=== PATIENT | male | born 1955 | race Hispanic/Latino ===

== ENCOUNTER 2017-07-03 17:04 | Inpatient (IN) | payer MEDICARE ==
[2017-07-03 17:07] VITALS: BMI 27.6
[2017-07-03 17:18] LABS: BASO # 0.1 K/uL (0.0-0.2); EOS # 0.1 K/uL (0.0-0.7); EOS % 1.4 % (0.0-4.0); HEMOGLOBIN 15.4 g/dL (12.0-18.0); LYMPH # 1.4 K/uL (1.0-4.3); LYMPH % 12.5 % (20.0-40.0); MEAN CORPUSCULAR HEMOGLOBIN 27.8 pg (27.0-31.0); MEAN CORPUSCULAR HGB CONC 34.5 g/dL (33.0-37.0); MEAN PLATELET VOLUME 8.8 fL (7.2-11.7); NEUT # 8.3 K/uL (1.8-7.0); NEUT % 76.1 % (50.0-75.0); NRBC % 0.1 % (0.0-2.0); RBC 5.55 Mil/uL (4.40-5.90); RED CELL DISTRIBUTION WIDTH 13.9 % (11.5-14.5); WHITE BLOOD COUNT 10.9 K/uL (4.8-10.8)
[2017-07-03 17:21] LABS: MEAN CELL VOLUME 80.4 fL (80.0-94.0)
[2017-07-03 17:26] LABS: INR 1.1; PROTHROMBIN TIME 12.7 SECONDS (9.7-12.2)
[2017-07-03 17:34] LABS: ALB/GLOB RATIO 1.1 (1.0-2.1); ALBUMIN 3.9 g/dL (3.5-5.0); ALT/SGPT 29 U/L (21-72); AST/SGOT 34 U/L (17-59); BLOOD UREA NITROGEN 17 mg/dL (9-20); CALCIUM 8.5 mg/dl (8.6-10.4); GFR AFRICAN-AMERICAN > 60; GFR NON-AFRICAN AMERICAN > 60; HDL CHOLESTEROL 34 mg/dL (30-70)
--- NOTE | 2017-07-03 17:41 | RAD ---
HISTORY: Stroke ALERT COMPARISON: Comparison is made with 03/12/2023 FINDINGS: LUNGS: Small bibasilar opacities likely atelectasis. Otherwise no interval change .P PLEURA: No significant pleural effusion identified, no pneumothorax apparent. CARDIOVASCULAR: Normal. OSSEOUS STRUCTURES: No significant abnormalities. VISUALIZED UPPER ABDOMEN: Normal. OTHER FINDINGS: None. IMPRESSION: Small bibasilar opacities likely atelectasis. Otherwise no interval change.
[2017-07-03 17:46] LABS: LDL CHOLESTEROL 76 mg/dL (0-129)
--- NOTE | 2017-07-03 18:07 | C.PDOC ---
"History Of Present Illness Patient BIBA for evaluation of B/L worsening leg weakness, worse slurred speech since he woke up this morning. As per patient and family at bedside, he went to bed last night and felt fine. This morning he woke up around 8am and felt too weak to walk. He fell onto his B/L knees. Family noticed he was weaker than usual. 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 He took ASA 162 mg this morning. Time Seen by Provider: 07/03/17 17:10 Chief Complaint (Nursing): Weakness/Neurological Deficit History Per: Patient, Family (mother and sister) History/Exam Limitations: no limitations Onset/Duration Of Symptoms: Days (last seen normal last night) Current Symptoms Are (Timing): Still Present Fall Associated With With Symptoms: Yes, No Injury As Result Of Fall (right knee pain) Past Medical History Reviewed: Historical Data, Nursing Documentation, Vital Signs Vital Signs: Last Vital Signs Temp 98.6 F 07/03/17 17:07 Pulse 74 07/03/17 17:41 Resp 20 07/03/17 17:41 BP 188/105 H 07/03/17 17:41 Pulse Ox 94 L 07/03/17 18:36 - Medical History PMH: Alzheimer's Disease, CVA, Dementia, Depression, Gastrointestinal Ulcer, HTN , Hypercholesterolemia, Chronic Kidney Disease, TIA (multiple as per sister) - [facility] Procedures BATHING/SHOWERING TECHNIQUES TREATMENT (03/16/15) DRESSING TECHNIQUES TREATMENT (03/16/15) EXCISION OF TOE NAIL, EXTERNAL APPROACH (03/16/15) EXTRACTION OF LEFT FOOT SKIN, EXTERNAL APPROACH (05/04/15) HOME MANAGEMENT TREATMENT (03/16/15) SPEECH PATH SUPERVISOR SLATE SPLITTING TREATMENT (03/16/15) THERAPEUTIC EXERCISE TREATMENT OF MUSCULOSK WHOLE (03/16/15) Family History: States: Hypertension - Social History Hx Tobacco Use: No Hx Alcohol Use: No Hx Substance Use: No - Immunization History Hx Tetanus Toxoid Vaccination: No Hx Influenza Vaccination: No Hx Pneumococcal Vaccination: Yes Review Of Systems Except As Marked, All Systems Reviewed And Found Negative. Constitutional: Negative for: Fever, Chills Cardiovascular: Negative for: Chest Pain, Palpitations Respiratory: Negative for: Cough, Shortness of Breath Gastrointestinal: Negative for: Nausea, Vomiting, Abdominal Pain, Diarrhea Neurological: Positive for: Weakness (B/L leg weakness), Change in Speech. Negative for: Numbness, Incoordination, Confusion, Altered Mental Status, Headache, Dizziness Physical Exam - Physical Exam Appears: Well, Non-toxic, No Acute Distress Skin: Normal Color, Warm, Dry Head: Atraumatic, Normacephalic Eye(s): bilateral: Normal Inspection, PERRL, EOMI Oral Mucosa: Moist Cardiovascular: Rhythm Regular Respiratory: Normal Breath Sounds, No Rales, No Rhonchi, No Wheezing Gastrointestinal/Abdominal: Normal Exam, Bowel Sounds, Soft, No Tenderness Extremity: No Tenderness (right knee mild TTP, abrasion on patella), No Pedal Edema, No Calf Tenderness, No Deformity Pulses: Left Dorsalis Pedis: Normal, Right Dorsalis Pedis: Normal Neurological/Psych: Oriented x3, No Normal Speech (mildly slurred speech), Normal Cognition, No Normal Cranial Nerves, No Cerebellar Signs, No Normal Motor (4/4 motor strength RUE, RLE), Normal Sensation ED Course And Treatment - Laboratory Results Result Diagrams: 07/03/17 17:14 07/03/17 17:14 ECG: Interpreted By Me, Viewed By Me (sinus rhythm 78 bpm, first degree AV block , left axis deviation, Q waves III, aVF, no acute ST changes) ECG Interpretation: Abnormal O2 Sat by Pulse Oximetry: 94 (RA) Pulse Ox Interpretation: Normal - Other Rad CXR X-Ray: Viewed By Me, Read By Radiologist Interpretation: Accession No. : [id number]. Patient Name / ID : SONIA ALSON / [id number]. Exam Date : 07/03/2017 17:28:57 ( Approved ). Study Comment : Sex / Age : M / 62Y. Creator : Chelsea Wade MD. Dictator : Chelsea Wade MD. Platform Man : Antique Collector : Chelsea Wade MD. Approver2 : Report Date : 07/03/2017 17:39:41. My Comment : . HISTORY: Stroke ALERT. COMPARISON: Comparison is made with 03/12/2023. FINDINGS: LUNGS: Small bibasilar opacities likely atelectasis. Otherwise no interval change .P. PLEURA: No significant pleural effusion identified, no pneumothorax apparent. CARDIOVASCULAR: Normal. OSSEOUS STRUCTURES: No significant abnormalities. VISUALIZED UPPER ABDOMEN: Normal. OTHER FINDINGS: None. IMPRESSION: Small bibasilar opacities likely atelectasis. Otherwise no interval change. - CT Scan/US ct head Other Rad Studies (CT/US): Read By Radiologist, Radiology Report Reviewed CT/US Interpretation: Name: DORI SCOTT Age: 62Years M Date: 07/03/2017. Requesting Physician: MIRANDA PEÑA : 1955. [facility] Procedure Ordered As Accession Number of Images. CT HEAD WO CT HEAD W O CODE STROKE [id number]. Provided Clinical History: Code Stroke. Page 1 of 2. Addendum created by Gucci Horne MD on 07/03/2017 5:40 PM Eastern Time ([place] & [place]). THIS REPORT CONTAINS FINDINGS THAT MAY BE CRITICAL TO PATIENT CARE. The findings. were verbally communicated via telephone conference with MIRANDA PEÑA at 5:40 PM EST on. 07/03/2017. The findings were acknowledged and understood. Initial Report created on 07/03/2017 5:34 PM Eastern Time ([place] & [place]). EXAM: CT Head Without Intravenous Contrast. CLINICAL HISTORY: 62 years old, male; Signs and symptoms; Walking, difficulty; Additional info: Code stroke. TECHNIQUE: Axial computed tomography images of the head/brain without intravenous contrast. All CT scans at. this facility use one or more dose reduction techniques, viz.: automated exposure control; ma/kV. adjustment per patient size (including targeted exams where dose is matched to indication; i.e. head);. or iterative reconstruction technique. Coronal and sagittal reformatted images were created and reviewed. COMPARISON: CT - HEAD W/O (CODE STROKE) 2014-12-13 00:08. FINDINGS: Brain: There are multiple small hypodensities in the basal ganglia, consistent with remote lacunar. infarctions. Mild volume loss is seen in keeping with age. Mild decrease in attenuation of the. periventricular white matter likely related to small vessel ischemic change. The brain otherwise with. normal beal-white matter differentiation, demonstrating no edema, mass effect, acute hemorrhage, or. focal mass. Ventricles: Unremarkable. No ventriculomegaly. Bones/joints: Unremarkable. No acute fracture. MARI SCOTTJj | Preliminary Radiology Report. BUSINESS APPLICATIONS SPECIALIST (QA) DISCREPANCY? If there is a discrepancy between the preliminary and final interpretation, please notify [facility] via [email or web address]. If you do not have access to our QA portal, call our QA team at [phone]. CONFIDENTIALITY STATEMENT. This report is intended only for the use of the referring physician, and only in accordance with law, If you received this in error, call [phone]. Page 2 of 2. Soft tissues: Unremarkable. Sinuses: Small retention cysts left maxillary sinus. Mastoid air cells: Unremarkable as visualized. No mastoid effusion. IMPRESSION: There is mild atrophy and chronic white matter ischemic changes, with no evidence of an acute. intracranial abnormality. Multiple foci of small chronic lacunar infarction bilaterally. Small retention cysts left maxillary sinus. Thank you for allowing us to participate in the care of your patient. Dictated and Authenticated by: Gucci Horne MD. 07/03/2017 5 :34 PM Eastern Time ([place] & [place]) Progress Note: Blood work, EKG, CXR, CT head ordered and reviewed. Patient given PO ASA 162 mg. - Physician Consult Information Physician Contacted: Paige Hendricks Outcome Of Conversation: Discussed patient with hospitalist Dr. Hendricks, agrees with admission for TIA vs CVA, requests admission be under night hospitalist Dr. Shaffer's name. Dr. Bowen consult entered for neurology. NIHSS Stroke Scale - Date/Time Evaluation Performed Date Performed: 07/03/17 Time Performed: 17:05 When Was NIHSS Performed: Baseline - How Severe is the Stoke Level of Consciousness: 0=Alert LOC to Questions: 0=Both comments correct LOC to commands: 0=Obeys both correctly Best Gaze: 0=Normal Visual: 0=No visual loss Facial: 0=Normal Motor Arm - Left: 0=No drift Motor Arm - Right: 0=No drift Motor Leg - Left: 0=No drift Motor Leg - Right: 0=No drift Limb Ataxia: 0=Absent Sensory: 0=Normal Best Language: 0=No aphasia Dysarthia: 1=Mild to moderate slurring Extinction & Inattention (Neglect): 0=Normal, no object Score: 1 rTPA Inclusion/Exclusion - Refusal of Treatment Patient Refused Treatment: No - Inclusion Criteria for Altepase Patient is 18 years or Older: Yes The Clinical Diagnosis of Ischemic Stroke That is Causing a Potentially Disabling Neurological Deficit: Yes Time of Onset is Well Established to be Less Than 270 Minute Before Treatment Would Begin: No Risk/Benefit Discussed With Patient/Family Member Present: No Disposition - Disposition Forms: [place] (Sami)"
--- NOTE | 2017-07-03 18:59 | CT ---
PROCEDURE: CT HEAD WITHOUT CONTRAST. HISTORY: Code Stroke COMPARISON: Comparison is made with 03/12/2015 TECHNIQUE: Axial computed tomography images were obtained through the head/brain without intravenous contrast. Radiation dose: Total exam DLP = 968.97 mGy-cm. This CT exam was performed using one or more of the following dose reduction techniques: Automated exposure control, adjustment of the mA and/or kV according to patient size, and/or use of iterative reconstruction technique. FINDINGS: HEMORRHAGE: No intracranial hemorrhage. BRAIN: No mass effect or edema. Again seen are bilateral basal ganglia and cutler radiata chronic lacunar infarction. [id number]-[id number] atrophy and moderate chronic microvascular white matter ischemic disease are again noted. VENTRICLES: Unremarkable. No hydrocephalus. CALVARIUM: Unremarkable. PARANASAL SINUSES: Mucosal retention cyst is again seen at the left maxillary sinus. MASTOID AIR CELLS: Unremarkable as visualized. No inflammatory changes. OTHER FINDINGS: None. IMPRESSION: No evidence of acute intracranial hemorrhage mass effect or midline shift. No significant interval change in the brain noted since the previous exam. Chronic bilateral basal ganglia and cutler radiata infarction. Volume loss and moderate chronic microvascular ischemic disease. Preliminary report was submitted by [facility].
--- NOTE | 2017-07-03 21:34 | CP.PCM.HP ---
Addendum entered and electronically signed by Romero Chen DO 07/03/17 22:18: Home meds: Multivitamin, Omeprazole 20 mg PO BID, Namenda 10 mg PO daily, Hydralazine 25 mg PO BID, Exelon patch 1 daily, Welbutrin 75 mg PO daily, Crestor 10 mg PO daily, Aspirin 325 mg PO daily Original Note: <Romero Chen - Last Filed: 07/03/17 22:08> History of Present Illness - History of Present Illness History of Present Illness: PGY-1 H&P for Dr. Shaffer CC: "I fell out of bed." This is a 62 year old male with PMHx multiple CVA (most recent one 2 years prior ), vascular dementia, HTN who presents complaining of weakness that started this morning. Patient states that he fell out of bed this morning. His room was well lit but he was unable to describe exactly how he fell. Per patient, he did not hit his head or lose consciousness. Patient was last seen well last night by his two sisters whom he lives with. Patient is unable to stand up on his own per his siblings. Patient admits chronic decreased sensations to pain stimulus due to prior CVA. Per siblings, patient is chronically incontinent of urine because he forgets to go to the bathroom. Per his siblings, patient has improved his health since his prior stroke with diet modifications allowing him to drop down to one antihypertensive medication; however, patient will get his nephew to bring sodas for him. Patient denies changes in vision, numbness, tingling, dizziness, headaches. PMHx: multiple CVAs (most recently 2 years ago), HTN, HLD, Vascular Dementia, bladder CA, CKD, GERD and depression PSHx: Bladder surgery in 2009 Allergies: NKDA Social: Former EtOH use, socially. Denies tobacco and drug use. Currently lives with his two sisters. 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 FamHx: mother-CVA, Alzheimer's, sister-breast CA PMD: Dr. Joiner Cardio: Dr. Nettles Neuro: Dr. Bowen Present on Admission - Present on Admission Any Indicators Present on Admission: No Review of Systems - Constitutional Constitutional: absent: Chills, Fever, Headache - EENT Eyes: absent: Change in Vision Ears: absent: Decreased Hearing Nose/Mouth/Throat: absent: Nasal Congestion - Cardiovascular Cardiovascular: absent: Chest Pain, Dyspnea, Pedal Edema - Respiratory Respiratory: absent: Cough, Dyspnea, Wheezing - Gastrointestinal Gastrointestinal: absent: Abdominal Pain, Constipation, Diarrhea, Nausea, Vomiting - Genitourinary Genitourinary: Urinary Incontinence (chronic). absent: Dysuria - Musculoskeletal Musculoskeletal: absent: Numbness, Tingling - Neurological Neurological: Weakness. absent: Dizziness, Numbness, Tingling - Psychiatric Psychiatric: absent: Anxiety Past Patient History - Infectious Disease Hx of Infectious Diseases: None - Tetanus Immunizations Tetanus Immunization: Unknown - Past Medical History & Family History Past Medical History?: Yes - Past Social History Smoking Status: Former Smoker - CARDIAC Hx Cardiac Disorders: Yes Hx Hypercholesterolemia: Yes Hx Hypertension: Yes - PULMONARY Hx Respiratory Disorders: No - NEUROLOGICAL Hx Neurological Disorder: Yes Hx Alzheimer's Disease: Yes Hx Dementia: Yes Hx Transient Ischemic Attacks (TIA): Yes (multiple as per sister) - HEENT Hx HEENT Problems: No Other/Comment: wears reading glasses - RENAL Hx Chronic Kidney Disease: Yes - ENDOCRINE/METABOLIC Hx Endocrine Disorders: Yes Hx Diabetes Mellitus Type 2: Yes - HEMATOLOGICAL/ONCOLOGICAL Hx Blood Disorders: Yes Hx Cancer: Yes (bladder Ca history.) - INTEGUMENTARY Hx Dermatological Problems: No - MUSCULOSKELETAL/RHEUMATOLOGICAL Hx Musculoskeletal Disorders: Yes Hx Falls: Yes (L sided weakness from previous TIA) - GASTROINTESTINAL Hx Gastrointestinal Disorders: Yes Hx Gastroesophageal Reflux: Yes Hx Ulcer: Yes - GENITOURINARY/GYNECOLOGICAL Hx Genitourinary Disorders: Yes Hx Bladder Cancer: Yes (in remission) - PSYCHIATRIC Hx Psychophysiologic Disorder: Yes Hx Depression: Yes Hx Substance Use: No - SURGICAL HISTORY Hx Surgeries: Yes Other/Comment: abdominal surgery @ age 1. bladder surgery 2009. - ANESTHESIA Hx Anesthesia: Yes Hx Anesthesia Reactions: No Hx Malignant Hyperthermia: No Meds Allergies/Adverse Reactions: Allergies Allergy/AdvReac Type Severity Reaction Status Date / Time No Known Allergies Allergy Verified 05/04/15 21:17 Physical Exam - Constitutional Appears: No Acute Distress - Head Exam Head Exam: ATRAUMATIC, NORMOCEPHALIC - Eye Exam Eye Exam: EOMI, PERRL - ENT Exam ENT Exam: Mucous Membranes Moist - Respiratory Exam Respiratory Exam: Clear to Auscultation Bilateral. absent: Rales, Rhonchi, Wheezes - Cardiovascular Exam Cardiovascular Exam: REGULAR RHYTHM, +S1, +S2 - GI/Abdominal Exam GI & Abdominal Exam: Normal Bowel Sounds, Soft. absent: Distended, Guarding, Tenderness - Extremities Exam Extremities exam: Positive for: pedal pulses present. Negative for: pedal edema Additional comments: Left foot held in plantarflexion, inversion, internal rotation. This is from prior ankle injury. - Neurological Exam Neurological exam: Alert, CN II-XII Intact, Oriented x3 Additional comments: Manual muscle strength testing 5/5 bilaterally in the upper and lower extremities. Sensations to light touch equal and symmetric in bilateral lower extremities. Equivocal plantar responses. No pronator drift. No clonus elicited. Normal finger to nose test. Gait exam deferred. - Psychiatric Exam Psychiatric exam: Normal Affect, Normal Mood - Skin Skin Exam: Dry, Normal Color, Warm Additional comments: healing sore on lateral left foot Left and right knee with abrasions Right>left Results - Vital Signs Recent Vital Signs: Last Vital Signs Temp 98.2 F 07/03/17 21:00 Pulse 69 07/03/17 21:00 Resp 20 07/03/17 21:00 BP 180/104 H 07/03/17 21:00 Pulse Ox 95 07/03/17 21:00 - Labs Result Diagrams: 07/03/17 17:14 07/03/17 17:14 Labs: Laboratory Results - last 24 hr 07/03/17 07/03/17 07/03/17 17:14 17:14 17:14 WBC 10.9 H RBC 5.55 Hgb 15.4 Hct 44.7 MCV 80.4 D MCH 27.8 MCHC 34.5 RDW 13.9 Plt Count 212 MPV 8.8 Neut % (Auto) 76.1 H Lymph % (Auto) 12.5 L [place] % (Auto) 9.0 Eos % (Auto) 1.4 Baso % (Auto) 1.0 Neut # 8.3 H Lymph # 1.4 [place] # 1.0 H Eos # 0.1 Baso # 0.1 PT 12.7 H INR 1.1 APTT 27 Sodium 138 Potassium 3.6 Chloride 103 Carbon Dioxide 25 Anion Gap 13 BUN 17 Creatinine 1.0 Est GFR ( Amer) > 60 Est GFR (Non-Af Amer) > 60 Random Glucose 139 H Hemoglobin A1c Calcium 8.5 L Total Bilirubin 0.8 AST 34 ALT 29 Alkaline Phosphatase 81 Troponin I 0.0180 Total Protein 7.4 Albumin 3.9 Globulin 3.5 Albumin/Globulin Ratio 1.1 Triglycerides 136 Cholesterol 143 LDL Cholesterol Direct 76 HDL Cholesterol 34 Blood Type Antibody Screen 07/03/17 07/03/17 17:14 17:14 WBC RBC Hgb Hct MCV MCH MCHC RDW Plt Count MPV Neut % (Auto) Lymph % (Auto) [place] % (Auto) Eos % (Auto) Baso % (Auto) Neut # Lymph # [place] # Eos # Baso # PT INR APTT Sodium Potassium Chloride Carbon Dioxide Anion Gap BUN Creatinine Est GFR ( Amer) Est GFR (Non-Af Amer) Random Glucose Hemoglobin A1c 6.6 H Calcium Total Bilirubin AST ALT Alkaline Phosphatase Troponin I Total Protein Albumin Globulin Albumin/Globulin Ratio Triglycerides Cholesterol LDL Cholesterol Direct HDL Cholesterol Blood Type A POSITIVE Antibody Screen Negative Assessment & Plan - Assessment and Plan (Free Text) Plan: Code Stroke Head CT shows No evidence of acute intracranial hemorrhage mass effect or midline shift. No significant interval change in the brain noted since the previous exam. Chronic bilateral basal ganglia and cutler radiata infarction. Volume loss and moderate chronic microvascular ischemic disease. Patient's neurologist Dr. Bowen consulted by ED, help appreciated F/u MRI brain f/u echo continued home ASA 325 mg PO daily BP control Statin PT/OT eval History of HTN Continued home Hydralazine 25 mg PO BID History of GERD protonix 40 mg PO daily History of Dementia continued home Rivastigmine patch 1 TD daily continued home Namenda 10 mg PO daily History of HLD continued home Crestor 10 mg PO HS History of Depression ccontinued home Wellbutrin 75 mg PO daily Prophylactic Measure Heart healthy 2gm sodium diet protonix 40 mg PO daily Heparin 5000 units SC Q8 Case DW Dr. Deena Chen PGY-1 <Byron Shaffer - Last Filed: 07/04/17 06:16> Results - Vital Signs Recent Vital Signs: Last Vital Signs Temp 97.8 F 07/04/17 04:50 Pulse 64 07/04/17 04:50 Resp 20 07/04/17 04:50 BP 165/97 H 07/04/17 04:50 Pulse Ox 96 07/04/17 04:50 - Labs Result Diagrams: 07/03/17 17:14 07/03/17 17:14 Labs: Laboratory Results - last 24 hr 07/03/17 07/03/17 07/03/17 17:14 17:14 17:14 WBC 10.9 H RBC 5.55 Hgb 15.4 Hct 44.7 MCV 80.4 D MCH 27.8 MCHC 34.5 RDW 13.9 Plt Count 212 MPV 8.8 Neut % (Auto) 76.1 H Lymph % (Auto) 12.5 L [place] % (Auto) 9.0 Eos % (Auto) 1.4 Baso % (Auto) 1.0 Neut # 8.3 H Lymph # 1.4 [place] # 1.0 H Eos # 0.1 Baso # 0.1 PT 12.7 H INR 1.1 APTT 27 Sodium 138 Potassium 3.6 Chloride 103 Carbon Dioxide 25 Anion Gap 13 BUN 17 Creatinine 1.0 Est GFR ( Amer) > 60 Est GFR (Non-Af Amer) > 60 POC Glucose (mg/dL) Random Glucose 139 H Hemoglobin A1c Calcium 8.5 L Total Bilirubin 0.8 AST 34 ALT 29 Alkaline Phosphatase 81 Troponin I 0.0180 Total Protein 7.4 Albumin 3.9 Globulin 3.5 Albumin/Globulin Ratio 1.1 Triglycerides 136 Cholesterol 143 LDL Cholesterol Direct 76 HDL Cholesterol 34 Blood Type Antibody Screen 07/03/17 07/03/17 07/03/17 17:14 17:14 21:32 WBC RBC Hgb Hct MCV MCH MCHC RDW Plt Count MPV Neut % (Auto) Lymph % (Auto) [place] % (Auto) Eos % (Auto) Baso % (Auto) Neut # Lymph # [place] # Eos # Baso # PT INR APTT Sodium Potassium Chloride Carbon Dioxide Anion Gap BUN Creatinine Est GFR ( Amer) Est GFR (Non-Af Amer) POC Glucose (mg/dL) 105 Random Glucose Hemoglobin A1c 6.6 H Calcium Total Bilirubin AST ALT Alkaline Phosphatase Troponin I Total Protein Albumin Globulin Albumin/Globulin Ratio Triglycerides Cholesterol LDL Cholesterol Direct HDL Cholesterol Blood Type A POSITIVE Antibody Screen Negative Assessment & Plan - Date & Time Date: 07/04/17 (I have seen and examined the patient. I agree with the findings and plan of care as documented by Dr. Chen. Code Stroke called in ED. Patient with history of prior CVA. Continue home meds. Aspirin and Statin. Check MRI brain in AM. 2D Echo. Consult to neuro. Continue home meds for history of hypertension. Adjust meds as necessary. Monitor for acute changes.) Time: 06:14 Attending/Attestation - Attestation I have personally seen and examined this patient.: Yes I have fully participated in the care of the patient.: Yes I have reviewed all pertinent clinical information: Yes
[2017-07-04 06:48] LABS: BASO # 0.1 K/uL (0.0-0.2); BASO % 0.7 % (0.0-2.0); EOS # 0.2 K/uL (0.0-0.7); EOS % 2.4 % (0.0-4.0); HEMOGLOBIN 15.8 g/dL (12.0-18.0); LYMPH # 1.5 K/uL (1.0-4.3); LYMPH % 17.9 % (20.0-40.0); MEAN CELL VOLUME 80.7 fL (80.0-94.0); MEAN CORPUSCULAR HGB CONC 34.7 g/dL (33.0-37.0); MEAN PLATELET VOLUME 9.3 fL (7.2-11.7); MONO # 0.8 K/uL (0.0-0.8); MONO % 9.1 % (0.0-10.0); NEUT # 5.9 K/uL (1.8-7.0); NEUT % 69.9 % (50.0-75.0); NRBC % 0.1 % (0.0-2.0); RBC 5.66 Mil/uL (4.40-5.90); WHITE BLOOD COUNT 8.4 K/uL (4.8-10.8)
[2017-07-04 07:00] LABS: ALB/GLOB RATIO 1.1 (1.0-2.1); ALBUMIN 3.7 g/dL (3.5-5.0); ALT/SGPT 32 U/L (21-72); AST/SGOT 37 U/L (17-59); BLOOD UREA NITROGEN 12 mg/dL (9-20); CALCIUM 8.6 mg/dl (8.6-10.4); GFR AFRICAN-AMERICAN > 60; GFR NON-AFRICAN AMERICAN > 60; HDL CHOLESTEROL 31 mg/dL (30-70)
[2017-07-04 07:07] LABS: LDL CHOLESTEROL 80 mg/dL (0-129)
[2017-07-04] MEDS ORDERED: Potassium Chloride 20 mEq ER Tab PO STA (07:12)
[2017-07-04] MEDS: Pantoprazole 40 mg EC Tab PO SCH (09:10)
[2017-07-04] MEDS: Multivitamin With Minerals Tab PO SCH (09:11)
--- NOTE | 2017-07-04 09:56 | RAD ---
PROCEDURE: Right Knee Radiographs. HISTORY: RIGHT KNEE INJURY AFTER FALL COMPARISON: None. FINDINGS: BONES: No fracture. Generalized osteopenia. Tibial spine spurring. JOINTS: Patellofemoral medial femoral tibial mild osteoarthrosis JOINT EFFUSION: None. OTHER FINDINGS: Medial femoral condylar level extra osseous calcification/ossification -old medial collateral ligament injury inferred Arterial vascular calcifications IMPRESSION: No acute fracture or dislocation. Mild osteoarthrosis. Old medial collateral ligament injury inferred
[2017-07-04] MEDS ORDERED: Bacitracin 500 Units/gm Oint Foilpak UD TOP ONE (11:34)
--- NOTE | 2017-07-04 12:43 | MRI ---
PROCEDURE: MRI BRAIN WITHOUT CONTRAST HISTORY: cva vs tia COMPARISON: CT head 07/03/2017. MRI brain 03/13/2015 TECHNIQUE: Multiplanar, multisequence MR images of the brain were obtained without intravenous contrast enhancement. FINDINGS: HEMORRHAGE: None DWI: No evidence of an acute or early subacute infarction. BRAIN PARENCHYMA: There is widening of the cerebral sulci bilaterally with mild compensatory ventricular enlargement. This is consistent with cerebral atrophy. Within the periventricular and subcortical white matter, there are bilateral scattered small foci of abnormal T2 signal intensity. In a patient of this age, this is most consistent with mild small vessel ischemic changes. Prominent multifocal chronic infarcts with the basal ganglia, thalami, cutler radiata, centrum semiovale and bilateral cerebellar hemispheres, unchanged. Stable chronic mass effect on the right lateral dane related to a tortuous and mildly ectatic right posterior cerebral artery. VENTRICLES: See above CRANIUM: Calvarium is intact. ORBITS: Grossly unremarkable. PARANASAL SINUSES/MASTOIDS: Small polyps versus mucous retention cysts are partially visualized in the left maxillary sinus. Remainder of the visualized paranasal sinuses and mastoid air cells are clear. VASCULAR SYSTEM: Skull base flow voids intact. OTHER FINDINGS: None. IMPRESSION: No mass, hemorrhage, or acute infarct identified. Stable age-related changes and chronic findings as above.
--- NOTE | 2017-07-04 13:31 | CARD ---
APPROVED REPORT EKG Measurement Heart [id number] 256P-4 [id number] <Conclusion> Sinus rhythm with sinus arrhythmia with 1st degree AV block with occasional premature ventricular complexes Left axis deviation Inferior infarct, age undetermined Abnormal ECG
--- NOTE | 2017-07-04 13:47 | CP.PCM.PN ---
<Dajuan Smith - Last Filed: 07/04/17 13:44> Subjective - Date & Time of Evaluation Date of Evaluation: 07/04/17 Time of Evaluation: 13:00 - Subjective Subjective: Patient has been seen and examined. No overnight events reported. Episode of hematuria reported this morning by the nurse. Patient admits to also having blood in the urine 3 days ago. Denies any dysuria. Currently denies any focal muscle weakness or sensory loss. Denies any LH, dizziness, chest pain, SOB, or abdominal pain. Objective - Vital Signs/Intake and Output Vital Signs (last 24 hours): Temp Pulse Resp BP Pulse Ox 97.6 F 72 20 164/86 H 97 07/04/17 07:20 07/04/17 12:03 07/04/17 07:20 07/04/17 11:25 07/04/17 07:20 Intake and Output: 07/04/17 07/04/17 06:59 18:59 Intake Total 50 Output Total 700 Balance -650 - Medications Medications: Current Medications Aspirin (Aspirin) 325 mg PO DAILY [facility] Last Admin: 07/04/17 09:17 Dose: 325 mg Bupropion HCl (Wellbutrin) 75 mg PO DAILY [facility] Last Admin: 07/04/17 09:11 Dose: 75 mg Heparin Sodium (Porcine) (Heparin) 5,000 units SC Q8 [facility] Last Admin: 07/04/17 13:00 Dose: Not Given Hydralazine HCl (Apresoline) 25 mg PO BID [facility] Last Admin: 07/04/17 09:10 Dose: 25 mg Memantine (Namenda) 10 mg PO DAILY [facility] Last Admin: 07/04/17 09:10 Dose: 10 mg Multivitamins/Minerals (Therapeutic-M Tab) 1 tab PO DAILY [facility] Last Admin: 07/04/17 09:11 Dose: 1 tab Pantoprazole Sodium (Protonix Ec Tab) 40 mg PO DAILY [facility] Last Admin: 07/04/17 09:10 Dose: 40 mg Pneumococcal Polyvalent Vaccine (Pneumovax 23 Vaccine) 0.5 ml IM .ONCE ONE Stop: 07/05/17 10:01 Rivastigmine (Exelon 9.5 Mg/24 Hr Patch) 1 patch TD DAILY [facility] Last Admin: 07/04/17 09:11 Dose: 1 patch Rosuvastatin Calcium (Crestor) 10 mg PO DAILY [facility] Last Admin: 07/04/17 11:25 Dose: Not Given - Labs Labs: 07/04/17 06:32 07/04/17 06:32 PT 12.7 SECONDS (9.7-12.2) H 07/03/17 17:14 INR 1.1 07/03/17 17:14 APTT 29 SECONDS (21-34) 07/04/17 06:32 - Constitutional Appears: Well, Non-toxic - Head Exam Head Exam: ATRAUMATIC, NORMOCEPHALIC - Eye Exam Eye Exam: EOMI, Normal appearance, PERRL. absent: Scleral icterus - ENT Exam ENT Exam: Mucous Membranes Moist - Respiratory Exam Respiratory Exam: Clear to Ausculation Bilateral. absent: Rales, Rhonchi, Wheezes - Cardiovascular Exam Cardiovascular Exam: RRR, +S1, +S2 - GI/Abdominal Exam GI & Abdominal Exam: Soft, Normal Bowel Sounds. absent: Tenderness - Extremities Exam Extremities Exam: absent: Pedal Edema Additional comments: Left foot held in plantarflexion, inversion, internal rotation. This is from prior ankle injury. - Neurological Exam Neurological Exam: Alert, Awake, CN II-XII Intact, Oriented x3 Neuro motor strength exam: Left Upper Extremity: 5, Right Upper Extremity: 5, Left Lower Extremity: 5, Right Lower Extremity: 5 - Psychiatric Exam Psychiatric exam: Normal Mood. absent: Normal Affect (Restricted Affect) - Skin Skin Exam: Dry, Intact, Normal Color, Warm Additional comments: healing sore on lateral left foot Left and right knee with abrasions Right>left Assessment and Plan - Assessment and Plan (Free Text) Assessment: 62 year old male with PMHx multiple CVA (most recent one 2 years prior), vascular dementia, HTN, GERD, bladder CA (Remission for 9 years) who presented with weakness, especially lower ext weakness and fall. Plan: Plan: Code Stroke Head CT shows No evidence of acute intracranial hemorrhage mass effect or midline shift. No significant interval change in the brain noted since the previous exam. Chronic bilateral basal ganglia and cutler radiata infarction. Volume loss and moderate chronic microvascular ischemic disease. Patient's neurologist Dr. Bowen consulted by ED, help appreciated F/u MRI brain f/u echo continued home ASA 325 mg PO daily BP control Statin PT/OT eval PT eval not done due to hypokalemia. Hematuria Patient has a hx of bladder CA 9 years ago. Was seeing urologist (Dr. Felix Lazcano). Ordered UA/UC Ordered Renal/Bladder US History of HTN Continued home Hydralazine 25 mg PO BID History of GERD protonix 40 mg PO daily History of Dementia continued home Rivastigmine patch 1 TD daily continued home Namenda 10 mg PO daily History of HLD continued home Crestor 10 mg PO HS History of Depression ccontinued home Wellbutrin 75 mg PO daily Prophylactic Measure Heart healthy 2gm sodium diet protonix 40 mg PO daily Heparin 5000 units SC Q8 Patient seen and discussed with Attending Dajuan Smith - PGY1 <Rosita Henry V - Last Filed: 07/04/17 19:00> Objective - Vital Signs/Intake and Output Vital Signs (last 24 hours): Temp Pulse Resp BP Pulse Ox 98.9 F 76 21 148/87 95 07/04/17 15:00 07/04/17 15:00 07/04/17 15:00 07/04/17 15:00 07/04/17 15:00 Intake and Output: 07/04/17 07/04/17 06:59 18:59 Intake Total 50 400 Output Total 700 400 Balance -650 0 - Medications Medications: Current Medications Aspirin (Aspirin Chewable) 81 mg PO DAILY [facility] Bupropion HCl (Wellbutrin) 75 mg PO DAILY [facility] Last Admin: 07/04/17 09:11 Dose: 75 mg Heparin Sodium (Porcine) (Heparin) 5,000 units SC Q8 [facility] Last Admin: 07/04/17 13:00 Dose: Not Given Lisinopril (Zestril) 20 mg PO DAILY [facility] Last Admin: 07/04/17 16:52 Dose: 20 mg Memantine (Namenda) 10 mg PO DAILY [facility] Last Admin: 07/04/17 09:10 Dose: 10 mg Multivitamins/Minerals (Therapeutic-M Tab) 1 tab PO DAILY [facility] Last Admin: 07/04/17 09:11 Dose: 1 tab Pantoprazole Sodium (Protonix Ec Tab) 40 mg PO DAILY [facility] Last Admin: 07/04/17 09:10 Dose: 40 mg Pneumococcal Polyvalent Vaccine (Pneumovax 23 Vaccine) 0.5 ml IM .ONCE ONE Stop: 07/05/17 10:01 Rivastigmine (Exelon 9.5 Mg/24 Hr Patch) 1 patch TD DAILY [facility] Last Admin: 07/04/17 09:11 Dose: 1 patch Rosuvastatin Calcium (Crestor) 10 mg PO DAILY [facility] Last Admin: 07/04/17 11:25 Dose: Not Given - Labs Labs: 07/04/17 06:32 07/04/17 06:32 PT 12.7 SECONDS (9.7-12.2) H 07/03/17 17:14 INR 1.1 07/03/17 17:14 APTT 29 SECONDS (21-34) 07/04/17 06:32 Attending/Attestation - Attestation I have personally seen and examined this patient.: Yes I have fully participated in the care of the patient.: Yes I have reviewed all pertinent clinical information, including history, physical exam and plan: Yes Notes (Text): Patient seen, examined, and case discussed with medical device engineer. Patient came in following mechanical fall while leaving his bed and landing on his knees. Patient was brought in by his nephew to the hospital shortly after. Patient seen this seen this morning. Patient denies acute complaints except for abrasion over her right patella and a minor scrape over the left kneecap.. Discussed with nursing staff patient was noted to have hematuria. Per patient started about 3 days ago which surprised his sister at bedside. Patient does have a history of bladder cancer that he underwent chemotherapy and radiation about [address] Yani Lazcano. It is unknown to me if Dr. Lazcano comes to [facility] or not. I will left a message with patient's urologist to follow-up. H&H is stable and have spoke with evening nurse who reports there is mild hematuria when he does urinate. Patient is on antiplatelet therapy given his recurrent strokes. In terms of stroke workup, patient had has completed brain MRI which does not show acute infarcts however does show chronic emboli which may suggest cardiac origin. Neurology and cardiology consultation on the case. Cardiology has order for a FAISAL for the patient given cardiac etiology of emboli and patient may or may not need loop recorder. Patient's heparin dvt is discontinued in light of hematuria and NPO for FAISAL tomorrow. Assessment/Plan 1) Cerebrovascular Accident, Chronic * Head CT shows No evidence of acute intracranial hemorrhage mass effect or midline shift. No significant interval change in the brain noted since the previous exam. Chronic bilateral basal ganglia and cutler radiata infarction. Volume loss and moderate chronic microvascular ischemic disease. * Patient's neurologist Dr. Bowen consulted by ED, help appreciated * Neurology (Dr. Nj) on case-->help appreciated * Cardiology (Dr. Sales) on case-->help appreciated * Brain MRI (07/04/17): No mass, hemorrhage, or acute infarct identified. Stable age-related changes and chronic findings as above. Which include prominent multifocal chronic infarcts with basal ganglia and thalami coronary radiata centrum semiovale ovale and bilateral cerebellar preston-spheres unchanged and stable chronic mass effect of the right lateral dane related to the tortuous and mildly ectatic right posterior cerebral artery * Patient is on aspirin 81 mg by mouth daily and has received Plavix 75 mg by mouth yesterday. * Patient is nothing by mouth for FAISAL scheduled by cardiology, given the strong suspicion of cardiac origin for what appears to be embolic nature of patient's prior strokes. Patient is nothing by mouth after midnight and I have spoken with patient's nurse this evening. * PT/OT eval * Crestor 10 mg by mouth daily 2) Hematuria History of Bladder Ca * Patient has a hx of bladder CA 9 years ago which was previously treated. Patient was seeing Dr. Felix Lazcano, urologist at the time. * Patient has recurrence of hematuria, which he reports was three days ago. * Order UA, Urine culture, ordered Renal/Bladder US * Urology (Dr. Everardo Lazcano) consult: called placed to his answering service 3) History of HTN * Cardiology on case help appreciated. Discontinued home Hydralazine 25 mg PO BID and replace with lisinopril 20 mg by mouth once a day 4) History of GERD * Protonix 40mg PO daily for GI ppx 5) History of Vascular Dementia * continued home Rivastigmine patch 1 TD daily * continued home Namenda 10 mg PO daily 6) History of HLD * continued home Crestor 10 mg PO HS 7) History of Depression * ccontinued home Wellbutrin 75 mg PO daily 8) Hypokalemia * replaced * monitor at bedside 9) Knee Abrasion * Bactracin ordered for right knee and left knee abrasions 10) Prophylactic Measure * Heart healthy 2gm sodium diet * protonix 40 mg PO daily * Held Heparin 5000 units SC Q8 secondary to hematuria and because patient is nothing by mouth for FAISAL in the morning Disposition: pending PT eval. Patient is NPO for FAISAL in the AM.
--- NOTE | 2017-07-04 14:57 | US ---
PROCEDURE: Ultrasound of the Kidneys HISTORY: hematuria COMPARISON: None available. TECHNIQUE: Sonogram of the kidneys. FINDINGS: RIGHT KIDNEY: Measures: 11.8 x 6.1 x 6.2 cm. Normal in size, contour. Mild increased diffuse cortical echogenicity No stone, solid mass lesion or hydronephrosis visualized. LEFT KIDNEY: Measures: 11.0 x 5.9 x 5.5 cm. Normal in size, contour. Mild increased diffuse cortical echogenicity No stone, solid mass lesion or hydronephrosis visualized. OTHER FINDINGS: Empty bladder Unremarkable aorta portions visualized IMPRESSION: Bilateral mild diffuse increased renal cortical echogenicity focus can be seen with medical renal disease. Correlate clinically. No hydronephrosis or renal mass or renal calculi. Empty bladder
--- NOTE | 2017-07-04 16:14 | CP.PCM.CON ---
History of Present Illness - History of Present Illness History of Present Illness: Mr. Andres is a 62-year-old man with a past medical history of multiple previous ischemic strokes, who continues to have residual deficits with difficulty in ambulation, vascular dementia and dysarthria. He states that he attempted to get out of bed yesterday and as he stood up, he fell due to weakness that he feels is worse. MRI of the brain was done and showed multiple strokes in different vascular regions on both sides of the brain and in the distal as well as proximal regions. Review of Systems - Review of Systems All systems: reviewed and no additional remarkable complaints except Past Patient History - Infectious Disease Hx of Infectious Diseases: None - Tetanus Immunizations Tetanus Immunization: Unknown - Past Medical History & Family History Past Medical History?: Yes - Past Social History Smoking Status: Former Smoker - CARDIAC Hx Cardiac Disorders: Yes Hx Hypercholesterolemia: Yes Hx Hypertension: Yes - PULMONARY Hx Respiratory Disorders: No - NEUROLOGICAL Hx Neurological Disorder: Yes Hx Alzheimer's Disease: Yes Hx Dementia: Yes Hx Transient Ischemic Attacks (TIA): Yes (multiple as per sister) - HEENT Hx HEENT Problems: No Other/Comment: wears reading glasses - RENAL Hx Chronic Kidney Disease: Yes - ENDOCRINE/METABOLIC Hx Endocrine Disorders: Yes Hx Diabetes Mellitus Type 2: Yes - HEMATOLOGICAL/ONCOLOGICAL Hx Blood Disorders: Yes Hx Cancer: Yes (bladder Ca history.) - INTEGUMENTARY Hx Dermatological Problems: No - MUSCULOSKELETAL/RHEUMATOLOGICAL Hx Musculoskeletal Disorders: Yes Hx Falls: Yes (L sided weakness from previous TIA) - GASTROINTESTINAL Hx Gastrointestinal Disorders: Yes Hx Gastroesophageal Reflux: Yes Hx Ulcer: Yes - GENITOURINARY/GYNECOLOGICAL Hx Genitourinary Disorders: Yes Hx Bladder Cancer: Yes (in remission) - PSYCHIATRIC Hx Psychophysiologic Disorder: Yes Hx Depression: Yes Hx Substance Use: No - SURGICAL HISTORY Hx Surgeries: Yes Other/Comment: abdominal surgery @ age 1. bladder surgery 2009. - ANESTHESIA Hx Anesthesia: Yes Hx Anesthesia Reactions: No Hx Malignant Hyperthermia: No Meds Allergies/Adverse Reactions: Allergies Allergy/AdvReac Type Severity Reaction Status Date / Time No Known Allergies Allergy Verified 05/04/15 21:17 - Medications Medications: Current Medications Aspirin (Aspirin) 325 mg PO DAILY [facility] Last Admin: 07/04/17 09:17 Dose: 325 mg Bupropion HCl (Wellbutrin) 75 mg PO DAILY [facility] Last Admin: 07/04/17 09:11 Dose: 75 mg Heparin Sodium (Porcine) (Heparin) 5,000 units SC Q8 [facility] Last Admin: 07/04/17 13:00 Dose: Not Given Hydralazine HCl (Apresoline) 25 mg PO BID [facility] Last Admin: 07/04/17 09:10 Dose: 25 mg Memantine (Namenda) 10 mg PO DAILY [facility] Last Admin: 07/04/17 09:10 Dose: 10 mg Multivitamins/Minerals (Therapeutic-M Tab) 1 tab PO DAILY [facility] Last Admin: 07/04/17 09:11 Dose: 1 tab Pantoprazole Sodium (Protonix Ec Tab) 40 mg PO DAILY [facility] Last Admin: 07/04/17 09:10 Dose: 40 mg Pneumococcal Polyvalent Vaccine (Pneumovax 23 Vaccine) 0.5 ml IM .ONCE ONE Stop: 07/05/17 10:01 Rivastigmine (Exelon 9.5 Mg/24 Hr Patch) 1 patch TD DAILY [facility] Last Admin: 07/04/17 09:11 Dose: 1 patch Rosuvastatin Calcium (Crestor) 10 mg PO DAILY [facility] Last Admin: 07/04/17 11:25 Dose: Not Given Physical Exam - Constitutional Appears: Well - Head Exam Head Exam: ATRAUMATIC, NORMAL INSPECTION, NORMOCEPHALIC - Eye Exam Eye Exam: EOMI, Normal appearance, PERRL - ENT Exam ENT Exam: Mucous Membranes Moist, Normal Exam - Neck Exam Neck exam: Positive for: Normal Inspection - Respiratory Exam Respiratory Exam: Clear to Auscultation Bilateral, NORMAL BREATHING PATTERN - Cardiovascular Exam Cardiovascular Exam: REGULAR RHYTHM, +S1, +S2 - GI/Abdominal Exam GI & Abdominal Exam: Normal Bowel Sounds, Soft. absent: Tenderness - Rectal Exam Rectal Exam: Deferred - Extremities Exam Extremities exam: Positive for: normal inspection - Back Exam Back exam: NORMAL INSPECTION - Neurological Exam Neurological exam: Abnormal Gait, CN II-XII Intact, Oriented x3 Additional comments: Speech is dysarthric, but not aphasic. Reflexes brisk with upgoing plantar responses bilaterally. Strength is diminished on the right side with decreased function on fine motor exam of the right side. NIHSS=3 - Psychiatric Exam Psychiatric exam: Normal Affect, Normal Mood Results - Vital Signs Recent Vital Signs: Last Vital Signs Temp 97.6 F 07/04/17 07:20 Pulse 72 07/04/17 12:03 Resp 20 07/04/17 07:20 BP 164/86 H 07/04/17 11:25 Pulse Ox 97 07/04/17 07:20 - Labs Result Diagrams: 07/04/17 06:32 07/04/17 06:32 Labs: Laboratory Results - last 24 hr 07/03/17 07/03/17 07/03/17 17:03 17:14 17:14 WBC 10.9 H RBC 5.55 Hgb 15.4 Hct 44.7 MCV 80.4 D MCH 27.8 MCHC 34.5 RDW 13.9 Plt Count 212 MPV 8.8 Neut % (Auto) 76.1 H Lymph % (Auto) 12.5 L Reagan % (Auto) 9.0 Eos % (Auto) 1.4 Baso % (Auto) 1.0 Neut # 8.3 H Lymph # 1.4 Reagan # 1.0 H Eos # 0.1 Baso # 0.1 PT 12.7 H INR 1.1 APTT 27 Sodium Potassium Chloride Carbon Dioxide Anion Gap BUN Creatinine Est GFR ( Amer) Est GFR (Non-Af Amer) POC Glucose (mg/dL) 128 H Random Glucose Hemoglobin A1c Calcium Total Bilirubin AST ALT Alkaline Phosphatase Troponin I Total Protein Albumin Globulin Albumin/Globulin Ratio Triglycerides Cholesterol LDL Cholesterol Direct HDL Cholesterol Free T4 TSH 3rd Generation Blood Type Antibody Screen 07/03/17 07/03/17 07/03/17 17:14 17:14 17:14 WBC RBC Hgb Hct MCV MCH MCHC RDW Plt Count MPV Neut % (Auto) Lymph % (Auto) Reagan % (Auto) Eos % (Auto) Baso % (Auto) Neut # Lymph # Reagan # Eos # Baso # PT INR APTT Sodium 138 Potassium 3.6 Chloride 103 Carbon Dioxide 25 Anion Gap 13 BUN 17 Creatinine 1.0 Est GFR ( Amer) > 60 Est GFR (Non-Af Amer) > 60 POC Glucose (mg/dL) Random Glucose 139 H Hemoglobin A1c 6.6 H Calcium 8.5 L Total Bilirubin 0.8 AST 34 ALT 29 Alkaline Phosphatase 81 Troponin I 0.0180 Total Protein 7.4 Albumin 3.9 Globulin 3.5 Albumin/Globulin Ratio 1.1 Triglycerides 136 Cholesterol 143 LDL Cholesterol Direct 76 HDL Cholesterol 34 Free T4 TSH 3rd Generation Blood Type A POSITIVE Antibody Screen Negative 07/03/17 07/04/1707/04/18 21:32 06:29 06:32 WBC RBC Hgb Hct MCV MCH MCHC RDW Plt Count MPV Neut % (Auto) Lymph % (Auto) Reagan % (Auto) Eos % (Auto) Baso % (Auto) Neut # Lymph # Reagan # Eos # Baso # PT INR APTT 29 Sodium Potassium Chloride Carbon Dioxide Anion Gap BUN Creatinine Est GFR ( Amer) Est GFR (Non-Af Amer) POC Glucose (mg/dL) 105 96 Random Glucose Hemoglobin A1c Calcium Total Bilirubin AST ALT Alkaline Phosphatase Troponin I Total Protein Albumin Globulin Albumin/Globulin Ratio Triglycerides Cholesterol LDL Cholesterol Direct HDL Cholesterol Free T4 TSH 3rd Generation Blood Type Antibody Screen 07/04/17 07/04/17 07/04/17 06:32 06:32 06:32 WBC 8.4 RBC 5.66 Hgb 15.8 Hct 45.7 MCV 80.7 MCH 28.0 MCHC 34.7 RDW 14.0 Plt Count 206 MPV 9.3 Neut % (Auto) 69.9 Lymph % (Auto) 17.9 L Reagan % (Auto) 9.1 Eos % (Auto) 2.4 Baso % (Auto) 0.7 Neut # 5.9 Lymph # 1.5 Reagan # 0.8 Eos # 0.2 Baso # 0.1 PT INR APTT Sodium 138 Potassium 3.0 L Chloride 101 Carbon Dioxide 28 Anion Gap 11 BUN 12 Creatinine 1.0 Est GFR ( Amer) > 60 Est GFR (Non-Af Amer) > 60 POC Glucose (mg/dL) Random Glucose 113 H Hemoglobin A1c 6.5 Calcium 8.6 Total Bilirubin 1.0 AST 37 ALT 32 Alkaline Phosphatase 83 Troponin I Total Protein 7.1 Albumin 3.7 Globulin 3.4 Albumin/Globulin Ratio 1.1 Triglycerides 138 Cholesterol 151 LDL Cholesterol Direct 80 HDL Cholesterol 31 Free T4 TSH 3rd Generation 3.17 Blood Type Antibody Screen 07/04/17 07/04/17 06:32 11:16 WBC RBC Hgb Hct MCV MCH MCHC RDW Plt Count MPV Neut % (Auto) Lymph % (Auto) Reagan % (Auto) Eos % (Auto) Baso % (Auto) Neut # Lymph # Reagan # Eos # Baso # PT INR APTT Sodium Potassium Chloride Carbon Dioxide Anion Gap BUN Creatinine Est GFR ( Amer) Est GFR (Non-Af Amer) POC Glucose (mg/dL) 205 H Random Glucose Hemoglobin A1c Calcium Total Bilirubin AST ALT Alkaline Phosphatase Troponin I Total Protein Albumin Globulin Albumin/Globulin Ratio Triglycerides Cholesterol LDL Cholesterol Direct HDL Cholesterol Free T4 1.56 TSH 3rd Generation Blood Type Antibody Screen Assessment & Plan (1) History of CVA (cerebrovascular accident) Assessment and Plan: MRI does not show a new infarct, but there is evidence of multiple chronic ischemic strokes, some of which appear to be embolic, while others are small vessel in location. I recommend the followin. Telemetry 2. CTA of the head/neck 3. Trans-esophageal echocardiogram with bubble study 4. Check lipids, HbA1c, homocysteine, B12, folate, TSH, Vitamin D levels 5. Statin to maintain LDL< 70 6. PT/OT eval and treat 7. Start dual antiplatelet therapy with aspirin 81 mg daily and Plavix 75 mg daily for a total of 21 days, at which point continue Plavix 75 mg indefinitely per the CHANCE trial. 8. Case management consult 9. DVT Px 10. rodent control worker consult Thank you. Status: Acute Priority: High
--- NOTE | 2017-07-04 16:15 | CP.PCM.CON ---
History of Present Illness - History of Present Illness History of Present Illness: The pt is a 62 year old man with a history of many strokes. he fell out of bed, legs were weak, could not stand. MRI shows only old strokes. PT had an echo 2014 , normal LV EF, and doppler. NS revealed only slight ischemia. Denies ches tpain or dyspnea, limited walking. Non smoker, HTN. Review of Systems - Review of Systems All systems: reviewed and no additional remarkable complaints except (as above.) - Constitutional Constitutional: Weight Gain Past Patient History - Infectious Disease Hx of Infectious Diseases: None - Tetanus Immunizations Tetanus Immunization: Unknown - Past Medical History & Family History Past Medical History?: Yes - Past Social History Smoking Status: Former Smoker - CARDIAC Hx Cardiac Disorders: Yes Hx Hypercholesterolemia: Yes Hx Hypertension: Yes - PULMONARY Hx Respiratory Disorders: No - NEUROLOGICAL Hx Neurological Disorder: Yes Hx Alzheimer's Disease: Yes Hx Dementia: Yes Hx Transient Ischemic Attacks (TIA): Yes (multiple as per sister) - HEENT Hx HEENT Problems: No Other/Comment: wears reading glasses - RENAL Hx Chronic Kidney Disease: Yes - ENDOCRINE/METABOLIC Hx Endocrine Disorders: Yes Hx Diabetes Mellitus Type 2: Yes - HEMATOLOGICAL/ONCOLOGICAL Hx Blood Disorders: Yes Hx Cancer: Yes (bladder Ca history.) - INTEGUMENTARY Hx Dermatological Problems: No - MUSCULOSKELETAL/RHEUMATOLOGICAL Hx Musculoskeletal Disorders: Yes Hx Falls: Yes (L sided weakness from previous TIA) - GASTROINTESTINAL Hx Gastrointestinal Disorders: Yes Hx Gastroesophageal Reflux: Yes Hx Ulcer: Yes - GENITOURINARY/GYNECOLOGICAL Hx Genitourinary Disorders: Yes Hx Bladder Cancer: Yes (in remission) - PSYCHIATRIC Hx Psychophysiologic Disorder: Yes Hx Depression: Yes Hx Substance Use: No - SURGICAL HISTORY Hx Surgeries: Yes Other/Comment: abdominal surgery @ age 1. bladder surgery 2009. - ANESTHESIA Hx Anesthesia: Yes Hx Anesthesia Reactions: No Hx Malignant Hyperthermia: No Meds Allergies/Adverse Reactions: Allergies Allergy/AdvReac Type Severity Reaction Status Date / Time No Known Allergies Allergy Verified 05/04/15 21:17 - Medications Medications: Current Medications Aspirin (Aspirin) 325 mg PO DAILY [facility] Last Admin: 07/04/17 09:17 Dose: 325 mg Bupropion HCl (Wellbutrin) 75 mg PO DAILY [facility] Last Admin: 07/04/17 09:11 Dose: 75 mg Heparin Sodium (Porcine) (Heparin) 5,000 units SC Q8 [facility] Last Admin: 07/04/17 13:00 Dose: Not Given Hydralazine HCl (Apresoline) 25 mg PO BID [facility] Last Admin: 07/04/17 09:10 Dose: 25 mg Memantine (Namenda) 10 mg PO DAILY [facility] Last Admin: 07/04/17 09:10 Dose: 10 mg Multivitamins/Minerals (Therapeutic-M Tab) 1 tab PO DAILY [facility] Last Admin: 07/04/17 09:11 Dose: 1 tab Pantoprazole Sodium (Protonix Ec Tab) 40 mg PO DAILY [facility] Last Admin: 07/04/17 09:10 Dose: 40 mg Pneumococcal Polyvalent Vaccine (Pneumovax 23 Vaccine) 0.5 ml IM .ONCE ONE Stop: 07/05/17 10:01 Rivastigmine (Exelon 9.5 Mg/24 Hr Patch) 1 patch TD DAILY [facility] Last Admin: 07/04/17 09:11 Dose: 1 patch Rosuvastatin Calcium (Crestor) 10 mg PO DAILY [facility] Last Admin: 07/04/17 11:25 Dose: Not Given Physical Exam - Constitutional Appears: Well, Older Than Stated Age - Head Exam Head Exam: ATRAUMATIC - Eye Exam Eye Exam: EOMI - ENT Exam ENT Exam: Mucous Membranes Moist - Respiratory Exam Respiratory Exam: Clear to Auscultation Bilateral - Cardiovascular Exam Cardiovascular Exam: REGULAR RHYTHM - GI/Abdominal Exam GI & Abdominal Exam: Normal Bowel Sounds - Rectal Exam Rectal Exam: NORMAL INSPECTION - Exam External exam: NORMAL EXTERNAL EXAM - Back Exam Back exam: NORMAL INSPECTION - Neurological Exam Neurological exam: Alert, Oriented x3 Additional comments: right sided weakness - Psychiatric Exam Psychiatric exam: Normal Affect - Skin Skin Exam: Dry Results - Vital Signs Recent Vital Signs: Last Vital Signs Temp 97.6 F 07/04/17 07:20 Pulse 72 07/04/17 12:03 Resp 20 07/04/17 07:20 BP 164/86 H 07/04/17 11:25 Pulse Ox 97 07/04/17 07:20 - Labs Result Diagrams: 07/04/17 06:32 07/04/17 06:32 Labs: Laboratory Results - last 24 hr 07/03/17 07/03/17 07/03/17 17:03 17:14 17:14 WBC 10.9 H RBC 5.55 Hgb 15.4 Hct 44.7 MCV 80.4 D MCH 27.8 MCHC 34.5 RDW 13.9 Plt Count 212 MPV 8.8 Neut % (Auto) 76.1 H Lymph % (Auto) 12.5 L [place] % (Auto) 9.0 Eos % (Auto) 1.4 Baso % (Auto) 1.0 Neut # 8.3 H Lymph # 1.4 [place] # 1.0 H Eos # 0.1 Baso # 0.1 PT 12.7 H INR 1.1 APTT 27 Sodium Potassium Chloride Carbon Dioxide Anion Gap BUN Creatinine Est GFR ( Amer) Est GFR (Non-Af Amer) POC Glucose (mg/dL) 128 H Random Glucose Hemoglobin A1c Calcium Total Bilirubin AST ALT Alkaline Phosphatase Troponin I Total Protein Albumin Globulin Albumin/Globulin Ratio Triglycerides Cholesterol LDL Cholesterol Direct HDL Cholesterol Free T4 TSH 3rd Generation Blood Type Antibody Screen 07/03/17 07/03/17 07/03/17 17:14 17:14 17:14 WBC RBC Hgb Hct MCV MCH MCHC RDW Plt Count MPV Neut % (Auto) Lymph % (Auto) [place] % (Auto) Eos % (Auto) Baso % (Auto) Neut # Lymph # [place] # Eos # Baso # PT INR APTT Sodium 138 Potassium 3.6 Chloride 103 Carbon Dioxide 25 Anion Gap 13 BUN 17 Creatinine 1.0 Est GFR ( Amer) > 60 Est GFR (Non-Af Amer) > 60 POC Glucose (mg/dL) Random Glucose 139 H Hemoglobin A1c 6.6 H Calcium 8.5 L Total Bilirubin 0.8 AST 34 ALT 29 Alkaline Phosphatase 81 Troponin I 0.0180 Total Protein 7.4 Albumin 3.9 Globulin 3.5 Albumin/Globulin Ratio 1.1 Triglycerides 136 Cholesterol 143 LDL Cholesterol Direct 76 HDL Cholesterol 34 Free T4 TSH 3rd Generation Blood Type A POSITIVE Antibody Screen Negative 07/03/17 07/04/17 07/04/17 21:32 06:29 06:32 WBC RBC Hgb Hct MCV MCH MCHC RDW Plt Count MPV Neut % (Auto) Lymph % (Auto) [place] % (Auto) Eos % (Auto) Baso % (Auto) Neut # Lymph # [place] # Eos # Baso # PT INR APTT 29 Sodium Potassium Chloride Carbon Dioxide Anion Gap BUN Creatinine Est GFR ( Amer) Est GFR (Non-Af Amer) POC Glucose (mg/dL) 105 96 Random Glucose Hemoglobin A1c Calcium Total Bilirubin AST ALT Alkaline Phosphatase Troponin I Total Protein Albumin Globulin Albumin/Globulin Ratio Triglycerides Cholesterol LDL Cholesterol Direct HDL Cholesterol Free T4 TSH 3rd Generation Blood Type Antibody Screen 07/04/17 07/04/17 07/04/17 06:32 06:32 06:32 WBC 8.4 RBC 5.66 Hgb 15.8 Hct 45.7 MCV 80.7 MCH 28.0 MCHC 34.7 RDW 14.0 Plt Count 206 MPV 9.3 Neut % (Auto) 69.9 Lymph % (Auto) 17.9 L [place] % (Auto) 9.1 Eos % (Auto) 2.4 Baso % (Auto) 0.7 Neut # 5.9 Lymph # 1.5 [place] # 0.8 Eos # 0.2 Baso # 0.1 PT INR APTT Sodium 138 Potassium 3.0 L Chloride 101 Carbon Dioxide 28 Anion Gap 11 BUN 12 Creatinine 1.0 Est GFR ( Amer) > 60 Est GFR (Non-Af Amer) > 60 POC Glucose (mg/dL) Random Glucose 113 H Hemoglobin A1c 6.5 Calcium 8.6 Total Bilirubin 1.0 AST 37 ALT 32 Alkaline Phosphatase 83 Troponin I Total Protein 7.1 Albumin 3.7 Globulin 3.4 Albumin/Globulin Ratio 1.1 Triglycerides 138 Cholesterol 151 LDL Cholesterol Direct 80 HDL Cholesterol 31 Free T4 TSH 3rd Generation 3.17 Blood Type Antibody Screen 07/04/17 07/04/17 06:32 11:16 WBC RBC Hgb Hct MCV MCH MCHC RDW Plt Count MPV Neut % (Auto) Lymph % (Auto) [place] % (Auto) Eos % (Auto) Baso % (Auto) Neut # Lymph # [place] # Eos # Baso # PT INR APTT Sodium Potassium Chloride Carbon Dioxide Anion Gap BUN Creatinine Est GFR ( Amer) Est GFR (Non-Af Amer) POC Glucose (mg/dL) 205 H Random Glucose Hemoglobin A1c Calcium Total Bilirubin AST ALT Alkaline Phosphatase Troponin I Total Protein Albumin Globulin Albumin/Globulin Ratio Triglycerides Cholesterol LDL Cholesterol Direct HDL Cholesterol Free T4 1.56 TSH 3rd Generation Blood Type Antibody Screen - EKG Data EKG Interpreted by: Myself (nsr, posible old IMI) Assessment & Plan - Assessment and Plan (Free Text) Assessment: 1. HTN: stop[ hydralazine as cr is normal and start with mariola inhib, and add meds as needed. 2. TIA and MRI shows infarcts that suggest an embolic etiology. A tasha is ordered. If negative, then a loop recorder is advised.
[2017-07-04 22:42] LABS: SQUAMOUS EPITHIAL < 1 /hpf (0-5); URINE BACTERIA RARE (<OCC); URINE BILIRUBIN NEGATIVE (NEGATIVE); URINE BLOOD 3+ (NEGATIVE); URINE CLARITY Hazy (Clear); URINE GLUCOSE (UA) NORMAL (Normal); URINE HYALINE CAST 0-2 /lpf (0-2); URINE LEUKOCYTE ESTERASE TRACE Leu/uL (Negative); URINE NITRATE NEGATIVE (NEGATIVE); URINE PROTEIN 2+ mg/dL (NEGATIVE)
[2017-07-04 22:44] LABS: URINE COLOR YELLOW (YELLOW)
[2017-07-05 08:26] LABS: BASO # 0.1 K/uL (0.0-0.2); BASO % 0.5 % (0.0-2.0); EOS # 0.2 K/uL (0.0-0.7); EOS % 2.3 % (0.0-4.0); HEMOGLOBIN 15.4 g/dL (12.0-18.0); LYMPH # 1.4 K/uL (1.0-4.3); LYMPH % 14.2 % (20.0-40.0); MEAN CORPUSCULAR HEMOGLOBIN 27.9 pg (27.0-31.0); MEAN PLATELET VOLUME 9.1 fL (7.2-11.7); MONO # 0.9 K/uL (0.0-0.8); MONO % 8.6 % (0.0-10.0); NEUT # 7.4 K/uL (1.8-7.0); NEUT % 74.4 % (50.0-75.0); RBC 5.51 Mil/uL (4.40-5.90); RED CELL DISTRIBUTION WIDTH 14.3 % (11.5-14.5); WHITE BLOOD COUNT 9.9 K/uL (4.8-10.8)
[2017-07-05] MEDS: Multivitamin With Minerals Tab PO SCH (09:01)
[2017-07-05] MEDS: Pantoprazole 40 mg EC Tab PO SCH (09:01)
[2017-07-05 09:09] LABS: ALB/GLOB RATIO 1.2 (1.0-2.1); ALBUMIN 3.6 g/dL (3.5-5.0); ALT/SGPT 27 U/L (21-72); AST/SGOT 32 U/L (17-59); BLOOD UREA NITROGEN 18 mg/dL (9-20); CALCIUM 8.4 mg/dl (8.6-10.4); GFR AFRICAN-AMERICAN > 60; GFR NON-AFRICAN AMERICAN 56; MAGNESIUM 1.9 mg/dL (1.6-2.3)
[2017-07-05] MEDS: Bacitracin 500 Units/gm Oint Foilpak UD TOP SCH (09:12)
[2017-07-05] MEDS ORDERED: Pneumococcal 23-Valent Vaccine IM ONE (10:00)
[2017-07-05] MEDS ORDERED: Influenza Vaccine 60 mcg/0.5 mL SYR (4YR UP) IM ONE (10:00)
[2017-07-05] MEDS ORDERED: Lidocaine 4% (Laryng-O-Jet) Kit MM ONE (11:08)
[2017-07-05] MEDS ORDERED: Propofol 10 mg/ml Inj (20 ML) ONE (11:18)
[2017-07-05] MEDS ORDERED: ePHEDrine 50 mg/ml Inj ONE (11:19)
[2017-07-05] MEDS ORDERED: Etomidate 20 mg/10ml Inj IV ONE (11:19)
[2017-07-05] MEDS ORDERED: Lidocaine 2% Inj (20ml) ONE (11:21)
--- NOTE | 2017-07-05 12:14 | CP.PCM.PN ---
Subjective - Date & Time of Evaluation Date of Evaluation: 07/05/17 Time of Evaluation: 12:11 - Subjective Subjective: Mr. Tim was seen and examined at the recovery area of the cardiac catheterization department. He is alert, oriented with mild dysarthia. He can answer simple questions and follow simple commands. He denies any headache, dizziness, lightheadedness, nausea, numbness, or vomiting. He was able to tolerate FAISAL procedure. There was no untoward events overnight. Objective - Vital Signs/Intake and Output Vital Signs (last 24 hours): Temp Pulse Resp BP Pulse Ox 98.3 F 67 20 178/103 H 93 L 07/05/17 07:10 07/05/17 07:39 07/05/17 07:10 07/05/17 07:39 07/05/17 07:10 Intake and Output: 07/05/17 07/05/17 06:59 18:59 Intake Total 120 Output Total 100 Balance 20 - Medications Medications: Current Medications Amlodipine Besylate (Norvasc) 10 mg PO DAILY [facility] Aspirin (Aspirin Chewable) 81 mg PO DAILY [facility] Last Admin: 07/05/17 09:03 Dose: 81 mg Bacitracin (Bacitracin) 1 ea TOP DAILY [facility] Last Admin: 07/05/17 09:12 Dose: 1 ea Bupropion HCl (Wellbutrin) 75 mg PO DAILY [facility] Last Admin: 07/05/17 09:01 Dose: 75 mg Heparin Sodium (Porcine) (Heparin) 5,000 units SC Q8 [facility] Last Admin: 07/04/17 13:00 Dose: Not Given Lisinopril (Zestril) 20 mg PO DAILY [facility] Last Admin: 07/05/17 09:01 Dose: 20 mg Memantine (Namenda) 10 mg PO DAILY [facility] Last Admin: 07/05/17 09:01 Dose: 10 mg Multivitamins/Minerals (Therapeutic-M Tab) 1 tab PO DAILY [facility] Last Admin: 07/05/17 09:01 Dose: 1 tab Pantoprazole Sodium (Protonix Ec Tab) 40 mg PO DAILY [facility] Last Admin: 07/05/17 09:01 Dose: 40 mg Potassium Chloride (K-Dur 20 Meq Er Tab) 40 meq PO ONCE ONE Stop: 07/05/17 18:48 Rivastigmine (Exelon 9.5 Mg/24 Hr Patch) 1 patch TD DAILY [facility] Last Admin: 07/05/17 09:01 Dose: 1 patch Rosuvastatin Calcium (Crestor) 10 mg PO HS [facility] - Labs Labs: 07/05/17 08:17 07/05/17 08:17 PT 12.7 SECONDS (9.7-12.2) H 07/03/17 17:14 INR 1.1 07/03/17 17:14 APTT 29 SECONDS (21-34) 07/04/17 06:32 - Constitutional Appears: No Acute Distress - Head Exam Head Exam: NORMAL INSPECTION - Extremities Exam Additional comments: with healing abrasion on bilateral knees - Neurological Exam Neurological Exam: Alert, Awake, CN II-XII Intact, Oriented x3 Neuro motor strength exam: Left Upper Extremity: 5, Right Upper Extremity: 4, Left Lower Extremity: 5, Right Lower Extremity: 4 Additional comments: Speech is dysarthric, but not aphasic. Reflexes brisk with upgoing plantar responses bilaterally. Strength is diminished on the right side with decreased function on fine motor exam of the right side. Assessment and Plan (1) History of CVA (cerebrovascular accident) Assessment & Plan: case discussed with Dr. Nj, pending FAISAL result. continue all current medical , physical, occupational, and speech therapies. Recommends CTA of the head and neck. Status: Acute
--- NOTE | 2017-07-05 13:22 | CP.PCM.PN ---
<WilmerebonyDajuan - Last Filed: 07/05/17 13:17> Subjective - Date & Time of Evaluation Date of Evaluation: 07/05/17 Time of Evaluation: 13:17 - Subjective Subjective: Patient has been seen and examined. No overnight events reported. Patient still says he has hematuria. Otherwise, patient had no other complaints. Objective - Vital Signs/Intake and Output Vital Signs (last 24 hours): Temp Pulse Resp BP Pulse Ox 98.3 F 75 20 142/70 93 L 07/05/17 07:10 07/05/17 12:59 07/05/17 07:10 07/05/17 12:59 07/05/17 07:10 Intake and Output: 07/05/17 07/05/17 06:59 18:59 Intake Total 120 Output Total 100 Balance 20 - Medications Medications: Current Medications Amlodipine Besylate (Norvasc) 10 mg PO DAILY [facility] Last Admin: 07/05/17 13:10 Dose: 10 mg Aspirin (Aspirin Chewable) 81 mg PO DAILY [facility] Last Admin: 07/05/17 09:03 Dose: 81 mg Bacitracin (Bacitracin) 1 ea TOP DAILY [facility] Last Admin: 07/05/17 09:12 Dose: 1 ea Bupropion HCl (Wellbutrin) 75 mg PO DAILY [facility] Last Admin: 07/05/17 09:01 Dose: 75 mg Heparin Sodium (Porcine) (Heparin) 5,000 units SC Q8 [facility] Last Admin: 07/04/17 13:00 Dose: Not Given Lisinopril (Zestril) 20 mg PO DAILY [facility] Last Admin: 07/05/17 09:01 Dose: 20 mg Memantine (Namenda) 10 mg PO DAILY [facility] Last Admin: 07/05/17 09:01 Dose: 10 mg Multivitamins/Minerals (Therapeutic-M Tab) 1 tab PO DAILY [facility] Last Admin: 07/05/17 09:01 Dose: 1 tab Pantoprazole Sodium (Protonix Ec Tab) 40 mg PO DAILY [facility] Last Admin: 07/05/17 09:01 Dose: 40 mg Potassium Chloride (K-Dur 20 Meq Er Tab) 40 meq PO ONCE ONE Stop: 07/05/17 18:48 Rivastigmine (Exelon 9.5 Mg/24 Hr Patch) 1 patch TD DAILY [facility] Last Admin: 01/03/18 09:01 Dose: 1 patch Rosuvastatin Calcium (Crestor) 10 mg PO HS [facility] - Labs Labs: 07/05/17 08:17 07/05/17 08:17 PT 12.7 SECONDS (9.7-12.2) H 07/03/17 17:14 INR 1.1 07/03/17 17:14 APTT 29 SECONDS (21-34) 07/04/17 06:32 - Additional Findings Additional findings: - Constitutional Appears: Well, Non-toxic - Head Exam Head Exam: ATRAUMATIC, NORMOCEPHALIC - Eye Exam Eye Exam: EOMI, Normal appearance, PERRL. absent: Scleral icterus - ENT Exam ENT Exam: Mucous Membranes Moist - Respiratory Exam Respiratory Exam: Clear to Ausculation Bilateral. absent: Rales, Rhonchi, Wheezes - Cardiovascular Exam Cardiovascular Exam: RRR, +S1, +S2 - GI/Abdominal Exam GI & Abdominal Exam: Soft, Normal Bowel Sounds. absent: Tenderness - Extremities Exam Extremities Exam: absent: Pedal Edema Additional comments: Left foot held in plantarflexion, inversion, internal rotation. This is from prior ankle injury. - Neurological Exam Neurological Exam: Alert, Awake, CN II-XII Intact, Oriented x3 Neuro motor strength exam: Left Upper Extremity: 5, Right Upper Extremity: 4, Left Lower Extremity: 5, Right Lower Extremity: 4 Additional comments: Speech is dysarthric, but not aphasic. Reflexes brisk with upgoing plantar responses bilaterally. Strength is diminished on the right side with decreased function on fine motor exam of the right side. - Psychiatric Exam Psychiatric exam: Normal Mood. absent: Normal Affect (Restricted Affect) - Skin Skin Exam: Dry, Intact, Normal Color, Warm Additional comments: healing sore on lateral left foot Left and right knee with abrasions Right>left Assessment and Plan - Assessment and Plan (Free Text) Assessment: 62 year old male with PMHx multiple CVA (most recent one 2 years prior), vascular dementia, HTN, GERD, bladder CA (Remission for 9 years) who presented with weakness, especially lower ext weakness and fall. Plan: Code Stroke Head CT shows No evidence of acute intracranial hemorrhage mass effect or midline shift. No significant interval change in the brain noted since the previous exam. Chronic bilateral basal ganglia and cutler radiata infarction. Volume loss and moderate chronic microvascular ischemic disease. Neurology Consulte (Dr. Nj), Recs Appreciated. Recommended 1. Telemetry - Ordered today 2. CTA of the head/neck - ORdered on 07/05 3. Trans-esophageal echocardiogram with bubble study 4. Check lipids, HbA1c, homocysteine, B12, folate, TSH, Vitamin D levels 5. Statin to maintain LDL< 70 6. PT/OT eval and treat 7. Start dual antiplatelet therapy with aspirin 81 mg daily and Plavix 75 mg daily for a total of 21 days, at which point continue Plavix 75 mg indefinitely per the CHANCE trial. 8. Case management consult 9. DVT Px 10. social worker psychiatric consult MRI Brain (07/04/16): No mass, hemorrhage, or acute infarct identified. Stable age -related changes and chronic findings. Multiple chronic infarcts. FAISAL (07/04/16): Pending Read continued home ASA 81 mg PO daily BP control - Lisinopril 10 Statin - Crestor 10 Plavix 75 Daily to be started tomorrow. PT/OT eval (07/04/17) PT eval not done due to hypokalemia. Hematuria Patient has a hx of bladder CA 9 years ago. Was seeing urologist (Dr. Felix Lazcano). UA: 2+ Protein, 3+ Blood, Trace Leuk Es, 78 WBC's, 873 RBC's UC: Pending Renal US (07/04/17): Bilateral mild diffuse increased renal cortical echogenicity focus can be seen with medical renal disease. Correlate clinically. No hydronephrosis or renal mass or renal calculi. Empty bladder Urology Consulted History of HTN DC home Hydralazine 25 mg PO BID per Cardio Start Lisinopril 20 Daily per [facility] History of GERD protonix 40 mg PO daily History of Dementia continued home Rivastigmine patch 1 TD daily continued home Namenda 10 mg PO daily History of HLD continued home Crestor 10 mg PO HS History of Depression ccontinued home Wellbutrin 75 mg PO daily Prophylactic Measure Heart healthy 2gm sodium diet protonix 40 mg PO daily Heparin 5000 units SC Q8 Patient seen and discussed with Attending Dajuan Smith - PGY1 <Rosita Henry V - Last Filed: 07/05/17 17:53> Objective - Vital Signs/Intake and Output Vital Signs (last 24 hours): Temp Pulse Resp BP Pulse Ox 98.2 F 83 20 145/86 94 L 07/05/17 15:43 07/05/17 15:43 07/05/17 15:43 07/05/17 15:43 07/05/17 15:43 Intake and Output: 07/05/17 07/05/17 06:59 18:59 Intake Total 120 300 Output Total 100 Balance 20 300 - Medications Medications: Current Medications Amlodipine Besylate (Norvasc) 10 mg PO DAILY [facility] Last Admin: 07/05/17 13:10 Dose: 10 mg Aspirin (Aspirin Chewable) 81 mg PO DAILY [facility] Last Admin: 07/05/17 09:03 Dose: 81 mg Bacitracin (Bacitracin) 1 ea TOP DAILY [facility] Last Admin: 07/05/17 09:12 Dose: 1 ea Bupropion HCl (Wellbutrin) 75 mg PO DAILY [facility] Last Admin: 07/05/17 09:01 Dose: 75 mg Famotidine (Pepcid) 20 mg PO BID [facility] Lisinopril (Zestril) 20 mg PO DAILY [facility] Last Admin: 07/05/17 09:01 Dose: 20 mg Memantine (Namenda) 10 mg PO DAILY [facility] Last Admin: 07/05/17 09:01 Dose: 10 mg Multivitamins/Minerals (Therapeutic-M Tab) 1 tab PO DAILY [facility] Last Admin: 07/05/17 09:01 Dose: 1 tab Potassium Chloride (K-Dur 20 Meq Er Tab) 40 meq PO ONCE ONE Stop: 07/05/17 18:48 Rivastigmine (Exelon 9.5 Mg/24 Hr Patch) 1 patch TD DAILY [facility] Last Admin: 07/05/17 09:01 Dose: 1 patch Rosuvastatin Calcium (Crestor) 10 mg PO HS [facility] - Labs Labs: 07/05/17 08:17 07/05/17 08:17 PT 12.7 SECONDS (9.7-12.2) H 07/03/17 17:14 INR 1.1 07/03/17 17:14 APTT 29 SECONDS (21-34) 07/04/17 06:32 Attending/Attestation - Attestation I have personally seen and examined this patient.: Yes I have fully participated in the care of the patient.: Yes I have reviewed all pertinent clinical information, including history, physical exam and plan: Yes Notes (Text): Patient seen status post completion FAISAL. Patient denies acute complaints. Patient denies further episodes of hematuria. Discussed with nurse at bedside who does not report any hematuria on his shift. Patient's H&H consistent 15s. Discuss with neurology and cardiology. Patient does have a large PFO which is attributing to his embolic nature of his strokes. Cardiology will coordinate with [place] to see if patient is eligible for possible surgery. Cardiology is requested for hypercoagulable workup as a requirement for surgery. Patient is ordered for blood work to rule out hypercoagulable causes. I spoke with neurology recommended for venous Dopplers to rule out DVTs and a CT injury abdomen and pelvis 2 view both the IVC and iliac arteries to further source of embolic occlusions. Patient's creatinine stable at about 1.2 -1.3. Also I spoke with neurology recommended for aspirin and Eliquis for anticoagulation to prevent further stroke from patient's large PFO. Neurology is recommending for head and neck imaging recommended for MRA without contrast. Assessment/Plan 1) Cerebrovascular Accident, Chronic, Embolic Patent [place] * Head CT shows No evidence of acute intracranial hemorrhage mass effect or midline shift. No significant interval change in the brain noted since the previous exam. Chronic bilateral basal ganglia and cutler radiata infarction. Volume loss and moderate chronic microvascular ischemic disease. * Patient's neurologist Dr. Bowen consulted by ED, help appreciated * Neurology (Dr. Nj) on case-->help appreciated * Recommend Aspirin and Eliquis for anticoagulation. Will start Eliquis tomorrow. Will monitor creatinine function. * Recommend for Head and Neck MRA w/o contrast instead of head and neck CT bundle * Cardiology (Dr. Sales) on case-->help appreciated * Brain MRI (07/04/17): No mass, hemorrhage, or acute infarct identified. Stable age-related changes and chronic findings as above. Which include prominent multifocal chronic infarcts with basal ganglia and thalami coronary radiata centrum [place] ovale and bilateral cerebellar preston-spheres unchanged and stable chronic mass effect of the right lateral dane related to the tortuous and mildly ectatic right posterior cerebral artery * Patient is on aspirin 81 mg by mouth daily and has received Plavix 75 mg by mouth yesterday. * Per cardiology note, FAISAL on 07/05/17 confirmed PFO with vigorous flow. Based on latest trials, the amplatz closure device has been found markedly superior ro medical therapy. Pt has already failed asa with recent TIA. The pt is eligible for a closure device if his hypercoagulation work up is negative, and a two week event monitor is neg for afib. Dr viramontes will order lab work, and I will arrange outpatient event after pt is sent home. Pt agress with plan. Dr Viramontes to consider anticoagulation pending amplatz device. 2) Hematuria History of Bladder Ca * Patient has a hx of bladder CA 9 years ago which was previously treated. Patient was seeing Dr. Felix Lazcano, urologist at the time. * Patient has recurrence of hematuria, which he reports was three days ago. * UA shows hematura, pyrua, pending Urine culture * Renal US (07/04/16): bilateral mild diffuse increased renal cortical echogenicity focus can be seen with medical renal disease. * Urology (Dr. Everardo Lazcano) consult: called placed to his answering service 3) History of HTN * Cardiology on case help appreciated * c/w lisinopril 20 mg by mouth once a day * start norvasc 10mg by mouth once a day * if blood pressure remains uncontrolled, suggest to start hydralazine 4) History of GERD * Protonix 40mg PO daily for GI ppx 5) History of Vascular Dementia * continued home Rivastigmine patch 1 TD daily * continued home Namenda 10 mg PO daily 6) History of HLD * continued home Crestor 10 mg PO HS 7) History of Depression * ccontinued home Wellbutrin 75 mg PO daily 8) Hypokalemia * replaced * monitor at bedside 9) Knee Abrasion * Bactracin ordered for right knee and left knee abrasions 10) Prophylactic Measure * Heart healthy 2gm sodium diet * protonix 40 mg PO daily * Will start Eliquis and c/w Aspirin. Disposition: Patient has large PFO found on FAISAL further intervention. Cardiology will look further for arrangements. Patient is pending for hypercoagulable workup, ordered for venous Dopplers rule out DVT, head neck MRA without contrast and CT abdomen and pelvis angio r/o occlusions that could contribute to further stroke in light of PFO.
--- NOTE | 2017-07-05 13:27 | CP.PCM.PN ---
Subjective - Date & Time of Evaluation Date of Evaluation: 07/05/17 Time of Evaluation: 13:22 - Subjective Subjective: pt feels ok Objective - Vital Signs/Intake and Output Vital Signs (last 24 hours): Temp Pulse Resp BP Pulse Ox 98.3 F 75 20 142/70 93 L 07/05/17 07:10 07/05/17 12:59 07/05/17 07:10 07/05/17 12:59 07/05/17 07:10 Intake and Output: 07/05/17 07/05/17 06:59 18:59 Intake Total 120 Output Total 100 Balance 20 - Medications Medications: Current Medications Amlodipine Besylate (Norvasc) 10 mg PO DAILY [facility] Last Admin: 07/05/17 13:10 Dose: 10 mg Aspirin (Aspirin Chewable) 81 mg PO DAILY [facility] Last Admin: 07/05/17 09:03 Dose: 81 mg Bacitracin (Bacitracin) 1 ea TOP DAILY [facility] Last Admin: 07/05/17 09:12 Dose: 1 ea Bupropion HCl (Wellbutrin) 75 mg PO DAILY [facility] Last Admin: 07/05/17 09:01 Dose: 75 mg Heparin Sodium (Porcine) (Heparin) 5,000 units SC Q8 [facility] Last Admin: 07/04/17 13:00 Dose: Not Given Lisinopril (Zestril) 20 mg PO DAILY [facility] Last Admin: 07/05/17 09:01 Dose: 20 mg Memantine (Namenda) 10 mg PO DAILY [facility] Last Admin: 07/05/17 09:01 Dose: 10 mg Multivitamins/Minerals (Therapeutic-M Tab) 1 tab PO DAILY [facility] Last Admin: 07/05/17 09:01 Dose: 1 tab Pantoprazole Sodium (Protonix Ec Tab) 40 mg PO DAILY [facility] Last Admin: 07/05/17 09:01 Dose: 40 mg Potassium Chloride (K-Dur 20 Meq Er Tab) 40 meq PO ONCE ONE Stop: 07/05/17 18:48 Rivastigmine (Exelon 9.5 Mg/24 Hr Patch) 1 patch TD DAILY [facility] Last Admin: 07/05/17 09:01 Dose: 1 patch Rosuvastatin Calcium (Crestor) 10 mg PO HS [facility] - Labs Labs: 07/05/17 08:17 07/05/17 08:17 PT 12.7 SECONDS (9.7-12.2) H 07/03/17 17:14 INR 1.1 07/03/17 17:14 APTT 29 SECONDS (21-34) 07/04/17 06:32 - Constitutional Appears: Well - Head Exam Head Exam: ATRAUMATIC - Eye Exam Eye Exam: EOMI - ENT Exam ENT Exam: Mucous Membranes Moist - Neck Exam Neck Exam: Full ROM - Respiratory Exam Respiratory Exam: Clear to Ausculation Bilateral - Cardiovascular Exam Cardiovascular Exam: REGULAR RHYTHM - GI/Abdominal Exam GI & Abdominal Exam: Normal Bowel Sounds - Rectal Exam Rectal Exam: NORMAL INSPECTION - Exam Exam: NORMAL INSPECTION External exam: NORMAL EXTERNAL EXAM - Extremities Exam Extremities Exam: Full ROM, Normal Inspection - Back Exam Back Exam: NORMAL INSPECTION - Neurological Exam Neurological Exam: Alert, Awake, Oriented x3 - Psychiatric Exam Psychiatric exam: Normal Affect Assessment and Plan - Assessment and Plan (Free Text) Assessment: 1. FAISAL confirmed PFO with vigorous flow. Based on latest trials, the amplatz closure device has been found markedly superior ro medical therapy. Pt has already failed asa with recent TIA. The pt is eligible for a closure device if his hypercoagulation work up is negative, and a two week event monitor is neg for afib. Dr viramontes will order lab work, and I will arrange outpatient event after pt is sent home. Pt agress with plan. Dr Viramontes to consider anticoagulation pending amplatz device. 2. BP has been high. Norvasc added.
[2017-07-05] MEDS ORDERED: Potassium Chloride 20 mEq ER Tab PO ONE (18:47)
[2017-07-05] MEDS ORDERED: Iodixanol 320 MG/ML 100 ML BOTTLE IV ONE (19:04)
--- NOTE | 2017-07-05 20:11 | CT ---
EXAM: CT Chest With Intravenous Contrast CT Abdomen and Pelvis With Intravenous Contrast EXAM DATE/TIME: Exam ordered 07/05/2017 5:28 PM CLINICAL HISTORY: 62 years old, male; Condition or disease; Other: Occlusion in ivc iliac; Additional info: HX of pfo, HX of emobolic stroke, R/O occlusion TECHNIQUE: Axial computed tomography images of the chest, abdomen and pelvis with intravenous contrast during the arterial phase of enhancement. All CT scans at this facility use one or more dose reduction techniques, viz.: automated exposure control; ma/kV adjustment per patient size (including targeted exams where dose is matched to indication; i.e. head); or iterative reconstruction technique. Coronal and sagittal reformatted images were created and reviewed. CONTRAST: 100 mL of visipaque 320 administered intravenously. COMPARISON: No relevant prior studies available. FINDINGS: VASCULATURE: Mild generalized atherosclerotic disease is noted. Aorta: No acute findings. No aortic aneurysm. No dissection. Celiac trunk and mesenteric arteries: No acute findings. No occlusion or significant stenosis. Renal arteries: No acute findings. No occlusion or significant stenosis. Iliac arteries: No acute findings. No occlusion or significant stenosis. CHEST: Lungs: Coarse reticular opacities noted in the dependent portion of both lung bases suggests hypoventilatory change. Pleural space: Unremarkable. No significant effusion. No pneumothorax. Heart: Unremarkable. No cardiomegaly. No significant pericardial effusion. ABDOMEN: Liver: Unremarkable. No mass. Gallbladder and bile ducts: Unremarkable. No calcified stones. No ductal dilation. Pancreas: Unremarkable. No ductal dilation. No mass. Spleen: Unremarkable. No splenomegaly. Adrenals: Unremarkable. No mass. Kidneys and ureters: A subcentimeter simple cyst is seen in the upper pole of the right kidney. A 2.5 mm nonobstructing calcification is seen in the upper portion of the right kidney. No hydronephrosis. No solid mass. Stomach and bowel: Moderate amount of stool is seen in the colon. No obstruction. No mucosal thickening. Appendix: No findings to suggest acute appendicitis. PELVIS: Bladder: Unremarkable. No mass. Reproductive: The prostate measures 4.1 x 5.1 by 4.5 cm. CHEST, ABDOMEN and PELVIS: Intraperitoneal space: Unremarkable. No significant fluid collection. No free air. Bones/joints: There is narrowing of the L5-S1 intervertebral disc space with endplate sclerosis and marginal osteophyte formation. No acute fracture. No dislocation. Soft tissues: There is a small umbilical hernia containing fat. Lymph nodes: Unremarkable. No enlarged lymph nodes. IMPRESSION: 1. Mild generalized atherosclerotic disease with no evidence of stenosis. 2. Hyperventilatory changes in the dependent portion of both lungs. 3. 2.5 mm nonobstructing calculus in the upper portion of the right kidney. 4. Right renal cyst. 5. Prostate is mildly enlarged. Correlate with serum PSA.
[2017-07-05 20:57] LABS: INR 1.1
[2017-07-06 06:52] LABS: BASO # 0.1 K/uL (0.0-0.2); BASO % 0.8 % (0.0-2.0); EOS # 0.3 K/uL (0.0-0.7); EOS % 3.3 % (0.0-4.0); HEMOGLOBIN 14.5 g/dL (12.0-18.0); LYMPH # 1.8 K/uL (1.0-4.3); LYMPH % 18.3 % (20.0-40.0); MEAN CELL VOLUME 82.4 fL (80.0-94.0); MEAN CORPUSCULAR HEMOGLOBIN 27.9 pg (27.0-31.0); MEAN CORPUSCULAR HGB CONC 33.8 g/dL (33.0-37.0); MEAN PLATELET VOLUME 9.2 fL (7.2-11.7); MONO # 0.9 K/uL (0.0-0.8); MONO % 9.3 % (0.0-10.0); NEUT # 6.8 K/uL (1.8-7.0); NEUT % 68.3 % (50.0-75.0); RBC 5.2 Mil/uL (4.40-5.90); RED CELL DISTRIBUTION WIDTH 14.4 % (11.5-14.5); WHITE BLOOD COUNT 9.9 K/uL (4.8-10.8)
[2017-07-06 07:12] LABS: ALB/GLOB RATIO 1.1 (1.0-2.1); ALBUMIN 3.4 g/dL (3.5-5.0); ALT/SGPT 34 U/L (21-72); AST/SGOT 30 U/L (17-59); BLOOD UREA NITROGEN 22 mg/dL (9-20); CALCIUM 8.3 mg/dl (8.6-10.4); GFR AFRICAN-AMERICAN > 60; GFR NON-AFRICAN AMERICAN > 60; MAGNESIUM 1.9 mg/dL (1.6-2.3)
--- NOTE | 2017-07-06 09:34 | CP.PCM.PN ---
<Dajuan Smith - Last Filed: 07/06/17 11:16> Subjective - Date & Time of Evaluation Date of Evaluation: 07/06/17 Time of Evaluation: 09:32 - Subjective Subjective: Patient has been seen and examined. No overnight events reported. He has no complaints at this time and is resting comfortably. He denies any hematuria today. Objective - Vital Signs/Intake and Output Vital Signs (last 24 hours): Temp Pulse Resp BP Pulse Ox 97.8 F 63 20 162/75 H 93 L 07/06/17 07:30 07/06/17 07:30 07/06/17 07:30 07/06/17 07:30 07/06/17 07:30 Intake and Output: 07/06/17 07/06/17 06:59 18:59 Intake Total 400 Output Total 200 Balance 200 - Medications Medications: Current Medications Amlodipine Besylate (Norvasc) 10 mg PO DAILY [facility] Last Admin: 07/05/17 13:10 Dose: 10 mg Apixaban (Eliquis) 2.5 mg PO BID [facility] Last Admin: 07/05/17 21:29 Dose: 2.5 mg Aspirin (Aspirin Chewable) 81 mg PO DAILY [facility] Last Admin: 07/05/17 09:03 Dose: 81 mg Bacitracin (Bacitracin) 1 ea TOP DAILY [facility] Last Admin: 07/05/17 09:12 Dose: 1 ea Bupropion HCl (Wellbutrin) 75 mg PO DAILY [facility] Last Admin: 07/05/17 09:01 Dose: 75 mg Famotidine (Pepcid) 20 mg PO BID [facility] Lisinopril (Zestril) 20 mg PO DAILY [facility] Last Admin: 07/05/17 09:01 Dose: 20 mg Memantine (Namenda) 10 mg PO DAILY [facility] Last Admin: 07/05/17 09:01 Dose: 10 mg Multivitamins/Minerals (Therapeutic-M Tab) 1 tab PO DAILY [facility] Last Admin: 07/05/17 09:01 Dose: 1 tab Rivastigmine (Exelon 9.5 Mg/24 Hr Patch) 1 patch TD DAILY [facility] Last Admin: 07/05/17 09:01 Dose: 1 patch Rosuvastatin Calcium (Crestor) 10 mg PO [facility] Last Admin: 07/05/17 21:29 Dose: 10 mg - Labs Labs: 07/06/17 06:41 07/06/17 06:41 PT 13.0 SECONDS (9.7-12.2) H 07/05/17 20:33 INR 1.1 07/05/17 20:33 APTT 25 SECONDS (21-34) 07/05/17 20:33 - Additional Findings Additional findings: - Constitutional Appears: Well, Non-toxic - Head Exam Head Exam: ATRAUMATIC, NORMOCEPHALIC - Eye Exam Eye Exam: EOMI, Normal appearance, PERRL. absent: Scleral icterus - ENT Exam ENT Exam: Mucous Membranes Moist - Respiratory Exam Respiratory Exam: Clear to Ausculation Bilateral. absent: Rales, Rhonchi, Wheezes - Cardiovascular Exam Cardiovascular Exam: RRR, +S1, +S2 - GI/Abdominal Exam GI & Abdominal Exam: Soft, Normal Bowel Sounds. absent: Tenderness - Extremities Exam Extremities Exam: absent: Pedal Edema Additional comments: Left foot held in plantarflexion, inversion, internal rotation. This is from prior ankle injury. - Neurological Exam Neurological Exam: Alert, Awake, CN II-XII Intact, Oriented x3 Neuro motor strength exam: Left Upper Extremity: 5, Right Upper Extremity: 4, Left Lower Extremity: 5, Right Lower Extremity: 4 Additional comments: Speech is dysarthric, but not aphasic. Reflexes brisk with upgoing plantar responses bilaterally. Strength is diminished on the right side with decreased function on fine motor exam of the right side. - Psychiatric Exam Psychiatric exam: Normal Mood. absent: Normal Affect (Restricted Affect) - Skin Skin Exam: Dry, Intact, Normal Color, Warm Additional comments: healing sore on lateral left foot Left and right knee with abrasions Right>left Assessment and Plan - Assessment and Plan (Free Text) Assessment: 62 year old male with PMHx multiple CVA (most recent one 2 years prior), vascular dementia, HTN, GERD, bladder CA (Remission for 9 years) who presented with weakness, especially lower ext weakness and fall. Plan: Code Stroke Head CT shows No evidence of acute intracranial hemorrhage mass effect or midline shift. No significant interval change in the brain noted since the previous exam. Chronic bilateral basal ganglia and cutelr radiata infarction. Volume loss and moderate chronic microvascular ischemic disease. Neurology Consulte (Dr. Nj), Recs Appreciated. Recommended 1. Telemetry - Ordered today 2. CTA of the head/neck - ORdered on 07/05 3. Trans-esophageal echocardiogram with bubble study - DONE 4. Check lipids (WNL), HbA1c (6.4), homocysteine(ordered today), B12/Folate ( Ordered today), TSH (WNL), Vitamin D levels (Ordered today) 5. Statin to maintain LDL< 70 6. PT/OT eval and treat - PT recomends Acute Rehab. 7. Start dual antiplatelet therapy with aspirin 81 mg daily and Plavix 75 mg daily for a total of 21 days, at which point continue Plavix 75 mg indefinitely per the CHANCE trial. 8. Case management consult 9. DVT Px 10. size worker consult MRI Brain (07/04/16): No mass, hemorrhage, or acute infarct identified. Stable age -related changes and chronic findings. Multiple chronic infarcts. FAISAL (07/04/16): Shows PFO per Cardio note. PENDING Official Read. Anticoagulation Workup(07/05/16) Ordered: - AntiPhos, AntiThrom III, Factor V Leiden, Lupus SLE, Protein C/S Antigen and Activity - PENDING Head and Neck MRA (07/06/16): PENDING READ. continued home ASA 81 mg PO daily BP control - Lisinopril 10 Statin - Crestor 10 Plavix 75 Daily to be started tomorrow. PT/OT eval (07/04/17) PT eval not done due to hypokalemia. Hematuria Patient has a hx of bladder CA 9 years ago. Was seeing urologist (Dr. Felix Lazcano). UA: 2+ Protein, 3+ Blood, Trace Leuk Es, 78 WBC's, 873 RBC's UC: NEGATIVE Renal US (07/04/17): Bilateral mild diffuse increased renal cortical echogenicity focus can be seen with medical renal disease. Correlate clinically. No hydronephrosis or renal mass or renal calculi. Empty bladder Urology Consulted - F/U with Recs History of HTN Lisinopril 20 Daily per Cardio Start Norvasc 10 per Cardio Lobatolol 5 given today for elevated BP per FOOT SETTER Will give Hydralazine 10 as trial toay at 14:00 and recheck BP after Will Start MENDEL hydralazine 10 QID tomorrow starting at 10. Will not give any Non-dihydropyridine Calcium channel blockers or Beta Herve' s due to first degree AV block. History of GERD protonix 40 mg PO daily History of Dementia continued home Rivastigmine patch 1 TD daily continued home Namenda 10 mg PO daily History of HLD continued home Crestor 10 mg PO HS History of Depression ccontinued home Wellbutrin 75 mg PO daily Prophylactic Measure Heart healthy 2gm sodium diet protonix 40 mg PO daily Heparin 5000 units SC Q8 Disposition: Will f/u with Cardio whether patient should go to [facility] (Not yet accepted) or straight to [place] for surgical treatment of PFO. Patient seen and discussed with Attending Dajuan Smith - PGY1 <Rosita Henry V - Last Filed: 07/06/17 13:47> Objective - Vital Signs/Intake and Output Vital Signs (last 24 hours): Temp Pulse Resp BP Pulse Ox 97.8 F 79 20 147/92 H 93 L 07/06/17 07:30 07/06/17 10:49 07/06/17 07:30 07/06/17 11:56 07/06/17 07:30 Intake and Output: 07/06/17 07/06/17 06:59 18:59 Intake Total 400 480 Output Total 200 500 Balance 200 -20 - Medications Medications: Current Medications Amlodipine Besylate (Norvasc) 10 mg PO DAILY [facility] Last Admin: 07/06/17 10:27 Dose: 10 mg Apixaban (Eliquis) 2.5 mg PO BID [facility] Last Admin: 07/06/17 10:28 Dose: 2.5 mg Aspirin (Aspirin Chewable) 81 mg PO DAILY [facility] Last Admin: 07/06/17 10:28 Dose: 81 mg Bacitracin (Bacitracin) 1 ea TOP DAILY [facility] Last Admin: 07/06/17 10:28 Dose: 1 ea Bupropion HCl (Wellbutrin) 75 mg PO DAILY [facility] Last Admin: 07/06/17 10:28 Dose: 75 mg Famotidine (Pepcid) 20 mg PO BID [facility] Last Admin: 07/06/17 10:27 Dose: 20 mg Hydralazine HCl (Apresoline) 25 mg PO TID [facility] Lisinopril (Zestril) 20 mg PO DAILY [facility] Last Admin: 07/06/17 10:28 Dose: 20 mg Memantine (Namenda) 10 mg PO DAILY [facility] Last Admin: 07/06/17 10:28 Dose: 10 mg Multivitamins/Minerals (Therapeutic-M Tab) 1 tab PO DAILY [facility] Last Admin: 07/06/17 10:27 Dose: 1 tab Rivastigmine (Exelon 9.5 Mg/24 Hr Patch) 1 patch TD DAILY [facility] Last Admin: 07/06/17 10:27 Dose: 1 patch Rosuvastatin Calcium (Crestor) 10 mg PO HS [facility] Last Admin: 07/05/17 21:29 Dose: 10 mg - Labs Labs: 07/06/17 06:41 07/06/17 06:41 PT 13.0 SECONDS (9.7-12.2) H 07/05/17 20:33 INR 1.1 07/05/17 20:33 APTT 25 SECONDS (21-34) 07/05/17 20:33 Attending/Attestation - Attestation I have personally seen and examined this patient.: Yes I have fully participated in the care of the patient.: Yes I have reviewed all pertinent clinical information, including history, physical exam and plan: Yes Notes (Text): Patient seen, examined, case discussed with medical transcriber. Patient seen status post completion of head and neck MRA. Patient denies acute complaints. Patient denies any complaints of pain. Patient denies any episodes of hematuria and reports he's been going to the bathroom well. Patient was seen by nurse practitioner working with neurology, noted for elevated blood pressure 160s and 100 100s respectively and had normal for labetalol 5 mg IV 1 dose. Prior to going to head and neck MRA. Patient blood pressure as of 11:59 AM is still elevated 147/92. Patient is ordered for hydralazine 10 mg IV 1 dose and is ordered for hydralazine 25 mg by mouth 3 times a day starting for about 6 hours later. We'll continue to monitor blood pressure during the day. Head and neck MRI is completed. The patient has completed CT angiogram of abdomen: Pelvis which does not report show any acute areas for concern for further stroke given PFO. Patient has had hypercoagulable on blood work collected and are send outs. We will coordinate with neurology and cardiology in regards to discharge planning. Case management and case management social worker are working to secure a subacute rehabilitation physician for the patient either [facility] or [facility] which is yet to be determined. Assessment/Plan 1) Cerebrovascular Accident, Chronic, Embolic Patent Nilsa Ovale * Head CT shows No evidence of acute intracranial hemorrhage mass effect or midline shift. No significant interval change in the brain noted since the previous exam. Chronic bilateral basal ganglia and cutler radiata infarction. Volume loss and moderate chronic microvascular ischemic disease. * Patient's neurologist Dr. Bowen consulted by ED, help appreciated * Neurology (Dr. Nj) on case-->help appreciated * Recommend Aspirin and Eliquis for anticoagulation. Will start Eliquis 07/05/16 PM. Will monitor creatinine function. * Recommend for Head and Neck MRA w/o contrast instead of head and neck CT bundle to limit exposure to contrast * Cardiology (Dr. Sales) on case-->help appreciated * Brain MRI (07/04/17): No mass, hemorrhage, or acute infarct identified. Stable age-related changes and chronic findings as above. Which include prominent multifocal chronic infarcts with basal ganglia and thalami coronary radiata centrum semiovale ovale and bilateral cerebellar preston-spheres unchanged and stable chronic mass effect of the right lateral dane related to the tortuous and mildly ectatic right posterior cerebral artery * Per cardiology note, FAISAL on 07/05/17 confirmed PFO with vigorous flow. Based on latest trials, the amplatz closure device has been found markedly superior ro medical therapy. Pt has already failed asa with recent TIA. The pt is eligible for a closure device if his hypercoagulation work up is negative, and a two week event monitor is neg for afib. Dr viramontes will order lab work, and I will arrange outpatient event after pt is sent home. Pt agress with plan. Dr Viramontes to consider anticoagulation pending amplatz device. * MRA Head w/o contrast: no evidence of occlusion or definite stenosis * MRA Neck w/o contrast: normal angiography of the neck * CT Angio Abdomen/Pelvis: vasculature: no acute findings/stenosis; mild generalized atheroscleorotic disease with no evidence of stenosis. 2.5 mm nonobstructing calculus in the upper pole of right kidney. right renal cyst. PSA is mildly enlarged. (official report available in EMR) * Venous doppler: negative for DVTs * Vitamin D: 42.9 * A1c: 6.5 * T, chol: 151, LDL: 80 HDL: 31 2) Hematuria History of Bladder Ca * Patient has a hx of bladder CA 9 years ago which was previously treated. Patient was seeing Dr. Felix Lazcano, urologist at the time. * Patient has recurrence of hematuria, which he reports was four days ago. Patient has not have further complaints of hematuria for the past two days * UA shows hematura, pyrua * Urine Culture: no growth * Renal US (07/04/16): bilateral mild diffuse increased renal cortical echogenicity focus can be seen with medical renal disease. * Urology (Dr. Everardo Lazcano) consult: called placed to his answering service 3) History of HTN * Cardiology on case help appreciated * uncontrolled * c/w lisinopril 20 mg by mouth once a day * c/w norvasc 10mg by mouth once a day * start Hydralazine 25mg PO TID 4) History of GERD * Protonix 40mg PO daily for GI ppx 5) History of Vascular Dementia * continued home Rivastigmine patch 1 TD daily * continued home Namenda 10 mg PO daily 6) History of HLD * continued home Crestor 10 mg PO HS * T, chol: 151, LDL: 80 HDL: 31 7) History of Depression * ccontinued home Wellbutrin 75 mg PO daily 8) Hypokalemia * replaced * monitor at bedside 9) Knee Abrasion * Bactracin ordered for right knee and left knee abrasions 10) Diabetes * a1c: 6.6/6.5 * Patient will need diet and lifestyle modifications at this time 11) Prophylactic Measure * Heart healthy 2gm sodium diet * protonix 40 mg PO daily * Will start Eliquis and c/w Aspirin. Disposition: Patient has large PFO found on FAISAL will further intervention. Per cardiology, The pt is eligible for a closure device if his hypercoagulation work up is negative, and a two week event monitor is neg for afib. Hypercoaguability workup is ordered and sent. Cardiology will arrange for outpatient event monitor in preparation for possible surgery. Will coordinate with neurology and cardiology for discharge planning. Patient is eligible for [facility] as discharge option. Blood pressure uncontrolled will continue to optimize.
[2017-07-06] MEDS: Multivitamin With Minerals Tab PO SCH (10:27)
[2017-07-06] MEDS: Bacitracin 500 Units/gm Oint Foilpak UD TOP SCH (10:28)
[2017-07-06] MEDS ORDERED: Labetalol 25mg/5ml Syringe IVP ONE (11:00)
--- NOTE | 2017-07-06 11:00 | CP.PCM.PN ---
Subjective - Date & Time of Evaluation Date of Evaluation: 07/06/17 Time of Evaluation: 11:00 - Subjective Subjective: Mr. Andres was seen and examined at the bedside. He is alert, oriented with mild dysarthia. He denies any headache, blurred vision, dizziness, lightheadedness, nausea, numbness, or weakness. He is able to follow simple commands. He states of just came back from MRI. His diastolic blood pressure over 110.All schedule antihypertensive were given an hour ago. Labetalol 5 mg was given with persistent diastolic over 110 and heart rate over 70.There was no untoward events overnight. At 11:15 the repeat blood pressure is 159/92 and heart rate- 69 post labetalol administration. Objective - Vital Signs/Intake and Output Vital Signs (last 24 hours): Temp Pulse Resp BP Pulse Ox 97.8 F 79 20 167/113 H 93 L 07/06/17 07:30 07/06/17 10:49 07/06/17 07:30 07/06/17 10:49 07/06/17 07:30 Intake and Output: 07/06/17 07/06/17 06:59 18:59 Intake Total 400 Output Total 200 Balance 200 - Medications Medications: Current Medications Amlodipine Besylate (Norvasc) 10 mg PO DAILY [facility] Last Admin: 07/06/17 10:27 Dose: 10 mg Apixaban (Eliquis) 2.5 mg PO BID [facility] Last Admin: 07/06/17 10:28 Dose: 2.5 mg Aspirin (Aspirin Chewable) 81 mg PO DAILY [facility] Last Admin: 07/06/17 10:28 Dose: 81 mg Bacitracin (Bacitracin) 1 ea TOP DAILY [facility] Last Admin: 07/06/17 10:28 Dose: 1 ea Bupropion HCl (Wellbutrin) 75 mg PO DAILY [facility] Last Admin: 07/06/17 10:28 Dose: 75 mg Famotidine (Pepcid) 20 mg PO BID [facility] Last Admin: 07/06/17 10:27 Dose: 20 mg Labetalol HCl (Trandate) 5 mg IVP ONCE ONE Stop: 07/06/17 11:01 Lisinopril (Zestril) 20 mg PO DAILY [facility] Last Admin: 07/06/17 10:28 Dose: 20 mg Memantine (Namenda) 10 mg PO DAILY [facility] Last Admin: 07/06/17 10:28 Dose: 10 mg Multivitamins/Minerals (Therapeutic-M Tab) 1 tab PO DAILY [facility] Last Admin: 07/06/17 10:27 Dose: 1 tab Rivastigmine (Exelon 9.5 Mg/24 Hr Patch) 1 patch TD DAILY [facility] Last Admin: 07/06/17 10:27 Dose: 1 patch Rosuvastatin Calcium (Crestor) 10 mg PO HS [facility] Last Admin: 07/05/17 21:29 Dose: 10 mg - Labs Labs: 07/06/17 06:41 07/06/17 06:41 PT 13.0 SECONDS (9.7-12.2) H 07/05/17 20:33 INR 1.1 07/05/17 20:33 APTT 25 SECONDS (21-34) 07/05/17 20:33 - Constitutional Appears: No Acute Distress - Head Exam Head Exam: NORMAL INSPECTION - Neurological Exam Neurological Exam: Alert, Awake, Oriented x3 Neuro motor strength exam: Left Upper Extremity: 4, Right Upper Extremity: 4, Left Lower Extremity: 4, Right Lower Extremity: 4 Additional comments: Neurological unchanged from previous examination. Assessment and Plan (1) History of CVA (cerebrovascular accident) Assessment & Plan: Case discussed with Dr. Nj, continue all current medical regimen including aspirin 81 mg PO daily and eliquis 2.5 mg PO BID. Pending venous duplex of the lower extremities. Labetalol 5 mg IVP for one dose. Please refer to primary physician for additional antihypertensive medication. Status: Acute
--- NOTE | 2017-07-06 11:34 | MRI ---
PROCEDURE: Magnetic Resonance Angiography Brain HISTORY: TIA COMPARISON: None available. TECHNIQUE: 3D time of flight MR angiography of the intracranial arteries was performed. Rotating maximum intensity projection images were generated. FINDINGS: INTERNAL CAROTID ARTERIES: There is a variant anatomy at the left internal carotid artery terminates which loops more posterior superiorly and divides into dominant left A1, A2 and M1 segments. Normal flow related signal. The skull base, petrous, cavernous and supraclinoid segments are bilaterally widely patient. ANTERIOR CEREBRAL ARTERIES: Normal flow related signal. 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 The left A1 and A2 segments are widely patent. Smaller distal branches unremarkable, as visualized. MIDDLE CEREBRAL ARTERIES: Normal flow related signal on the right. The right M1 and M2 segments are widely patent. The right Perisylvian branches normal. There is normal flow related signal in the left M1 segment. There is early bifurcation of left and M1 with normal appearance of M2 branches. POSTERIOR CIRCULATION: Basilar Artery: Normal. Distal Vertebral Arteries: Normal. The left vertebral artery is hypoplastic, an anatomic variant. Posterior Cerebral Arteries: Normal. There is origin of the right posterior cerebral artery, an anatomic variant. Posterior Inferior Cerebellar Arteries: Normal. ANEURYSM/ VASCULAR MALFORMATIONS: None. OTHER FINDINGS: None. IMPRESSION: 1. No evidence of occlusion or definite significant stenosis. 2. 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 Early bifurcation of the left M1 segment. 3. 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
--- NOTE | 2017-07-06 11:37 | MRI ---
PROCEDURE: MR Angiography of the neck without contrast HISTORY: TIA COMPARISON: None available. TECHNIQUE: 3D [id number] angiography of the neck was performed. Rotating maximum intensity projection images of the cervical carotid and vertebral arteries were generated. The origins of the common carotid arteries were not visualized, which is a limitation inherent to the non-contrast time of flight technique. FINDINGS: RIGHT CAROTID ARTERIES: Common Carotid Artery: Normal. Carotid Bifurcation: Normal. Internal Carotid Artery:Normal. External Carotid Artery (proximal branches): Normal. LEFT CAROTID ARTERIES: Common Carotid Artery: Normal. Carotid Bifurcation: Normal. Internal Carotid Artery:Normal. External Carotid Artery (proximal branches): Normal. VERTEBRAL ARTERIES: Right Vertebral Artery: Normal. Left Vertebral Artery: The left vertebral artery is hypoplastic, an anatomic variant. OTHER FINDINGS: None. IMPRESSION: Normal MR Angiography of the neck.
--- NOTE | 2017-07-06 13:12 | VASCLAB ---
PROCEDURE: Lower Extremity Venous Duplex Exam. HISTORY: r/o dvt PRIORS: None. TECHNIQUE: Bilateral common femoral, femoral, popliteal and posterior tibial, peroneal and great saphenous veins were evaluated. Flow was assessed with color Doppler, compressibility, assessment of phasic flow and augmentation response. Report prepared by Lenin Vuong, BREANNA, RVT FINDINGS: RIGHT: 1. Common Femoral Vein: 1.1. Compressibility - Fully compressible: Thrombus - None : Flow - Phasic: Augmentation -Normal: Reflux - None. 2. Femoral Vein: 2.1. Compressibility - Fully compressible: Thrombus - None : Flow - Phasic: Augmentation -Normal: Reflux - None. 3. Popliteal Vein: 3.1. Compressibility - Fully compressible: Thrombus - None : Flow - Phasic: Augmentation -Normal: Reflux - None. 4. Posterior Tibial Vein: 4.1. Compressibility - Fully compressible: Thrombus - None: Flow - Phasic: Augmentation -Normal: Reflux - None. 5. Peroneal Vein: 5.1. Compressibility - Fully compressible: Thrombus - None: Flow - Phasic: Augmentation -Normal: Reflux - None. 6. Great Saphenous Vein: 6.1. Compressibility - Fully compressible: Thrombus - None: Flow - Phasic: Augmentation - Normal: Reflux - None. LEFT: 1. Common Femoral Vein: 1.1. Compressibility - Fully compressible: Thrombus - None: Flow - Phasic: Augmentation -Normal: Reflux - None. 2. Femoral Vein: 2.1. Compressibility - Fully compressible: Thrombus - None: Flow - Phasic: Augmentation -Normal: Reflux - None. 3. Popliteal Vein: 3.1. Compressibility - Fully compressible: Thrombus - None : Flow - Phasic: Augmentation -Normal: Reflux - None. 4. Posterior Tibial Vein: 4.1. Compressibility - Fully compressible: Thrombus - None: Flow - Phasic: Augmentation -Normal: Reflux - None. 5. Peroneal Vein: 5.1. Compressibility - Fully compressible: Thrombus - None: Flow - Phasic: Augmentation -Normal: Reflux - None. 6. Great Saphenous Vein: 6.1. Compressibility - Fully compressible: Thrombus - None: Flow - Phasic: Augmentation - Normal: Reflux - None. OTHER FINDINGS: Right: None significant. Left: None significant. IMPRESSION: Right: No evidence of deep or superficial vein thrombosis of the right lower extremity. Normal valve function noted of the right side. Left: No evidence of deep or superficial vein thrombosis of the left lower extremity. Normal valve function noted of the left side.
[2017-07-07 07:33] LABS: BASO # 0.1 K/uL (0.0-0.2); EOS # 0.3 K/uL (0.0-0.7); EOS % 3.2 % (0.0-4.0); HEMOGLOBIN 15.2 g/dL (12.0-18.0); LYMPH # 1.5 K/uL (1.0-4.3); LYMPH % 14.8 % (20.0-40.0); MEAN CELL VOLUME 83.1 fL (80.0-94.0); MEAN CORPUSCULAR HEMOGLOBIN 28.1 pg (27.0-31.0); MEAN CORPUSCULAR HGB CONC 33.8 g/dL (33.0-37.0); MEAN PLATELET VOLUME 9.5 fL (7.2-11.7); MONO # 0.9 K/uL (0.0-0.8); MONO % 8.6 % (0.0-10.0); NEUT # 7.2 K/uL (1.8-7.0); NEUT % 72.4 % (50.0-75.0); RBC 5.4 Mil/uL (4.40-5.90); RED CELL DISTRIBUTION WIDTH 14.2 % (11.5-14.5); WHITE BLOOD COUNT 9.9 K/uL (4.8-10.8)
[2017-07-07 08:02] VITALS: O2SAT 94
[2017-07-07 08:37] LABS: ALB/GLOB RATIO 1.1 (1.0-2.1); ALBUMIN 3.5 g/dL (3.5-5.0); ALT/SGPT 49 U/L (21-72); AST/SGOT 42 U/L (17-59); BLOOD UREA NITROGEN 24 mg/dL (9-20); CALCIUM 8.4 mg/dl (8.6-10.4); GFR AFRICAN-AMERICAN > 60; GFR NON-AFRICAN AMERICAN 56
--- NOTE | 2017-07-07 09:36 | CP.PCM.PN ---
Subjective - Date & Time of Evaluation Date of Evaluation: 07/07/17 Time of Evaluation: 09:35 - Subjective Subjective: Pt feels well. Objective - Vital Signs/Intake and Output Vital Signs (last 24 hours): Temp Pulse Resp BP Pulse Ox 97.6 F 64 18 142/96 H 94 L 07/07/17 07:30 07/07/17 07:30 07/07/17 07:30 07/07/17 07:30 07/07/17 07:30 Intake and Output: 07/07/17 07/07/17 06:59 18:59 Output Total 100 Balance -100 - Medications Medications: Current Medications Amlodipine Besylate (Norvasc) 10 mg PO DAILY [facility] Last Admin: 07/06/17 10:27 Dose: 10 mg Apixaban (Eliquis) 2.5 mg PO BID [facility] Last Admin: 07/06/17 18:13 Dose: 2.5 mg Aspirin (Aspirin Chewable) 81 mg PO DAILY [facility] Last Admin: 07/06/17 10:28 Dose: 81 mg Bacitracin (Bacitracin) 1 ea TOP DAILY [facility] Last Admin: 07/06/17 10:28 Dose: 1 ea Bupropion HCl (Wellbutrin) 75 mg PO DAILY [facility] Last Admin: 07/06/17 10:28 Dose: 75 mg Famotidine (Pepcid) 20 mg PO BID [facility] Last Admin: 07/06/17 18:13 Dose: 20 mg Lisinopril (Zestril) 20 mg PO BID [facility] Memantine (Namenda) 10 mg PO DAILY [facility] Last Admin: 07/06/17 10:28 Dose: 10 mg Multivitamins/Minerals (Therapeutic-M Tab) 1 tab PO DAILY [facility] Last Admin: 07/06/17 10:27 Dose: 1 tab Rivastigmine (Exelon 9.5 Mg/24 Hr Patch) 1 patch TD DAILY [facility] Last Admin: 07/06/17 10:27 Dose: 1 patch Rosuvastatin Calcium (Crestor) 10 mg PO HS [facility] Last Admin: 07/06/17 22:13 Dose: 10 mg - Labs Labs: 07/07/17 07:25 07/07/17 07:25 PT 13.0 SECONDS (9.7-12.2) H 07/05/17 20:33 INR 1.1 01/03/18 20:33 APTT 25 SECONDS (21-34) 07/05/17 20:33 - Constitutional Appears: Well - Head Exam Head Exam: NORMAL INSPECTION - Eye Exam Eye Exam: EOMI - ENT Exam ENT Exam: Mucous Membranes Moist - Neck Exam Neck Exam: Full ROM - Respiratory Exam Respiratory Exam: Clear to Ausculation Bilateral - Cardiovascular Exam Cardiovascular Exam: REGULAR RHYTHM - Back Exam Back Exam: NORMAL INSPECTION - Neurological Exam Neurological Exam: Alert, Awake - Psychiatric Exam Psychiatric exam: Normal Affect - Skin Skin Exam: Normal Color Assessment and Plan - Assessment and Plan (Free Text) Assessment: 1. If hypercoagulation work up is negative, and outpatient event monitor is negative for afib, then pt will be advised to have amplatz closure of PFO. 2PB is still high but better. Stop hydralazine. Guiudlines: must max out lisinopril first to bid, and if needed, add hctz before adding hydralazine.
[2017-07-07] MEDS: Multivitamin With Minerals Tab PO SCH (09:40)
[2017-07-07] MEDS: Bacitracin 500 Units/gm Oint Foilpak UD TOP SCH (09:40)
--- NOTE | 2017-07-07 14:01 | CP.PCM.PN ---
Subjective - Date & Time of Evaluation Date of Evaluation: 07/07/17 Time of Evaluation: 13:55 - Subjective Subjective: Mr. Andres was seen and examined at the bedside. He is alert, oriented. He denies any headache, dizziness, blurred vision, nauea, or vomiting. He is able to answer simple questions and follows simple commands. According to patient's sister, the patient is too weak to be discharge and unable to pull himself in bed. He is able to feed himself, but needs assistance with his other ADL's. The control operator is recommending a loop recorder to be placed and Dr. Nj second the motion. Dr. Nj highly recommend for acute rehab. for the patient for extensive therapy. Family is agreeing with it. There is a plan for the patient to have his PFO repaired, but it will be done after patient will go to rehab. There was no untoward events overnight. Objective - Vital Signs/Intake and Output Vital Signs (last 24 hours): Temp Pulse Resp BP Pulse Ox 97.6 F 71 18 142/96 H 94 L 07/07/17 07:30 07/07/17 12:04 07/07/17 07:30 07/07/17 07:30 07/07/17 07:30 Intake and Output: 07/07/17 07/07/17 06:59 18:59 Output Total 100 Balance -100 - Medications Medications: Current Medications Amlodipine Besylate (Norvasc) 10 mg PO DAILY [facility] Last Admin: 07/07/17 09:40 Dose: 10 mg Apixaban (Eliquis) 2.5 mg PO BID [facility] Last Admin: 07/07/17 09:40 Dose: 2.5 mg Aspirin (Aspirin Chewable) 81 mg PO DAILY [facility] Last Admin: 07/07/17 09:40 Dose: 81 mg Bacitracin (Bacitracin) 1 ea TOP DAILY [facility] Last Admin: 07/07/17 09:40 Dose: 1 ea Bupropion HCl (Wellbutrin) 75 mg PO DAILY [facility] Last Admin: 07/07/17 09:40 Dose: 75 mg Famotidine (Pepcid) 20 mg PO BID [facility] Last Admin: 07/07/17 09:40 Dose: 20 mg Lisinopril (Zestril) 20 mg PO BID [facility] Last Admin: 07/07/17 09:55 Dose: 20 mg Memantine (Namenda) 10 mg PO DAILY [facility] Last Admin: 07/07/17 09:40 Dose: 10 mg Multivitamins/Minerals (Therapeutic-M Tab) 1 tab PO DAILY [facility] Last Admin: 07/07/17 09:40 Dose: 1 tab Rivastigmine (Exelon 9.5 Mg/24 Hr Patch) 1 patch TD DAILY [facility] Last Admin: 07/07/17 09:40 Dose: 1 patch Rosuvastatin Calcium (Crestor) 10 mg PO HS [facility] Last Admin: 07/06/17 22:13 Dose: 10 mg - Labs Labs: 07/07/17 07:25 07/07/17 07:25 PT 13.0 SECONDS (9.7-12.2) H 07/05/17 20:33 INR 1.1 07/05/17 20:33 APTT 25 SECONDS (21-34) 07/05/17 20:33 - Constitutional Appears: No Acute Distress - Head Exam Head Exam: NORMAL INSPECTION - Neurological Exam Neurological Exam: Alert, Awake, Oriented x3 Neuro motor strength exam: Left Upper Extremity: 4, Right Upper Extremity: 4, Left Lower Extremity: 4, Right Lower Extremity: 4 Additional comments: Neurological unchanged from previous examination. Assessment and Plan (1) History of CVA (cerebrovascular accident) Assessment & Plan: Case discussed with Dr. Nj, continue all current medical, physical, occupational, and speech therapies. Recommend loop recorder for cardiac monitoring. Status: Acute
[2017-07-07 16:23] VITALS: BP 146/86; PULSE 74; RESP 20; TEMP 98.3
--- NOTE | 2017-07-07 17:20 | CP.PCM.DIS ---
<Dajuan Smith - Last Filed: 07/07/17 21:08> Provider - Provider Date of Admission: 07/03/17 18:33 Attending physician: Rosita Henry DO Time Spent in preparation of Discharge (in minutes): 45 Hospital Course - Lab Results Lab Results: Micro Results 07/04/17 22:31 Urine Urine Culture - Final No Growth (<1,000 CFU/ML) Most Recent Lab Values WBC 9.9 K/uL (4.8-10.8) 07/07/17 07:25 RBC 5.40 Mil/uL (4.40-5.90) 07/07/17 07:25 Hgb 15.2 g/dL (12.0-18.0) 07/07/17 07:25 Hct 44.9 % (35.0-51.0) 07/07/17 07:25 MCV 83.1 fL (80.0-94.0) 07/07/17 07:25 MCH 28.1 pg (27.0-31.0) 07/07/17 07:25 MCHC 33.8 g/dL (33.0-37.0) 07/07/17 07:25 RDW 14.2 % (11.5-14.5) 07/07/17 07:25 Plt Count 201 K/uL (130-400) 07/07/17 07:25 MPV 9.5 fL (7.2-11.7) 07/07/17 07:25 Neut % (Auto) 72.4 % (50.0-75.0) 07/07/17 07:25 Lymph % (Auto) 14.8 % (20.0-40.0) L 07/07/17 07:25 [place] % (Auto) 8.6 % (0.0-10.0) 07/07/17 07:25 Eos % (Auto) 3.2 % (0.0-4.0) 07/07/17 07:25 Baso % (Auto) 1.0 % (0.0-2.0) 07/07/17 07:25 Neut # 7.2 K/uL (1.8-7.0) H 07/07/17 07:25 Lymph # 1.5 K/uL (1.0-4.3) 07/07/17 07:25 [place] # 0.9 K/uL (0.0-0.8) H 07/07/17 07:25 Eos # 0.3 K/uL (0.0-0.7) 07/07/17 07:25 Baso # 0.1 K/uL (0.0-0.2) 07/07/17 07:25 PT 13.0 SECONDS (9.7-12.2) H 07/05/17 20:33 INR 1.1 07/05/17 20:33 APTT 25 SECONDS (21-34) 07/05/17 20:33 Sodium 139 mmol/L (132-148) 07/07/17 07:25 Potassium 3.9 mmol/L (3.6-5.2) 07/07/17 07:25 Chloride 103 mmol/L (98-107) 07/07/17 07:25 Carbon Dioxide 28 mmol/L (22-30) 07/07/17 07:25 Anion Gap 12 (10-20) 07/07/17 07:25 BUN 24 mg/dL (9-20) H 07/07/17 07:25 Creatinine 1.3 mg/dL (0.8-1.5) 07/07/17 07:25 Est GFR ( Amer) > 60 07/07/17 07:25 Est GFR (Non-Af Amer) 56 07/07/17 07:25 POC Glucose (mg/dL) 149 mg/dL (65-110) H 07/07/17 12:05 Random Glucose 108 mg/dL (75-110) 07/07/17 07:25 Hemoglobin A1c 6.5 % (4.2-6.5) 07/04/17 06:32 Calcium 8.4 mg/dl (8.6-10.4) L 07/07/17 07:25 Phosphorus 3.4 mg/dL (2.5-4.5) 07/07/17 07:25 Magnesium 2.0 mg/dL (1.6-2.3) 07/07/17 07:25 Total Bilirubin 0.6 mg/dL (0.2-1.3) 07/07/17 07:25 AST 42 U/L (17-59) 07/07/17 07:25 ALT 49 U/L (21-72) 07/07/17 07:25 Alkaline Phosphatase 70 U/L (38-126) 07/07/17 07:25 Troponin I 0.0180 ng/mL (0.00-0.120) 07/03/17 17:14 Total Protein 6.8 g/dL (6.3-8.3) 07/07/17 07:25 Albumin 3.5 g/dL (3.5-5.0) 07/07/17 07:25 Globulin 3.3 gm/dL (2.2-3.9) 07/07/17 07:25 Albumin/Globulin Ratio 1.1 (1.0-2.1) 07/07/17 07:25 Triglycerides 138 mg/dL (0-149) 07/04/17 06:32 Cholesterol 151 mg/dL (0-199) 07/04/17 06:32 LDL Cholesterol Direct 80 mg/dL (0-129) 07/04/17 06:32 HDL Cholesterol 31 mg/dL (30-70) 07/04/17 06:32 Vitamin B12 748 pg/mL (239-931) 07/06/17 12:05 25-OH Vitamin D Total 42.9 NG/ML (30.0-100.0) 07/06/17 12:05 Folate 14.0 ng/mL 07/06/17 12:05 Homocysteine 12.6 umol/L (6.6-14.8) 07/06/17 12:05 Free T4 1.56 ng/dL (0.78-2.19) 07/04/17 06:32 TSH 3rd Generation 3.17 mIU/L (0.46-4.68) 07/04/17 06:32 Urine Color Yellow (YELLOW) 07/04/17 22:31 Urine Clarity Hazy (Clear) 07/04/17 22:31 Urine pH 5.0 (5.0-8.0) 07/04/17 22:31 Ur Specific [place] 1.025 (1.003-1.030) 07/04/17 22:31 Urine Protein 2+ mg/dL (NEGATIVE) H 07/04/17 22:31 Urine Glucose (UA) Normal mg/dL (Normal) 07/04/17 22:31 Urine Ketones Negative mg/dL (NEGATIVE) 07/04/17 22:31 Urine Blood 3+ (NEGATIVE) H 07/04/17 22:31 Urine Nitrate Negative (NEGATIVE) 07/04/17 22:31 Urine Bilirubin Negative (NEGATIVE) 07/04/17 22:31 Urine Urobilinogen 2.0 mg/dL (0.2-1.0) 07/04/17 22:31 Ur Leukocyte Esterase Trace [place]/uL (Negative) 07/04/17 22:31 Urine WBC (Auto) 78 /hpf (0-5) H 07/04/17 22:31 Urine RBC (Auto) 873 /hpf (0-3) H 07/04/17 22:31 Ur Squamous Epith Cells < 1 /hpf (0-5) 07/04/17 22:31 Urine Bacteria Rare (<OCC) 07/04/17 22:31 Hyaline Casts 0-2 /lpf (0-2) 07/04/17 22:31 Blood Type A POSITIVE 07/03/17 17:14 Antibody Screen Negative 07/03/17 17:14 Discharge Exam - Head Exam Head Exam: NORMAL INSPECTION - Additional Findings Additional findings: - Constitutional Appears: Well, Non-toxic - Head Exam Head Exam: ATRAUMATIC, NORMOCEPHALIC - Eye Exam Eye Exam: EOMI, Normal appearance, PERRL. absent: Scleral icterus - ENT Exam ENT Exam: Mucous Membranes Moist - Respiratory Exam Respiratory Exam: Clear to Ausculation Bilateral. absent: Rales, Rhonchi, Wheezes - Cardiovascular Exam Cardiovascular Exam: RRR, +S1, +S2 - GI/Abdominal Exam GI & Abdominal Exam: Soft, Normal Bowel Sounds. absent: Tenderness - Extremities Exam Extremities Exam: absent: Pedal Edema Additional comments: Left foot held in plantarflexion, inversion, internal rotation. This is from prior ankle injury. - Neurological Exam Neurological Exam: Alert, Awake, CN II-XII Intact, Oriented x3 Neuro motor strength exam: Left Upper Extremity: 5, Right Upper Extremity: 4, Left Lower Extremity: 5, Right Lower Extremity: 4 Additional comments: Speech is dysarthric, but not aphasic. Reflexes brisk with upgoing plantar responses bilaterally. Strength is diminished on the right side with decreased function on fine motor exam of the right side. - Psychiatric Exam Psychiatric exam: Normal Mood. absent: Normal Affect (Restricted Affect) - Skin Skin Exam: Dry, Intact, Normal Color, Warm Additional comments: healing sore on lateral left foot Left and right knee with abrasions Right>left Discharge Plan - Follow Up Plan Condition: GOOD Disposition: REHAB FACILITY/REHAB UNIT Instructions: Aspirin (By mouth), Rosuvastatin (By mouth), Apixaban (By mouth) , Transient Ischemic Attack (DC), Heart Failure (DC), Heart Healthy Diet (DC), Hypertension (DC), Stroke (DC) Additional Instructions: Patient should continue all medications as listed in the discharge packet. He she take new medications as listed in the discharge paperwork. Patient should follow up with primary care physician after rehab. He should get repeat HgBA1C in 6-12 months. Lifestyle modifications are recommended for his new found Diabetes (ClPJ8m=5.5) Patient should follow up with his urologist due to his blood in the urine. <Rosita Henry V - Last Filed: 07/08/17 07:20> Provider - Provider Date of Admission: 07/03/17 18:33 Attending physician: Rosita Henry, Hospital Course - Lab Results Lab Results: Micro Results 07/04/17 22:31 Urine Urine Culture - Final No Growth (<1,000 CFU/ML) Most Recent Lab Values WBC 9.9 K/uL (4.8-10.8) 07/07/17 07:25 RBC 5.40 Mil/uL (4.40-5.90) 07/07/17 07:25 Hgb 15.2 g/dL (12.0-18.0) 07/07/17 07:25 Hct 44.9 % (35.0-51.0) 07/07/17 07:25 MCV 83.1 fL (80.0-94.0) 07/07/17 07:25 MCH 28.1 pg (27.0-31.0) 07/07/17 07:25 MCHC 33.8 g/dL (33.0-37.0) 07/07/17 07:25 RDW 14.2 % (11.5-14.5) 07/07/17 07:25 Plt Count 201 K/uL (130-400) 07/07/17 07:25 MPV 9.5 fL (7.2-11.7) 07/07/17 07:25 Neut % (Auto) 72.4 % (50.0-75.0) 07/07/17 07:25 Lymph % (Auto) 14.8 % (20.0-40.0) L 07/07/17 07:25 [place] % (Auto) 8.6 % (0.0-10.0) 07/07/17 07:25 Eos % (Auto) 3.2 % (0.0-4.0) 07/07/17 07:25 Baso % (Auto) 1.0 % (0.0-2.0) 07/07/17 07:25 Neut # 7.2 K/uL (1.8-7.0) H 07/07/17 07:25 Lymph # 1.5 K/uL (1.0-4.3) 07/07/17 07:25 [place] # 0.9 K/uL (0.0-0.8) H 07/07/17 07:25 Eos # 0.3 K/uL (0.0-0.7) 07/07/17 07:25 Baso # 0.1 K/uL (0.0-0.2) 07/07/17 07:25 PT 13.0 SECONDS (9.7-12.2) H 07/05/17 20:33 INR 1.1 07/05/17 20:33 APTT 25 SECONDS (21-34) 07/05/17 20:33 Sodium 139 mmol/L (132-148) 07/07/17 07:25 Potassium 3.9 mmol/L (3.6-5.2) 07/07/17 07:25 Chloride 103 mmol/L (98-107) 07/07/17 07:25 Carbon Dioxide 28 mmol/L (22-30) 07/07/17 07:25 Anion Gap 12 (10-20) 07/07/17 07:25 BUN 24 mg/dL (9-20) H 07/07/17 07:25 Creatinine 1.3 mg/dL (0.8-1.5) 07/07/17 07:25 Est GFR ( Amer) > 60 07/07/17 07:25 Est GFR (Non-Af Amer) 56 07/07/17 07:25 POC Glucose (mg/dL) 149 mg/dL (65-110) H 07/07/17 16:54 Random Glucose 108 mg/dL (75-110) 07/07/17 07:25 Hemoglobin A1c 6.5 % (4.2-6.5) 07/04/17 06:32 Calcium 8.4 mg/dl (8.6-10.4) L 07/07/17 07:25 Phosphorus 3.4 mg/dL (2.5-4.5) 07/07/17 07:25 Magnesium 2.0 mg/dL (1.6-2.3) 07/07/17 07:25 Total Bilirubin 0.6 mg/dL (0.2-1.3) 07/07/17 07:25 AST 42 U/L (17-59) 07/07/17 07:25 ALT 49 U/L (21-72) 07/07/17 07:25 Alkaline Phosphatase 70 U/L (38-126) 07/07/17 07:25 Troponin I 0.0180 ng/mL (0.00-0.120) 07/03/17 17:14 Total Protein 6.8 g/dL (6.3-8.3) 07/07/17 07:25 Albumin 3.5 g/dL (3.5-5.0) 07/07/17 07:25 Globulin 3.3 gm/dL (2.2-3.9) 07/07/17 07:25 Albumin/Globulin Ratio 1.1 (1.0-2.1) 07/07/17 07:25 Triglycerides 138 mg/dL (0-149) 07/04/17 06:32 Cholesterol 151 mg/dL (0-199) 07/04/17 06:32 LDL Cholesterol Direct 80 mg/dL (0-129) 07/04/17 06:32 HDL Cholesterol 31 mg/dL (30-70) 07/04/17 06:32 Vitamin B12 748 pg/mL (239-931) 07/06/17 12:05 25-OH Vitamin D Total 42.9 NG/ML (30.0-100.0) 07/06/17 12:05 Folate 14.0 ng/mL 07/06/17 12:05 Homocysteine 12.6 umol/L (6.6-14.8) 07/06/17 12:05 Free T4 1.56 ng/dL (0.78-2.19) 07/04/17 06:32 TSH 3rd Generation 3.17 mIU/L (0.46-4.68) 07/04/17 06:32 Urine Color Yellow (YELLOW) 07/04/17 22:31 Urine Clarity Hazy (Clear) 07/04/17 22:31 Urine pH 5.0 (5.0-8.0) 07/04/17 22:31 Ur Specific [place] 1.025 (1.003-1.030) 07/04/17 22:31 Urine Protein 2+ mg/dL (NEGATIVE) H 07/04/17 22:31 Urine Glucose (UA) Normal mg/dL (Normal) 07/04/17 22:31 Urine Ketones Negative mg/dL (NEGATIVE) 07/04/17 22:31 Urine Blood 3+ (NEGATIVE) H 07/04/17 22:31 Urine Nitrate Negative (NEGATIVE) 07/04/17 22:31 Urine Bilirubin Negative (NEGATIVE) 07/04/17 22:31 Urine Urobilinogen 2.0 mg/dL (0.2-1.0) 07/04/17 22:31 Ur Leukocyte Esterase Trace [place]/uL (Negative) 07/04/17 22:31 Urine WBC (Auto) 78 /hpf (0-5) H 07/04/17 22:31 Urine RBC (Auto) 873 /hpf (0-3) H 07/04/17 22:31 Ur Squamous Epith Cells < 1 /hpf (0-5) 07/04/17 22:31 Urine Bacteria Rare (<OCC) 07/04/17 22:31 Hyaline Casts 0-2 /lpf (0-2) 07/04/17 22:31 Blood Type A POSITIVE 07/03/17 17:14 Antibody Screen Negative 07/03/17 17:14 Clinical Quality Measures - CQM - Stroke Antithrombotic Prescribed: Yes Anticoagulation Prescribed for Atrial Flutter, Atrial Fibrillation and History of:: Not Applicable Statin prescribed: Yes Attending/Attestation - Attestation I have personally seen and examined this patient.: Yes I have fully participated in the care of the patient.: Yes I have reviewed all pertinent clinical information, including history, physical exam and plan: Yes Notes (Text): Patient seen and examined and case discussed with medical scientific officer. Patient seen at bedside denies acute complaints. Blood pressure better controlled. RYAN inhibitor on maximum dose. Calcium channel jules on maximum dose. If patient needs third region cardiology has recommended for thiazide diuretic. Patient sister;alex Andres bedside, who reports patient's primary caregiver. Patient is not . There is no official health proxy for the patient. Updated sister in regards to patient's hospital course. Also recommend patient sister to speak with cardiology as well given the next step is for possible surgery to close PFO which is currently being arranged by cardiology. Per neurology patient is stable for discharge. Recommends to continue aspirin and Eliquis. Patient will need to follow-up with urology as outpatient given episode of hematuria prior to starting aspirin or Eliquis given prior history of bladder cancer 9 years ago. H&H remained stable and patient has not had further episodes of hematuria for past 2-3 days and have confirmed with nursing staff. I spoke with case management during the day and [place] in TCU will allow for event monitor which is needed for the patient to monitor for potential atrial fibrillation as a requirement needed for PFO surgery. Resident has spoken with cardiology last her update in regards to [place] and allowing event monitor. Patient was educated about diabetes briefly is aware that he'll need to make diet modifications which will take time. Given A1c is 6.5 and will not start on hypoglycemics at this time. Hypercoagulable workup blood work is our send outs usually takes about a week to week if needed. Patient discharged to [facility] for further rehabilitation and patient will need event monitor to rearrange her cardiology in preparation for PFO surgery. Discharge order and discharge instructions discussed with medical scientific officer. Will continue current meds. Discharge Diagnoses 1) Cerebrovascular Accident, Chronic, Embolic Patent Nilsa Ovale * Head CT shows No evidence of acute intracranial hemorrhage mass effect or midline shift. No significant interval change in the brain noted since the previous exam. Chronic bilateral basal ganglia and cutler radiata infarction. Volume loss and moderate chronic microvascular ischemic disease. * Neurology (Dr. Nj) on case-->help appreciated * Recommend Aspirin and Eliquis for anticoagulation. Will start Eliquis 07/05/16 PM. No bleeding episodes noted. Discussed with sister at bedside, regarding bleeding risk but given patient's recurrent embolic strokes will help to prevent until patient is scheduled for possible surgerical correction of PFO. * Recommends for LINQ monitor. * Cardiology (Dr. Sales) on case-->help appreciated * Will arrange for event monitor; resident has updated him on discharge given patient is going to [facility]. * Brain MRI (07/04/17): No mass, hemorrhage, or acute infarct identified. Stable age-related changes and chronic findings as above. Which include prominent multifocal chronic infarcts with basal ganglia and thalami coronary radiata centrum semiovale ovale and bilateral cerebellar preston-spheres unchanged and stable chronic mass effect of the right lateral dane related to the tortuous and mildly ectatic right posterior cerebral artery * Per cardiology note, [facility] on 07/05/17 confirmed PFO with vigorous flow. Based on latest trials, the amplatz closure device has been found markedly superior ro medical therapy. Pt has already failed asa with recent TIA. The pt is eligible for a closure device if his hypercoagulation work up is negative, and a two week event monitor is neg for afib. Dr viramontes will order lab work, and I will arrange outpatient event after pt is sent home. Pt agress with plan. Dr Viramontes to consider anticoagulation pending amplatz device. * MRA Head w/o contrast: no evidence of occlusion or definite stenosis * MRA Neck w/o contrast: normal angiography of the neck * CT Angio Abdomen/Pelvis: vasculature: no acute findings/stenosis; mild generalized atheroscleorotic disease with no evidence of stenosis. 2.5 mm nonobstructing calculus in the upper pole of right kidney. right renal cyst. PSA is mildly enlarged. (official report available in EMR) * Venous doppler: negative for DVTs * Vitamin D: 42.9 * A1c: 6.5 * T, chol: 151, LDL: 80 HDL: 31 2) Hematuria History of Bladder Ca * Patient has a hx of bladder CA 9 years ago which was previously treated. Patient was seeing Dr. Felix Lazcano, urologist at the time. * Patient has recurrence of hematuria, which he reports was five days ago. Patient has not have further complaints of hematuria for the past three days. H/ H remains stable. * UA shows hematura, pyrua * Urine Culture: no growth * Renal US (07/04/16): bilateral mild diffuse increased renal cortical echogenicity focus can be seen with medical renal disease. * Recommend to follow-up outpatient with urology. 3) History of HTN * Cardiology on case help appreciated * better controlled * c/w lisinopril 20 mg by mouth twice a day * c/w norvasc 10mg by mouth once a day * Cardiology recommends for HCTZ if blood pressure remains uncontrolled as third agent. 4) History of GERD * Protonix 40mg PO daily 5) History of Vascular Dementia * continued home Rivastigmine patch 1 TD daily * continued home Namenda 10 mg PO daily 6) History of HLD * continued home Crestor 10 mg PO HS * T, chol: 151, LDL: 80 HDL: 31 7) History of Depression * continued home Wellbutrin 75 mg PO daily 8) Hypokalemia * monitor and replace as needed 9) Knee Abrasion * Bactracin ordered for right knee and left knee abrasions 10) Diabetes * a1c: 6.6/6.5 * Patient will need diet and lifestyle modifications at this time 11) Prophylactic Measure * Heart healthy 2gm sodium diet * protonix 40 mg PO daily * Will start Eliquis and c/w Aspirin. Disposition: Patient has large PFO found on FAISAL will further intervention. Per cardiology, he pt is eligible for a closure device if his hypercoagulation work up is negative, and a two week event monitor is neg for afib. Hypercoaguability bloodwork ordered and sent; these are send out blood works. Per neurology, no further workup needed. Cardiology will arrange for event monitor while [facility]. Neurology stable for discharge; recommends for Aspirin and Eliquis and for LINQ monitor. Neurology and cardiology updated and are aware patient will [facility]. Patient and patient's sister, Charlotte updated at bedside.
--- NOTE | 2017-07-07 23:27 | CARD ---
APPROVED REPORT EXAM: Transesophageal echocardiogram with color flow Doppler and bubble. INDICATION CVA/TIA LEFT VENTRICLE The left ventricle is normal size. There is mild concentric left ventricular hypertrophy. There is normal left ventricular wall thickness. The left ventricular function is normal. The left ventricular ejection fraction is within the normal range. The left ventricular function is normal. The left ventricular ejection fraction is within the normal range. About70%. There is normal LV segmental wall motion. There is no ventricular septal defect visualized. RIGHT VENTRICLE The right ventricle is normal size. There is normal right ventricular wall thickness. ATRIA The left atrium size is normal. No appendage thrombus Lipomatous hypertropy of the inter-atrial septum is noted. With color doppler, a patent foramen ovale is noted. With agitated saline, brisk flow of microbubbles is noted, crossing from the right atrium to the left atrium. This consistent with a patent foramen ovale. AORTIC VALVE The aortic valve is normal in structure. No aortic regurgitation is present. There is no aortic valvular stenosis. There is no aortic valvular vegetation. MITRAL VALVE The mitral valve opens wel.. The anterior leaflet is mildly thickened, and there is systolic anterior motion of the chordae tendinae, without LVOT obstruction. There is no evidence of mitral valve prolapse. There is no mitral valve stenosis. Mild mitral regurgitation. TRICUSPID VALVE The tricuspid valve is normal in structure. There is no tricuspid valve regurgitation noted. There is no tricuspid valve prolapse or vegetation. PULMONIC VALVE The pulmonary valve is normal in structure. GREAT VESSELS The aorta is moderately dilated at the level of the sinuses, 4.2 cm. The ascending aorta is 3.9 cm in diamter, mildly dilated. In the proximal descending thoracic aorta, significant focal heterogenous plaque is noted, .6 cm in height. <Conclusion> Normal left ventricualr systolic function. With color doppler, a patent foramen ovale is noted. With agitated saline, brisk flow of microbubbles is noted, crossing from the right atrium to the left atrium. This consistent with a patent foramen ovale. The aorta is moderately dilated at the level of the sinuses, 4.2 cm. The ascending aorta is 3.9 cm in diameter, mildly dilated. In the proximal descending thoracic aorta, significant focal heterogenous plaque is noted, .6 cm in height.
[2017-07-08 05:14] LABS: B2 GLYCOPROTEIN I AB(IGA) 19 SAU (<=20); B2 GLYCOPROTEIN I AB(IGG) 32 SGU (<=20); B2 GLYCOPROTEIN I AB(IGM) 49 SMU (<=20)
[2017-07-08 14:58] LABS: CARDIOLIPIN AB (IGA) <11 APL (<=11); CARDIOLIPIN AB (IGG) <14 GPL (<=14); CARDIOLIPIN AB (IGM) <12 MPL (<=12)
[2017-07-08 21:45] LABS: PHOSPHATIDYLSERINE AB IGA <20 U/mL (<20); PHOSPHATIDYLSERINE AB IGG 16 U/mL (<10); PHOSPHATIDYLSERINE AB IGM <25 U/mL (<25)
== END 2017-07-07 17:15 | DRG 69 ==
LOC: C.ER 17:04 → C.9E 18:33 → C.6T 19:10
PROVIDERS: ADMIT Hospitalist; ATTEND Hospitalist
PROC: B24BZZ4 Ultrasonography of Heart with Aorta, Transesophageal (ICD-10-PCS; principal; 2017-07-05)
DX: I67.82 Cerebral ischemia (principal); E11.22 Type 2 diabetes mellitus with diabetic chronic kidney disease; G30.9 Alzheimer's disease, unspecified; F01.50 Vascular dementia, unspecified severity, without behavioral disturbance, psychotic disturbance, mood disturbance, and anxiety; Q21.1 Atrial septal defect; I69.354 Hemiplegia and hemiparesis following cerebral infarction affecting left non-dominant side; I48.91 Unspecified atrial fibrillation; W18.39XA Other fall on same level, initial encounter; E78.5 Hyperlipidemia, unspecified; I12.9 Hypertensive chronic kidney disease with stage 1 through stage 4 chronic kidney disease, or unspecified chronic kidney disease; N18.9 Chronic kidney disease, unspecified; K21.9 Gastro-esophageal reflux disease without esophagitis; F32.9 Major depressive disorder, single episode, unspecified; Z87.891 Personal history of nicotine dependence; Z85.51 Personal history of malignant neoplasm of bladder; R31.9 Hematuria, unspecified; E87.6 Hypokalemia; S80.212A Abrasion, left knee, initial encounter; Z79.01 Long term (current) use of anticoagulants; R47.81 Slurred speech; R53.1 Weakness

== ENCOUNTER 2018-04-09 11:09 | Emergency (ER) | payer MEDICARE ==
[2018-04-09 11:10] VITALS: BMI 25.8
[2018-04-09 11:20] VITALS: TEMP 98.8; O2SAT 100
[2018-04-09] MEDS ORDERED: Sodium Chloride 0.9% 1,000 ML IV ONE (12:43)
--- NOTE | 2018-04-09 12:43 | C.PDOC ---
History Of Present Illness 63 y/o male with history of Stroke, Bladder CA and HTN brought to ED by family member for evaluation of hematuria for 5 days and low blood pressure associated with weakness developed today. Patient denies fever, chills, nausea, vomiting, lightheadedness or any other complaints at this time. Time Seen by Provider: 04/09/18 12:24 Chief Complaint (Nursing): Weakness/Neurological Deficit History Per: Patient History/Exam Limitations: no limitations Onset/Duration Of Symptoms: Days Current Symptoms Are (Timing): Still Present Past Medical History Reviewed: Historical Data, Nursing Documentation, Vital Signs Vital Signs: Last Vital Signs Temp 98.8 F 04/09/18 11:17 Pulse 82 04/09/18 11:17 Resp 16 04/09/18 11:17 BP 110/73 04/09/18 11:17 Pulse Ox 100 04/09/18 11:17 - Medical History PMH: Alzheimer's Disease, CVA, Dementia (vascular dementia-Alzheimers), Depression, Gastrointestinal Ulcer, HTN, Hypercholesterolemia, Chronic Kidney Disease, TIA Surgical History: No Surg Hx - [facility] Procedures BATHING/SHOWERING TECHNIQUES TREATMENT (03/16/15) COMM/COGNIT SKILL TREATMENT USING AUGMENT COMM EQUIPMENT (07/07/17) DRESSING TECHNIQUES TREATMENT (03/16/15) EXCISION OF TOE NAIL, EXTERNAL APPROACH (03/16/15) EXERCISE TREATMENT OF MUSCULOSK WHOLE USING ASSIST EQUIPMENT (07/07/17) EXTRACTION OF LEFT FOOT SKIN, EXTERNAL APPROACH (05/04/15) GAIT TRAINING/AMBULAT TREATMENT USING ASSIST EQUIPMENT (07/07/17) HOME MANAGEMENT TREATMENT (03/16/15) HOME MANAGEMENT TREATMENT USING ASSIST EQUIPMENT (07/07/17) INTRODUCTION OF ANTI-INFLAM INTO RESP TRACT, VIA OPENING (07/07/17) SPEECH PATH MAINTENANCE AND REPAIR WORKER TREATMENT (03/16/15) THERAPEUTIC EXERCISE TREATMENT OF MUSCULOSK WHOLE (03/16/15) ULTRASONOGRAPHY OF HEART WITH AORTA, TRANSESOPHAGEAL (07/03/17) Family History: States: Hypertension - Social History Hx Tobacco Use: No Hx Alcohol Use: Yes (former ETOH) Hx Substance Use: No - Immunization History Hx Tetanus Toxoid Vaccination: No Hx Influenza Vaccination: No Hx Pneumococcal Vaccination: Yes Review Of Systems Constitutional: Positive for: Weakness. Negative for: Fever, Chills Gastrointestinal: Negative for: Nausea, Vomiting Genitourinary: Positive for: Hematuria. Negative for: Dysuria Skin: Negative for: Rash Physical Exam - Physical Exam Appears: Non-toxic, No Acute Distress Skin: Warm, Dry, No Rash Head: Atraumatic, Normacephalic Eye(s): bilateral: Normal Inspection Oral Mucosa: Moist Lips: Pale Neck: Supple Cardiovascular: Rhythm Regular Respiratory: Normal Breath Sounds, No Rales, No Rhonchi, No Wheezing Gastrointestinal/Abdominal: Soft, No Tenderness, No Guarding, No Rebound Back: No CVA Tenderness Neurological/Psych: Oriented x3, Normal Speech, Normal Cognition ED Course And Treatment - Laboratory Results Result Diagrams: 04/09/18 12:48 04/09/18 12:48 ECG: Interpreted By Me, Viewed By Me ECG Rhythm: Sinus Rhythm, 1st Degree HB Rate From EC (BPM) O2 Sat by Pulse Oximetry: 100 (RA) Pulse Ox Interpretation: Normal Progress - Data Reviewed Data Reviewed: Lab, Diagnostic imaging, EKG, Old records Disposition Counseled Patient/Family Regarding: Studies Performed, Diagnosis, Need For Followup, Rx Given - Disposition Referrals: YOUR,PMD [Other] Disposition: HOME/ ROUTINE Disposition Time: 13:56 Condition: IMPROVED Prescriptions: levoFLOXacin [Levaquin] 500 mg PO DAILY #7 tab Instructions: Urinary Tract Infection, Adult (DC) Forms: [facility] ([place]) - Clinical Impression Clinical Impression: UTI (urinary tract infection) - Scribe Statement The provider has reviewed the documentation as recorded by the Karolynibebony Dudley All medical record entries made by the Scribe were at my direction and personally dictated by me. I have reviewed the chart and agree that the record accurately reflects my personal performance of the history, physical exam, medical decision making, and the department course for this patient. I have also personally directed, reviewed, and agree with the discharge instructions and disposition.
[2018-04-09 12:55] LABS: BASO # 0.1 K/uL (0.0-0.2); BASO % 0.8 % (0.0-2.0); EOS # 0.2 K/uL (0.0-0.7); EOS % 1.4 % (0.0-4.0); LYMPH # 1.1 K/uL (1.0-4.3); LYMPH % 9.2 % (20.0-40.0); MEAN CELL VOLUME 83.7 fL (80.0-94.0); MEAN CORPUSCULAR HGB CONC 33.5 g/dL (33.0-37.0); MEAN PLATELET VOLUME 9.4 fL (7.2-11.7); MONO # 0.9 K/uL (0.0-0.8); MONO % 8.1 % (0.0-10.0); NEUT # 9.3 K/uL (1.8-7.0); NEUT % 80.5 % (50.0-75.0); PLATELET COUNT 200 K/uL (130-400); RBC 4.69 Mil/uL (4.40-5.90); RED CELL DISTRIBUTION WIDTH 14.2 % (11.5-14.5); WHITE BLOOD COUNT 11.5 K/uL (4.8-10.8)
[2018-04-09 12:56] LABS: HEMOGLOBIN 13.2 g/dL (12.0-18.0)
[2018-04-09 13:06] LABS: CALCIUM 9.1 mg/dl (8.6-10.4)
[2018-04-09 13:17] LABS: BASOPHIL 2 % (0-2); EOSINOPHIL 2 % (0-4); LYMPHOCYTE 7 % (20-40); MONOCYTE 4 % (0-10); NEUTROPHIL 85 % (50-75); PLATELET ESTIMATE NORMAL (NORMAL); TOTAL CELLS COUNTED 100
[2018-04-09 13:37] LABS: URINE BACTERIA RARE (<OCC); URINE BILIRUBIN NEGATIVE (NEGATIVE); URINE BLOOD 3+ (NEGATIVE); URINE CLARITY Hazy (Clear); URINE COLOR Yellow (YELLOW); URINE GLUCOSE (UA) NORMAL (Normal); URINE LEUKOCYTE ESTERASE 2+ Leu/uL (Negative); URINE PROTEIN 1+ mg/dL (NEGATIVE); URINE UROBILINOGEN NORMAL mg/dL (0.2-1.0); WBC CLUMPS FEW /hpf
[2018-04-09] MEDS ORDERED: cefTRIAXone 1 gm 1 GM/100 ML BAG IVPB ONE (14:12)
[2018-04-09 14:17] VITALS: RESP 18
[2018-04-09 14:58] VITALS: BP 117/78; PULSE 82
--- NOTE | 2018-04-11 08:14 | CARD ---
APPROVED REPORT Date of service: 04/09/2018 EKG Measurement Heart [id number] <Conclusion> Sinus rhythm with 1st degree AV block Low voltage QRS Borderline ECG
== END 2018-04-09 14:59 | disposition home or self-care (01) ==
LOC: C.ER 11:09
DX: N39.0 Urinary tract infection, site not specified (principal); I12.9 Hypertensive chronic kidney disease with stage 1 through stage 4 chronic kidney disease, or unspecified chronic kidney disease; N18.9 Chronic kidney disease, unspecified; Z85.51 Personal history of malignant neoplasm of bladder; Z86.73 Personal history of transient ischemic attack (TIA), and cerebral infarction without residual deficits
CPT/HCPCS: 80048; 81001; 85025; 87086; 93005; 96361; 96365; 99285; J0696; J7030

== ENCOUNTER 2018-05-29 12:27 | Emergency (ER) | payer MEDICARE ==
[2018-05-29 12:27] VITALS: BMI 25.8
[2018-05-29 12:47] VITALS: RESP 18; TEMP 98.4
--- NOTE | 2018-05-29 13:24 | C.PDOC ---
History Of Present Illness 63 y/o male brought to the ED by family for a couple of episodes of hematuria since last Monday. Denies any trauma, back pain, flank pain, testicular swelling or pain, nausea, vomiting, or fever. Patient has history of bladder can cer s/p bladder surgery years ago, for which he completed chemotherapy. Also has PMHx of CVA and vascular dementia. Of note, patient is incontinent of urine at baseline. Family denies any change in bowel habits, bloody or dark stools. No dysuria. Bloody urine does not have clots in it and is not fully red in appearance. No fall or trauma. No change in mentation per family- at baseline mentation and physical activity. no other complaints PMD- Dr. Mary Jane Hernandez Time Seen by Provider: 05/29/18 13:23 Chief Complaint (Nursing): Male Genitourinary History Per: Patient History/Exam Limitations: no limitations Onset/Duration Of Symptoms: Days Current Symptoms Are (Timing): Still Present Past Medical History Reviewed: Historical Data, Nursing Documentation, Vital Signs Vital Signs: Last Vital Signs Temp 98.4 F 05/29/18 12:43 Pulse 76 05/29/18 12:43 Resp 18 05/29/18 12:43 BP 119/83 05/29/18 12:43 Pulse Ox 96 05/29/18 12:43 - Medical History PMH: Alzheimer's Disease, CVA, Dementia (vascular dementia-Alzheimers), Depression, Gastrointestinal Ulcer, HTN, Hypercholesterolemia, Malignancy (Bladder CA), Chronic Kidney Disease, TIA Denies: HIV Other Surgeries: Bladder surgery - [facility] Procedures BATHING/SHOWERING TECHNIQUES TREATMENT (03/16/15) COMM/COGNIT SKILL TREATMENT USING AUGMENT COMM EQUIPMENT (07/07/17) DRESSING TECHNIQUES TREATMENT (03/16/15) EXCISION OF TOE NAIL, EXTERNAL APPROACH (03/16/15) EXERCISE TREATMENT OF MUSCULOSK WHOLE USING ASSIST EQUIPMENT (07/07/17) EXTRACTION OF LEFT FOOT SKIN, EXTERNAL APPROACH (05/04/15) GAIT TRAINING/AMBULAT TREATMENT USING ASSIST EQUIPMENT (07/07/17) HOME MANAGEMENT TREATMENT (03/16/15) HOME MANAGEMENT TREATMENT USING ASSIST EQUIPMENT (07/07/17) INTRODUCTION OF ANTI-INFLAM INTO RESP TRACT, VIA OPENING (07/07/17) SPEECH PATH HARDWARE ASSEMBLER TREATMENT (03/16/15) THERAPEUTIC EXERCISE TREATMENT OF MUSCULOSK WHOLE (03/16/15) ULTRASONOGRAPHY OF HEART WITH AORTA, TRANSESOPHAGEAL (07/03/17) Family History: States: Hypertension - Social History Hx Tobacco Use: No Hx Alcohol Use: Yes (former ETOH) Hx Substance Use: No - Immunization History Hx Tetanus Toxoid Vaccination: No Hx Influenza Vaccination: No Hx Pneumococcal Vaccination: Yes Review Of Systems Constitutional: Negative for: Fever, Chills Eyes: Negative for: Pain, Vision Change ENT: Negative for: Ear Pain, Nose Pain Cardiovascular: Negative for: Chest Pain Gastrointestinal: Negative for: Nausea, Vomiting, Abdominal Pain, Diarrhea, Melena, Hematochezia Genitourinary: Positive for: Hematuria. Negative for: Frequency, Scrotal Pain Musculoskeletal: Negative for: Back Pain Skin: Negative for: Rash Physical Exam - Physical Exam Appears: Non-toxic, No Acute Distress Skin: Warm, Dry Head: Normacephalic Eye(s): bilateral: Normal Inspection, PERRL, EOMI Oral Mucosa: Moist Neck: Trachea Midline, Supple, Other (No meningeal signs- negative kernig's and brudzinskis) Chest: Symmetrical Cardiovascular: Rhythm Regular, Other (no rub) Respiratory: No Rales, No Rhonchi, No Wheezing Gastrointestinal/Abdominal: Soft, No Tenderness, No Distention Back: No CVA Tenderness, No Vertebral Tenderness Extremity: Bilateral: Normal Color And Temperature Pulses: Left Dorsalis Pedis: Normal, Right Dorsalis Pedis: Normal Neurological/Psych: Oriented x3 ED Course And Treatment - Laboratory Results Result Diagrams: 05/29/18 14:43 05/29/18 14:43 O2 Sat by Pulse Oximetry: 96 (RA) Pulse Ox Interpretation: Normal Medical Decision Making Medical Decision Makin yr old male w/ hx of vascular dementia, TIA, Bladder CA p/w painless hematuria concerning for re-occurence of CA. No trauma or falls. No back pain. No CVAT. No difficulty urinating. Impression: UTI vs. kidney stone vs. return of cancer Initial Plan: --CMP --CBC --PTT/PT --UA --Blood type/screen 1445 pending imaging and labs appreciate consult w/ Rads on CT: CT w/ and without contrast recommended. CT resulted: Tumor involving the wall of the bladder on the left adjacent to the left u reterovesical junction. The mass measures 1.6 x 2.2 cm. Diffusely thickening of the bladder wall common there may be a component of cystitis as well. Pulmonary nodule right lower lobe. Elective follow-up recommended. [address] Hernandez, Pending call back [phone] Hernandez, notified of CT findings- to see pt tomorrow in office. pt in NAD, agreeable to plan, family also bedside agreeable to plan- will give urology followup clear for d/c home w/ return indications and follow up Disposition - Disposition Disposition Time: 18:50 Condition: GOOD Forms: [facility] (Swedish) - Clinical Impression Clinical Impression: Bladder mass, UTI (urinary tract infection) - Scribe Statement The provider has reviewed the documentation as recorded by the Scribe (Sandy Cornell) Provider Attestation: All medical record entries made by the Scribe were at my direction and personally dictated by me. I have reviewed the chart and agree that the record accurately reflects my personal performance of the history, physical exam, medical decision making, and the department course for this patient. I have also personally directed, reviewed, and agree with the discharge instructions and disposition.
[2018-05-29 14:52] LABS: BASO # 0.1 K/uL (0.0-0.2); BASO % 0.7 % (0.0-2.0); EOS # 0.2 K/uL (0.0-0.7); EOS % 1.8 % (0.0-4.0); HEMOGLOBIN 14.5 g/dL (12.0-18.0); LYMPH # 1.5 K/uL (1.0-4.3); LYMPH % 16.1 % (20.0-40.0); MEAN CELL VOLUME 82.2 fL (80.0-94.0); MEAN CORPUSCULAR HEMOGLOBIN 27.3 pg (27.0-31.0); MEAN CORPUSCULAR HGB CONC 33.2 g/dL (33.0-37.0); MEAN PLATELET VOLUME 8.5 fL (7.2-11.7); MONO # 0.6 K/uL (0.0-0.8); MONO % 6.7 % (0.0-10.0); NEUT # 7.1 K/uL (1.8-7.0); NEUT % 74.7 % (50.0-75.0); NRBC % 0.1 % (0.0-2.0); RBC 5.3 Mil/uL (4.40-5.90); RED CELL DISTRIBUTION WIDTH 14.7 % (11.5-14.5); WHITE BLOOD COUNT 9.5 K/uL (4.8-10.8)
[2018-05-29 14:59] LABS: ALB/GLOB RATIO 1.2 (1.0-2.1); ALBUMIN 4.4 g/dL (3.5-5.0); ALT/SGPT 24 U/L (21-72); AST/SGOT 19 U/L (17-59); BLOOD UREA NITROGEN 25 mg/dL (9-20); CALCIUM 9.8 mg/dl (8.6-10.4); GFR NON-AFRICAN AMERICAN 55
[2018-05-29 15:02] LABS: INR 1.2; PROTHROMBIN TIME 12.6 SECONDS (9.7-12.2)
[2018-05-29] MEDS ORDERED: Sodium Chloride 0.9% 1,000 ML IV SCH (15:15)
[2018-05-29] MEDS ORDERED: Sodium Chloride 0.9% 1,000 ML ONE (15:40)
[2018-05-29] MEDS ORDERED: Iohexol 300 100 ML IJ ONE (16:23)
--- NOTE | 2018-05-29 17:57 | CT ---
Date of service: 05/29/2018 PROCEDURE: CT Abdomen and Pelvis with and without intravenous contrast HISTORY: ?mass, hx of bladder ca, now w/ painless hematuria COMPARISON: 07/05/2017 CT abdomen and pelvis. TECHNIQUE: Axial images of the abdomen were obtained in the pre contrast, portal venous and delayed phases of enhancement. Coronal and sagittal reformats were generated. Contrast dose: 100 cc Visipaque 320 Radiation dose: Total exam DLP = 4279.71 mGy-cm. This CT exam was performed using one or more of the following dose reduction techniques: Automated exposure control, adjustment of the mA and/or kV according to patient size, and/or use of iterative reconstruction technique. FINDINGS: LOWER THORAX: Mm pulmonary nodule right lower lobe. The finding was not seen with certainty on the prior study because of consolidative changes at the at precise location. There is peripheral calcium within this suggesting a benign etiology. Follow-up recommendation: Elective unenhanced CT of the thorax. Linear scarring at the left lung base. Small hiatal hernia. LIVER: Unremarkable. No gross lesion or ductal dilatation. GALLBLADDER AND BILE DUCTS: Unremarkable. PANCREAS: Unremarkable. No gross lesion or ductal dilatation. SPLEEN: Unremarkable. ADRENALS: Unremarkable. No mass. KIDNEYS AND URETERS: Two small right collecting system calculi neither larger than 3 mm. No obstructing calculi identified. No hydronephrosis. No solid mass. VASCULATURE: No aortic aneurysm. Atherosclerotic calcification and mural plaque present. Findings are seen throughout the aorta BOWEL: Fecal impaction, constipation without mechanical obstruction. APPENDIX: Normal appendix. PERITONEUM: Unremarkable. No free fluid. No free air. LYMPH NODES: Unremarkable. No enlarged lymph nodes. BLADDER: Exophytic bladder wall mass near the ureterovesical junction on the left. The mass measures 1.6 x 2.2 cm. The mass extends into the bladder lumen. In addition, the bladder wall is diffusely thickened without additional focal abnormalities. REPRODUCTIVE: Unremarkable. BONES: No acute fracture. OTHER FINDINGS: None. IMPRESSION: Tumor involving the wall of the bladder on the left adjacent to the left ureterovesical junction. The mass measures 1.6 x 2.2 cm. Diffusely thickening of the bladder wall common there may be a component of cystitis as well. Pulmonary nodule right lower lobe. Elective follow-up recommended.
[2018-05-29 18:27] LABS: SQUAMOUS EPITHIAL < 1 /hpf (0-5); URINE BILIRUBIN NEGATIVE (NEGATIVE); URINE BLOOD 3+ (NEGATIVE); URINE CLARITY Clear (Clear); URINE COLOR Straw (YELLOW); URINE GLUCOSE (UA) NORMAL (Normal); URINE LEUKOCYTE ESTERASE TRACE Leu/uL (Negative); URINE PROTEIN NEGATIVE (NEGATIVE); URINE UROBILINOGEN NORMAL mg/dL (0.2-1.0)
[2018-05-29 18:54] VITALS: BP 132/89; PULSE 74; O2SAT 100
== END 2018-05-29 19:30 | disposition home or self-care (01) ==
LOC: C.ER 12:27
DX: N39.0 Urinary tract infection, site not specified (principal); N32.9 Bladder disorder, unspecified
CPT/HCPCS: 74178; 80053; 81001; 85025; 85610; 85730; 86850; 86870; 86900; 96360; 96361; 99285; J7030; Q9967

== ENCOUNTER 2018-06-10 13:00 | Inpatient (IN) | payer MEDICARE ==
[2018-06-10 13:02] VITALS: BMI 26.1
[2018-06-10] MEDS ORDERED: Sodium Chloride 0.9% 1,000 ML IV SCH (13:15)
[2018-06-10] MEDS ORDERED: Iodixanol 320 MG/ML 100 ML BOTTLE IV ONE (13:21)
[2018-06-10 13:24] LABS: BASO # 0.1 K/uL (0.0-0.2); BASO % 0.4 % (0.0-2.0); EOS % 0.1 % (0.0-4.0); HEMOGLOBIN 13.1 g/dL (12.0-18.0); LYMPH # 1.1 K/uL (1.0-4.3); LYMPH % 4.6 % (20.0-40.0); MEAN CELL VOLUME 82.8 fL (80.0-94.0); MEAN CORPUSCULAR HEMOGLOBIN 27.4 pg (27.0-31.0); MEAN CORPUSCULAR HGB CONC 33.1 g/dL (33.0-37.0); MEAN PLATELET VOLUME 8.9 fL (7.2-11.7); MONO # 2.4 K/uL (0.0-0.8); MONO % 10.3 % (0.0-10.0); NEUT % 84.6 % (50.0-75.0); PLATELET COUNT 206 K/uL (130-400); RBC 4.76 Mil/uL (4.40-5.90); RED CELL DISTRIBUTION WIDTH 15.1 % (11.5-14.5)
[2018-06-10 13:26] LABS: WHITE BLOOD COUNT 23.7 K/uL (4.8-10.8)
--- NOTE | 2018-06-10 13:30 | CT ---
Date of service: 06/10/2018 PROCEDURE: CT HEAD WITHOUT CONTRAST. HISTORY: Code Stroke COMPARISON: 07/03/2017. TECHNIQUE: Axial computed tomography images were obtained through the head/brain without intravenous contrast. Radiation dose: Total exam DLP = 1176.11 mGy-cm. This CT exam was performed using one or more of the following dose reduction techniques: Automated exposure control, adjustment of the mA and/or kV according to patient size, and/or use of iterative reconstruction technique. FINDINGS: HEMORRHAGE: No intracranial hemorrhage. BRAIN: There is redemonstration of multifocal chronic bilateral MCA territory infarctions involving the frontal and parietal lobes, basal ganglia and thalami. There are also chronic infarctions in the left cerebellar hemisphere. There is no mass, mass effect or abnormal extra-axial fluid collection. T there are coarse atherosclerotic calcifications in the cavernous carotid arteries. VENTRICLES: There is moderate age-related global parenchymal volume loss and proportionate enlargement of the ventricles and cortical sulci. CALVARIUM: There is no calvarial fracture or extracranial soft tissue swelling. PARANASAL SINUSES: Predominantly clear. MASTOID AIR CELLS: Predominantly clear. OTHER FINDINGS: None. IMPRESSION: No acute intracranial abnormality. If there is a persistent focal neurologic deficit and an ongoing clinical concern for acute infarction, an MRI of the brain without intravenous contrast would be a more sensitive modality for evaluation of hyperacute/acute ischemic infarction. Chronic bilateral MCA and left MITCHELL territory infarctions. Important findings were discussed with Dr. Isaiah Flowers in the ER on 06/10/2018 at 1:25 p.m.
[2018-06-10 13:31] LABS: INR 1.5; PROTHROMBIN TIME 16.5 SECONDS (9.7-12.2)
--- NOTE | 2018-06-10 13:46 | CT ---
Date of service: 06/10/2018 PROCEDURE: CTA HEAD AND NECK WITH CONTRAST HISTORY: aphasia COMPARISON: None available. TECHNIQUE: Initial noncontrast head CT was performed. Subsequently, CT angiogram of the head and neck were performed after the intravenous administration of 80 mL of Omnipaque 350. Contiguous 1.5mm thick images were obtained in the axial plane of the neck. 2-D coronal and sagittal MPR images were obtained. Imaging postprocessing was performed with 3-D images also obtained. A delayed contrast head CT was also obtained. This CT exam was performed using one or more of the following dose reduction techniques: Automated exposure control, adjustment of the mA and/or kV according to patient size, and/or use of iterative reconstruction technique. Contrast dose: 100 mL Visipaque Radiation dose: Total exam DLP = 623.40 mGy-cm. FINDINGS: HEAD: Right: The intracranial internal carotid artery, and anterior and middle cerebral arteries are widely patent. 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 Left: The intracranial internal carotid artery, and anterior and middle cerebral arteries are widely patent. Posterior circulation: The visualized intracranial vertebral arteries, basilar artery and posterior cerebral arteries are widely patent. There is origin of the right posterior cerebral artery, an anatomic variant. There is no endoluminal filling defect to suggest thrombus. There is no intracranial saccular aneurysm. NECK: There is a 4 vessel aortic arch with aortic origin of the left vertebral artery between the left common carotid and subclavian arteries.. There is no stenosis at the origins of the great vessels at the level of the aortic arch. Mild atherosclerotic calcifications and soft plaques in the right carotid bulb and proximal internal carotid artery. Mild atherosclerotic calcifications in the left proximal internal carotid artery. Right Carotid: On the right, the common carotid, internal carotid and external carotid arteries are widely patent. There is no hemodynamically significant stenosis in the internal carotid artery by NASCET criteria. Left Carotid: On the left, the common carotid, internal carotid and external carotid arteries are widely patent. There is no hemodynamically significant stenosis in the internal carotid artery by NASCET criteria. The vertebral arteries are widely patent. The left vertebral artery is hypoplastic, an anatomic variant. The visualized soft tissues of the neck are normal. The visualized brain and cervical spine are within normal limits. The lung apices are clear. IMPRESSION: 1. No evidence of endoluminal thrombus,occlusion or definite significant stenosis in the intracranial arteries. 2. No evidence of hemodynamically significant stenosis in the internal carotid arteries. 3. Patent bilateral vertebral arteries.
[2018-06-10] MEDS ORDERED: cefTRIAXone IV 1 gm in Dextros 50 ML IVPB STA (13:48)
[2018-06-10 13:50] LABS: ALB/GLOB RATIO 1.1 (1.0-2.1); ALBUMIN 3.9 g/dL (3.5-5.0); CALCIUM 8.7 mg/dl (8.6-10.4)
[2018-06-10 13:59] LABS: VENOUS BLOOD GAS BASE EXCESS -1.5 mmol/L (0.0-2.0); VENOUS BLOOD GAS PCO2 44 mmHg (40-60); VENOUS BLOOD GAS PO2 23 mm/Hg (30-55); VENOUS BLOOD PH 7.35 (7.32-7.43)
[2018-06-10] MEDS ORDERED: Sodium Chloride 0.9% 1,000 ML IV ONE (14:01)
[2018-06-10 14:04] LABS: TROPONIN I 0.017 ng/mL (0.00-0.120)
--- NOTE | 2018-06-10 14:06 | C.PDOC ---
History Of Present Illness 63 years old male with PMHx of vascular dementia, Alzheimer, HTN, atrial septal defect, and multiple many strokes is BIBA ALS s/p falling today while getting out of bed and he was unable to stand alone. As per sister, patient usually ambulates on his own with a walker, was last seen normal at 8PM yesterday before going to bed. She also states patient has Hx of right greater than left sided deficit but has improved by physical therapy. Patient also sustained minimal bruises after falling 2 days ago while he tried to ambulate without his walker. As per EMS, patient is AAO x4 and patient was able to speak; however, he was often confused. Patient is not answering questions in ER but he is awake and alert. Code stroke was immediately called. Upon second evaluation patient denies headache, chest pain, nausea, dizziness, or cough. Patient states only feeling short of breath this morning. 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 PMD: * Mary Jane Nicholson Time Seen by Provider: 06/10/18 13:06 Chief Complaint (Nursing): Weakness/Neurological Deficit History Per: Patient History/Exam Limitations: no limitations Onset/Duration Of Symptoms: Hrs Current Symptoms Are (Timing): Still Present Activity At Onset Of Symptoms: Standing Associated Symptoms Preceding Syncopal Episode: No Predromal Symptoms (Sudden Onset) Seizure Or Post-ictal Symptoms: None Fall Associated With With Symptoms: Yes Recent travel outside of the [place]: No - Symptoms Of CVA Recent Aspirin Use: Unknown Current Coumadin Use?: Yes Recent Head Trauma: No Past Medical History Reviewed: Historical Data, Nursing Documentation, Vital Signs Vital Signs: Last Vital Signs Temp 100.3 F H 06/10/18 13:40 Pulse 94 H 06/10/18 13:02 Resp 20 06/10/18 13:02 BP 85/58 L 06/10/18 13:02 Pulse Ox - Medical History PMH: Alzheimer's Disease, CVA, Dementia (vascular dementia-Alzheimers), Depression, Gastrointestinal Ulcer, HTN, Hypercholesterolemia, Malignancy (Bladder CA), Chronic Kidney Disease, TIA (several) - [facility] Procedures BATHING/SHOWERING TECHNIQUES TREATMENT (03/16/15) COMM/COGNIT SKILL TREATMENT USING AUGMENT COMM EQUIPMENT (07/07/17) DRESSING TECHNIQUES TREATMENT (03/16/15) EXCISION OF TOE NAIL, EXTERNAL APPROACH (03/16/15) EXERCISE TREATMENT OF MUSCULOSK WHOLE USING ASSIST EQUIPMENT (07/07/17) EXTRACTION OF LEFT FOOT SKIN, EXTERNAL APPROACH (05/04/15) GAIT TRAINING/AMBULAT TREATMENT USING ASSIST EQUIPMENT (07/07/17) HOME MANAGEMENT TREATMENT (03/16/15) HOME MANAGEMENT TREATMENT USING ASSIST EQUIPMENT (07/07/17) INTRODUCTION OF ANTI-INFLAM INTO RESP TRACT, VIA OPENING (07/07/17) SPEECH PATH GEOMETRY PROFESSOR TREATMENT (03/16/15) THERAPEUTIC EXERCISE TREATMENT OF MUSCULOSK WHOLE (03/16/15) ULTRASONOGRAPHY OF HEART WITH AORTA, TRANSESOPHAGEAL (07/03/17) Family History: States: Hypertension - Social History Hx Tobacco Use: No Hx Alcohol Use: Yes (former ETOH) Hx Substance Use: No - Immunization History Hx Tetanus Toxoid Vaccination: No Hx Influenza Vaccination: No Hx Pneumococcal Vaccination: Yes Review Of Systems Constitutional: Negative for: Fever, Chills Cardiovascular: Negative for: Chest Pain Respiratory: Positive for: Shortness of Breath. Negative for: Cough Gastrointestinal: Negative for: Nausea, Vomiting, Abdominal Pain, Diarrhea Skin: Negative for: Rash Neurological: Negative for: Weakness, Numbness, Headache, Dizziness Physical Exam - Physical Exam Appears: Non-toxic Skin: Warm, Dry, No Rash, Other (Left buttocks bruising and right flank pain. ) Head: Atraumatic, Normacephalic Eye(s): bilateral: Normal Inspection, PERRL, EOMI Oral Mucosa: Moist Neck: Normal ROM, Supple Chest: Symmetrical, No Tenderness Cardiovascular: Rhythm Regular, No Murmur Respiratory: Normal Breath Sounds, No Accessory Muscle Use, No Rales, No Rhonchi, No Wheezing Gastrointestinal/Abdominal: Bowel Sounds (Active ), Soft, No Tenderness Extremity: Normal ROM (Active ROM of all 4 extremities ), No Pedal Edema (Non pitting ) Extremity: Bilateral: Atraumatic, Normal Color And Temperature, Normal ROM Pulses: Left Radial: Normal, Right Radial: Normal Neurological/Psych: Other (Alert but initially not oriented. Patient on second evaluation was able to answer questions. Caranial nerves 2-12 grossly intact. ) ED Course And Treatment - Laboratory Results Result Diagrams: 06/10/18 13:16 06/10/18 13:16 - Other Rad CXR X-Ray: Viewed By Me, Read By Radiologist Interpretation: Date of service: 06/10/2018. HISTORY: Code Stroke. COMPARISON: 07/03/2017. FINDINGS: LUNGS: The lungs are well inflated and clear. There is left basilar scarring. No focal consolidation. PLEURA: No pleural effusions or pneumothorax. CARDIOVASCULAR: The heart is normal in size. No aortic atherosclerotic calcification present. OSSEOUS STRUCTURES: Within normal limits for the patient's age. VISUALIZED UPPER ABDOMEN: Normal. OTHER FINDINGS: None. IMPRESSION: No acute findings. - CT Scan/US Head/Neck CTA Other Rad Studies (CT/US): Read By Radiologist, Radiology Report Reviewed CT/US Interpretation: Date of service: 06/10/2018. PROCEDURE: CTA HEAD AND NECK WITH CONTRAST. HISTORY: aphasia. COMPARISON: None available. TECHNIQUE: Initial noncontrast head CT was performed. Subsequently, CT angiogram of the head and neck were performed after the intravenous administration of 80 mL of Omnipaque 350. Contiguous 1.5mm thick images were obtained in the axial plane of the neck. 2-D coronal and sagittal MPR images were obtained. Imaging postprocessing was performed with 3-D images also obtained. A delayed contrast head CT was also obtained. This CT exam was performed using one or more of the following dose reduction techniques: Automated exposure control, adjustment of the mA and/or kV according to patient size, and/or use of iterative reconstruction technique. Contrast dose: 100 mL Visipaque. Radiation dose: Total exam DLP = 623.40 mGy-cm. FINDINGS: HEAD: Right: The intracranial internal carotid artery, and anterior and middle cerebral arteries are widely patent. 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 Left: The intracranial internal carotid artery, and anterior and middle cerebral arteries are widely patent. Posterior circulation: The visualized intracranial vertebral arteries, basilar artery and posterior cer ebral arteries are widely patent. There is origin of the right posterior cerebral artery, an anatomic variant. There is no endoluminal filling defect to suggest thrombus. There is no intracranial saccular aneurysm. NECK: There is a 4 vessel aortic arch with aortic origin of the left vertebral artery between the left common carotid and subclavian arteries.. There is no stenosis at the or igins of the great vessels at the level of the aortic arch. Mild atherosclerotic calcifications and soft plaques in the right carotid bulb and proximal internal carotid artery. Mild atherosclerotic calcifications in the left proximal internal carotid artery. Right Carotid: On the right, the common carotid, internal carotid and external carotid arteries are widely patent. There is no hemodynamically significant stenosis in the internal carotid artery by NASCET criteria. Left Carotid: On the left, the common carotid, internal carotid and external carotid arteries are widely patent. There is no hemodynamically significant stenosis in the internal carotid artery by NASCET criteria. The vertebral arteries are widely patent. The left vertebral artery is hypoplastic, an anatomic variant. The visualized soft tissues of the neck are normal. The visualized brain and cervical spine are within normal limits. The lung apices are clear. IMPRESSION: 1. No evidence of endoluminal thrombus ,occlusion or definite significant stenosis in the intracranial arteries. 2. No evidence of hemodynamically significant stenosis in the internal carotid arteries. 3. Patent bilateral vertebral arteries. Head CT Other Rad Studies (CT/US): Read By Radiologist, Radiology Report Reviewed CT/US Interpretation: Date of service: 06/10/2018. PROCEDURE: CT HEAD WITHOUT CONTRAST. HISTORY: Code Stroke. COMPARISON: 07/03/2017. TECHNIQUE: Axial computed tomography images were obtained through the head/brain without intravenous contrast. Radiation dose: Total exam DLP = 1176.11 mGy-cm. This CT exam was performed using one or more of the following dose reduction techniques: Automated exposure control, adjustment of the mA and/or kV according to patient size, and/or use of iterative reconstruction technique. FINDINGS: HEMORRHAGE: No intracranial hemorrhage. BRAIN: There is redemonstration of multifocal chronic bilateral MCA territory infarctions involving the frontal and parietal lobes, basal ganglia and thalami. There are also chronic infarctions in the left cerebellar hemisphere. There is no mass, mass effect or abnormal extra-axial fluid collection. T there are coarse atherosclerotic calcifications in the cavernous carotid arteries. VENTRICLES: There is moderate age-related global parenchymal volume loss and proportionate enlargement of the ventricles and cortical sulci. CALVARIUM: There is no calvarial fracture or extracranial soft tissue swelling. PARANASAL SINUSES: Predominantly clear. MASTOID AIR CE LLS: Predominantly clear. OTHER FINDINGS: None. IMPRESSION: No acute intracranial abnormality. If there is a persistent focal neurologic deficit and an ongoing clinical concern for acute infarction, an MRI of the brain without intravenous contrast would be a more sensitive modality for evaluation of hyperacute/acute ischemic infarction. Chronic bilateral MCA and left MITCHELL territory infarctions. Important findings were discussed with Dr. Isaiah Flowers in the ER on 06/10/2018 at. 1:25 p.m. NIHSS Stroke Scale 2 - Date/Time Evaluation Performed Date Performed: 06/10/18 Time Performed: 13:05 When Was NIHSS Performed: Baseline - How Severe is the Stroke Level of Consciousness: 1=Drowsy LOC to Questions: 0=Both comments correct LOC to commands: 0=Obeys both correctly Best Gaze: 0=Normal Visual: 0=No visual loss Facial: 0=Normal Motor Arm - Left: 0=No drift Motor Arm - Right: 0=No drift Motor Leg - Left: 0=No drift Motor Leg - Right: 0=No drift Limb Ataxia: 0=Absent Sensory: 0=Normal Best Language: 1=Mild to moderate aphasia Dysarthia: 0=Normal articulation Extinction & Inattention (Neglect): 0=Normal, no object Score: 2 rTPA Inclusion/Exclusion - Refusal of Treatment Patient Refused Treatment: No - Inclusion Criteria for Altepase Patient is 18 years or Older: Yes The Clinical Diagnosis of Ischemic Stroke That is Causing a Potentially Disabling Neurological Deficit: No Time of Onset is Well Established to be Less Than 270 Minute Before Treatment Would Begin: No Risk/Benefit Discussed With Patient/Family Member Present: No - Exclusion Criteria for Altepase Uncontrolled Hypertension at Time of Treatment (Systolic BP above 185 or Diastolic BP above 110 mmHg): No Active Internal Bleeding: No Known Bleeding Diathesis Including but Not Limited to: Platelets Below 100,000/mm,PTT Above 40 sec After Heparin Use, Current Use of Oral Anitcoagulant With INR Greater Than 1.7 or PT Greater Than 15 secs: No Evidence of an Intracranial Hemorrhage: No Evidence of Major Acute Infarct With Signs Greater Than 1/3 MCA Territory: Yes Suspicion of Subarachnoid Hemorrhage on Pretreatment Evaluation Even if CT Head Negative For Hemorrhage: No - Warning to TPA With Conditions Following Conditions Weighed Against Anticipated Benefit: No Medical Decision Making Medical Decision Making: Plan: * Blood Bank * Blood Gas * CTA Head/Neck Code Stroke * CT Head w/o Code Stroke * EKG * Blood Work * CXR * Blood Culture * Blood Urine * Urinalysis * IV Fluids * Rocephin 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 EKG: * Normal Sinus rhythm at 84 bpm * 1st degree AV block * No ST elevations or depressions Findings: * Lactate 2.2 * Blood pressure 85/[address] Rosita Henry Doctor Will See Patient In The: Hospital - Disposition Referrals: ED Physician, [Primary Care Provider] - Disposition: HOSPITALIZED Disposition Time: 15:23 Condition: GUARDED Forms: [facility] ([place]) - Clinical Impression Clinical Impression: Sepsis, Dementia, UTI (urinary tract infection) - Scribe Statement The provider has reviewed the documentation as recorded by the Scribebony Duron All medical record entries made by the Scribe were at my direction and personally dictated by me. I have reviewed the chart and agree that the record accurately reflects my personal performance of the history, physical exam, medical decision making, and the department course for this patient. I have also personally directed, reviewed, and agree with the discharge instructions and disposition. Decision To Admit - Pt Status Changed To: Hospital Disposition Of: Inpatient - Admit Certification Admit to Inpatient:: After my assessment, the patient will require hospitalization for at least two midnights. This is because of the severity of symptoms shown, intensity of services needed, and/or the medical risk in this patient being treated as an outpatient. - InPatient: Physician Admission Certification: I certify that this patient requires 2 or more midnights of care for the following reason:: urosepsis - . Bed Request Type: Regular Admitting Physician: Rosita Henyr Patient Diagnosis: Sepsis, Dementia, UTI (urinary tract infection)
[2018-06-10 14:17] LABS: BANDS 4 % (0-2); LYMPHOCYTE 6 % (20-40); MONOCYTE 9 % (0-10); NEUTROPHIL 81 % (50-75); TOTAL CELLS COUNTED 100
[2018-06-10 14:18] LABS: ANISOCYTOSIS SLIGHT; PLATELET ESTIMATE NORMAL (NORMAL)
[2018-06-10] MEDS ORDERED: Sodium Chloride 0.9% 1,000 ML ONE ×2 (14:19→14:45)
[2018-06-10 14:23] LABS: URINE BACTERIA OCC (<OCC); URINE BILIRUBIN NEGATIVE (NEGATIVE); URINE BLOOD 3+ (NEGATIVE); URINE CLARITY Hazy (Clear); URINE COLOR Red (YELLOW); URINE GLUCOSE (UA) NORMAL (Normal); URINE LEUKOCYTE ESTERASE 3+ Leu/uL (Negative); URINE PROTEIN 2+ mg/dL (NEGATIVE)
--- NOTE | 2018-06-10 14:33 | RAD ---
Date of service: 06/10/2018 HISTORY: Code Stroke COMPARISON: 07/03/2017 FINDINGS: LUNGS: The lungs are well inflated and clear. There is left basilar scarring. No focal consolidation. PLEURA: No pleural effusions or pneumothorax. CARDIOVASCULAR: The heart is normal in size. No aortic atherosclerotic calcification present. OSSEOUS STRUCTURES: Within normal limits for the patient's age. VISUALIZED UPPER ABDOMEN: Normal. OTHER FINDINGS: None. IMPRESSION: No acute findings.
[2018-06-10 16:13] LABS: VENOUS BLOOD GAS BASE EXCESS -1.1 mmol/L (0.0-2.0); VENOUS BLOOD GAS PCO2 45 mmHg (40-60); VENOUS BLOOD GAS PO2 31 mm/Hg (30-55); VENOUS BLOOD PH 7.35 (7.32-7.43)
--- NOTE | 2018-06-10 17:45 | CP.PCM.HP ---
History of Present Illness - History of Present Illness History of Present Illness: cc: hematuria HPI: 63 y/o male, PMH several CVA (embolic) with PFO, Afib, Bladder cancer, T2DM, HTN, HLD, vascular dementia, presented to the ED on 06/10/18 s/p fall earlier this morning and hematuria. Due to pt's mental state, the following HPI was supplemented by his sister who was at bedside. As per sister, he was found this morning at 8AM by his sister on the ground next to his bed. They estimate he fell sometime between the hours of 6 and 8 AM this morning, denies LOC or any associated trauma. When asking the pt what caused the fall, he states that he just "couldn't stand up" and his knees "gave out." His last fall was this past June 08, where he fell backwards and sustained a hematoma on his left upper buttock/hip. As per sister, the LE weakness is acutely progressing, while the hematuria started several weeks ago. He was urged to come to [facility] by his PMD, Dr. Hernandez, on 05/29/18. UA was p ositive for UTI and Ab/pelvis CT scan showed mass on the bladder wall (1.6 x 2.2 cm). He was discharged same day with plans to follow up with his PMD/urologist and given a course of ciprofloxacin, of which he completed. As per sister, the hematuria was initially resolved after the course of antibiotics, however, they noticed today that it had returned. He admits to fever, chronic bladder incont inence (overflow in nature), LE weakness (due to Hx CVA), and loss of sensation in feet b/l. He denies chills, chest pain, palpitations, cough, nausea, vomiting, headache, diarrhea, constipation, suprapubic pain or lower back pain. PMD: Dr. Hernandez; Urologist: Dr. Lazcano; Cardio: Dr. Nettles PMH: CVA (embolic), PFO, AFib (possible Watchman procedure in the future), Bladder cancer (9 yrs ago- received chemotherapy), HTN, HLD, T2DM, vascular dementia, GERD, Hypokalemia, depression PSH: cholecystectomy, cystoscopy (bladder cancer), malrotation of gut correction () FH: Mother: Alzheimer's; Sister: breast cancer, brain cyst, afib All: denies social: lives at home with two sisters who are his caretakers; social alcohol use (quit 9 yrs ago), cocaine use (quit 9 yrs ago), denies current or prior tobacco use Present on Admission - Present on Admission Any Indicators Present on Admission: No Review of Systems - Constitutional Constitutional: absent: Chills, Headache - EENT Eyes: absent: Blurred Vision, Discharge Nose/Mouth/Throat: absent: Nose Pain, Bleeding Gums, Dysphagia - Cardiovascular Cardiovascular: absent: Chest Pain, Diaphoresis - Respiratory Respiratory: absent: Dyspnea, Hemoptysis - Gastrointestinal Gastrointestinal: absent: Abdominal Pain, Diarrhea - Genitourinary Genitourinary: Hematuria, Hx /Renal Surgery. absent: Difficulty Urinating, Pyuria, Urinary Urgency - Musculoskeletal Musculoskeletal: Muscle Weakness. absent: Back Pain, Stiffness - Integumentary Integumentary: absent: Bleeding Lesions, Change in Pigmentation - Neurological Neurological: absent: Abnormal Hearing, Behavioral Changes, Dizziness - Psychiatric Psychiatric: absent: Behavioral Changes, Confusion, Depression Past Patient History - Infectious Disease Hx of Infectious Diseases: None - Tetanus Immunizations Tetanus Immunization: Unknown - Past Medical History & Family History Past Medical History?: Yes - Past Social History Smoking Status: Never Smoked - CARDIAC Hx Hypercholesterolemia: Yes Hx Hypertension: Yes - PULMONARY Hx Respiratory Disorders: No - NEUROLOGICAL Hx Alzheimer's Disease: Yes Hx Dementia: Yes (vascular dementia-Alzheimers) Hx Transient Ischemic Attacks (TIA): Yes (several) - HEENT Hx HEENT Problems: No Other/Comment: nearsighted-wears reading glasses - RENAL Hx Chronic Kidney Disease: Yes - ENDOCRINE/METABOLIC Hx Endocrine Disorders: No - HEMATOLOGICAL/ONCOLOGICAL Hx Human Immunodeficiency Virus (HIV): No - INTEGUMENTARY Hx Dermatological Problems: No - MUSCULOSKELETAL/RHEUMATOLOGICAL Hx Falls: Yes (07/03/2017) - GASTROINTESTINAL Hx Gastrointestinal Disorders: Yes Hx Gastroesophageal Reflux: Yes - GENITOURINARY/GYNECOLOGICAL Hx Genitourinary Disorders: Yes Hx Bladder Cancer: Yes - PSYCHIATRIC Hx Depression: Yes Hx Substance Use: No - SURGICAL HISTORY Hx Surgeries: Yes Other/Comment: abdominal surgery. bladder surgery 2009. - ANESTHESIA Hx Anesthesia: Yes Hx Anesthesia Reactions: No Hx Malignant Hyperthermia: No Meds Allergies/Adverse Reactions: Allergies Allergy/AdvReac Type Severity Reaction Status Date / Time No Known Allergies Allergy Verified 06/10/18 13:02 Physical Exam - Constitutional Appears: Non-toxic, No Acute Distress - Head Exam Head Exam: NORMAL INSPECTION - Eye Exam Eye Exam: Normal appearance, PERRL Pupil Exam: NORMAL ACCOMODATION - ENT Exam ENT Exam: Mucous Membranes Moist - Respiratory Exam Respiratory Exam: Clear to Auscultation Bilateral, NORMAL BREATHING PATTERN. absent: Rales, Rhonchi, Wheezes - Cardiovascular Exam Cardiovascular Exam: +S1, +S2. absent: Systolic Murmur - GI/Abdominal Exam GI & Abdominal Exam: Normal Bowel Sounds, Soft. absent: Distended, Firm, Tenderness - Extremities Exam Extremities exam: Positive for: normal inspection. Negative for: calf tenderness, pedal edema - Back Exam Back exam: absent: CVA tenderness (L), CVA tenderness (R) - Neurological Exam Neurological exam: Alert, Oriented x3 - Psychiatric Exam Psychiatric exam: Normal Affect, Normal Mood - Skin Skin Exam: Dry, Intact, Normal Color, Warm Additional comments: hemangiomas diffuse through skin L glueteal region ecchymosis Small ulcer on bottom L foot Results - Vital Signs Recent Vital Signs: Last Vital Signs Temp 98.5 F 06/10/18 16:59 Pulse 77 06/10/18 16:59 Resp 18 06/10/18 16:59 BP 127/86 06/10/18 16:59 Pulse Ox 97 06/10/18 16:59 - Labs Result Diagrams: 06/10/18 13:16 06/10/18 13:16 Labs: Laboratory Results - last 24 hr 06/10/18 06/10/18 06/10/18 13:16 13:16 13:16 WBC 23.7 H D RBC 4.76 Hgb 13.1 Hct 39.5 MCV 82.8 MCH 27.4 MCHC 33.1 RDW 15.1 H Plt Count 206 MPV 8.9 Neut % (Auto) 84.6 H Lymph % (Auto) 4.6 L [place] % (Auto) 10.3 H Eos % (Auto) 0.1 Baso % (Auto) 0.4 Neut # (Auto) 20.0 H Lymph # (Auto) 1.1 [place] # (Auto) 2.4 H Eos # (Auto) 0.0 Baso # (Auto) 0.1 Neutrophils % (Manual) 81 H Band Neutrophils % 4 H Lymphocytes % (Manual) 6 L Monocytes % (Manual) 9 Platelet Estimate Normal Anisocytosis (manual) Slight PT 16.5 H INR 1.5 APTT 29 pO2 VBG pH VBG pCO2 VBG HCO3 VBG Total CO2 VBG O2 Sat (Calc) VBG Base Excess VBG Potassium Glucose Lactate Sodium 136 Potassium 4.9 Chloride 105 Carbon Dioxide 21 L Anion Gap 15 BUN 45 H Creatinine 2.3 H Est GFR ( Amer) 35 Est GFR (Non-Af Amer) 29 Random Glucose 183 H Hemoglobin A1c Calcium 8.7 Phosphorus 2.9 Magnesium 2.1 Total Bilirubin 1.1 AST 31 ALT 18 L D Alkaline Phosphatase 72 Troponin I 0.0170 NT-Pro-B Natriuret Pep 1650 H Total Protein 7.5 Albumin 3.9 Globulin 3.6 Albumin/Globulin Ratio 1.1 Triglycerides 71 D Cholesterol 106 LDL Cholesterol Direct 52 HDL Cholesterol 40 Venous Blood Potassium Urine Color Urine Clarity Urine pH Ur Specific [place] Urine Protein Urine Glucose (UA) Urine Ketones Urine Blood Urine Nitrate Urine Bilirubin Urine Urobilinogen Ur Leukocyte Esterase Urine WBC (Auto) Urine RBC (Auto) Urine Bacteria Blood Type Antibody Screen 06/10/18 06/10/18 06/10/18 13:16 13:16 13:55 WBC RBC Hgb Hct MCV MCH MCHC RDW Plt Count MPV Neut % (Auto) Lymph % (Auto) [place] % (Auto) Eos % (Auto) Baso % (Auto) Neut # (Auto) Lymph # (Auto) [place] # (Auto) Eos # (Auto) Baso # (Auto) Neutrophils % (Manual) Band Neutrophils % Lymphocytes % (Manual) Monocytes % (Manual) Platelet Estimate Anisocytosis (manual) PT INR APTT pO2 23 L VBG pH 7.35 VBG pCO2 44 VBG HCO3 22.1 VBG Total CO2 25.7 VBG O2 Sat (Calc) 49.1 VBG Base Excess -1.5 L VBG Potassium 4.1 Glucose 164 H Lactate 2.2 H Sodium 139.0 Potassium Chloride 107.0 Carbon Dioxide Anion Gap BUN Creatinine Est GFR ( Amer) Est GFR (Non-Af Amer) Random Glucose Hemoglobin A1c 6.9 H Calcium Phosphorus Magnesium Total Bilirubin AST ALT Alkaline Phosphatase Troponin I NT-Pro-B Natriuret Pep Total Protein Albumin Globulin Albumin/Globulin Ratio Triglycerides Cholesterol LDL Cholesterol Direct HDL Cholesterol Venous Blood Potassium 4.1 Urine Color Urine Clarity Urine pH Ur Specific [place] Urine Protein Urine Glucose (UA) Urine Ketones Urine Blood Urine Nitrate Urine Bilirubin Urine Urobilinogen Ur Leukocyte Esterase Urine WBC (Auto) Urine RBC (Auto) Urine Bacteria Blood Type A POSITIVE Antibody Screen Negative 06/10/18 06/10/18 14:07 16:10 WBC RBC Hgb Hct MCV MCH MCHC RDW Plt Count MPV Neut % (Auto) Lymph % (Auto) [place] % (Auto) Eos % (Auto) Baso % (Auto) Neut # (Auto) Lymph # (Auto) [place] # (Auto) Eos # (Auto) Baso # (Auto) Neutrophils % (Manual) Band Neutrophils % Lymphocytes % (Manual) Monocytes % (Manual) Platelet Estimate Anisocytosis (manual) PT INR APTT pO2 31 VBG pH 7.35 VBG pCO2 45 VBG HCO3 22.9 VBG Total CO2 26.2 VBG O2 Sat (Calc) 61.2 VBG Base Excess -1.1 L VBG Potassium 3.9 Glucose 158 H Lactate 1.4 Sodium 140.0 Potassium Chloride 108.0 H Carbon Dioxide Anion Gap BUN Creatinine Est GFR ( Amer) Est GFR (Non-Af Amer) Random Glucose Hemoglobin A1c Calcium Phosphorus Magnesium Total Bilirubin AST ALT Alkaline Phosphatase Troponin I NT-Pro-B Natriuret Pep Total Protein Albumin Globulin Albumin/Globulin Ratio Triglycerides Cholesterol LDL Cholesterol Direct HDL Cholesterol Venous Blood Potassium 3.9 Urine Color Red Urine Clarity Hazy Urine pH 5.0 Ur Specific [place] 1.055 H Urine Protein 2+ H Urine Glucose (UA) Normal Urine Ketones Negative Urine Blood 3+ H Urine Nitrate Negative Urine Bilirubin Negative Urine Urobilinogen 2.0 Ur Leukocyte Esterase 3+ H Urine WBC (Auto) 24 H Urine RBC (Auto) 1207 H Urine Bacteria Occ H Blood Type Antibody Screen Assessment & Plan - Assessment and Plan (Free Text) Assessment: 63 y/o male, PMH several CVA (embolic) with PFO, Afib, Bladder cancer, T2DM, HTN, HLD, vascular dementia, presented to the ED on 06/10/18 s/p fall earlier this morning and hematuria: Code Sepsis - Likely secondary to UTI - 3+ leukocyte esterase, 24 WBC, Bacteria occ, Nitrate negative, RBC 1207, Blood 3+ - Initial lactate 2.2, hypotensive SBP 80s - bolus fluid, repeat lactic acid 1.4 - Zosyn 2.25mg Q6H - NS @50ml/hr Code stroke Fall Bilateral leg weakness - chronic - CT head: No acute intracranial abnormality. If there is a persistent focal neurologic deficit and an ongoing clinical concern for acute infarction, an MRI of the brain without intravenous contrast would be a more sensitive modality for evaluation of hyperacute/acute ischemic infarction. Chronic bilateral MCA anleft MITCHELL territory infarctions. -CTA: 1. No evidence of endoluminal thrombus,occlusion or definite significant stenosis in the intracranial arteries. 2. No evidence of hemodynamically significant stenosis in the internal carotid arteries. 3. Patent bilateral vertebral arteries. - F/u Hip Xray - PT recs Hematuria Urinary Track infection Acute Kidney Injury History of Bladder Cancer - BUN/ Cr 45/2.3; previously 25/ 1.3 - MAGALI likely secondary to UTI vs dehydration - 3+ leukocyte esterase, 24 WBC, Bacteria occ, Nitrate negative, RBC 1207, Blood 3+ - Zosyn 2.25mg Q6H - NS @50ml/hr - F/u urology, Dr. Lazcano recs - F/u Renal/bladder U/S History of Patent Foramen ovale History of Afib History of Hypertension - vitals stable - continue home medication amlodipine 10 mg PO daily - Hold home medications lisinopril 20 mg BID & HCTZ 12.5 mg PO daily 2/2 MAGALI - Continue home medication Aspirin 81 mg Po daily - F/u cardio, Dr. Nettles recs - Possible Watchman procedure T2DM - HgbA1C 6.9 - Insulin sliding scale achs - Accuchecks achs History of Vascular dementenia - continue home medication namenda 10mg PO daily Prophylaxis - DVt: Chemical contradicted 2/2 hematuria, SCDs - Diet: Heart Healthy - GI: Lactobacillus 1 tab BID - Crestor 10mg PO HS - PT/OT
[2018-06-10 18:42] LABS: CK-MB 3.57 ng/mL (0.0-3.38); TROPONIN I 0.012 ng/mL (0.00-0.120)
[2018-06-10] MEDS: Sodium Chloride 0.9% 1,000 ML IV SCH (19:20)
[2018-06-10] MEDS: Saccharomyces Boulardi 250 mg Cap PO SCH (19:25)
[2018-06-10] MEDS: Piperacill/Tazo 2.25gm in Dex 2.25 GM/50 ML BAG IVPB SCH (19:36)
[2018-06-10] MEDS ORDERED: Glucagon Recombinant 1 mg Inj IM PRN (22:40)
[2018-06-10] MEDS ORDERED: Dextrose 50% SYRINGE Inj (50 ml) IV PRN (22:40)
[2018-06-11] MEDS: Piperacill/Tazo 2.25gm in Dex 2.25 GM/50 ML BAG IVPB SCH ×4 (01:40→17:32)
[2018-06-11 01:55] LABS: CK-MB 2.42 ng/mL (0.0-3.38); TROPONIN I 0.023 ng/mL (0.00-0.120)
--- NOTE | 2018-06-11 08:31 | CP.PCM.PN ---
Subjective - Date & Time of Evaluation Date of Evaluation: 06/11/18 Time of Evaluation: 08:24 - Subjective Subjective: PGY-1 Odessa Epperson D.O. Medicine progress note for Dr. Mandujano's service: Patient was seen and examined this morning. he states that his legs still feel weak and he has not attempted to stand/walk since being hospitalized. Other than that, he states he is feeling at his baseline. No CHAIREZ, vision changes, hearing changes, dizziness. He is eating and sleeping well. Objective - Vital Signs/Intake and Output Vital Signs (last 24 hours): Temp Pulse Resp BP Pulse Ox 98.8 F 96 H 20 114/76 96 06/11/18 07:00 06/11/18 07:00 06/11/18 07:00 06/11/18 07:00 06/11/18 07:00 Intake and Output: 06/11/18 06/11/18 06:59 18:59 Intake Total 1240 Output Total 160 Balance 1080 - Medications Medications: Current Medications Amlodipine Besylate (Norvasc) 10 mg PO DAILY [facility] Aspirin (Aspirin Chewable) 81 mg PO DAILY [facility] Bupropion HCl (Wellbutrin) 75 mg PO DAILY [facility] Last Admin: 06/10/18 19:36 Dose: 75 mg Dextrose (Dextrose 50% Inj) 0 ml IV STAT PRN; Protocol PRN Reason: Hypoglycemia Protocol Dextrose (Glutose 15) 0 gm PO ONCE PRN; Protocol PRN Reason: Hypoglycemia Protocol Docusate Sodium (Colace) 100 mg PO BID [facility] Last Admin: 06/10/18 19:25 Dose: 100 mg Glucagon (Glucagen Diagnostic Kit) 0 mg IM STAT PRN; Protocol PRN Reason: Hypoglycemia Protocol Hydrochlorothiazide (Microzide) 12.5 mg PO DAILY [facility] Piperacillin Sod/Tazobactam Sod (Zosyn 2.25 Gm Iv Premix) 2.25 gm in 50 mls @ 100 mls/hr IVPB Q6H [facility]; Protocol Last Admin: 06/11/18 06:18 Dose: 100 mls/hr Sodium Chloride (Sodium Chloride 0.9%) 1,000 mls @ 50 mls/hr IV .Q20H [facility] Last Admin: 06/10/18 19:20 Dose: 50 mls/hr Dextrose (Dextrose 5% In Water 1000 Ml) 1,000 mls @ 0 mls/hr IV .Q0M PRN; Protocol PRN Reason: Hypoglycemia Protocol Insulin Aspart (Novolog) 0 unit SC ACHS [facility]; Protocol Lisinopril (Zestril) 20 mg PO BID [facility] Memantine (Namenda) 10 mg PO DAILY [facility] Multivitamins/Minerals (Therapeutic-M Tab) 1 tab PO DAILY [facility] Rivastigmine (Exelon 9.5 Mg/24 Hr Patch) 1 patch TD DAILY [facility] Rosuvastatin Calcium (Crestor) 10 mg PO HS [facility] Last Admin: 06/10/18 22:00 Dose: 10 mg Saccharomyces Boulardii (Florastor) 250 mg PO BID [facility] Last Admin: 06/10/18 19:25 Dose: 250 mg - Labs Labs: 06/10/18 13:16 06/10/18 13:16 PT 16.5 SECONDS (9.7-12.2) H 06/10/18 13:16 INR 1.5 06/10/18 13:16 APTT 29 SECONDS (21-34) 06/10/18 13:16 - Constitutional Appears: Unkempt, Older Than Stated Age - Head Exam Head Exam: ATRAUMATIC, NORMAL INSPECTION - Eye Exam Eye Exam: EOMI, Normal appearance, PERRL - ENT Exam ENT Exam: Mucous Membranes Moist - Neck Exam Neck Exam: Normal Inspection - Respiratory Exam Respiratory Exam: Clear to Ausculation Bilateral, NORMAL BREATHING PATTERN. absent: Respiratory Distress - Cardiovascular Exam Cardiovascular Exam: REGULAR RHYTHM, +S1, +S2 - GI/Abdominal Exam GI & Abdominal Exam: Soft. absent: Tenderness - Rectal Exam Rectal Exam: Deferred - Extremities Exam Extremities Exam: Normal Capillary Refill. absent: Pedal Edema, Tenderness Additional comments: R 5th metatarsal ulcer 2.8 x 2 cm - Back Exam Back Exam: NORMAL INSPECTION - Neurological Exam Neurological Exam: Alert, Awake, CN II-XII Intact. 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 Patient reports his knees "gave out." He was also complaining of hematuria x several weeks. patient was treated for UTI with cipro, that initially improved the hematuria, but then it returned after finishing the abx course. Patient's urologists reports that patient did not follow-up for 9 years after bladder mass removed. Plan: Sepsis- suspect due to UTI - Code sepsis 06/10 - Tmax 100.7, most recent fever 06/11 12AM 100.6 - Leukocytosis improving - UA: 2+ prot, 3+ blood, 3+ LE, occ panfilo, 24 WBC, 1207 RBC - Urine Cx GNR- f/u final and sensitivities - Blood Cx pending - NS @ 50 mL.hr - Zosyn 2.25g IV Q6H- started 06/10 - Start Vancomycin 1 g IV daily- 06/11 (renal dose) - Florastor 250 mg PO BID - ID consulted (Noel) Hematuria and Acute kidney injury with h/o bladder cancer - UA: 2+ prot, 3+ blood, 3+ LE, occ panfilo, 24 WBC, 1207 RBC - Urine Cx GNR- f/u final and sensitivities - BUN/Cr 27/1.7- improved form admission - Avoid nephrotoxic agents - Renal/bladder u/s pending - Urine cytology pending - Urology consulted (Mouded)- pt did not f/u after original dx of CA 9 yrs ago Fall with lower extremity weakness- suspect 2/2 sepsis/infection - Code stroke - CPK 237->193- downtrending - CT head: No acute findings. Chronic bilateral MCA and left MITCHELL territory infarctions. - Hip/pelvis XR: no acute findings - Thoracic and lumbar MRI: no acute stenosis, potential metastasis Minor multilevel degenerative spondylosis most notably affecting the L5-S1 level. No acute compression fractures no retropulsed fragments. Probable scattered hemangiomas. Mildly inhomogeneous signal changes throughout the thoracic vertebral bodies is identified including multiple benign hemangiomata scattered as discussed above. Precautionary follow-up nuclear bone scan is advised to exclude potential underlying lesion though none are grossly apparent in the current MR exam. This can be gauged based on whether the patient has a known primary no metastatic malignancy. No disc herniation, central canal or neural foraminal stenosis. Normal thoracic spinal cord signal intensity. No suspicious epidural or intrathecal lesion appreciable. - Neurology consulted ([place]ano) L 5th metatarsal ulcer - L foot XR pending - Wound care consulted Vascular dementia with A fib and PFO - FAISAL 07/2017 - CTA head/neck: no significant stenosis or structural abnormalities - Crestor 10 mg PO QHS - Wellbutrin 75 mg PO daily (home med) - Memantine 10 mg PO daily (home med) - Rivastigmine 9.5 mg patch daily (home med) - Cardiology consulted (Yoon)- pt was supposed ot have loop recorder but was lost to follow-up Hypertension - Monitor vitals Q4H - Amlodipine 10 mg PO daily - HCTZ 12.5 PO daily- hold due to MAGALI - Lisinopril 20 mg PO daily- hold due to MAGALI Type 2 diabetes mellitus - A1c 6.9 - Hypoglycemic protocol - Accuchecks ACHS with ISS Ppx: VTE: SCDs, chemical anticoag contraindicated due to hematuria GI: not indicated Code status: full code Case was discussed with attending, Dr. Mandujano.
[2018-06-11] MEDS: (Novolog) Insulin Aspart, Recombinant 100 u/ml 10 ml vial SC SCH ×4 (08:34→21:34)
--- NOTE | 2018-06-11 08:58 | RAD ---
Date of service: 06/10/2018 PROCEDURE: BILATERAL HIPS WITH PELVIS RADIOGRAPHS HISTORY: s/p fall COMPARISON: None available. TECHNIQUE: Frontal views of the pelvis and bilateral hip joints been submitted as well as frog-leg lateral views of the bilateral hip joints. FINDINGS: No acute fracture or dislocation is appreciate the bilateral hip joints degenerative changes appearing moderate, including bilateral joint space narrowing and articular cortical sclerosis at the hip joints. Degenerative changes are identified in the bilateral sacroiliac joints. The upper sacrum is unremarkable with the mid to lower portion obscured by opacified retained fecal material at the rectum. Pubic symphysis appears intact swells remaining pubic bony anatomy. IMPRESSION: No acute fracture or dislocation bilateral hip joints. Symmetric degenerative changes are moderate at the bilateral hip joints and mild at the bilateral sacroiliac joints.
[2018-06-11 09:04] LABS: BASO # 0.1 K/uL (0.0-0.2); BASO % 0.4 % (0.0-2.0); EOS % 0.2 % (0.0-4.0); LYMPH # 0.7 K/uL (1.0-4.3); LYMPH % 5.4 % (20.0-40.0); MEAN CELL VOLUME 82.4 fL (80.0-94.0); MEAN CORPUSCULAR HEMOGLOBIN 27.5 pg (27.0-31.0); MEAN CORPUSCULAR HGB CONC 33.4 g/dL (33.0-37.0); MONO # 0.9 K/uL (0.0-0.8); MONO % 7.7 % (0.0-10.0); NEUT # 10.6 K/uL (1.8-7.0); NEUT % 86.3 % (50.0-75.0); PLATELET COUNT 171 K/uL (130-400); RBC 4.37 Mil/uL (4.40-5.90); RED CELL DISTRIBUTION WIDTH 14.8 % (11.5-14.5); WHITE BLOOD COUNT 12.3 K/uL (4.8-10.8)
--- NOTE | 2018-06-11 09:09 | CP.PCM.CON ---
History of Present Illness - History of Present Illness History of Present Illness: 63 yo male with h/o multiple strokes and resulted dementia, T2D, HTN, PFO on FAISAL in 07/2017. Presented this time after a fall, that was reported from leg weakness. Diagnosed with UTI on this admission. Patient is unable to provide much history, most obtained from documentation. Multiple strokes, while there was never documentation of AF in this hospital. Patient was supposed to have loop recorder implanted after last admission, but was lost to follow up. Denies palpitations, chest pain, dyspnea, nausea or fevers Review of Systems - Review of Systems Review of Systems: all others are negative except HPI Past Patient History - Infectious Disease Hx of Infectious Diseases: None - Tetanus Immunizations Tetanus Immunization: Unknown - Past Medical History & Family History Past Medical History?: Yes - Past Social History Smoking Status: Never Smoked - CARDIAC Hx Hypercholesterolemia: Yes Hx Hypertension: Yes - PULMONARY Hx Respiratory Disorders: No - NEUROLOGICAL Hx Alzheimer's Disease: Yes Hx Dementia: Yes (vascular dementia-Alzheimers) Hx Transient Ischemic Attacks (TIA): Yes (several) - HEENT Hx HEENT Problems: No Other/Comment: nearsighted-wears reading glasses - RENAL Hx Chronic Kidney Disease: Yes - ENDOCRINE/METABOLIC Hx Endocrine Disorders: No - HEMATOLOGICAL/ONCOLOGICAL Hx Human Immunodeficiency Virus (HIV): No - INTEGUMENTARY Hx Dermatological Problems: No - MUSCULOSKELETAL/RHEUMATOLOGICAL Hx Falls: Yes (07/03/2017) - GASTROINTESTINAL Hx Gastrointestinal Disorders: Yes Hx Gastroesophageal Reflux: Yes - GENITOURINARY/GYNECOLOGICAL Hx Genitourinary Disorders: Yes Hx Bladder Cancer: Yes - PSYCHIATRIC Hx Depression: Yes Hx Substance Use: No - SURGICAL HISTORY Hx Surgeries: Yes Other/Comment: abdominal surgery. bladder surgery 2009. - ANESTHESIA Hx Anesthesia: Yes Hx Anesthesia Reactions: No Hx Malignant Hyperthermia: No Meds Allergies/Adverse Reactions: Allergies Allergy/AdvReac Type Severity Reaction Status Date / Time No Known Allergies Allergy Verified 06/10/18 13:02 - Medications Medications: Current Medications Amlodipine Besylate (Norvasc) 10 mg PO DAILY [facility] Aspirin (Aspirin Chewable) 81 mg PO DAILY [facility] Bupropion HCl (Wellbutrin) 75 mg PO DAILY [facility] Last Admin: 06/10/18 19:36 Dose: 75 mg Dextrose (Dextrose 50% Inj) 0 ml IV STAT PRN; Protocol PRN Reason: Hypoglycemia Protocol Dextrose (Glutose 15) 0 gm PO ONCE PRN; Protocol PRN Reason: Hypoglycemia Protocol Docusate Sodium (Colace) 100 mg PO BID [facility] Last Admin: 06/10/18 19:25 Dose: 100 mg Glucagon (Glucagen Diagnostic Kit) 0 mg IM STAT PRN; Protocol PRN Reason: Hypoglycemia Protocol Hydrochlorothiazide (Microzide) 12.5 mg PO DAILY [facility] Piperacillin Sod/Tazobactam Sod (Zosyn 2.25 Gm Iv Premix) 2.25 gm in 50 mls @ 100 mls/hr IVPB Q6H [facility]; Protocol Last Admin: 06/11/18 06:18 Dose: 100 mls/hr Sodium Chloride (Sodium Chloride 0.9%) 1,000 mls @ 50 mls/hr IV .Q20H [facility] Last Admin: 06/10/18 19:20 Dose: 50 mls/hr Dextrose (Dextrose 5% In Water 1000 Ml) 1,000 mls @ 0 mls/hr IV .Q0M PRN; Protocol PRN Reason: Hypoglycemia Protocol Insulin Aspart (Novolog) 0 unit SC ACHS [facility]; Protocol Last Admin: 06/11/18 08:34 Dose: Not Given Lisinopril (Zestril) 20 mg PO BID [facility] Memantine (Namenda) 10 mg PO DAILY [facility] Multivitamins/Minerals (Therapeutic-M Tab) 1 tab PO DAILY [facility] Rivastigmine (Exelon 9.5 Mg/24 Hr Patch) 1 patch TD DAILY [facility] Rosuvastatin Calcium (Crestor) 10 mg PO HS [facility] Last Admin: 06/10/18 22:00 Dose: 10 mg Saccharomyces Boulardii (Florastor) 250 mg PO BID [facility] Last Admin: 06/10/18 19:25 Dose: 250 mg Physical Exam - Head Exam Head Exam: ATRAUMATIC, NORMOCEPHALIC - Eye Exam Eye Exam: Normal appearance Pupil Exam: PERRL - Respiratory Exam Respiratory Exam: Clear to Auscultation Bilateral, NORMAL BREATHING PATTERN - Cardiovascular Exam Cardiovascular Exam: REGULAR RHYTHM, +S1, +S2. absent: JVD, Systolic Murmur - GI/Abdominal Exam GI & Abdominal Exam: Soft. absent: Bruit, Tenderness - Extremities Exam Extremities exam: Negative for: calf tenderness - Back Exam Back exam: absent: CVA tenderness (L) - Neurological Exam Neurological exam: Alert, CN II-XII Intact - Psychiatric Exam Psychiatric exam: Normal Affect, Normal Mood Results - Vital Signs Recent Vital Signs: Last Vital Signs Temp 98.8 F 06/11/18 07:00 Pulse 94 H 06/11/18 08:48 Resp 20 06/11/18 07:00 BP 114/76 06/11/18 07:00 Pulse Ox 96 06/11/18 07:00 - Labs Result Diagrams: 06/11/18 08:49 06/10/18 13:16 Labs: Laboratory Results - last 24 hr 06/10/18 06/10/18 06/10/18 13:16 13:16 13:16 WBC 23.7 H D RBC 4.76 Hgb 13.1 Hct 39.5 MCV 82.8 MCH 27.4 MCHC 33.1 RDW 15.1 H Plt Count 206 MPV 8.9 Neut % (Auto) 84.6 H Lymph % (Auto) 4.6 L [place] % (Auto) 10.3 H Eos % (Auto) 0.1 Baso % (Auto) 0.4 Neut # (Auto) 20.0 H Lymph # (Auto) 1.1 [place] # (Auto) 2.4 H Eos # (Auto) 0.0 Baso # (Auto) 0.1 Neutrophils % (Manual) 81 H Band Neutrophils % 4 H Lymphocytes % (Manual) 6 L Monocytes % (Manual) 9 Platelet Estimate Normal Anisocytosis (manual) Slight PT 16.5 H INR 1.5 APTT 29 pO2 VBG pH VBG pCO2 VBG HCO3 VBG Total CO2 VBG O2 Sat (Calc) VBG Base Excess VBG Potassium Glucose Lactate Sodium 136 Potassium 4.9 Chloride 105 Carbon Dioxide 21 L Anion Gap 15 BUN 45 H Creatinine 2.3 H Est GFR ( Amer) 35 Est GFR (Non-Af Amer) 29 POC Glucose (mg/dL) Random Glucose 183 H Hemoglobin A1c Calcium 8.7 Phosphorus 2.9 Magnesium 2.1 Total Bilirubin 1.1 AST 31 ALT 18 L D Alkaline Phosphatase 72 Total Creatine Kinase CK-MB (Mass) Troponin I 0.0170 NT-Pro-B Natriuret Pep 1650 H Total Protein 7.5 Albumin 3.9 Globulin 3.6 Albumin/Globulin Ratio 1.1 Triglycerides 71 D Cholesterol 106 LDL Cholesterol Direct 52 HDL Cholesterol 40 Venous Blood Potassium Urine Color Urine Clarity Urine pH Ur Specific [place] Urine Protein Urine Glucose (UA) Urine Ketones Urine Blood Urine Nitrate Urine Bilirubin Urine Urobilinogen Ur Leukocyte Esterase Urine WBC (Auto) Urine RBC (Auto) Urine Bacteria Blood Type Antibody Screen 06/10/18 06/10/18 06/10/18 13:16 13:16 13:55 WBC RBC Hgb Hct MCV MCH MCHC RDW Plt Count MPV Neut % (Auto) Lymph % (Auto) [place] % (Auto) Eos % (Auto) Baso % (Auto) Neut # (Auto) Lymph # (Auto) [place] # (Auto) Eos # (Auto) Baso # (Auto) Neutrophils % (Manual) Band Neutrophils % Lymphocytes % (Manual) Monocytes % (Manual) Platelet Estimate Anisocytosis (manual) PT INR APTT pO2 23 L VBG pH 7.35 VBG pCO2 44 VBG HCO3 22.1 VBG Total CO2 25.7 VBG O2 Sat (Calc) 49.1 VBG Base Excess -1.5 L VBG Potassium 4.1 Glucose 164 H Lactate 2.2 H Sodium 139.0 Potassium Chloride 107.0 Carbon Dioxide Anion Gap BUN Creatinine Est GFR ( Amer) Est GFR (Non-Af Amer) POC Glucose (mg/dL) Random Glucose Hemoglobin A1c 6.9 H Calcium Phosphorus Magnesium Total Bilirubin AST ALT Alkaline Phosphatase Total Creatine Kinase CK-MB (Mass) Troponin I NT-Pro-B Natriuret Pep Total Protein Albumin Globulin Albumin/Globulin Ratio Triglycerides Cholesterol LDL Cholesterol Direct HDL Cholesterol Venous Blood Potassium 4.1 Urine Color Urine Clarity Urine pH Ur Specific [place] Urine Protein Urine Glucose (UA) Urine Ketones Urine Blood Urine Nitrate Urine Bilirubin Urine Urobilinogen Ur Leukocyte Esterase Urine WBC (Auto) Urine RBC (Auto) Urine Bacteria Blood Type A POSITIVE Antibody Screen Negative 06/10/18 06/10/18 06/10/18 14:07 16:10 18:13 WBC RBC Hgb Hct MCV MCH MCHC RDW Plt Count MPV Neut % (Auto) Lymph % (Auto) [place] % (Auto) Eos % (Auto) Baso % (Auto) Neut # (Auto) Lymph # (Auto) [place] # (Auto) Eos # (Auto) Baso # (Auto) Neutrophils % (Manual) Band Neutrophils % Lymphocytes % (Manual) Monocytes % (Manual) Platelet Estimate Anisocytosis (manual) PT INR APTT pO2 31 VBG pH 7.35 VBG pCO2 45 VBG HCO3 22.9 VBG Total CO2 26.2 VBG O2 Sat (Calc) 61.2 VBG Base Excess -1.1 L VBG Potassium 3.9 Glucose 158 H Lactate 1.4 Sodium 140.0 Potassium Chloride 108.0 H Carbon Dioxide Anion Gap BUN Creatinine Est GFR ( Amer) Est GFR (Non-Af Amer) POC Glucose (mg/dL) Random Glucose Hemoglobin A1c Calcium Phosphorus Magnesium Total Bilirubin AST ALT Alkaline Phosphatase Total Creatine Kinase 237 H CK-MB (Mass) 3.57 H Troponin I 0.0120 NT-Pro-B Natriuret Pep Total Protein Albumin Globulin Albumin/Globulin Ratio Triglycerides Cholesterol LDL Cholesterol Direct HDL Cholesterol Venous Blood Potassium 3.9 Urine Color Red Urine Clarity Hazy Urine pH 5.0 Ur Specific [place] 1.055 H Urine Protein 2+ H Urine Glucose (UA) Normal Urine Ketones Negative Urine Blood 3+ H Urine Nitrate Negative Urine Bilirubin Negative Urine Urobilinogen 2.0 Ur Leukocyte Esterase 3+ H Urine WBC (Auto) 24 H Urine RBC (Auto) 1207 H Urine Bacteria Occ H Blood Type Antibody Screen 06/10/18 06/10/18 06/10/18 18:13 18:53 21:11 WBC RBC Hgb Hct MCV MCH MCHC RDW Plt Count MPV Neut % (Auto) Lymph % (Auto) [place] % (Auto) Eos % (Auto) Baso % (Auto) Neut # (Auto) Lymph # (Auto) [place] # (Auto) Eos # (Auto) Baso # (Auto) Neutrophils % (Manual) Band Neutrophils % Lymphocytes % (Manual) Monocytes % (Manual) Platelet Estimate Anisocytosis (manual) PT INR APTT pO2 VBG pH VBG pCO2 VBG HCO3 VBG Total CO2 VBG O2 Sat (Calc) VBG Base Excess VBG Potassium Glucose Lactate Sodium Potassium Chloride Carbon Dioxide Anion Gap BUN Creatinine Est GFR ( Amer) Est GFR (Non-Af Amer) POC Glucose (mg/dL) 125 H 211 H Random Glucose Hemoglobin A1c Calcium Phosphorus Magnesium Total Bilirubin AST ALT Alkaline Phosphatase Total Creatine Kinase 234 H CK-MB (Mass) Troponin I NT-Pro-B Natriuret Pep Total Protein Albumin Globulin Albumin/Globulin Ratio Triglycerides Cholesterol LDL Cholesterol Direct HDL Cholesterol Venous Blood Potassium Urine Color Urine Clarity Urine pH Ur Specific [place] Urine Protein Urine Glucose (UA) Urine Ketones Urine Blood Urine Nitrate Urine Bilirubin Urine Urobilinogen Ur Leukocyte Esterase Urine WBC (Auto) Urine RBC (Auto) Urine Bacteria Blood Type Antibody Screen 06/11/18 06/11/18 06/11/18 01:24 08:31 08:49 WBC 12.3 H RBC 4.37 L Hgb 12.0 Hct 36.0 MCV 82.4 MCH 27.5 MCHC 33.4 RDW 14.8 H Plt Count 171 MPV 9.0 Neut % (Auto) 86.3 H Lymph % (Auto) 5.4 L [place] % (Auto) 7.7 Eos % (Auto) 0.2 Baso % (Auto) 0.4 Neut # (Auto) 10.6 H Lymph # (Auto) 0.7 L [place] # (Auto) 0.9 H Eos # (Auto) 0.0 Baso # (Auto) 0.1 Neutrophils % (Manual) Band Neutrophils % Lymphocytes % (Manual) Monocytes % (Manual) Platelet Estimate Anisocytosis (manual) PT INR APTT pO2 VBG pH VBG pCO2 VBG HCO3 VBG Total CO2 VBG O2 Sat (Calc) VBG Base Excess VBG Potassium Glucose Lactate Sodium Potassium Chloride Carbon Dioxide Anion Gap BUN Creatinine Est GFR ( Amer) Est GFR (Non-Af Amer) POC Glucose (mg/dL) 134 H Random Glucose Hemoglobin A1c Calcium Phosphorus Magnesium Total Bilirubin AST ALT Alkaline Phosphatase Total Creatine Kinase 193 H CK-MB (Mass) 2.42 Troponin I 0.0230 NT-Pro-B Natriuret Pep Total Protein Albumin Globulin Albumin/Globulin Ratio Triglycerides Cholesterol LDL Cholesterol Direct HDL Cholesterol Venous Blood Potassium Urine Color Urine Clarity Urine pH Ur Specific [place] Urine Protein Urine Glucose (UA) Urine Ketones Urine Blood Urine Nitrate Urine Bilirubin Urine Urobilinogen Ur Leukocyte Esterase Urine WBC (Auto) Urine RBC (Auto) Urine Bacteria Blood Type Antibody Screen - EKG Data EKG comments: My review: NSR, no acute ST-T changes Assessment & Plan (1) CVA (cerebral vascular accident) Assessment and Plan: Patient with multiple strokes in the past Signigficant PFO on FAISAL 07/2017 According to current recommendations, if there is no documented AF on senior living monitoring, e.g. > 1 month, PFO closure is reasonable Patient has no documented AF in this hospital\ Needs loop recorder for senior living monitoring Status: Acute (2) Hypertension Assessment and Plan: Cont wiwth current meds Status: Chronic (3) Hyperlipidemia Assessment and Plan: Cont with statin Status: Acute
[2018-06-11 09:24] LABS: ALBUMIN 3.1 g/dL (3.5-5.0); CALCIUM 8.3 mg/dl (8.6-10.4)
[2018-06-11 09:28] LABS: LYMPHOCYTE 2 % (20-40); MONOCYTE 2 % (0-10); NEUTROPHIL 96 % (50-75); PLATELET ESTIMATE NORMAL (NORMAL); TOTAL CELLS COUNTED 100
[2018-06-11] MEDS: Saccharomyces Boulardi 250 mg Cap PO SCH ×2 (09:43→17:22)
[2018-06-11] MEDS: Multivitamin With Minerals Tab PO SCH (09:43)
--- NOTE | 2018-06-11 11:08 | CP.PCM.CON ---
History of Present Illness - History of Present Illness History of Present Illness: Consult for Dr. Toscano Patient is a 63 year old male with a past medical history of multiple CVAs, vascular dementia, bladder cancer, HTN, DM, PFO on FAISAL, who presented to the hospital with complaints of bilateral lower extremity weakness since Monday. The sister is at bedside contributing to the patient's history. Per the sister, the patient was diagnosed with a CVA and bladder cancer approximately 10 years ago, and since then, has had multiple strokes. This Monday, the patient was found by his sister sitting on the floor next to his bed. He states that his legs were weak and he couldn't hold himself up. He denies hitting his head and says he just slid down to the floor from the bed. On Monday, the patient was found again sitting on the floor. When his sister and nephew picked him up, he was dragging his right leg. Per the sister, the patient has never had leg weakness in the past; he was able to walk himself to the restroom and get around without difficulty. The patient has been incontinent ("does not feel sensation of u rinating"), is chronically constipated, but able to move bowels, and has had dysarthria since his first CVA 10 years ago.) The patient currently complains of bilateral LE weakness, worse on the right, and denies chest pain, palpitations, dyspnea, cough, nausea, vomiting, dizziness, headaches, vision changes, a/v hallucinations, numbness, and tingling. PMD: Dr. Hernandez PMHx: multiple CVAs, vascular dementia, bladder cancer, HTN, DM, PFO on FAISAL SurgHx: cholecystectomy, cystoscopy (bladder cancer), malrotation of gut correction (infant) FamHx: Mother: Alzheimer's; Sister: breast cancer, brain cyst, afib SocHx: has not used for past 10 years; former etoh use (per sister, not a heavy a drinker, only drank on fridays); patient denies drug usel but per sister, patient used to snort cocaine. Lives with sisterCira, in . Has a home health aide. Allergies: NKDA Review of Systems - Constitutional Constitutional: Weakness. absent: Headache - EENT Eyes: absent: Blurred Vision, Change in Vision, Loss of Vision Ears: absent: Dizziness - Cardiovascular Cardiovascular: absent: Chest Pain, Dyspnea, Palpitations - Respiratory Respiratory: absent: Cough, Dyspnea - Gastrointestinal Gastrointestinal: Constipation (chronic). absent: Abdominal Pain, Diarrhea, Nausea, Vomiting - Genitourinary Genitourinary: Urinary Incontinence (chronic) - Musculoskeletal Musculoskeletal: absent: Back Pain - Neurological Neurological: Abnormal Gait, Abnormal Speech (chronic dysarthria x10 years), Focal Weakness (b/l LE), Lack of Coordination, Weakness (b/l LE). absent: Dizziness, Headaches, Loss of Vision, Sensory Deficit, Tingling - Psychiatric Psychiatric: absent: Auditory Hallucinations, Hallucinations, Visual Hallucinations, Tactile Hallucinations Past Patient History - Infectious Disease Hx of Infectious Diseases: None - Tetanus Immunizations Tetanus Immunization: Unknown - Past Medical History & Family History Past Medical History?: Yes - Past Social History Smoking Status: Never Smoked - CARDIAC Hx Hypercholesterolemia: Yes Hx Hypertension: Yes - PULMONARY Hx Respiratory Disorders: No - NEUROLOGICAL Hx Alzheimer's Disease: Yes Hx Dementia: Yes (vascular dementia-Alzheimers) Hx Transient Ischemic Attacks (TIA): Yes (several) - HEENT Hx HEENT Problems: No Other/Comment: nearsighted-wears reading glasses - RENAL Hx Chronic Kidney Disease: Yes - ENDOCRINE/METABOLIC Hx Endocrine Disorders: No - HEMATOLOGICAL/ONCOLOGICAL Hx Human Immunodeficiency Virus (HIV): No - INTEGUMENTARY Hx Dermatological Problems: No - MUSCULOSKELETAL/RHEUMATOLOGICAL Hx Falls: Yes (07/03/2017) - GASTROINTESTINAL Hx Gastrointestinal Disorders: Yes Hx Gastroesophageal Reflux: Yes - GENITOURINARY/GYNECOLOGICAL Hx Genitourinary Disorders: Yes Hx Bladder Cancer: Yes - PSYCHIATRIC Hx Depression: Yes Hx Substance Use: No - SURGICAL HISTORY Hx Surgeries: Yes Other/Comment: abdominal surgery. bladder surgery 2009. - ANESTHESIA Hx Anesthesia: Yes Hx Anesthesia Reactions: No Hx Malignant Hyperthermia: No Meds Allergies/Adverse Reactions: Allergies Allergy/AdvReac Type Severity Reaction Status Date / Time No Known Allergies Allergy Verified 06/10/18 13:02 - Medications Medications: Current Medications Amlodipine Besylate (Norvasc) 10 mg PO DAILY [facility] Last Admin: 06/11/18 09:43 Dose: 10 mg Aspirin (Aspirin Chewable) 81 mg PO DAILY [facility] Last Admin: 06/11/18 09:43 Dose: 81 mg Bupropion HCl (Wellbutrin) 75 mg PO DAILY [facility] Last Admin: 06/11/18 09:43 Dose: 75 mg Dextrose (Dextrose 50% Inj) 0 ml IV STAT PRN; Protocol PRN Reason: Hypoglycemia Protocol Dextrose (Glutose 15) 0 gm PO ONCE PRN; Protocol PRN Reason: Hypoglycemia Protocol Docusate Sodium (Colace) 100 mg PO BID [facility] Last Admin: 06/11/18 09:43 Dose: 100 mg Glucagon (Glucagen Diagnostic Kit) 0 mg IM STAT PRN; Protocol PRN Reason: Hypoglycemia Protocol Hydrochlorothiazide (Microzide) 12.5 mg PO DAILY [facility] Piperacillin Sod/Tazobactam Sod (Zosyn 2.25 Gm Iv Premix) 2.25 gm in 50 mls @ 100 mls/hr IVPB Q6H [facility]; Protocol Last Admin: 06/11/18 06:18 Dose: 100 mls/hr Sodium Chloride (Sodium Chloride 0.9%) 1,000 mls @ 50 mls/hr IV .Q20H [facility] Last Admin: 06/10/18 19:20 Dose: 50 mls/hr Dextrose (Dextrose 5% In Water 1000 Ml) 1,000 mls @ 0 mls/hr IV .Q0M PRN; Protocol PRN Reason: Hypoglycemia Protocol Insulin Aspart (Novolog) 0 unit SC ACHS [facility]; Protocol Last Admin: 06/11/18 08:34 Dose: Not Given Lisinopril (Zestril) 20 mg PO BID [facility] Last Admin: 06/11/18 09:43 Dose: 20 mg Memantine (Namenda) 10 mg PO DAILY [facility] Last Admin: 06/11/18 09:43 Dose: 10 mg Multivitamins/Minerals (Therapeutic-M Tab) 1 tab PO DAILY [facility] Last Admin: 06/11/18 09:43 Dose: 1 tab Rivastigmine (Exelon 9.5 Mg/24 Hr Patch) 1 patch TD DAILY [facility] Last Admin: 06/11/18 09:43 Dose: 1 patch Rosuvastatin Calcium (Crestor) 10 mg PO HS [facility] Last Admin: 06/10/18 22:00 Dose: 10 mg Saccharomyces Boulardii (Florastor) 250 mg PO BID [facility] Last Admin: 06/11/18 09:43 Dose: 250 mg Physical Exam - Constitutional Appears: No Acute Distress - Head Exam Head Exam: ATRAUMATIC, NORMAL INSPECTION - Eye Exam Eye Exam: EOMI, Normal appearance, PERRL. absent: Nystagmus - ENT Exam ENT Exam: Mucous Membranes Moist Additional comments: poor dentition - Neck Exam Neck exam: Positive for: Normal Inspection - Respiratory Exam Respiratory Exam: Clear to Auscultation Bilateral, NORMAL BREATHING PATTERN. absent: Rales, Rhonchi, Wheezes, Respiratory Distress - Cardiovascular Exam Cardiovascular Exam: +S1, +S2 - GI/Abdominal Exam GI & Abdominal Exam: Normal Bowel Sounds, Soft. absent: Distended, Tenderness - Extremities Exam Extremities exam: Positive for: pedal pulses present (diminished). Negative for: calf tenderness, normal inspection, pedal edema, tenderness - Neurological Exam Neurological exam: Abnormal Gait, Alert, CN II-XII Intact, Motor Sensory Deficit (b/l LE weakness R>L, diminished sensation b/l ankles), Oriented x3 Additional comments: B/L LE: normal sensation above ankles, decreased and asymmetrical positional and vibration sense; normal reflexes b/l; 4-5/5 active motor strength b/l B/L UE: normal sensation, 5/5 active motor strength, screw machine setter strength normal/equal, no pronator drift CNII-XII intact - Psychiatric Exam Psychiatric exam: Flat Affect - Skin Skin Exam: Dry, Intact, Normal Color, Warm Results - Vital Signs Recent Vital Signs: Last Vital Signs Temp 98.8 F 06/11/18 07:00 Pulse 94 H 06/11/18 08:48 Resp 20 06/11/18 07:00 BP 114/76 06/11/18 07:00 Pulse Ox 96 06/11/18 07:00 - Labs Result Diagrams: 06/11/18 08:49 06/11/18 08:49 Labs: Laboratory Results - last 24 hr 06/10/18 06/10/18 06/10/18 13:02 13:16 13:16 WBC 23.7 H D RBC 4.76 Hgb 13.1 Hct 39.5 MCV 82.8 MCH 27.4 MCHC 33.1 RDW 15.1 H Plt Count 206 MPV 8.9 Neut % (Auto) 84.6 H Lymph % (Auto) 4.6 L Kane % (Auto) 10.3 H Eos % (Auto) 0.1 Baso % (Auto) 0.4 Neut # (Auto) 20.0 H Lymph # (Auto) 1.1 Kane # (Auto) 2.4 H Eos # (Auto) 0.0 Baso # (Auto) 0.1 Neutrophils % (Manual) 81 H Band Neutrophils % 4 H Lymphocytes % (Manual) 6 L Monocytes % (Manual) 9 Platelet Estimate Normal RBC Morphology Anisocytosis (manual) Slight PT 16.5 H INR 1.5 APTT 29 pO2 VBG pH VBG pCO2 VBG HCO3 VBG Total CO2 VBG O2 Sat (Calc) VBG Base Excess VBG Potassium Glucose Lactate Sodium Potassium Chloride Carbon Dioxide Anion Gap BUN Creatinine Est GFR ( Amer) Est GFR (Non-Af Amer) POC Glucose (mg/dL) 174 H Random Glucose Hemoglobin A1c Calcium Phosphorus Magnesium Total Bilirubin AST ALT Alkaline Phosphatase Total Creatine Kinase CK-MB (Mass) Troponin I NT-Pro-B Natriuret Pep Total Protein Albumin Globulin Albumin/Globulin Ratio Triglycerides Cholesterol LDL Cholesterol Direct HDL Cholesterol Venous Blood Potassium Urine Color Urine Clarity Urine pH Ur Specific [place] Urine Protein Urine Glucose (UA) Urine Ketones Urine Blood Urine Nitrate Urine Bilirubin Urine Urobilinogen Ur Leukocyte Esterase Urine WBC (Auto) Urine RBC (Auto) Urine Bacteria Blood Type Antibody Screen 06/10/18 06/10/18 06/10/18 13:16 13:16 13:16 WBC RBC Hgb Hct MCV MCH MCHC RDW Plt Count MPV Neut % (Auto) Lymph % (Auto) Kane % (Auto) Eos % (Auto) Baso % (Auto) Neut # (Auto) Lymph # (Auto) Kane # (Auto) Eos # (Auto) Baso # (Auto) Neutrophils % (Manual) Band Neutrophils % Lymphocytes % (Manual) Monocytes % (Manual) Platelet Estimate RBC Morphology Anisocytosis (manual) PT INR APTT pO2 VBG pH VBG pCO2 VBG HCO3 VBG Total CO2 VBG O2 Sat (Calc) VBG Base Excess VBG Potassium Glucose Lactate Sodium 136 Potassium 4.9 Chloride 105 Carbon Dioxide 21 L Anion Gap 15 BUN 45 H Creatinine 2.3 H Est GFR ( Amer) 35 Est GFR (Non-Af Amer) 29 POC Glucose (mg/dL) Random Glucose 183 H Hemoglobin A1c 6.9 H Calcium 8.7 Phosphorus 2.9 Magnesium 2.1 Total Bilirubin 1.1 AST 31 ALT 18 L D Alkaline Phosphatase 72 Total Creatine Kinase CK-MB (Mass) Troponin I 0.0170 NT-Pro-B Natriuret Pep 1650 H Total Protein 7.5 Albumin 3.9 Globulin 3.6 Albumin/Globulin Ratio 1.1 Triglycerides 71 D Cholesterol 106 LDL Cholesterol Direct 52 HDL Cholesterol 40 Venous Blood Potassium Urine Color Urine Clarity Urine pH Ur Specific [place] Urine Protein Urine Glucose (UA) Urine Ketones Urine Blood Urine Nitrate Urine Bilirubin Urine Urobilinogen Ur Leukocyte Esterase Urine WBC (Auto) Urine RBC (Auto) Urine Bacteria Blood Type A POSITIVE Antibody Screen Negative 06/10/18 06/10/18 06/10/18 13:55 14:07 16:10 WBC RBC Hgb Hct MCV MCH MCHC RDW Plt Count MPV Neut % (Auto) Lymph % (Auto) Kane % (Auto) Eos % (Auto) Baso % (Auto) Neut # (Auto) Lymph # (Auto) Kane # (Auto) Eos # (Auto) Baso # (Auto) Neutrophils % (Manual) Band Neutrophils % Lymphocytes % (Manual) Monocytes % (Manual) Platelet Estimate RBC Morphology Anisocytosis (manual) PT INR APTT pO2 23 L 31 VBG pH 7.35 7.35 VBG pCO2 44 45 VBG HCO3 22.1 22.9 VBG Total CO2 25.7 26.2 VBG O2 Sat (Calc) 49.1 61.2 VBG Base Excess -1.5 L -1.1 L VBG Potassium 4.1 3.9 Glucose 164 H 158 H Lactate 2.2 H 1.4 Sodium 139.0 140.0 Potassium Chloride 107.0 108.0 H Carbon Dioxide Anion Gap BUN Creatinine Est GFR ( Amer) Est GFR (Non-Af Amer) POC Glucose (mg/dL) Random Glucose Hemoglobin A1c Calcium Phosphorus Magnesium Total Bilirubin AST ALT Alkaline Phosphatase Total Creatine Kinase CK-MB (Mass) Troponin I NT-Pro-B Natriuret Pep Total Protein Albumin Globulin Albumin/Globulin Ratio Triglycerides Cholesterol LDL Cholesterol Direct HDL Cholesterol Venous Blood Potassium 4.1 3.9 Urine Color Red Urine Clarity Hazy Urine pH 5.0 Ur Specific [place] 1.055 H Urine Protein 2+ H Urine Glucose (UA) Normal Urine Ketones Negative Urine Blood 3+ H Urine Nitrate Negative Urine Bilirubin Negative Urine Urobilinogen 2.0 Ur Leukocyte Esterase 3+ H Urine WBC (Auto) 24 H Urine RBC (Auto) 1207 H Urine Bacteria Occ H Blood Type Antibody Screen 06/10/18 06/10/1818 18:13 18:13 18:53 WBC RBC Hgb Hct MCV MCH MCHC RDW Plt Count MPV Neut % (Auto) Lymph % (Auto) Kane % (Auto) Eos % (Auto) Baso % (Auto) Neut # (Auto) Lymph # (Auto) Kane # (Auto) Eos # (Auto) Baso # (Auto) Neutrophils % (Manual) Band Neutrophils % Lymphocytes % (Manual) Monocytes % (Manual) Platelet Estimate RBC Morphology Anisocytosis (manual) PT INR APTT pO2 VBG pH VBG pCO2 VBG HCO3 VBG Total CO2 VBG O2 Sat (Calc) VBG Base Excess VBG Potassium Glucose Lactate Sodium Potassium Chloride Carbon Dioxide Anion Gap BUN Creatinine Est GFR ( Amer) Est GFR (Non-Af Amer) POC Glucose (mg/dL) 125 H Random Glucose Hemoglobin A1c Calcium Phosphorus Magnesium Total Bilirubin AST ALT Alkaline Phosphatase Total Creatine Kinase 237 H 234 H CK-MB (Mass) 3.57 H Troponin I 0.0120 NT-Pro-B Natriuret Pep Total Protein Albumin Globulin Albumin/Globulin Ratio Triglycerides Cholesterol LDL Cholesterol Direct HDL Cholesterol Venous Blood Potassium Urine Color Urine Clarity Urine pH Ur Specific [place] Urine Protein Urine Glucose (UA) Urine Ketones Urine Blood Urine Nitrate Urine Bilirubin Urine Urobilinogen Ur Leukocyte Esterase Urine WBC (Auto) Urine RBC (Auto) Urine Bacteria Blood Type Antibody Screen 06/10/18 06/11/18 06/11/18 21:11 01:24 08:31 WBC RBC Hgb Hct MCV MCH MCHC RDW Plt Count MPV Neut % (Auto) Lymph % (Auto) Kane % (Auto) Eos % (Auto) Baso % (Auto) Neut # (Auto) Lymph # (Auto) Kane # (Auto) Eos # (Auto) Baso # (Auto) Neutrophils % (Manual) Band Neutrophils % Lymphocytes % (Manual) Monocytes % (Manual) Platelet Estimate RBC Morphology Anisocytosis (manual) PT INR APTT pO2 VBG pH VBG pCO2 VBG HCO3 VBG Total CO2 VBG O2 Sat (Calc) VBG Base Excess VBG Potassium Glucose Lactate Sodium Potassium Chloride Carbon Dioxide Anion Gap BUN Creatinine Est GFR ( Amer) Est GFR (Non-Af Amer) POC Glucose (mg/dL) 211 H 134 H Random Glucose Hemoglobin A1c Calcium Phosphorus Magnesium Total Bilirubin AST ALT Alkaline Phosphatase Total Creatine Kinase 193 H CK-MB (Mass) 2.42 Troponin I 0.0230 NT-Pro-B Natriuret Pep Total Protein Albumin Globulin Albumin/Globulin Ratio Triglycerides Cholesterol LDL Cholesterol Direct HDL Cholesterol Venous Blood Potassium Urine Color Urine Clarity Urine pH Ur Specific [place] Urine Protein Urine Glucose (UA) Urine Ketones Urine Blood Urine Nitrate Urine Bilirubin Urine Urobilinogen Ur Leukocyte Esterase Urine WBC (Auto) Urine RBC (Auto) Urine Bacteria Blood Type Antibody Screen 06/11/18 06/11/18 08:49 08:49 WBC 12.3 H RBC 4.37 L Hgb 12.0 Hct 36.0 MCV 82.4 MCH 27.5 MCHC 33.4 RDW 14.8 H Plt Count 171 MPV 9.0 Neut % (Auto) 86.3 H Lymph % (Auto) 5.4 L Kane % (Auto) 7.7 Eos % (Auto) 0.2 Baso % (Auto) 0.4 Neut # (Auto) 10.6 H Lymph # (Auto) 0.7 L Kane # (Auto) 0.9 H Eos # (Auto) 0.0 Baso # (Auto) 0.1 Neutrophils % (Manual) 96 H Band Neutrophils % Lymphocytes % (Manual) 2 L Monocytes % (Manual) 2 Platelet Estimate Normal RBC Morphology Normal Anisocytosis (manual) PT INR APTT pO2 VBG pH VBG pCO2 VBG HCO3 VBG Total CO2 VBG O2 Sat (Calc) VBG Base Excess VBG Potassium Glucose Lactate Sodium 137 Potassium 3.8 Chloride 106 Carbon Dioxide 22 Anion Gap 13 BUN 27 H Creatinine 1.7 H Est GFR ( Amer) 49 Est GFR (Non-Af Amer) 41 POC Glucose (mg/dL) Random Glucose 136 H Hemoglobin A1c Calcium 8.3 L Phosphorus 2.5 Magnesium 1.9 Total Bilirubin 0.6 AST 16 L D ALT 24 Alkaline Phosphatase 79 Total Creatine Kinase CK-MB (Mass) Troponin I NT-Pro-B Natriuret Pep Total Protein 6.3 Albumin 3.1 L D Globulin 3.2 Albumin/Globulin Ratio 1.0 Triglycerides Cholesterol LDL Cholesterol Direct HDL Cholesterol Venous Blood Potassium Urine Color Urine Clarity Urine pH Ur Specific [place] Urine Protein Urine Glucose (UA) Urine Ketones Urine Blood Urine Nitrate Urine Bilirubin Urine Urobilinogen Ur Leukocyte Esterase Urine WBC (Auto) Urine RBC (Auto) Urine Bacteria Blood Type Antibody Screen Assessment & Plan - Assessment and Plan (Free Text) Plan: 63 year old male with a past medical history of multiple CVAs, vascular dementia, bladder cancer, HTN, DM, PFO on FAISAL, who presented to the hospital with complaints of bilateral lower extremity weakness. CODE stroke was called. Plan: Code stroke/ Fall/ Bilateral leg weakness - ER [facility] (06/10/18): 2 (drowsy (LOC) and mild to mod aphasia - [facility] (06/11/18): 1 (mild-mod dysarthria- chronic) - PT/OT - Ordered STAT Thoracic and Lumbar MRI to r/o mets, r/o abscess: follow up Imaging: * Head CT: No acute intracranial abnormality. Chronic bilateral MCA and left MITCHELL territory infarctions. * Head CTA: No evidence of endoluminal thrombus,occlusion or definite significant stenosis in the intracranial arteries. No evidence of hemodynamically significant stenosis in the internal carotid arteries. Patent bilateral vertebral arteries. * Hip Xray: no acute fracture, dislocation, b/l hip joints; symmetric degenerative changes moderate at b/l hip joints and mild at sacroiliac joints * Ordered STAT Thoracic and Lumbar MRI to r/o mets, r/o abscess: follow up History of Vascular dementia - Crestor 10 mg PO QHS - Wellbutrin 75 mg PO daily (home med) - Memantine 10 mg PO daily (home med) - Rivastigmine 9.5 mg patch daily (home med) Case discussed with Dr. Everton Day, PGY2
--- NOTE | 2018-06-11 14:20 | US ---
Date of service: 06/11/2018 PROCEDURE: Ultrasound of the Kidneys HISTORY: hematuria, hx of bladder cancer COMPARISON: Abdomen pelvis CT with contrast 05/29/2018.. TECHNIQUE: Sonogram of the kidneys. FINDINGS: RIGHT KIDNEY: Measures: 10.7 x 5.8 x 5.3 cm. Right kidney is normal in size with a solitary finding of 1.1 x 1.1 x 0.9 cm upper pole complex cyst with remainder of the right renal parenchyma unremarkable. No obstructive uropathy or urolithiasis identified. LEFT KIDNEY: Measures: 10.3 x 6.0 x 5.1 cm. Normal in size, contour and echogenicity. No stone, solid mass lesion or hydronephrosis visualized. OTHER FINDINGS: Imaging through the urinary bladder reveals a very limited prevoid volume of only 70 cc. Ureteral jets are not identified at either side. Urinary bladder wall is limited evaluation due to inadequate distension. Hypoechoic nodular focus measuring 2.2 x 1.2 by 2.0 cm in the left lateral urinary bladder base suspicious for mass. IMPRESSION: 1. Bilateral renal parenchyma is remarkable only for a 1.1 cm complex cyst exophytic off the upper pole right kidney. No obstructive uropathy bilaterally. 2. 2.2 cm left lateral urinary bladder mass suspicious for potential recurrence of the patient's prior urinary bladder carcinoma though other etiologies are possible. This corresponds to the left lateral urine bladder wall mass identified in abdomen pelvis CT exam 05/29/2018. Unfortunately, the patient partially voided during ultrasonography limiting possibility of postvoid residual evaluation.
[2018-06-11] MEDS: Sodium Chloride 0.9% 1,000 ML IV SCH (14:40)
--- NOTE | 2018-06-11 14:44 | CT ---
Date of service: 2018-06-11 13:28:56 PROCEDURE: CT Abdomen and Pelvis with Oral contrast. HISTORY: Elevated BUN AND CREAT COMPARISON: Comparison made with prior CT scan of the abdomen and pelvis 05/29/2018. TECHNIQUE: Contiguous axial images of the abdomen and pelvis without oral or intravenous contrast material. In coronal and Sagittal reformats generated. Radiation dose: Total exam DLP = 1286.84 mGy-cm. This CT exam was performed using one or more of the following dose reduction techniques: Automated exposure control, adjustment of the mA and/or kV according to patient size, and/or use of iterative reconstruction technique. FINDINGS: LOWER THORAX: Mild bibasilar atelectasis/scarring changes right greater than left.. Tiny calcifications are also present within the atelectatic changes bilaterally.. There appears to be a tiny pericardial effusion. LIVER: Liver is of mildly enlarged measuring nearly 19 cm in CC dimension. No obvious hepatic mass collection or calcification. No significant intrahepatic biliary ductal dilatation. GALLBLADDER AND BILE DUCTS: Gallbladder incompletely distended likely due to non fasting state. No obvious intraluminal. PANCREAS: Pancreas appears atrophic and fatty replaced. No pancreatic masses collections or calcifications. No significant pancreatic ductal dilatation.. SPLEEN: Unremarkable. No splenomegaly. ADRENALS: No adrenal lesions. KIDNEYS AND URETERS: Kidneys demonstrate relatively symmetric size. There is a punctate nonobstructing calcification upper pole right kidney. No evidence of hydronephrosis.. Tiny partially exophytic cyst arising from the anterior aspect lower pole left kidney. Minor infiltration changes seen in the perinephric fat bilaterally left greater than right.. BLADDER: The urinary bladder is incompletely distended which in part accounts for thick-walled appearance however the bladder wall does appears somewhat edematous with infiltration changes in the adjacent the possibility of a. Cystitis versus other intrinsic/invasive wall lesion not excluded. Correlation with urinalysis. Urologic consultation may be prudent if indicated. REPRODUCTIVE: Prostate gland measures approximately 5 cm in transverse dimension APPENDIX: Normal-appearing appendix best seen on axial image number [id number].. BOWEL: Evaluation of the bowel is stomach incompletely visualized. Wall thickening of the fundus and upper body of possibly due to incomplete distention however gastritis or other intrinsic/invasive wall lesion including but not limited to gastric carcinoma not the excluded.. Visualized loops of small bowel exhibit normal contour and caliber. No evidence of acute mechanical small bowel obstruction. There is a large amount of stool throughout the colon consistent with fecal retention/constipation.. Questionable mild wall rectal wall thickening. PERITONEUM: Unremarkable. No fluid collection. No free air. Small fat containing umbilical hernia. There are also tiny bilateral fat containing inguinal hernias. LYMPH NODES: Few small nonspecific retroperitoneal lymph nodes are present. VASCULATURE: Unremarkable. No aortic aneurysm. Minor aortic atherosclerotic calcification or mural plaque present. BONES: Minor multilevel degenerative spondylosis lower thoracic and lumbar spine. OTHER FINDINGS: None. IMPRESSION: The urinary bladder wall is thickened and edematous in appearance on despite incomplete distension. Findings are of uncertain etiology though recommend correlation with urinalysis. Urologic consultation may be prudent if indicated Punctate nonobstructing calcification upper pole right kidney. Tiny cyst left kidney as above. Minimal infiltration changes in the perinephric fat. Findings consistent with constipation. Minor fatty hepatic infiltration wall thickening of the stomach likely due to incomplete distention however gastritis or other intrinsic/invasive wall lesion not excluded. Tiny pericardial effusion. Mild bibasilar atelectasis/scarring changes right greater than left.
--- NOTE | 2018-06-11 17:19 | MRI ---
Date of service: 06/11/2018 PROCEDURE: MR THORACIC SPINE WITHOUT CONTRAST HISTORY: b/l LE weakness, r/o mets or abscess COMPARISON: None available. TECHNIQUE: Multiecho multiplanar sequences were performed through the thoracic spine without the use of intravenous contrast. Patient's renal function is impaired or precluding intravenous administration of gadolinium contrast agent. FINDINGS: ALIGNMENT: Normal thoracic spinal alignment. Normal thoracic kyphosis. VERTEBRA: No acute fracture or spondylolisthesis appreciated. Marrow signal appears heterogeneous on a mild basis but diffuse with a few focal areas of hyper intensity in long TR and T1 sequences suggestive of likely benign hemangiomata at T4, T8 and T10 as well as T7. These foci all appear to suppress on STIR imaging with trace peripheral signal surrounding the focus at T8 probably reflecting atypical benign hemangioma. There is a small sclerotic focus at the left T10 vertebral body region. MARROW: Given mildly heterogeneous hemorrhage signal changes, follow-up nuclear bone scan may be helpful though metastasis is not favored definitively. PARASPINAL SOFT TISSUES: Unremarkable. CORD: Unremarkable thoracic cord. No volume loss, signal abnormality or syrinx. DISCS: No disc herniation, spinal canal stenosis, or neuroforaminal narrowing. OTHER FINDINGS: None. IMPRESSION: 1. Mildly inhomogeneous signal changes throughout the thoracic vertebral bodies is identified including multiple benign hemangiomata scattered as discussed above. Precautionary follow-up nuclear bone scan is advised to exclude potential underlying lesion though none are grossly apparent in the current MR exam. This can be gauged based on whether the patient has a known primary no metastatic malignancy. 2. No disc herniation, central canal or neural foraminal stenosis. Normal thoracic spinal cord signal intensity. No suspicious epidural or intrathecal lesion appreciable.
--- NOTE | 2018-06-11 17:22 | MRI ---
Date of service: 06/11/2018 PROCEDURE: MR LUMBAR SPINE WITHOUT CONTRAST HISTORY: Bilateral LE weakness, r/o mets or abscess COMPARISON: Made with prior CT scan abdomen pelvis which also image the lumbar spine in 3 planes. TECHNIQUE: Multiecho multiplanar sequences were performed through the lumbar spine without the use of intravenous contrast. FINDINGS: The current study reveals no acute compression fractures no retropulsed fragments. Vertebral bodies exhibit relatively normal stature. Few scattered focal areas of increased T1 and T2 signal present likely representing hemangiomas however follow-up at interval recommended to assess stability. Conus terminates at approximately the mid L1 level. Paraspinal soft tissues are unremarkable. T12-L1: No disc herniation, spinal canal stenosis or neural foraminal narrowing. L1-2: No disc herniation, spinal canal stenosis or neural foraminal narrowing. L2-3: Mild disc desiccation and disc space narrowing. No disc herniation however there does appear to be some minimal proximal foraminal disc bulging changes more so on the right than the left. The overall central canal appears adequate. Facets are mildly hypertrophic. Exit foramina also adequate. L3-4: Adequate disc height and hydration. No disc herniation or significant disc bulge. The overall central canal and exit foramina appear adequate. L4-5: There is mild age related disc desiccation however disc space height relatively maintained. No disc herniation however some minimal proximal foraminal disc bulging changes are present. The facet joints arm moderate to moderately hypertrophic. Overall central bony canal and exit foramina appear adequate L5-S1: There is disc desiccation, space narrowing with small amount of vacuum disc phenomena seen to better advantage on prior CT scan. Small broad-based disc ridge complex larger on the left than right, results in some flattening of the ventral surface of the thecal sac.. Changes extend into the proximal margins of both exit foramina more so on the left side.. Facet joints are mild to moderately hypertrophic. Central canal appears adequate. Exit foramina are marginal to the slightly narrowed on the right side and adequate on the left however no significant compression of the foraminal nerve root seen. OTHER FINDINGS: None. IMPRESSION: Minor multilevel degenerative spondylosis most notably affecting the L5-S1 level as described.. No acute compression fractures no retropulsed fragments. Probable scattered hemangiomas.. Follow-up interval recommended to assess stability as detailed above.
[2018-06-11] MEDS ORDERED: Vancomycin 1 gm/NS 200 ml 1 GM/200 ML BAG IVPB ONE ×2 (21:00→21:30)
[2018-06-11] MEDS: Vancomycin 1 gm/NS 200 ml 1 GM/200 ML BAG IVPB SCH (21:04)
--- NOTE | 2018-06-11 21:57 | CON ---
DATE: 06/11/2018 HISTORY OF PRESENT ILLNESS: The patient is a 63-year-old white male. He was admitted to the hospital with urosepsis. The patient has history of bladder tumor in 2008. Diagnosis of transitional cell carcinoma was made and the patient had a large tumor, which was resected in 2008 and it was low grade tumor. The patient given a course of BCG on 12/18/2008, and the patient did not follow up after that. He has multiple stroke as his family was telling me and he was doing okay till recently, where he started having gross hematuria and incontinence and the patient had workup, which revealed large bladder mass. Creatinine 1.7. PHYSICAL EXAMINATION: ABDOMEN: Soft. No flank tenderness. No kidney palpable. Mild fullness in the suprapubic area. Testes and penis within normal limit. IMPRESSION: Hematuria, elevated creatinine with renal failure, and history of transitional cell carcinoma of the bladder. PLAN: I ordered cytology and CT scan of the abdomen and pelvis without contrast. I will schedule him to go for cystoscopy on Monday. Felix Lazcano MD
--- NOTE | 2018-06-11 23:22 | CP.PCM.CON ---
Past Patient History - Infectious Disease Hx of Infectious Diseases: None - Tetanus Immunizations Tetanus Immunization: Unknown - Past Medical History & Family History Past Medical History?: Yes - Past Social History Smoking Status: Never Smoked - CARDIAC Hx Hypercholesterolemia: Yes Hx Hypertension: Yes - PULMONARY Hx Respiratory Disorders: No - NEUROLOGICAL Hx Alzheimer's Disease: Yes Hx Dementia: Yes (vascular dementia-Alzheimers) Hx Transient Ischemic Attacks (TIA): Yes (several) - HEENT Hx HEENT Problems: No Other/Comment: nearsighted-wears reading glasses - RENAL Hx Chronic Kidney Disease: Yes - ENDOCRINE/METABOLIC Hx Endocrine Disorders: No - HEMATOLOGICAL/ONCOLOGICAL Hx Human Immunodeficiency Virus (HIV): No - INTEGUMENTARY Hx Dermatological Problems: No - MUSCULOSKELETAL/RHEUMATOLOGICAL Hx Falls: Yes (07/03/2017) - GASTROINTESTINAL Hx Gastrointestinal Disorders: Yes Hx Gastroesophageal Reflux: Yes - GENITOURINARY/GYNECOLOGICAL Hx Genitourinary Disorders: Yes Hx Bladder Cancer: Yes - PSYCHIATRIC Hx Depression: Yes Hx Substance Use: No - SURGICAL HISTORY Hx Surgeries: Yes Other/Comment: abdominal surgery. bladder surgery 2009. - ANESTHESIA Hx Anesthesia: Yes Hx Anesthesia Reactions: No Hx Malignant Hyperthermia: No Meds Allergies/Adverse Reactions: Allergies Allergy/AdvReac Type Severity Reaction Status Date / Time No Known Allergies Allergy Verified 06/10/18 13:02 - Medications Medications: Current Medications Amlodipine Besylate (Norvasc) 10 mg PO DAILY [facility] Last Admin: 06/11/18 09:43 Dose: 10 mg Aspirin (Aspirin Chewable) 81 mg PO DAILY [facility] Last Admin: 06/11/18 09:43 Dose: 81 mg Bupropion HCl (Wellbutrin) 75 mg PO DAILY [facility] Last Admin: 06/11/18 09:43 Dose: 75 mg Dextrose (Dextrose 50% Inj) 0 ml IV STAT PRN; Protocol PRN Reason: Hypoglycemia Protocol Dextrose (Glutose 15) 0 gm PO ONCE PRN; Protocol PRN Reason: Hypoglycemia Protocol Docusate Sodium (Colace) 100 mg PO BID [facility] Last Admin: 06/11/18 17:22 Dose: 100 mg Glucagon (Glucagen Diagnostic Kit) 0 mg IM STAT PRN; Protocol PRN Reason: Hypoglycemia Protocol Hydrochlorothiazide (Microzide) 12.5 mg PO DAILY [facility] Piperacillin Sod/Tazobactam Sod (Zosyn 2.25 Gm Iv Premix) 2.25 gm in 50 mls @ 100 mls/hr IVPB Q6H [facility]; Protocol Last Admin: 06/11/18 17:32 Dose: 100 mls/hr Sodium Chloride (Sodium Chloride 0.9%) 1,000 mls @ 50 mls/hr IV .Q20H [facility] Last Admin: 06/11/18 14:40 Dose: Not Given Dextrose (Dextrose 5% In Water 1000 Ml) 1,000 mls @ 0 mls/hr IV .Q0M PRN; Protocol PRN Reason: Hypoglycemia Protocol Vancomycin/Sodium Chloride (Vancomycin 1 Gm/Ns 200 Ml) 1 gm in 200 mls @ 133 mls/hr IVPB Q24H [facility]; Protocol Stop: 06/16/18 18:31 Last Admin: 06/11/18 21:04 Dose: 133 mls/hr Insulin Aspart (Novolog) 0 unit SC ACHS [facility]; Protocol Last Admin: 06/11/18 21:34 Dose: Not Given Lisinopril (Zestril) 20 mg PO BID [facility] Last Admin: 06/11/18 09:43 Dose: 20 mg Memantine (Namenda) 10 mg PO DAILY [facility] Last Admin: 06/11/18 09:43 Dose: 10 mg Multivitamins/Minerals (Therapeutic-M Tab) 1 tab PO DAILY [facility] Last Admin: 06/11/18 09:43 Dose: 1 tab Rivastigmine (Exelon 9.5 Mg/24 Hr Patch) 1 patch TD DAILY [facility] Last Admin: 06/11/18 09:43 Dose: 1 patch Rosuvastatin Calcium (Crestor) 10 mg PO HS [facility] Last Admin: 06/11/18 21:33 Dose: 10 mg Saccharomyces Boulardii (Florastor) 250 mg PO BID [facility] Last Admin: 06/11/18 17:22 Dose: 250 mg Results - Vital Signs Recent Vital Signs: Last Vital Signs Temp 98.3 F 06/11/18 16:00 Pulse 89 06/11/18 16:00 Resp 20 06/11/18 16:00 BP 124/83 06/11/18 16:00 Pulse Ox 97 06/11/18 16:00 - Labs Result Diagrams: 06/11/18 08:49 06/11/18 08:49 Labs: Laboratory Results - last 24 hr 06/10/18 06/11/18 06/11/18 13:02 01:24 08:31 WBC RBC Hgb Hct MCV MCH MCHC RDW Plt Count MPV Neut % (Auto) Lymph % (Auto) Barren % (Auto) Eos % (Auto) Baso % (Auto) Neut # (Auto) Lymph # (Auto) Barren # (Auto) Eos # (Auto) Baso # (Auto) Neutrophils % (Manual) Lymphocytes % (Manual) Monocytes % (Manual) Platelet Estimate RBC Morphology Sodium Potassium Chloride Carbon Dioxide Anion Gap BUN Creatinine Est GFR ( Amer) Est GFR (Non-Af Amer) POC Glucose (mg/dL) 174 H 134 H Random Glucose Calcium Phosphorus Magnesium Total Bilirubin AST ALT Alkaline Phosphatase Total Creatine Kinase 193 H CK-MB (Mass) 2.42 Troponin I 0.0230 Total Protein Albumin Globulin Albumin/Globulin Ratio 06/11/18 06/11/18 06/11/18 08:49 08:49 11:14 WBC 12.3 H RBC 4.37 L Hgb 12.0 Hct 36.0 MCV 82.4 MCH 27.5 MCHC 33.4 RDW 14.8 H Plt Count 171 MPV 9.0 Neut % (Auto) 86.3 H Lymph % (Auto) 5.4 L Barren % (Auto) 7.7 Eos % (Auto) 0.2 Baso % (Auto) 0.4 Neut # (Auto) 10.6 H Lymph # (Auto) 0.7 L Barren # (Auto) 0.9 H Eos # (Auto) 0.0 Baso # (Auto) 0.1 Neutrophils % (Manual) 96 H Lymphocytes % (Manual) 2 L Monocytes % (Manual) 2 Platelet Estimate Normal RBC Morphology Normal Sodium 137 Potassium 3.8 Chloride 106 Carbon Dioxide 22 Anion Gap 13 BUN 27 H Creatinine 1.7 H Est GFR ( Amer) 49 Est GFR (Non-Af Amer) 41 POC Glucose (mg/dL) 247 H Random Glucose 136 H Calcium 8.3 L Phosphorus 2.5 Magnesium 1.9 Total Bilirubin 0.6 AST 16 L D ALT 24 Alkaline Phosphatase 79 Total Creatine Kinase CK-MB (Mass) Troponin I Total Protein 6.3 Albumin 3.1 L D Globulin 3.2 Albumin/Globulin Ratio 1.0 06/11/18 06/11/18 16:58 20:51 WBC RBC Hgb Hct MCV MCH MCHC RDW Plt Count MPV Neut % (Auto) Lymph % (Auto) Barren % (Auto) Eos % (Auto) Baso % (Auto) Neut # (Auto) Lymph # (Auto) Barren # (Auto) Eos # (Auto) Baso # (Auto) Neutrophils % (Manual) Lymphocytes % (Manual) Monocytes % (Manual) Platelet Estimate RBC Morphology Sodium Potassium Chloride Carbon Dioxide Anion Gap BUN Creatinine Est GFR ( Amer) Est GFR (Non-Af Amer) POC Glucose (mg/dL) 103 223 H Random Glucose Calcium Phosphorus Magnesium Total Bilirubin AST ALT Alkaline Phosphatase Total Creatine Kinase CK-MB (Mass) Troponin I Total Protein Albumin Globulin Albumin/Globulin Ratio
[2018-06-12] MEDS: Piperacill/Tazo 2.25gm in Dex 2.25 GM/50 ML BAG IVPB SCH ×2 (00:17→05:48)
[2018-06-12] MEDS: Sodium Chloride 0.9% 1,000 ML IV SCH ×2 (00:18→10:05)
[2018-06-12] MEDS: (Novolog) Insulin Aspart, Recombinant 100 u/ml 10 ml vial SC SCH ×4 (08:20→21:57)
[2018-06-12 08:26] LABS: BASO % 0.7 % (0.0-2.0); EOS % 0.6 % (0.0-4.0); HEMOGLOBIN 12.2 g/dL (12.0-18.0); LYMPH # 0.7 K/uL (1.0-4.3); LYMPH % 10.3 % (20.0-40.0); MEAN CELL VOLUME 81.4 fL (80.0-94.0); MEAN CORPUSCULAR HEMOGLOBIN 27.4 pg (27.0-31.0); MEAN CORPUSCULAR HGB CONC 33.7 g/dL (33.0-37.0); MEAN PLATELET VOLUME 8.9 fL (7.2-11.7); MONO # 0.8 K/uL (0.0-0.8); MONO % 11.4 % (0.0-10.0); NEUT # 5.2 K/uL (1.8-7.0); RBC 4.45 Mil/uL (4.40-5.90); RED CELL DISTRIBUTION WIDTH 14.8 % (11.5-14.5); WHITE BLOOD COUNT 6.7 K/uL (4.8-10.8)
[2018-06-12 08:44] LABS: ALB/GLOB RATIO 0.9 (1.0-2.1); ALBUMIN 3.1 g/dL (3.5-5.0); CALCIUM 8.2 mg/dl (8.6-10.4)
--- NOTE | 2018-06-12 09:14 | CP.PCM.PN ---
Subjective - Date & Time of Evaluation Date of Evaluation: 06/12/18 Time of Evaluation: 09:14 - Subjective Subjective: PGY-1 Odessa Epperson D.O. Medicine progress note for Dr. Mandujano's service: Patient was seen and examined this morning. Sister is at bedside. Patient states he feels well. he is currently eating breakfast. He says he stood up with PT yesterday. He does not have any acute complaints. Denies chest pain, SOB, N/V/D/C. Denies any acute focal loss of motor or sensory function. Objective - Vital Signs/Intake and Output Vital Signs (last 24 hours): Temp Pulse Resp BP Pulse Ox 99.4 F 84 20 112/75 95 06/12/18 07:00 06/12/18 08:18 06/12/18 07:00 06/12/18 07:00 06/12/18 07:00 Intake and Output: 06/12/18 06/12/18 06:59 18:59 Intake Total 1100 Output Total 450 Balance 650 - Medications Medications: Current Medications Amlodipine Besylate (Norvasc) 10 mg PO DAILY [facility] Last Admin: 06/11/18 09:43 Dose: 10 mg Aspirin (Aspirin Chewable) 81 mg PO DAILY [facility] Last Admin: 06/11/18 09:43 Dose: 81 mg Bupropion HCl (Wellbutrin) 75 mg PO DAILY [facility] Last Admin: 06/11/18 09:43 Dose: 75 mg Dextrose (Dextrose 50% Inj) 0 ml IV STAT PRN; Protocol PRN Reason: Hypoglycemia Protocol Dextrose (Glutose 15) 0 gm PO ONCE PRN; Protocol PRN Reason: Hypoglycemia Protocol Docusate Sodium (Colace) 100 mg PO BID [facility] Last Admin: 06/11/18 17:22 Dose: 100 mg Glucagon (Glucagen Diagnostic Kit) 0 mg IM STAT PRN; Protocol PRN Reason: Hypoglycemia Protocol Hydrochlorothiazide (Microzide) 12.5 mg PO DAILY [facility] Piperacillin Sod/Tazobactam Sod (Zosyn 2.25 Gm Iv Premix) 2.25 gm in 50 mls @ 100 mls/hr IVPB Q6H [facility]; Protocol Last Admin: 06/12/18 05:48 Dose: 100 mls/hr Sodium Chloride (Sodium Chloride 0.9%) 1,000 mls @ 50 mls/hr IV .Q20H [facility] Last Admin: 06/12/18 00:18 Dose: 50 mls/hr Dextrose (Dextrose 5% In Water 1000 Ml) 1,000 mls @ 0 mls/hr IV .Q0M PRN; P rotocol PRN Reason: Hypoglycemia Protocol Vancomycin/Sodium Chloride (Vancomycin 1 Gm/Ns 200 Ml) 1 gm in 200 mls @ 133 mls/hr IVPB Q24H [facility]; Protocol Stop: 06/16/18 18:31 Last Admin: 06/11/18 21:04 Dose: 133 mls/hr Insulin Aspart (Novolog) 0 unit SC ACHS [facility]; Protocol Last Admin: 06/11/18 21:34 Dose: Not Given Lisinopril (Zestril) 20 mg PO BID [facility] Last Admin: 06/11/18 09:43 Dose: 20 mg Memantine (Namenda) 10 mg PO DAILY [facility] Last Admin: 06/11/18 09:43 Dose: 10 mg Multivitamins/Minerals (Therapeutic-M Tab) 1 tab PO DAILY [facility] Last Admin: 06/11/18 09:43 Dose: 1 tab Rivastigmine (Exelon 9.5 Mg/24 Hr Patch) 1 patch TD DAILY [facility] Last Admin: 06/11/18 09:43 Dose: 1 patch Rosuvastatin Calcium (Crestor) 10 mg PO HS [facility] Last Admin: 06/11/18 21:33 Dose: 10 mg Saccharomyces Boulardii (Florastor) 250 mg PO BID [facility] Last Admin: 06/11/18 17:22 Dose: 250 mg - Labs Labs: 06/12/18 08:16 06/12/18 08:16 PT 16.5 SECONDS (9.7-12.2) H 06/10/18 13:16 INR 1.5 06/10/18 13:16 APTT 29 SECONDS (21-34) 06/10/18 13:16 - Additional Findings Additional findings: - Constitutional Appears: Unkempt, Older Than Stated Age - Head Exam Head Exam: ATRAUMATIC, NORMAL INSPECTION - Eye Exam Eye Exam: EOMI, Normal appearance, PERRL - ENT Exam ENT Exam: Mucous Membranes Moist - Neck Exam Neck Exam: Normal Inspection - Respiratory Exam Respiratory Exam: Clear to Ausculation Bilateral, NORMAL BREATHING PATTERN. absent: Respiratory Distress - Cardiovascular Exam Cardiovascular Exam: REGULAR RHYTHM, +S1, +S2 - GI/Abdominal Exam GI & Abdominal Exam: Soft. absent: Tenderness - Rectal Exam Rectal Exam: Deferred - Extremities Exam Extremities Exam: Normal Capillary Refill. absent: Pedal Edema, Tenderness Additional comments: R 5th metatarsal ulcer 2.8 x 2 cm- covered in clean dry bandage - Back Exam Back Exam: NORMAL INSPECTION - Neurological Exam Neurological Exam: Alert, Awake, CN II-XII Intact. 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 Patient reports his knees "gave out." He was also complaining of hematuria x several weeks. patient was treated for UTI with cipro, that initially improved the hematuria, but then it returned after finishing the abx course. Patient's urologist reports that patient did not follow-up for 9 years after bladder mass removed. Cystoscopy scheduled for tomorrow 06/13. Plan: ESBL urinary tract infection - Code sepsis on admission 06/10 - Contact isolation - Tmax 100.7, most recent fever 06/12 12AM 100.9 - Leukocytosis improving - UA: 2+ prot, 3+ blood, 3+ LE, occ panfilo, 24 WBC, 1207 RBC - Urine Cx ESBL - Repeat UA and urine CX on Friday 06/15 - Blood Cx no growth >48 hrs - Discontinue Zosyn 2.25g IV Q6H- started 06/10 - Discontinue Vancomycin 1 g IV daily- 06/11 - Start Meropenem 500 mg IV Q8H- started 06/12 - Florastor 250 mg PO BID - ID consulted (Noel) Hematuria and Acute kidney injury with h/o bladder cancer - UA: 2+ prot, 3+ blood, 3+ LE, occ panfilo, 24 WBC, 1207 RBC - Urine Cx ESBL - Urine cytology: atypical urothelial cells with acute inflammation - BUN/Cr 22/1.5- improving - CT A/P: The urinary bladder wall is thickened and edematous in appearance on despite incomplete distension. Findings are of uncertain etiology though recommend correlation with urinalysis. Urologic consultation may be prudent if indicated. Punctate nonobstructing calcification upper pole right kidney. Tiny cyst left kidney as above. Minimal infiltration changes in the perinephric fat. Findings consistent with constipation. Minor fatty hepatic infiltration wall thickening of the stomach likely due to i ncomplete distention however gastritis or other intrinsic/invasive wall lesion not excluded. Tiny pericardial effusion. Mild bibasilar atelectasis/scarring changes right greater than left. - Renal/bladder: 1. Bilateral renal parenchyma is remarkable only for a 1.1 cm complex cyst exophytic off the upper pole right kidney. No obstructive uropathy bilaterally. 2.2 cm left lateral urinary bladder mass suspicious for potential recurrence of the patient's prior urinary bladder carcinoma though other etiologies are possible. This corresponds to the left lateral urine bladder wall mass identified in abdomen pelvis CT exam 05/29/2018. Unfortunately, the patient partially voided during ultrasonography limiting possibility of postvoid residual evaluation. - Avoid nephrotoxic agents - Cystoscopy tomorrow 06/13 - NPO at midnight - Full body bone scan pending - Urology consulted (Mouded)- pt did not f/u after original dx of CA 9 yrs ago Fall with lower extremity weakness- suspect 2/2 sepsis/infection exacerbating chronic weakness - Code stroke - CPK 237->193- downtrending - CT head: No acute findings. Chronic bilateral MCA and left MITCHELL territory infarctions. - Hip/pelvis XR: no acute findings - Thoracic and lumbar MRI: no acute stenosis, potential metastasis Minor multilevel degenerative spondylosis most notably affecting the L5-S1 level. No acute compression fractures no retropulsed fragments. Probable scattered hemangiomas. Mildly inhomogeneous signal changes throughout the thoracic vertebral bodies is identified including multiple benign hemangiomata scattered as discussed above. Precautionary follow-up nuclear bone scan is advised to exclude potential underlying lesion though none are grossly apparent in the current MR exam. This can be gauged based on whether the patient has a known primary no metastatic malignancy. No disc herniation, central canal or neural foraminal stenosis. Normal thoracic spinal cord signal intensity. No suspicious epidural or intrathecal lesion appreciable. - B12 wnl (529) - Neurology consulted (Toscano)- rec EMG as outpatient L 5th metatarsal ulcer - L foot XR: no acute fractures or signs of osteomyelitis - ESR pending - Wound care consulted Vascular dementia with A fib and PFO - FAISAL 07/2017 - CTA head/neck: no significant stenosis or structural abnormalities - Crestor 10 mg PO QHS - Wellbutrin 75 mg PO daily (home med) - Memantine 10 mg PO daily (home med) - Rivastigmine 9.5 mg patch daily (home med) - Cardiology consulted (Yoon)- pt was supposed to have loop recorder but was lost to follow-up Hypertension - Monitor vitals Q4H - Amlodipine 10 mg PO daily - HCTZ 12.5 PO daily- hold due to MAGALI - Lisinopril 20 mg PO daily- hold due to MAGALI Type 2 diabetes mellitus - A1c 6.9 - Hypoglycemic protocol - Accuchecks ACHS with ISS Ppx: VTE: SCDs, chemical anticoag contraindicated due to hematuria GI: not indicated Code status: full code Case was discussed with attending, Dr. Mandujano.
[2018-06-12] MEDS: Multivitamin With Minerals Tab PO SCH (10:04)
[2018-06-12] MEDS: Saccharomyces Boulardi 250 mg Cap PO SCH ×2 (10:04→18:02)
--- NOTE | 2018-06-12 10:57 | CP.PCM.PN ---
Subjective - Date & Time of Evaluation Date of Evaluation: 06/12/18 Time of Evaluation: 10:56 - Subjective Subjective: Neuro Follow-Up Note: Mr. Andres was evaluated this morning in bed. He states that he feels "fine" and offers no complaints. When asked about his lower extremity weakness he reports no change. Denies h/a, dizziness, chest pain, sob, abd pain, n/v/d. Objective - Vital Signs/Intake and Output Vital Signs (last 24 hours): Temp Pulse Resp BP Pulse Ox 99.4 F 84 20 112/75 95 06/12/18 07:00 06/12/18 08:18 06/12/18 07:00 06/12/18 07:00 06/12/18 07:00 Intake and Output: 06/12/18 06/12/18 06:59 18:59 Intake Total 1100 Output Total 450 Balance 650 - Medications Medications: Current Medications Amlodipine Besylate (Norvasc) 10 mg PO DAILY [facility] Last Admin: 06/12/18 10:04 Dose: 10 mg Aspirin (Aspirin Chewable) 81 mg PO DAILY [facility] Last Admin: 06/12/18 10:04 Dose: 81 mg Bupropion HCl (Wellbutrin) 75 mg PO DAILY [facility] Last Admin: 06/12/18 10:04 Dose: 75 mg Dextrose (Dextrose 50% Inj) 0 ml IV STAT PRN; Protocol PRN Reason: Hypoglycemia Protocol Dextrose (Glutose 15) 0 gm PO ONCE PRN; Protocol PRN Reason: Hypoglycemia Protocol Docusate Sodium (Colace) 100 mg PO BID [facility] Last Admin: 06/12/18 10:04 Dose: 100 mg Glucagon (Glucagen Diagnostic Kit) 0 mg IM STAT PRN; Protocol PRN Reason: Hypoglycemia Protocol Hydrochlorothiazide (Microzide) 12.5 mg PO DAILY [facility] Piperacillin Sod/Tazobactam Sod (Zosyn 2.25 Gm Iv Premix) 2.25 gm in 50 mls @ 100 mls/hr IVPB Q6H [facility]; Protocol Last Admin: 06/12/18 05:48 Dose: 100 mls/hr Sodium Chloride (Sodium Chloride 0.9%) 1,000 mls @ 50 mls/hr IV .Q20H [facility] Last Admin: 06/12/18 10:05 Dose: Not Given Dextrose (Dextrose 5% In Water 1000 Ml) 1,000 mls @ 0 mls/hr IV .Q0M PRN; Protocol PRN Reason: Hypoglycemia Protocol Vancomycin/Sodium Chloride (Vancomycin 1 Gm/Ns 200 Ml) 1 gm in 200 mls @ 133 mls/hr IVPB Q24H [facility]; Protocol Stop: 06/16/18 18:31 Last Admin: 06/11/18 21:04 Dose: 133 mls/hr Insulin Aspart (Novolog) 0 unit SC ACHS [facility]; Protocol Last Admin: 06/12/18 08:20 Dose: Not Given Lisinopril (Zestril) 20 mg PO BID [facility] Last Admin: 06/11/18 09:43 Dose: 20 mg Memantine (Namenda) 10 mg PO DAILY [facility] Last Admin: 06/12/18 10:04 Dose: 10 mg Multivitamins/Minerals (Therapeutic-M Tab) 1 tab PO DAILY [facility] Last Admin: 06/12/18 10:04 Dose: 1 tab Rivastigmine (Exelon 9.5 Mg/24 Hr Patch) 1 patch TD DAILY [facility] Last Admin: 06/12/18 10:04 Dose: 1 patch Rosuvastatin Calcium (Crestor) 10 mg PO HS [facility] Last Admin: 06/11/18 21:33 Dose: 10 mg Saccharomyces Boulardii (Florastor) 250 mg PO BID [facility] Last Admin: 06/12/18 10:04 Dose: 250 mg - Labs Labs: 06/12/18 08:16 06/12/18 08:16 PT 16.5 SECONDS (9.7-12.2) H 06/10/18 13:16 INR 1.5 06/10/18 13:16 APTT 29 SECONDS (21-34) 06/10/18 13:16 - Constitutional Appears: Well, Non-toxic, No Acute Distress - Head Exam Head Exam: ATRAUMATIC, NORMAL INSPECTION, NORMOCEPHALIC - Eye Exam Eye Exam: EOMI, Normal appearance, PERRL Pupil Exam: PERRL Additional comments: wears glasses - ENT Exam ENT Exam: Mucous Membranes Moist - Neck Exam Neck Exam: Full ROM, Normal Inspection - Respiratory Exam Respiratory Exam: NORMAL BREATHING PATTERN - Extremities Exam Extremities Exam: absent: Calf Tenderness, Full ROM, Pedal Edema Additional comments: diminished pedal pulses b/l; no signs of vascular insufficiency; dressing noted to left foot. - Neurological Exam Neurological Exam: Alert, Awake, CN II-XII Intact, Motor Sensory Deficit, Reflexes Normal Additional comments: -Speech clear, fluid; affect is flat and pt slow to respond some questions. -No facial asymmetry noted. -BLE: normal sensation above ankles b/l; + loss of position sense b/l; decreased vibration sense below both knees but able to sense vibration at knees; normal reflexes; 4-5/5 active motor strength b/l -BUE: normal sensation, 5/5 active motor strength, [employer] strength normal/equal, no pronator drift. -Gait not assessed; PT notes reviewed. - Psychiatric Exam Psychiatric exam: Flat Affect (cooperative) - Skin Skin Exam: Normal Color Assessment and Plan - Assessment and Plan (Free Text) Assessment: Mr. Andres is here for fall and lower extremity weakness. His exam is unchanged from yesterday. His MRI of L-spine and T-spine negative for signs of mets. His presenting problems may be related to neuropathy of chronic illness. Imaging: -T-Spine MRI (06/11/18): 1. Mildly inhomogeneous signal changes throughout the thoracic vertebral bodies is identified including multiple benign hemangiomata scattered as discussed above. Precautionary follow-up nuclear bone scan is advised to exclude potential underlying lesion though none are grossly apparent in the current MR exam. This can be gauged based on whether the patient has a known primary no metastatic malignancy. 2. No disc herniation, central canal or neural foraminal stenosis. Normal thoracic spinal cord signal intensity. No suspicious epidural or intrathecal lesion appreciable. -L-Spine MRI (06/11/18): Minor multilevel degenerative spondylosis most notably affecting the L5-S1 level as described. No acute compression fractures no retropulsed fragments. Probable scattered hemangiomas.. Follow-up interval recommended to assess stability as detailed above. -Head CT: No acute intracranial abnormality. Chronic bilateral MCA and left MITCHELL territory infarctions. -Head CTA: No evidence of endoluminal thrombus,occlusion or definite significant stenosis in the intracranial arteries. No evidence of hemodynamically significant stenosis in the internal carotid arteries. Patent bilateral vertebral arteries. -Hip Xray: no acute fracture, dislocation, b/l hip joints; symmetric degenerative changes moderate at b/l hip joints and mild at sacroiliac joints -Continue PT/OT. -Continue current meds and treatment. -We recommend checking Vitamin B 12 level. -Pt may have an EMG as outpatient once discharged. -Please notify neuro of acute changes. Case discussed with Dr. Toscano.
--- NOTE | 2018-06-12 12:14 | CP.PCM.CON ---
History of Present Illness - History of Present Illness History of Present Illness: 63 year old male presented to the hospital with complaints of bilateral lower extremity weakness since Monday. the patient was diagnosed with a CVA and bladder cancer approximately 10 years ago, and since then, has had multiple strokes. This Monday, the patient was found by his sister sitting on the floor next to his bed. He states that his legs were weak and he couldn't hold himself up. PMHx: multiple CVAs, vascular dementia, bladder cancer, HTN, DM, PFO on FAISAL SurgHx: cholecystectomy, cystoscopy (bladder cancer), malrotation of gut correction () FamHx: Mother: Alzheimer's; Sister: breast cancer, brain cyst, afib SocHx: has not used for past 10 years; former etoh use (per sister, not a heavy a drinker, only drank on fridays); Allergies: NKDA Review of Systems - Constitutional Constitutional: Weakness. absent: Headache - EENT Eyes: absent: Blurred Vision, Change in Vision, Loss of Vision Ears: absent: Dizziness - Cardiovascular Cardiovascular: absent: Chest Pain, Dyspnea, Palpitations - Respiratory Respiratory: absent: Cough, Dyspnea - Gastrointestinal Gastrointestinal: Constipation (chronic). absent: Abdominal Pain, Diarrhea, Nausea, Vomiting - Genitourinary Genitourinary: Urinary Incontinence (chronic) - Musculoskeletal Musculoskeletal: absent: Back Pain - Neurological Neurological: Abnormal Gait, Abnormal Speech (chronic dysarthria x10 years), Focal Weakness (b/l LE), Lack of Coordination, Weakness (b/l LE). absent: Dizziness, Headaches, Loss of Vision, Sensory Deficit, Tingling - Psychiatric Psychiatric: absent: Auditory Hallucinations, Hallucinations, Visual Hallucinations, Tactile Hallucinations Review of Systems - Review of Systems Systems not reviewed;Unavailable: Altered Mental Status All systems: reviewed and no additional remarkable complaints except - Constitutional Constitutional: As Per HPI - EENT Eyes: absent: As Per HPI, Blind Spots, Blurred Vision, Change in Vision, Decreased Night Vision, Diplopia, Discharge, Dry Eye, Exophthalmos, Floaters, Irritation, Itchy Eyes, Loss of Peripheral Vision, Pain, Photophobia, Requires Corrective Lenses, Sees Flashes, Spots in Vision, Tunnel Vision, Other Visual Disturbances, Loss of Vision, Other Ears: absent: As Per HPI, Decreased Hearing, Ear Discharge, Ear Pain, Tinnitus, Abnormal Hearing, Disequilibrium, Dizziness, Other Nose/Mouth/Throat: absent: As Per HPI, Epistaxis, Nasal Congestion, Nasal Di scharge, Nasal Obstruction, Nasal Trauma, Nose Pain, Post Nasal Drip, Sinus Pain, Sinus Pressure, Bleeding Gums, Change in Voice, Dental Pain, Dry Mouth, Dysphagia, Halitosis, Hoarsness, Lip Swelling, Mouth Lesions, Mouth Pain, Odynophagia, Sore Throat, Throat Swelling, Tongue Swelling, Facial Pain, Neck Pain, Neck Mass, Other - Cardiovascular Cardiovascular: absent: As Per HPI, Acrocyanosis, Chest Pain, Chest Pain at Rest, Chest Pain with Activity, Claudication, Diaphoresis, Dyspnea, Dyspnea on Exertion, Edema, Irregular Heart Rhythm, Pain Radiating to Arm/Neck/Jaw, Leg Edema, Leg Ulcers, Lightheadedness, Orthopnea, Palpitations, Paroxysmal Nocturnal Dyspnea, Pedal Edema, Radiating Pain, Rapid Heart Rate, Slow Heart Rate, Syncope, Other - Respiratory Respiratory: absent: As Per HPI, Cough, Dyspnea, Hemoptysis, Dyspnea on Exertion, Wheezing, Snoring, Stridor, Pain on Inspiration, Chest Congestion, Excessive Mucous Production, Change in Mucous Color, Pain with Coughing, Other - Gastrointestinal Gastrointestinal: absent: As Per HPI, Abdominal Pain, Belching, Bloating, Change in Bowel Habits, Change in Stool Character, Coffee Ground Emesis, Constipation, Cramping, Diarrhea, Dyspepsia, Dysphagia, Early Satiety, Excessive Flatus, Fecal Incontinence, Heartburn, Hematemesis, Hematochezia, Loose Stools, Melena, Nausea, Odynophagia, Temesmus, Vomiting, Other - Genitourinary Genitourinary: As Per HPI - Musculoskeletal Musculoskeletal: absent: As Per HPI, Abnormal Gait, Arthralgias, Atrophy, Back Pain, Deformity, Joint Swelling, Limited Range of Motion, Loss of Height, Muscle Cramps, Muscle Weakness, Myalgias, Neck Pain, Numbness, Radiating Pain into Limb, Stiffness, Tingling, Other - Integumentary Integumentary: absent: As Per HPI, Acne, Alopecia, Bleeding Lesions, Change in Hair, Change in Nails, Change in Pigmentation, Changing Lesions, Dry Skin, Erythema, Furuncle, Hirsutism, Lesions, New Lesions, Non-Healing Lesions, Photosensitivity, Pruritus, Rash, Skin Pain, Skin Ulcer, Sores, Striae, Swelling, Unusual Bruising, Wounds, Jaundice, Other - Neurological Neurological: absent: As Per HPI, Abnormal Gait, Abnormal Hearing, Abnormal Movements, Abnormal Speech, Behavioral Changes, Burning Sensations, Confusion, Convulsions, Disequilibrium, Dizziness, Numbness, Focal Weakness, Frequent Falls, Headaches, Lack of Coordination, Loss of Vision, Memory Loss, Paresthesias, Radicular Pain, Restless Legs, Sensory Deficit, Syncope, Tingling, Tremor, Vertigo, Weakness, Other Visual Disturbances, Other - Psychiatric Psychiatric: absent: As Per HPI, Abnormal Sleep Pattern, Anhedonia, Anxiety, Auditory Hallucinations, Behavioral Changes, Change in Appetite, Change in Libido, Confusion, Depression, Difficulty Concentrating, Hallucinations, Homicidal Ideation, Hopelessness, Irritability, Memory Loss, Mood Swings, Panic Attacks, Paranoia, Suicidal Ideation, Visual Hallucinations, Tactile Hallucinations, Other - Endocrine Endocrine: absent: As Per HPI, Change in Body Appearance, Change in Libido, Cold Intolorance, Deepening of Voice, Excessive Sweating, Fatigue, Flushing, Heat Intolorance, Increase in Ring/Shoe/Hat Size, Palpitations, Polydipsia, Polyphagia, Polyuria, Other - Hematologic/Lymphatic Hematologic: absent: As Per HPI, Easy Bleeding, Easy Bruising, Lymphadenopathy, Other Past Patient History - Infectious Disease Hx of Infectious Diseases: None - Tetanus Immunizations Tetanus Immunization: Unknown - Past Medical History & Family History Past Medical History?: Yes - Past Social History Smoking Status: Never Smoked - CARDIAC Hx Hypercholesterolemia: Yes Hx Hypertension: Yes - PULMONARY Hx Respiratory Disorders: No - NEUROLOGICAL Hx Alzheimer's Disease: Yes Hx Dementia: Yes (vascular dementia-Alzheimers) Hx Transient Ischemic Attacks (TIA): Yes (several) - HEENT Hx HEENT Problems: No Other/Comment: nearsighted-wears reading glasses - RENAL Hx Chronic Kidney Disease: Yes - ENDOCRINE/METABOLIC Hx Endocrine Disorders: No - HEMATOLOGICAL/ONCOLOGICAL Hx Human Immunodeficiency Virus (HIV): No - INTEGUMENTARY Hx Dermatological Problems: No - MUSCULOSKELETAL/RHEUMATOLOGICAL Hx Falls: Yes (07/03/2017) - GASTROINTESTINAL Hx Gastrointestinal Disorders: Yes Hx Gastroesophageal Reflux: Yes - GENITOURINARY/GYNECOLOGICAL Hx Genitourinary Disorders: Yes Hx Bladder Cancer: Yes - PSYCHIATRIC Hx Depression: Yes Hx Substance Use: No - SURGICAL HISTORY Hx Surgeries: Yes Other/Comment: abdominal surgery. bladder surgery 2009. - ANESTHESIA Hx Anesthesia: Yes Hx Anesthesia Reactions: No Hx Malignant Hyperthermia: No Meds Allergies/Adverse Reactions: Allergies Allergy/AdvReac Type Severity Reaction Status Date / Time No Known Allergies Allergy Verified 06/10/18 13:02 - Medications Medications: Current Medications Amlodipine Besylate (Norvasc) 10 mg PO DAILY [facility] Last Admin: 06/12/18 10:04 Dose: 10 mg Aspirin (Aspirin Chewable) 81 mg PO DAILY [facility] Last Admin: 06/12/18 10:04 Dose: 81 mg Bupropion HCl (Wellbutrin) 75 mg PO DAILY [facility] Last Admin: 06/12/18 10:04 Dose: 75 mg Dextrose (Dextrose 50% Inj) 0 ml IV STAT PRN; Protocol PRN Reason: Hypoglycemia Protocol Dextrose (Glutose 15) 0 gm PO ONCE PRN; Protocol PRN Reason: Hypoglycemia Protocol Docusate Sodium (Colace) 100 mg PO BID [facility] Last Admin: 06/12/18 10:04 Dose: 100 mg Glucagon (Glucagen Diagnostic Kit) 0 mg IM STAT PRN; Protocol PRN Reason: Hypoglycemia Protocol Hydrochlorothiazide (Microzide) 12.5 mg PO DAILY [facility] Piperacillin Sod/Tazobactam Sod (Zosyn 2.25 Gm Iv Premix) 2.25 gm in 50 mls @ 100 mls/hr IVPB Q6H [facility]; Protocol Last Admin: 06/12/18 05:48 Dose: 100 mls/hr Sodium Chloride (Sodium Chloride 0.9%) 1,000 mls @ 50 mls/hr IV .Q20H [facility] Last Admin: 06/12/18 10:05 Dose: Not Given Dextrose (Dextrose 5% In Water 1000 Ml) 1,000 mls @ 0 mls/hr IV .Q0M PRN; Protocol PRN Reason: Hypoglycemia Protocol Vancomycin/Sodium Chloride (Vancomycin 1 Gm/Ns 200 Ml) 1 gm in 200 mls @ 133 mls/hr IVPB Q24H [facility]; Protocol Stop: 06/16/18 18:31 Last Admin: 06/11/18 21:04 Dose: 133 mls/hr Insulin Aspart (Novolog) 0 unit SC ACHS [facility]; Protocol Last Admin: 06/12/18 11:49 Dose: Not Given Lisinopril (Zestril) 20 mg PO BID [facility] Last Admin: 06/11/18 09:43 Dose: 20 mg Memantine (Namenda) 10 mg PO DAILY [facility] Last Admin: 06/12/18 10:04 Dose: 10 mg Multivitamins/Minerals (Therapeutic-M Tab) 1 tab PO DAILY [facility] Last Admin: 06/12/18 10:04 Dose: 1 tab Rivastigmine (Exelon 9.5 Mg/24 Hr Patch) 1 patch TD DAILY [facility] Last Admin: 06/12/18 10:04 Dose: 1 patch Rosuvastatin Calcium (Crestor) 10 mg PO HS [facility] Last Admin: 06/11/18 21:33 Dose: 10 mg Saccharomyces Boulardii (Florastor) 250 mg PO BID [facility] Last Admin: 06/12/18 10:04 Dose: 250 mg Physical Exam - Constitutional Appears: Confused, Cachectic, Chronically Ill - Head Exam Head Exam: ATRAUMATIC, NORMAL INSPECTION, NORMOCEPHALIC - Eye Exam Eye Exam: PERRL Pupil Exam: NORMAL ACCOMODATION - ENT Exam ENT Exam: Mucous Membranes Dry, Normal External Ear Exam - Neck Exam Neck exam: Negative for: Lymphadenopathy - Respiratory Exam Respiratory Exam: Decreased Breath Sounds, Prolonged Expiratory Phase. absent: Respiratory Distress - Cardiovascular Exam Cardiovascular Exam: Tachycardia, REGULAR RHYTHM, +S1, +S2 - GI/Abdominal Exam GI & Abdominal Exam: Diminished Bowel Sounds, Soft. absent: Tenderness - Rectal Exam Rectal Exam: Deferred - Exam Exam: NORMAL INSPECTION - Extremities Exam Extremities exam: Positive for: pedal edema, pedal pulses present. Negative for: calf tenderness, tenderness - Back Exam Back exam: absent: CVA tenderness (L), CVA tenderness (R), paraspinal tenderness - Neurological Exam Neurological exam: Altered - Psychiatric Exam Psychiatric exam: Depressed - Skin Skin Exam: Dry Results - Vital Signs Recent Vital Signs: Last Vital Signs Temp 99.4 F 06/12/18 07:00 Pulse 84 06/12/18 08:18 Resp 20 06/12/18 07:00 BP 112/75 06/12/18 07:00 Pulse Ox 95 06/12/18 07:00 - Labs Result Diagrams: 06/12/18 08:16 06/12/18 08:16 Labs: Laboratory Results - last 24 hr 06/11/18 06/11/18 06/12/18 16:58 20:51 06:41 WBC RBC Hgb Hct MCV MCH MCHC RDW Plt Count MPV Neut % (Auto) Lymph % (Auto) [place] % (Auto) Eos % (Auto) Baso % (Auto) Neut # (Auto) Lymph # (Auto) [place] # (Auto) Eos # (Auto) Baso # (Auto) Sodium Potassium Chloride Carbon Dioxide Anion Gap BUN Creatinine Est GFR ( Amer) Est GFR (Non-Af Amer) POC Glucose (mg/dL) 103 223 H 104 Random Glucose Calcium Phosphorus Magnesium Total Bilirubin AST ALT Alkaline Phosphatase Total Protein Albumin Globulin Albumin/Globulin Ratio 06/12/18 06/12/18 06/12/18 08:16 08:16 10:57 WBC 6.7 RBC 4.45 Hgb 12.2 Hct 36.2 MCV 81.4 MCH 27.4 MCHC 33.7 RDW 14.8 H Plt Count 155 MPV 8.9 Neut % (Auto) 77.0 H Lymph % (Auto) 10.[address] [place] % (Auto) 11.4 H Eos % (Auto) 0.6 Baso % (Auto) 0.7 Neut # (Auto) 5.2 Lymph # (Auto) 0.[address] [place] # (Auto) 0.8 Eos # (Auto) 0.0 Baso # (Auto) 0.0 Sodium 138 Potassium 3.6 Chloride 107 Carbon Dioxide 22 Anion Gap 12 BUN 22 H Creatinine 1.5 Est GFR ( Amer) 57 Est GFR (Non-Af Amer) 47 POC Glucose (mg/dL) 193 H Random Glucose 109 Calcium 8.2 L Phosphorus 3.3 Magnesium 1.9 Total Bilirubin 0.6 AST 34 ALT 36 Alkaline Phosphatase 75 Total Protein 6.3 Albumin 3.1 L Globulin 3.2 Albumin/Globulin Ratio 0.9 L Assessment & Plan (1) Sepsis Status: Acute (2) UTI (urinary tract infection) Status: Acute (3) Dementia Status: Chronic (4) Bladder mass Status: Acute (5) CVA (cerebral vascular accident) Status: Acute - Assessment and Plan (Free Text) Assessment: UTI with ESBL+ E Coli IV Merrem added RX for min 7 days
--- NOTE | 2018-06-12 13:10 | RAD ---
Date of service: 06/11/2018 PROCEDURE: Left Foot Radiographs. HISTORY: r/o periosteal elevation at 5th metatarsal COMPARISON: None. FINDINGS: BONES: No fracture appreciated. Juxta articular osteopenia most notable at the 5th meta tarsal head noted.. No cortical destruction seen. No gas-forming cellulitis noted. Hallux valgus orientation. Metatarsus adductus. Posterior calcaneal cortical hypertrophy-blending Achilles tendon insertional enthesophyte. JOINTS: 1st metatarsal-phalangeal joint arthrosis sesamoid hallux osteoarthrosis also suggested. SOFT TISSUES: No gas-forming cellulitis noted. Atherosclerotic vascular calcifications present. OTHER FINDINGS: None. IMPRESSION: No periosteal reaction or cortical destruction appreciated. No fracture evident. Degenerative changes as above.
[2018-06-12] MEDS: Meropenem 500 MG in Sodium Chloride 0.9% 100 ML IVPB SCH ×2 (13:41→21:43)
--- NOTE | 2018-06-12 14:52 | CARD ---
APPROVED REPORT Date of service: 06/10/2018 EKG Measurement Heart [id number] <Conclusion> Sinus rhythm with 1st degree AV block Left axis deviation Low voltage QRS Cannot rule out Anterior infarct, age undetermined Abnormal ECG
[2018-06-12] MEDS: Vancomycin 1 gm/NS 200 ml 1 GM/200 ML BAG IVPB SCH (18:01)
--- NOTE | 2018-06-12 21:44 | CARD ---
APPROVED REPORT Date of service: 06/11/2018 EKG Measurement Heart [id number] <Conclusion> Sinus tachycardia Low voltage QRS Borderline ECG
[2018-06-13] MEDS: Sodium Chloride 0.9% 1,000 ML IV SCH (04:35)
[2018-06-13] MEDS: Meropenem 500 MG in Sodium Chloride 0.9% 100 ML IVPB SCH ×3 (05:59→21:59)
--- NOTE | 2018-06-13 07:42 | CP.PCM.PN ---
Subjective - Date & Time of Evaluation Date of Evaluation: 06/13/18 Time of Evaluation: 07:41 - Subjective Subjective: PGY-1 Odessa Epperson D.O. Medicine progress note for Dr. Mandujano's service: Patient was seen and examined this morning. He was examined in his bed today. He slept okay and is doing well. He c/o of L foot pain. He was put on contact precautions yesterday after urine cultures grew ESBL. His urine output has been pinkish-yellow in color. He denies any chest pain, abdominal pain, leg pain, or dysuria. He is NPO for cystoscopy today. Objective - Vital Signs/Intake and Output Vital Signs (last 24 hours): Temp Pulse Resp BP Pulse Ox 98.3 F 74 20 118/77 94 L 06/12/18 23:59 06/13/18 03:25 06/12/18 23:59 06/12/18 23:59 06/12/18 23:59 - Medications Medications: Current Medications Amlodipine Besylate (Norvasc) 10 mg PO DAILY [facility] Last Admin: 06/12/18 10:04 Dose: 10 mg Aspirin (Aspirin Chewable) 81 mg PO DAILY [facility] Last Admin: 06/12/18 10:04 Dose: 81 mg Bupropion HCl (Wellbutrin) 75 mg PO DAILY [facility] Last Admin: 06/12/18 10:04 Dose: 75 mg Dextrose (Dextrose 50% Inj) 0 ml IV STAT PRN; Protocol PRN Reason: Hypoglycemia Protocol Dextrose (Glutose 15) 0 gm PO ONCE PRN; Protocol PRN Reason: Hypoglycemia Protocol Docusate Sodium (Colace) 100 mg PO BID [facility] Last Admin: 06/12/18 18:02 Dose: 100 mg Glucagon (Glucagen Diagnostic Kit) 0 mg IM STAT PRN; Protocol PRN Reason: Hypoglycemia Protocol Hydrochlorothiazide (Microzide) 12.5 mg PO DAILY [facility] Sodium Chloride (Sodium Chloride 0.9%) 1,000 mls @ 50 mls/hr IV .Q20H [facility] Last Admin: 06/13/18 04:35 Dose: 50 mls/hr Dextrose (Dextrose 5% In Water 1000 Ml) 1,000 mls @ 0 mls/hr IV .Q0M PRN; Protocol PRN Reason: Hypoglycemia Protocol Vancomycin/Sodium Chloride (Vancomycin 1 Gm/Ns 200 Ml) 1 gm in 200 mls @ 133 mls/hr IVPB Q24H [facility]; Protocol Stop: 06/16/18 18:31 Last Admin: 06/12/18 18:01 Dose: 133 mls/hr Meropenem 500 mg/ Sodium (Chloride) 100 mls @ 100 mls/hr IVPB Q8H [facility]; Protocol Last Admin: 06/13/18 05:59 Dose: 100 mls/hr Insulin Aspart (Novolog) 0 unit SC ACHS [facility]; Protocol Last Admin: 06/12/18 21:57 Dose: Not Given Lisinopril (Zestril) 20 mg PO BID [facility] Last Admin: 06/11/18 09:43 Dose: 20 mg Memantine (Namenda) 10 mg PO DAILY [facility] Last Admin: 06/12/18 10:04 Dose: 10 mg Multivitamins/Minerals (Therapeutic-M Tab) 1 tab PO DAILY [facility] Last Admin: 06/12/18 10:04 Dose: 1 tab Rivastigmine (Exelon 9.5 Mg/24 Hr Patch) 1 patch TD DAILY [facility] Last Admin: 06/12/18 10:04 Dose: 1 patch Rosuvastatin Calcium (Crestor) 10 mg PO HS [facility] Last Admin: 06/12/18 21:43 Dose: 10 mg Saccharomyces Boulardii (Florastor) 250 mg PO BID [facility] Last Admin: 06/12/18 18:02 Dose: 250 mg - Labs Labs: 06/12/18 08:16 06/12/18 08:16 PT 16.5 SECONDS (9.7-12.2) H 06/10/18 13:16 INR 1.5 06/10/18 13:16 APTT 29 SECONDS (21-34) 06/10/18 13:16 - Exam Additional comments: condom catheter, light red output - Additional Findings Additional findings: - Constitutional Appears: Unkempt, Older Than Stated Age - Head Exam Head Exam: ATRAUMATIC, NORMAL INSPECTION - Eye Exam Eye Exam: EOMI, Normal appearance, PERRL - ENT Exam ENT Exam: Mucous Membranes Moist - Neck Exam Neck Exam: Normal Inspection - Respiratory Exam Respiratory Exam: Clear to Ausculation Bilateral, NORMAL BREATHING PATTERN. absent: Respiratory Distress - Cardiovascular Exam Cardiovascular Exam: REGULAR RHYTHM, +S1, +S2 - GI/Abdominal Exam GI & Abdominal Exam: Soft. absent: Tenderness - Rectal Exam Rectal Exam: Deferred - Extremities Exam Extremities Exam: Normal Capillary Refill. absent: Pedal Edema, Tenderness Additional comments: R 5th metatarsal ulcer 2.8 x 2 cm- covered in clean dry bandage - Back Exam Back Exam: NORMAL INSPECTION - Neurological Exam Neurological Exam: Alert, Awake, CN II-XII Intact. 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 Patient reports his knees "gave out." He was also complaining of hematuria x several weeks. patient was treated for UTI with cipro, that initially improved the hematuria, but then it returned after finishing the abx course. Patient's urologist reports that patient did not follow-up for 9 years after bladder mass removed. Cystoscopy scheduled for today 06/13. Bone scan tomorrow. Pending MARY placement- likely Saranya. Plan: Hematuria and Acute kidney injury with h/o bladder cancer - UA: 2+ prot, 3+ blood, 3+ LE, occ panfilo, 24 WBC, 1207 RBC - Urine Cx ESBL - Urine cytology: atypical urothelial cells with acute inflammation - BUN/Cr 20/1.2- improving - CT A/P: The urinary bladder wall is thickened and edematous in appearance on d espite incomplete distension. Findings are of uncertain etiology though recommend correlation with urinalysis. Urologic consultation may be prudent if indicated. Punctate nonobstructing calcification upper pole right kidney. Tiny cyst left kidney as above. Minimal infiltration changes in the perinephric fat. Findings consistent with constipation. Minor fatty hepatic infiltration wall thickening of the stomach likely due to incomplete distention however gastritis or other intrinsic/invasive wall lesion not excluded. Tiny pericardial effusion. Mild bibasilar atelectasis/scarring changes right greater than left. - Renal/bladder: 1. Bilateral renal parenchyma is remarkable only for a 1.1 cm complex cyst exophytic off the upper pole right kidney. No obstructive uropathy bilaterally. 2.2 cm left lateral urinary bladder mass suspicious for potential recurrence of the patient's prior urinary bladder carcinoma though other etiologies are possible. This corresponds to the left lateral urine bladder wall mass identified in abdomen pelvis CT exam 05/29/2018. Unfortunately, the patient partially voided during ultrasonography limiting possibility of postvoid residual evaluation. - Avoid nephrotoxic agents - Cystoscopy today 06/13 - Full body bone scan tomorrow 06/14 - Urology consulted (Mouded)- pt did not f/u after original dx of CA 9 yrs ago Fall with lower extremity weakness- suspect 2/2 sepsis/infection exacerbating chronic weakness - Code stroke - CPK 237->193- downtrending - CT head: No acute findings. Chronic bilateral MCA and left MITCHELL territory infarctions. - Hip/pelvis XR: no acute findings - Thoracic and lumbar MRI: no acute stenosis, potential metastasis Minor multilevel degenerative spondylosis most notably affecting the L5-S1 level. No acute compression fractures no retropulsed fragments. Probable scattered hemangiomas. Mildly inhomogeneous signal changes throughout the thoracic vertebral bodies is identified including multiple benign hemangiomata scattered as discussed above. Precautionary follow-up nuclear bone scan is advised to exclude potential underlying lesion though none are grossly apparent in the current MR exam. This can be gauged based on whether the patient has a known primary no metastatic malignancy. No disc herniation, central canal or neural foraminal stenosis. Normal thoracic spinal cord signal intensity. No suspicious epidural or intrathecal lesion appreciable. - B12 wnl (529) - Neurology consulted (Toscano)- rec EMG as outpatient - PT/OT- rec MARY, likely Saranya as per CM/SW ESBL urinary tract infection - Code sepsis on admission 06/10 - Contact isolation - Tmax 100.7, most recent fever 06/12 12AM 100.9 - Leukocytosis improving - UA: 2+ prot, 3+ blood, 3+ LE, occ panfilo, 24 WBC, 1207 RBC - Urine Cx ESBL - Repeat UA and urine CX on 06/14 - Blood Cx no growth >48 hrs - Meropenem 500 mg IV Q8H- started 06/12 - Florastor 250 mg PO BID - ID consulted (Noel) L 5th metatarsal ulcer - L foot XR: no acute fractures or signs of osteomyelitis - ESR 80 - Wound Cx: GPC - F/u final and sensitivities - Medihoney - Meropenem 500 mg IV Q8H- started 06/12 - Florastor 250 mg PO BID - Wound care consulted - ID consulted (Noel) Vascular dementia with A fib and PFO - FAISAL 07/2017 - CTA head/neck: no significant stenosis or structural abnormalities - Crestor 10 mg PO QHS - Wellbutrin 75 mg PO daily - Memantine 10 mg PO daily - Rivastigmine 9.5 mg patch daily - Cardiology consulted (Yoon)- pt was supposed to have loop recorder but was lost to follow-up Hypertension - Monitor vitals Q4H - Amlodipine 10 mg PO daily - HCTZ 12.5 PO daily- hold due to MAGALI - Lisinopril 20 mg PO daily- hold due to MAGALI Type 2 diabetes mellitus - A1c 6.9 - Hypoglycemic protocol - Accuchecks ACHS with ISS Ppx: VTE: SCDs, chemical anticoag contraindicated due to hematuria GI: not indicated Code status: full code Case was discussed with attending, Dr. Mandujano.
[2018-06-13 08:12] LABS: BASO % 0.6 % (0.0-2.0); EOS # 0.2 K/uL (0.0-0.7); EOS % 3.3 % (0.0-4.0); HEMOGLOBIN 12.6 g/dL (12.0-18.0); LYMPH # 0.9 K/uL (1.0-4.3); LYMPH % 12.5 % (20.0-40.0); MEAN CELL VOLUME 81.3 fL (80.0-94.0); MEAN CORPUSCULAR HEMOGLOBIN 27.4 pg (27.0-31.0); MEAN CORPUSCULAR HGB CONC 33.7 g/dL (33.0-37.0); MEAN PLATELET VOLUME 8.7 fL (7.2-11.7); MONO # 0.9 K/uL (0.0-0.8); NEUT # 4.7 K/uL (1.8-7.0); NEUT % 69.6 % (50.0-75.0); NRBC % 0.1 % (0.0-2.0); RBC 4.6 Mil/uL (4.40-5.90); RED CELL DISTRIBUTION WIDTH 14.8 % (11.5-14.5); WHITE BLOOD COUNT 6.8 K/uL (4.8-10.8)
[2018-06-13] MEDS: (Novolog) Insulin Aspart, Recombinant 100 u/ml 10 ml vial SC SCH ×4 (08:23→21:59)
[2018-06-13 08:50] LABS: ALB/GLOB RATIO 0.9 (1.0-2.1); ALT/SGPT 53 U/L (21-72); AST/SGOT 54 U/L (17-59); BLOOD UREA NITROGEN 20 mg/dL (9-20); CALCIUM 8.4 mg/dl (8.6-10.4); GFR NON-AFRICAN AMERICAN > 60
--- NOTE | 2018-06-13 09:40 | CP.PCM.PN ---
Subjective - Date & Time of Evaluation Date of Evaluation: 06/13/18 Time of Evaluation: 09:40 - Subjective Subjective: Progress note for Dr. Toscano Patient was seen and examined at bedside in no acute distress. Patient is scheduled for cystoscopy this afternoon and a bone scan tomorrow morning for further evaluation for bone mets. The patient has no complaints besides bilateral lower extremity weakness. He denies chest pain, palpitations, dyspnea, cough, nausea, vomiting, headaches, dizziness, acute vision changes, upper extremity weakness. Patient is aox3.. Objective - Vital Signs/Intake and Output Vital Signs (last 24 hours): Temp Pulse Resp BP Pulse Ox 98.1 F 75 18 122/86 96 06/13/18 07:00 06/13/18 07:00 06/13/18 07:00 06/13/18 07:00 06/13/18 07:00 - Medications Medications: Current Medications Amlodipine Besylate (Norvasc) 10 mg PO DAILY [facility] Last Admin: 06/12/18 10:04 Dose: 10 mg Aspirin (Aspirin Chewable) 81 mg PO DAILY [facility] Last Admin: 06/13/18 09:17 Dose: Not Given Bupropion HCl (Wellbutrin) 75 mg PO DAILY [facility] Last Admin: 06/12/18 10:04 Dose: 75 mg Dextrose (Dextrose 50% Inj) 0 ml IV STAT PRN; Protocol PRN Reason: Hypoglycemia Protocol Dextrose (Glutose 15) 0 gm PO ONCE PRN; Protocol PRN Reason: Hypoglycemia Protocol Docusate Sodium (Colace) 100 mg PO BID [facility] Last Admin: 06/12/18 18:02 Dose: 100 mg Glucagon (Glucagen Diagnostic Kit) 0 mg IM STAT PRN; Protocol PRN Reason: Hypoglycemia Protocol Hydrochlorothiazide (Microzide) 12.5 mg PO DAILY [facility] Sodium Chloride (Sodium Chloride 0.9%) 1,000 mls @ 50 mls/hr IV .Q20H [facility] Last Admin: 06/13/18 04:35 Dose: 50 mls/hr Dextrose (Dextrose 5% In Water 1000 Ml) 1,000 mls @ 0 mls/hr IV .Q0M PRN; Protocol PRN Reason: Hypoglycemia Protocol Vancomycin/Sodium Chloride (Vancomycin 1 Gm/Ns 200 Ml) 1 gm in 200 mls @ 133 mls/hr IVPB Q24H [facility]; Protocol Stop: 06/16/18 18:31 Last Admin: 12/11/18 18:01 Dose: 133 mls/hr Meropenem 500 mg/ Sodium (Chloride) 100 mls @ 100 mls/hr IVPB Q8H [facility]; Protocol Last Admin: 06/13/18 05:59 Dose: 100 mls/hr Insulin Aspart (Novolog) 0 unit SC ACHS [facility]; Protocol Last Admin: 06/13/18 08:23 Dose: Not Given Lisinopril (Zestril) 20 mg PO BID [facility] Last Admin: 06/11/18 09:43 Dose: 20 mg Memantine (Namenda) 10 mg PO DAILY [facility] Last Admin: 06/12/18 10:04 Dose: 10 mg Multivitamins/Minerals (Therapeutic-M Tab) 1 tab PO DAILY [facility] Last Admin: 06/12/18 10:04 Dose: 1 tab Rivastigmine (Exelon 9.5 Mg/24 Hr Patch) 1 patch TD DAILY [facility] Last Admin: 06/12/18 10:04 Dose: 1 patch Rosuvastatin Calcium (Crestor) 10 mg PO HS [facility] Last Admin: 06/12/18 21:43 Dose: 10 mg Saccharomyces Boulardii (Florastor) 250 mg PO BID [facility] Last Admin: 06/12/18 18:02 Dose: 250 mg - Labs Labs: 06/13/18 08:04 06/13/18 08:04 PT 16.5 SECONDS (9.7-12.2) H 06/10/18 13:16 INR 1.5 06/10/18 13:16 APTT 29 SECONDS (21-34) 06/10/18 13:16 - Additional Findings Additional findings: - Constitutional Appears: No Acute Distress - Head Exam Head Exam: ATRAUMATIC, NORMAL INSPECTION - Eye Exam Eye Exam: EOMI, Normal appearance, PERRL. absent: Nystagmus - ENT Exam ENT Exam: Mucous Membranes Moist Additional comments: poor dentition - Neck Exam Neck exam: Positive for: Normal Inspection - Respiratory Exam Respiratory Exam: Clear to Auscultation Bilateral, NORMAL BREATHING PATTERN. absent: Rales, Rhonchi, Wheezes, Respiratory Distress - Cardiovascular Exam Cardiovascular Exam: +S1, +S2 - GI/Abdominal Exam GI & Abdominal Exam: Normal Bowel Sounds, Soft. absent: Distended, Tenderness - Extremities Exam Extremities exam: Positive for: pedal pulses present (diminished). Negative for: calf tenderness, normal inspection, pedal edema, tenderness - Neurological Exam Neurological exam: Abnormal Gait, Alert, CN II-XII Intact, Motor Sensory Deficit (b/l LE weakness R>L, diminished sensation b/l ankles), Oriented x3 Additional comments: B/L LE: normal sensation above ankles, decreased and asymmetrical positional and vibration sense; normal reflexes b/l; 4-5/5 active motor strength b/l B/L UE: normal sensation, 5/5 active motor strength, mounter flutes and piccolos strength normal/equal, no pronator drift CNII-XII intact - Psychiatric Exam Psychiatric exam: Flat Affect - Skin Skin Exam: Dry, Intact, Normal Color, Warm Assessment and Plan - Assessment and Plan (Free Text) Plan: 63 year old male with a past medical history of multiple CVAs, vascular dementia, bladder cancer, HTN, DM, PFO on FAISAL, who presented to the hospital with complaints of bilateral lower extremity weakness. Plan: Fall/ Bilateral leg weakness - Possibly secondary to mets to the vertebrae-- follow up bone scan that is scheduled for tomorrow (, 06/14/18) to further evaluate for metastasis. - Continue PT/OT - Continue current meds and treatment. - Recommended that patient has an EMG as outpatient once discharged. Imaging: * Head CT: No acute intracranial abnormality. Chronic bilateral MCA and left MITCHELL territory infarctions. * Head CTA: No evidence of endoluminal thrombus,occlusion or definite significant stenosis in the intracranial arteries. No evidence of hemodynamically significant stenosis in the internal carotid arteries. Patent bilateral vertebral arteries. * Hip Xray: no acute fracture, dislocation, b/l hip joints; symmetric degenerative changes moderate at b/l hip joints and mild at sacroiliac joints * Ordered STAT Thoracic and Lumbar MRI to r/o mets, r/o abscess: * T-Spine MRI (06/11/18): Mildly inhomogeneous signal changes throughout the thoracic vertebral bodies is identified including multiple benign hemangiomata scattered as discussed above. Precautionary follow-up nuclear bone scan is advised to exclude potential underlying lesion though none are grossly apparent in the current MR exam. This can be gauged based on whether the patient has a known primary no metastatic malignancy. No disc herniation, central canal or neural foraminal stenosis. Normal thoracic spinal cord signal intensity. No suspicious epidural or intrathecal lesion appreciable. * L-Spine MRI (06/11/18): Minor multilevel degenerative spondylosis most notably affecting the L5-S1 level as described. No acute compression fractures no retropulsed fragments. Probable scattered hemangiomas. Case discussed with Dr. Everton Day, PGY2
[2018-06-13] MEDS: Saccharomyces Boulardi 250 mg Cap PO SCH ×2 (11:19→18:18)
[2018-06-13] MEDS: Multivitamin With Minerals Tab PO SCH (11:19)
[2018-06-13 14:03] LABS: URINE BILIRUBIN NEGATIVE (NEGATIVE); URINE BLOOD 3+ (NEGATIVE); URINE CLARITY Hazy (Clear); URINE COLOR Yellow (YELLOW); URINE GLUCOSE (UA) NORMAL (Normal); URINE LEUKOCYTE ESTERASE TRACE Leu/uL (Negative); URINE PROTEIN 2+ mg/dL (NEGATIVE); URINE UROBILINOGEN NORMAL mg/dL (0.2-1.0)
[2018-06-13] MEDS ORDERED: Iohexol 240 (50 ml) ONE (14:19)
[2018-06-13] MEDS ORDERED: Propofol 10 mg/ml Inj (20 ML) ONE ×2 (14:24→14:53)
[2018-06-13] MEDS ORDERED: Midazolam 2 MG/2 ML VIAL ONE (14:43)
[2018-06-13] MEDS: Lactated Ringer's 1,000 ML IV SCH (15:00)
--- NOTE | 2018-06-13 16:03 | PN ---
DATE: 06/12/2018 The patient with a history of bladder tumor, came to the hospital with gross hematuria and elevated creatinine. CT scan of abdomen and pelvis revealed heavily trabeculated bladder, cannot be evaluated well, but no hydro and no stone. Cytology pending. The patient is scheduled for cysto tomorrow, 06/13/2018. Felix Lazcano MD
[2018-06-13] MEDS ORDERED: Lactated Ringer's 500 ML IV ONE (16:55)
[2018-06-13 17:27] VITALS: RESP 20
--- NOTE | 2018-06-13 18:17 | CP.PCM.PN ---
Subjective - Date & Time of Evaluation Date of Evaluation: 06/13/18 Time of Evaluation: 09:00 - Subjective Subjective: IV rx reordered rx in progress nad for bone scan Objective - Vital Signs/Intake and Output Vital Signs (last 24 hours): Temp Pulse Resp BP Pulse Ox 97.2 F L 88 20 113/78 95 06/13/18 17:26 06/13/18 17:26 06/13/18 17:26 06/13/18 17:26 06/13/18 17:26 Intake and Output: 06/13/18 06/13/18 06:59 18:59 Intake Total 1250 Balance 1250 - Medications Medications: Current Medications Amlodipine Besylate (Norvasc) 10 mg PO DAILY [facility] Last Admin: 06/13/18 11:19 Dose: 10 mg Bupropion HCl (Wellbutrin) 75 mg PO DAILY [facility] Last Admin: 06/13/18 11:19 Dose: 75 mg Dextrose (Dextrose 50% Inj) 0 ml IV STAT PRN; Protocol PRN Reason: Hypoglycemia Protocol Dextrose (Glutose 15) 0 gm PO ONCE PRN; Protocol PRN Reason: Hypoglycemia Protocol Docusate Sodium (Colace) 100 mg PO BID [facility] Last Admin: 06/13/18 11:19 Dose: 100 mg Glucagon (Glucagen Diagnostic Kit) 0 mg IM STAT PRN; Protocol PRN Reason: Hypoglycemia Protocol Hydrochlorothiazide (Microzide) 12.5 mg PO DAILY [facility] Sodium Chloride (Sodium Chloride 0.9%) 1,000 mls @ 50 mls/hr IV .Q20H [facility] Last Admin: 06/13/18 04:35 Dose: 50 mls/hr Dextrose (Dextrose 5% In Water 1000 Ml) 1,000 mls @ 0 mls/hr IV .Q0M PRN; Protocol PRN Reason: Hypoglycemia Protocol Vancomycin/Sodium Chloride (Vancomycin 1 Gm/Ns 200 Ml) 1 gm in 200 mls @ 133 mls/hr IVPB Q24H [facility]; Protocol Stop: 06/16/18 18:31 Last Admin: 06/12/18 18:01 Dose: 133 mls/hr Meropenem 500 mg/ Sodium (Chloride) 100 mls @ 100 mls/hr IVPB Q8H [facility]; Protocol Last Admin: 06/13/18 14:17 Dose: Not Given Lactated Ringer's (Lactated Ringer's) 1,000 mls @ 100 mls/hr IV .Q10H [facility] Insulin Aspart (Novolog) 0 unit SC ACHS [facility]; Protocol Last Admin: 06/13/18 11:57 Dose: Not Given Lisinopril (Zestril) 20 mg PO BID [facility] Last Admin: 06/11/18 09:43 Dose: 20 mg Memantine (Namenda) 10 mg PO DAILY [facility] Last Admin: 06/13/18 11:19 Dose: 10 mg Multivitamins/Minerals (Therapeutic-M Tab) 1 tab PO DAILY [facility] Last Admin: 06/13/18 11:19 Dose: 1 tab Rivastigmine (Exelon 9.5 Mg/24 Hr Patch) 1 patch TD DAILY [facility] Last Admin: 06/13/18 11:19 Dose: 1 patch Rosuvastatin Calcium (Crestor) 10 mg PO HS [facility] Last Admin: 06/12/18 21:43 Dose: 10 mg Saccharomyces Boulardii (Florastor) 250 mg PO BID [facility] Last Admin: 06/13/18 11:19 Dose: 250 mg - Labs Labs: 06/13/18 08:04 06/13/18 08:04 PT 16.5 SECONDS (9.7-12.2) H 06/10/18 13:16 INR 1.5 06/10/18 13:16 APTT 29 SECONDS (21-34) 06/10/18 13:16 - Constitutional Appears: Non-toxic, Confused, Chronically Ill - Head Exam Head Exam: NORMOCEPHALIC - Eye Exam Eye Exam: absent: Scleral icterus - ENT Exam ENT Exam: Mucous Membranes Dry - Neck Exam Neck Exam: absent: Lymphadenopathy - Respiratory Exam Respiratory Exam: Decreased Breath Sounds - Cardiovascular Exam Cardiovascular Exam: REGULAR RHYTHM - GI/Abdominal Exam GI & Abdominal Exam: Distended, Soft Assessment and Plan (1) Sepsis Status: Acute (2) UTI (urinary tract infection) Status: Acute (3) Dementia Status: Chronic (4) Bladder mass Status: Acute (5) CVA (cerebral vascular accident) Status: Acute
[2018-06-13] MEDS: Vancomycin 1 gm/NS 200 ml 1 GM/200 ML BAG IVPB SCH (18:45)
[2018-06-14] MEDS: Lactated Ringer's 1,000 ML IV SCH ×4 (01:15→20:15)
[2018-06-14] MEDS: Meropenem 500 MG in Sodium Chloride 0.9% 100 ML IVPB SCH ×3 (05:33→22:00)
[2018-06-14 06:47] LABS: BASO % 0.4 % (0.0-2.0); EOS # 0.2 K/uL (0.0-0.7); EOS % 3.2 % (0.0-4.0); HEMOGLOBIN 12.6 g/dL (12.0-18.0); LYMPH # 1.4 K/uL (1.0-4.3); LYMPH % 19.3 % (20.0-40.0); MEAN CELL VOLUME 79.4 fL (80.0-94.0); MEAN CORPUSCULAR HEMOGLOBIN 26.9 pg (27.0-31.0); MEAN CORPUSCULAR HGB CONC 33.9 g/dL (33.0-37.0); MONO # 0.7 K/uL (0.0-0.8); MONO % 10.2 % (0.0-10.0); NEUT # 4.8 K/uL (1.8-7.0); NEUT % 66.9 % (50.0-75.0); NRBC % 0.1 % (0.0-2.0); RBC 4.7 Mil/uL (4.40-5.90); RED CELL DISTRIBUTION WIDTH 14.5 % (11.5-14.5); WHITE BLOOD COUNT 7.1 K/uL (4.8-10.8)
--- NOTE | 2018-06-14 07:20 | CP.PCM.PN ---
Subjective - Date & Time of Evaluation Date of Evaluation: 06/14/18 Time of Evaluation: 07:18 - Subjective Subjective: PGY-1 Odessa Epperson D.O. Medicine progress note for Dr. Mandujano's service: Patient was seen and examined this morning. He is POD1 cystoscopy with removal of mass. Patient states he feels the same. No acute complaints. He said he stood up with PT. He denies pain. He is eating and sleeping well. Objective - Vital Signs/Intake and Output Vital Signs (last 24 hours): Temp Pulse Resp BP Pulse Ox 98.7 F 61 20 123/81 95 06/13/18 23:30 06/14/18 03:15 06/13/18 23:30 06/13/18 23:30 06/13/18 23:30 Intake and Output: 06/14/18 06/14/18 06:59 18:59 Intake Total 780 Output Total 1300 Balance -520 - Medications Medications: Current Medications Amlodipine Besylate (Norvasc) 10 mg PO DAILY [facility] Last Admin: 06/13/18 11:19 Dose: 10 mg Bupropion HCl (Wellbutrin) 75 mg PO DAILY [facility] Last Admin: 06/13/18 11:19 Dose: 75 mg Dextrose (Dextrose 50% Inj) 0 ml IV STAT PRN; Protocol PRN Reason: Hypoglycemia Protocol Dextrose (Glutose 15) 0 gm PO ONCE PRN; Protocol PRN Reason: Hypoglycemia Protocol Docusate Sodium (Colace) 100 mg PO BID [facility] Last Admin: 06/13/18 18:18 Dose: 100 mg Glucagon (Glucagen Diagnostic Kit) 0 mg IM STAT PRN; Protocol PRN Reason: Hypoglycemia Protocol Hydrochlorothiazide (Microzide) 12.5 mg PO DAILY [facility] Vancomycin/Sodium Chloride (Vancomycin 1 Gm/Ns 200 Ml) 1 gm in 200 mls @ 133 mls/hr IVPB Q24H [facility]; Protocol Stop: 06/16/18 18:31 Last Admin: 06/13/18 18:45 Dose: 133 mls/hr Meropenem 500 mg/ Sodium (Chloride) 100 mls @ 100 mls/hr IVPB Q8H [facility]; Protocol Last Admin: 06/14/18 05:33 Dose: 100 mls/hr Lactated Ringer's (Lactated Ringer's) 1,000 mls @ 100 mls/hr IV .Q10H [facility] Last Admin: 06/14/18 05:37 Dose: 100 mls/hr Insulin Aspart (Novolog) 0 unit SC ACHS [facility]; Protocol Last Admin: 06/13/18 21:59 Dose: Not Given Lisinopril (Zestril) 20 mg PO BID [facility] Last Admin: 06/11/18 09:43 Dose: 20 mg Memantine (Namenda) 10 mg PO DAILY [facility] Last Admin: 06/13/18 11:19 Dose: 10 mg Multivitamins/Minerals (Therapeutic-M Tab) 1 tab PO DAILY [facility] Last Admin: 06/13/18 11:19 Dose: 1 tab Rivastigmine (Exelon 9.5 Mg/24 Hr Patch) 1 patch TD DAILY [facility] Last Admin: 06/13/18 11:19 Dose: 1 patch Rosuvastatin Calcium (Crestor) 10 mg PO HS [facility] Last Admin: 06/13/18 21:56 Dose: 10 mg Saccharomyces Boulardii (Florastor) 250 mg PO BID [facility] Last Admin: 06/13/18 18:18 Dose: 250 mg - Labs Labs: 06/14/18 06:40 06/13/18 08:04 PT 16.5 SECONDS (9.7-12.2) H 06/10/18 13:16 INR 1.5 06/10/18 13:16 APTT 29 SECONDS (21-34) 06/10/18 13:16 - Additional Findings Additional findings: - Constitutional Appears: Unkempt, Older Than Stated Age - Head Exam Head Exam: ATRAUMATIC, NORMAL INSPECTION - Eye Exam Eye Exam: EOMI, Normal appearance, PERRL - ENT Exam ENT Exam: Mucous Membranes Moist - Neck Exam Neck Exam: Normal Inspection - Respiratory Exam Respiratory Exam: Clear to Ausculation Bilateral, NORMAL BREATHING PATTERN. absent: Respiratory Distress - Cardiovascular Exam Cardiovascular Exam: REGULAR RHYTHM, +S1, +S2 - GI/Abdominal Exam GI & Abdominal Exam: Soft. absent: Tenderness - Exam Additional comments: [place] condom cath- light pink output - Rectal Exam Rectal Exam: Deferred - Extremities Exam Extremities Exam: Normal Capillary Refill. absent: Pedal Edema, Tenderness Additional comments: R 5th metatarsal ulcer- wrapped in clean dry bandage - Back Exam Back Exam: NORMAL INSPECTION - Neurological Exam Neurological Exam: Alert, Awake, CN II-XII Intact. 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 Patient reports his knees "gave out." He was also complaining of hematuria x several weeks. patient was treated for UTI with cipro, that initially improved the hematuria, but then it returned after finishing the abx course. Patient's urologist reports that patient did not follow-up for 9 years after bladder mass removed. Patient is ESBL on admission but subsequent Cx negative. Also with MRSA in toe ulcer- suspect contamination, will obtain another Cx. POD1 cystoscopy with removal of bladder mass. Bone scan today. Pending MARY placement- likely Saranya tomorrow. PICC today for abx x14 days. Plan: Hematuria and Acute kidney injury with h/o bladder cancer - UA: 2+ prot, 3+ blood, 3+ LE, occ panfilo, 24 WBC, 1207 RBC - Urine Cx ESBL - Repeat UA and Cx negative - Urine cytology: atypical urothelial cells with acute inflammation - BUN/Cr 45/2.3 on admission->18/1.1- improving daily - CT A/P: The urinary bladder wall is thickened and edematous in appearance on despite incomplete distension. Findings are of uncertain etiology though recommend correlation with urinalysis. Urologic consultation may be prudent if indicated. Punctate nonobstructing calcification upper pole right kidney. Tiny cyst left kidney as above. Minimal infiltration changes in the perinephric fat. Findings consistent with constipation. Minor fatty hepatic infiltration wall thickening of the stomach likely due to incomplete distention however gastritis or other intrinsic/invasive wall lesion not excluded. Tiny pericardial effusion. Mild bibasilar atelectasis/scarring changes right greater than left. - Renal/bladder: 1. Bilateral renal parenchyma is remarkable only for a 1.1 cm complex cyst exophytic off the upper pole right kidney. No obstructive uropathy bilaterally. 2.2 cm left lateral urinary bladder mass suspicious for potential recurrence of the patient's prior urinary bladder carcinoma though other etiologies are possible. This corresponds to the left lateral urine bladder wall mass identified in abdomen pelvis CT exam 05/29/2018. Unfortunately, the patient partially voided during ultrasonography limiting possibility of postvoid residu al evaluation. - Avoid nephrotoxic agents - Cystoscopy- f/u pathology - Full body bone scan- f/u results - Urology consulted ([place]ed)- pt did not f/u after original dx of CA 9 yrs ago ESBL urinary tract infection - Code sepsis on admission 06/10 - Contact isolation - Tmax 100.7, most recent fever 06/12 12AM 100.9 - Leukocytosis resolved - UA: 2+ prot, 3+ blood, 3+ LE, occ panfilo, 24 WBC, 1207 RBC - Urine Cx ESBL - Repeat UA and Cx negative - Urine cytology: atypical urothelial cells with acute inflammation - Blood Cx no growth >4 days - Meropenem 500 mg IV Q8H- started 06/12 - Will need 14 days - Florastor 250 mg PO BID - PICC 06/14 - ID consulted (Noel) MRSA infection of L 5th metatarsal ulcer - L foot XR: no acute fractures or signs of osteomyelitis - Full body bone scan- f/u results - ESR 80 - Wound Cx: MRSA- suspect contamination - Obtain another Cx 06/14 - MRSA screen pending - [facility] - Vancomycin 1 g IV Q24H- started 06/11 - Florastor 250 mg PO BID - Wound care consulted - ID consulted (Noel) Fall with lower extremity weakness- suspect 2/2 sepsis/infection exacerbating chronic weakness - Code stroke - CPK 237->193 - CT head: No acute findings. Chronic bilateral MCA and left MITCHELL territory inf arctions. - Hip/pelvis XR: no acute findings - Thoracic and lumbar MRI: no acute stenosis, potential metastasis Minor multilevel degenerative spondylosis most notably affecting the L5-S1 level. No acute compression fractures no retropulsed fragments. Probable scattered hemangiomas. Mildly inhomogeneous signal changes throughout the thoracic vertebral bodies is identified including multiple benign hemangiomata scattered as discussed above. Precautionary follow-up nuclear bone scan is advised to exclude potential underlying lesion though none are grossly apparent in the current MR exam. This can be gauged based on whether the patient has a known primary no metastatic malignancy. No disc herniation, central canal or neural foraminal stenosis. Normal thoracic spinal cord signal intensity. No suspicious epidural or intrathecal lesion appreciable. - B12 wnl (979) - Neurology consulted ([place])- rec EMG as outpatient - PT/OT- rec MARY, likely Saranya as per CM/SW Vascular dementia with A fib and PFO - FAISAL 07/2017 - CTA head/neck: no significant stenosis or structural abnormalities - Crestor 10 mg PO QHS - Wellbutrin 75 mg PO daily - Memantine 10 mg PO daily - Rivastigmine 9.5 mg patch daily - Cardiology consulted (Yoon)- pt was supposed to have loop recorder but was lost to follow-up Hypertension - Monitor vitals Q4H - Amlodipine 10 mg PO daily - HCTZ 12.5 PO daily- hold due to MAGALI - Lisinopril 20 mg PO daily- hold due to MAGALI Type 2 diabetes mellitus - A1c 6.9 - Hypoglycemic protocol - Accuchecks ACHS with ISS Ppx: VTE: SCDs, chemical anticoag contraindicated due to hematuria GI: not indicated Code status: full code Case was discussed with attending, Dr. Mandujano.
[2018-06-14 07:30] LABS: ALB/GLOB RATIO 0.9 (1.0-2.1); ALT/SGPT 49 U/L (21-72); AST/SGOT 38 U/L (17-59); BLOOD UREA NITROGEN 18 mg/dL (9-20); CALCIUM 8.5 mg/dl (8.6-10.4); GFR NON-AFRICAN AMERICAN > 60
[2018-06-14] MEDS: (Novolog) Insulin Aspart, Recombinant 100 u/ml 10 ml vial SC SCH ×4 (07:56→23:22)
[2018-06-14] MEDS: Multivitamin With Minerals Tab PO SCH (09:53)
[2018-06-14] MEDS: Saccharomyces Boulardi 250 mg Cap PO SCH ×2 (09:54→18:01)
--- NOTE | 2018-06-14 10:12 | CP.PCM.PN ---
Subjective - Date & Time of Evaluation Date of Evaluation: 06/14/18 Time of Evaluation: 10:10 - Subjective Subjective: Progress note for Dr. Nj Patient was seen and examined at bedside in no acute distress. Patient is scheduled for a bone scan today for further evaluation for bone mets. He says he still has bilateral lower extremity weakness, which has no improved or worsened. The patient has no complaints today and says he feels the same as yesterday. He denies chest pain, palpitations, dyspnea, cough, nausea, vomiting, headaches, dizziness, acute vision changes, upper extremity weakness. Objective - Vital Signs/Intake and Output Vital Signs (last 24 hours): Temp Pulse Resp BP Pulse Ox 98.3 F 75 20 125/89 95 06/14/18 07:00 06/14/18 07:00 06/14/18 07:00 06/14/18 07:00 06/14/18 07:00 Intake and Output: 06/14/18 06/14/18 06:59 18:59 Intake Total 780 Output Total 1300 Balance -520 - Medications Medications: Current Medications Amlodipine Besylate (Norvasc) 10 mg PO DAILY [facility] Last Admin: 06/14/18 09:54 Dose: 10 mg Bupropion HCl (Wellbutrin) 75 mg PO DAILY [facility] Last Admin: 06/14/18 09:54 Dose: 75 mg Dextrose (Dextrose 50% Inj) 0 ml IV STAT PRN; Protocol PRN Reason: Hypoglycemia Protocol Dextrose (Glutose 15) 0 gm PO ONCE PRN; Protocol PRN Reason: Hypoglycemia Protocol Docusate Sodium (Colace) 100 mg PO BID [facility] Last Admin: 06/14/18 09:53 Dose: 100 mg Glucagon (Glucagen Diagnostic Kit) 0 mg IM STAT PRN; Protocol PRN Reason: Hypoglycemia Protocol Hydrochlorothiazide (Microzide) 12.5 mg PO DAILY [facility] Vancomycin/Sodium Chloride (Vancomycin 1 Gm/Ns 200 Ml) 1 gm in 200 mls @ 133 mls/hr IVPB Q24H [facility]; Protocol Stop: 06/16/18 18:31 Last Admin: 06/13/18 18:45 Dose: 133 mls/hr Meropenem 500 mg/ Sodium (Chloride) 100 mls @ 100 mls/hr IVPB Q8H [facility]; Protocol Last Admin: 06/14/18 05:33 Dose: 100 mls/hr Lactated Ringer's (Lactated Ringer's) 1,000 mls @ 100 mls/hr IV .Q10H [facility] Last Admin: 06/14/18 05:37 Dose: 100 mls/hr Insulin Aspart (Novolog) 0 unit SC ACHS [facility]; Protocol Last Admin: 06/14/18 07:56 Dose: Not Given Lisinopril (Zestril) 20 mg PO BID [facility] Last Admin: 06/11/18 09:43 Dose: 20 mg Memantine (Namenda) 10 mg PO DAILY [facility] Last Admin: 06/14/18 09:54 Dose: 10 mg Multivitamins/Minerals (Therapeutic-M Tab) 1 tab PO DAILY [facility] Last Admin: 06/14/18 09:53 Dose: 1 tab Rivastigmine (Exelon 9.5 Mg/24 Hr Patch) 1 patch TD DAILY [facility] Last Admin: 06/14/18 09:54 Dose: 1 patch Rosuvastatin Calcium (Crestor) 10 mg PO HS [facility] Last Admin: 06/13/18 21:56 Dose: 10 mg Saccharomyces Boulardii (Florastor) 250 mg PO BID [facility] Last Admin: 06/14/18 09:54 Dose: 250 mg - Labs Labs: 06/14/18 06:40 06/14/18 06:40 PT 16.5 SECONDS (9.7-12.2) H 06/10/18 13:16 INR 1.5 06/10/18 13:16 APTT 29 SECONDS (21-34) 06/10/18 13:16 - Additional Findings Additional findings: - Constitutional Appears: No Acute Distress - Head Exam Head Exam: ATRAUMATIC, NORMAL INSPECTION - Eye Exam Eye Exam: EOMI, Normal appearance, PERRL. absent: Nystagmus - ENT Exam ENT Exam: Mucous Membranes Moist Additional comments: poor dentition - Neck Exam Neck exam: Positive for: Normal Inspection - Respiratory Exam Respiratory Exam: Clear to Auscultation Bilateral, NORMAL BREATHING PATTERN. absent: Rales, Rhonchi, Wheezes, Respiratory Distress - Cardiovascular Exam Cardiovascular Exam: +S1, +S2 - GI/Abdominal Exam GI & Abdominal Exam: Normal Bowel Sounds, Soft. absent: Distended, Tenderness - Extremities Exam Extremities exam: Positive for: pedal pulses present (diminished). 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 Plan: Fall/ Bilateral leg weakness - Possibly secondary to mets to the vertebrae-- follow up bone scan that is scheduled for today (, 06/14/18) to further evaluate for metastasis. - Continue PT/OT - Continue current meds and treatment. - Recommended that patient has an EMG as outpatient once discharged. Imaging: * Head CT: No acute intracranial abnormality. Chronic bilateral MCA and left MITCHELL territory infarctions. * Head CTA: No evidence of endoluminal thrombus,occlusion or definite significant stenosis in the intracranial arteries. No evidence of hemodyn amically significant stenosis in the internal carotid arteries. Patent bilateral vertebral arteries. * Hip Xray: no acute fracture, dislocation, b/l hip joints; symmetric degenerative changes moderate at b/l hip joints and mild at sacroiliac joints * Ordered STAT Thoracic and Lumbar MRI to r/o mets, r/o abscess: * T-Spine MRI (06/11/18): Mildly inhomogeneous signal changes throughout the thoracic vertebral bodies is identified including multiple benign hemangiomata scattered as discussed above. Precautionary follow-up nuclear bone scan is advised to exclude potential underlying lesion though none are grossly apparent in the current MR exam. This can be gauged based on whether the patient has a known primary no metastatic malignancy. No disc herniation, central canal or neural foraminal stenosis. Normal thoracic spinal cord signal intensity. No suspicious epidural or intrathecal lesion appreciable. * L-Spine MRI (06/11/18): Minor multilevel degenerative spondylosis most notably affecting the L5-S1 level as described. No acute compression fractures no retropulsed fragments. Probable scattered hemangiomas. Case discussed with Dr. Clem Day, PGY2
--- NOTE | 2018-06-14 17:41 | NM ---
Date of service: 06/14/2018 PROCEDURE: Whole Body Bone Scan HISTORY: assess for bladder cancer metasisis COMPARISON: None available. TECHNIQUE: Following administration of 23.6 miCu of Tc MDP multiplanar whole body images were obtained. FINDINGS: Evidence for bony metastatic disease: None. Degenerative uptake: None. Physiologic uptake: Normal physiologic activity in the kidneys. Other findings: Contiguous foci of increased uptake posterior lateral right ribs consistent with prior trauma IMPRESSION: No evidence of bony metastatic disease.
--- NOTE | 2018-06-14 18:14 | CP.PCM.PN ---
Subjective - Date & Time of Evaluation Date of Evaluation: 06/14/18 Time of Evaluation: 07:00 - Subjective Subjective: improving mental status awake alert afeb Objective - Vital Signs/Intake and Output Vital Signs (last 24 hours): Temp Pulse Resp BP Pulse Ox 98.1 F 72 20 115/75 95 06/14/18 15:00 06/14/18 15:00 06/14/18 15:00 06/14/18 15:00 06/14/18 15:00 Intake and Output: 06/14/18 06/14/18 06:59 18:59 Intake Total 780 600 Output Total 1300 500 Balance -520 100 - Medications Medications: Current Medications Amlodipine Besylate (Norvasc) 10 mg PO DAILY [facility] Last Admin: 06/14/18 09:54 Dose: 10 mg Bupropion HCl (Wellbutrin) 75 mg PO DAILY [facility] Last Admin: 06/14/18 09:54 Dose: 75 mg Dextrose (Dextrose 50% Inj) 0 ml IV STAT PRN; Protocol PRN Reason: Hypoglycemia Protocol Dextrose (Glutose 15) 0 gm PO ONCE PRN; Protocol PRN Reason: Hypoglycemia Protocol Docusate Sodium (Colace) 100 mg PO BID [facility] Last Admin: 06/14/18 18:01 Dose: 100 mg Glucagon (Glucagen Diagnostic Kit) 0 mg IM STAT PRN; Protocol PRN Reason: Hypoglycemia Protocol Hydrochlorothiazide (Microzide) 12.5 mg PO DAILY [facility] Vancomycin/Sodium Chloride (Vancomycin 1 Gm/Ns 200 Ml) 1 gm in 200 mls @ 133 mls/hr IVPB Q24H [facility]; Protocol Stop: 06/16/18 18:31 Last Admin: 06/13/18 18:45 Dose: 133 mls/hr Meropenem 500 mg/ Sodium (Chloride) 100 mls @ 100 mls/hr IVPB Q8H [facility]; Protocol Last Admin: 06/14/18 14:07 Dose: 100 mls/hr Lactated Ringer's (Lactated Ringer's) 1,000 mls @ 100 mls/hr IV .Q10H [facility]PL[facility] Last Admin: 06/14/18 11:30 Dose: Not Given Insulin Aspart (Novolog) 0 unit SC ACHS [facility]; Protocol Last Admin: 06/14/18 18:01 Dose: 2 unit Lisinopril (Zestril) 20 mg PO BID [facility] Last Admin: 06/11/18 09:43 Dose: 20 mg Memantine (Namenda) 10 mg PO DAILY [facility] Last Admin: 06/14/18 09:54 Dose: 10 mg Multivitamins/Minerals (Therapeutic-M Tab) 1 tab PO DAILY [facility] Last Admin: 06/14/18 09:53 Dose: 1 tab Rivastigmine (Exelon 9.5 Mg/24 Hr Patch) 1 patch TD DAILY [facility] Last Admin: 06/14/18 09:54 Dose: 1 patch Rosuvastatin Calcium (Crestor) 10 mg PO HS [facility]PLACED BY [facility] Last Admin: 06/13/18 21:56 Dose: 10 mg Saccharomyces Boulardii (Florastor) 250 mg PO BID REPLACED BY [facility] Last Admin: 06/14/18 18:01 Dose: 250 mg - Labs Labs: 06/14/18 06:40 06/14/18 06:40 PT 16.5 SECONDS (9.7-12.2) H 06/10/18 13:16 INR 1.5 06/10/18 13:16 APTT 29 SECONDS (21-34) 06/10/18 13:16 - Constitutional Appears: Non-toxic, Chronically Ill - Head Exam Head Exam: NORMOCEPHALIC - Eye Exam Eye Exam: absent: Scleral icterus - ENT Exam ENT Exam: Mucous Membranes Dry - Neck Exam Neck Exam: absent: Lymphadenopathy - Respiratory Exam Respiratory Exam: Decreased Breath Sounds - Cardiovascular Exam Cardiovascular Exam: REGULAR RHYTHM - GI/Abdominal Exam GI & Abdominal Exam: Distended, Soft - Rectal Exam Rectal Exam: Deferred - Exam Exam: NORMAL INSPECTION - Extremities Exam Extremities Exam: Pedal Edema. absent: Calf Tenderness - Back Exam Back Exam: absent: CVA tenderness (L), CVA tenderness (R) Assessment and Plan (1) Sepsis Status: Acute (2) UTI (urinary tract infection) Status: Acute (3) Dementia Status: Chronic (4) Bladder mass Status: Acute (5) CVA (cerebral vascular accident) Status: Acute - Assessment and Plan (Free Text) Assessment: MRSA from left foot wound IV rx in progress cont wound care and IV antibiotics
[2018-06-14] MEDS: Vancomycin 1 gm/NS 200 ml 1 GM/200 ML BAG IVPB SCH (20:14)
[2018-06-15] MEDS: Meropenem 500 MG in Sodium Chloride 0.9% 100 ML IVPB SCH ×3 (05:27→22:42)
[2018-06-15] MEDS: Lactated Ringer's 1,000 ML IV SCH ×3 (05:28→18:15)
[2018-06-15 06:35] LABS: BASO % 0.4 % (0.0-2.0); EOS # 0.3 K/uL (0.0-0.7); EOS % 2.9 % (0.0-4.0); HEMOGLOBIN 12.5 g/dL (12.0-18.0); LYMPH # 1.6 K/uL (1.0-4.3); LYMPH % 17.1 % (20.0-40.0); MEAN CORPUSCULAR HEMOGLOBIN 27.3 pg (27.0-31.0); MEAN CORPUSCULAR HGB CONC 33.7 g/dL (33.0-37.0); MEAN PLATELET VOLUME 8.2 fL (7.2-11.7); MONO # 0.9 K/uL (0.0-0.8); MONO % 9.3 % (0.0-10.0); NEUT # 6.8 K/uL (1.8-7.0); NEUT % 70.3 % (50.0-75.0); RBC 4.58 Mil/uL (4.40-5.90); RED CELL DISTRIBUTION WIDTH 14.6 % (11.5-14.5); WHITE BLOOD COUNT 9.6 K/uL (4.8-10.8)
[2018-06-15 06:51] LABS: ALB/GLOB RATIO 0.9 (1.0-2.1); ALT/SGPT 50 U/L (21-72); AST/SGOT 41 U/L (17-59); BLOOD UREA NITROGEN 18 mg/dL (9-20); CALCIUM 8.4 mg/dl (8.6-10.4); GFR NON-AFRICAN AMERICAN > 60
[2018-06-15] MEDS: (Novolog) Insulin Aspart, Recombinant 100 u/ml 10 ml vial SC SCH ×4 (08:41→23:29)
[2018-06-15] MEDS: Multivitamin With Minerals Tab PO SCH (11:23)
[2018-06-15] MEDS: Saccharomyces Boulardi 250 mg Cap PO SCH ×2 (11:23→18:17)
--- NOTE | 2018-06-15 12:43 | CP.PCM.DIS ---
Provider - Provider Date of Admission: 06/10/18 15:29 Attending physician: Joel Mandujano MD Primary care physician: ED Physician Consults: 06/10/18 13:07 Stroke Team Consult Stat Comment: possible stroke Consulting Provider: Neurohospitalist Consulting Physician: NEUROHOSP Neurohospitalist for Consult: Dino Nj Neurohospitalist for Consult: Humphrey Toscano Reason for Consult: possible stroke 06/10/18 17:54 Urology Consult Routine Comment: Consulting Provider: Felix Lazcano Consulting Physician: Felix Lazcano Reason for Consult: hx of bladder ca, hematuria, incontience, persistence uti 06/10/18 17:59 Cardiology Consult Routine Comment: Consulting Provider: Eddie Nettles Consulting Physician: Eddie Nettles Reason for Consult: hx of pfo 06/10/18 20:29 Social Work Referral Routine Comment: d/c planning Physician Instructions: Reason For Exam: discharge planning 06/11/18 18:19 Infectious Disease Consult Routine Comment: Consulting Provider: Lenin Cohen Consulting Physician: Lenin Cohen Reason for Consult: Gram Neg UTI. Stage 3 Left Lateral Foot Ulcer Possible Osteo. 06/11/18 18:24 Wound Care [Nursing Referral for Wound Care] Routine Comment: Physician Instructions: Recommend Wound care: MediHOney with optifoam ? Reason For Exam: Left Lateral Foot Base of 5th Toe Stage 3 ulcer 06/14/18 12:09 Case Management Referral Routine Comment: speak with patient's sisters Physician Instructions: Reason For Exam: MARY eval Reason for Referral: Discharge Planning Time Spent in preparation of Discharge (in minutes): 35 Diagnosis - Discharge Diagnosis (1) Severe sepsis Status: Resolved (2) ESBL (extended spectrum beta-lactamase) producing bacteria infection Status: Acute (3) Afib Status: Acute (4) Vascular dementia Status: Acute (5) MRSA (methicillin resistant staph aureus) culture positive Status: Acute (6) Bladder cancer Status: Acute (7) Hematuria Status: Acute (8) Acute kidney failure Status: Acute (9) CHF (congestive heart failure) Status: Chronic (10) Hypertension Status: Chronic Hospital Course - Lab Results Lab Results: Micro Results 06/14/18 14:09 Foot - Left Gram Stain - Final 06/14/18 14:09 Foot - Left Wound Culture - Preliminary Gram Positive Cocci 06/10/18 14:20 Blood Blood Culture - Preliminary NO GROWTH AFTER 4 DAYS 06/10/18 13:35 Blood Blood Culture - Preliminary NO GROWTH AFTER 4 DAYS 06/11/18 22:18 Foot - Left Gram Stain - Final 06/11/18 22:18 Foot - Left Wound Culture - Final Methicillin Resistant S Aureus 06/13/18 13:43 Urine,Clean Catch Urine Culture - Final No Growth (<1,000 CFU/ML) 06/10/18 14:08 Urine Urine Culture - Final Escherichia Coli Most Recent Lab Values WBC 9.6 K/uL (4.8-10.8) 06/15/18 06:28 RBC 4.58 Mil/uL (4.40-5.90) 06/15/18 06:28 Hgb 12.5 g/dL (12.0-18.0) 06/15/18 06:28 Hct 37.1 % (35.0-51.0) 06/15/18 06:28 MCV 81.0 fL (80.0-94.0) 06/15/18 06:28 MCH 27.3 pg (27.0-31.0) 06/15/18 06:28 MCHC 33.7 g/dL (33.0-37.0) 06/15/18 06:28 RDW 14.6 % (11.5-14.5) H 06/15/18 06:28 Plt Count 208 K/uL (130-400) 06/15/18 06:28 MPV 8.2 fL (7.2-11.7) 06/15/18 06:28 Neut % (Auto) 70.3 % (50.0-75.0) 06/15/18 06:28 Lymph % (Auto) 17.1 % (20.0-40.0) L 06/15/18 06:28 Dawson % (Auto) 9.3 % (0.0-10.0) 06/15/18 06:28 Eos % (Auto) 2.9 % (0.0-4.0) 06/15/18 06:28 Baso % (Auto) 0.4 % (0.0-2.0) 06/15/18 06:28 Neut # (Auto) 6.8 K/uL (1.8-7.0) 06/15/18 06:28 Lymph # (Auto) 1.6 K/uL (1.0-4.3) 06/15/18 06:28 Dawson # (Auto) 0.9 K/uL (0.0-0.8) H 06/15/18 06:28 Eos # (Auto) 0.3 K/uL (0.0-0.7) 06/15/18 06:28 Baso # (Auto) 0.0 K/uL (0.0-0.2) 06/15/18 06:28 Neutrophils % (Manual) 96 % (50-75) H 06/11/18 08:49 Band Neutrophils % 4 % (0-2) H 06/10/18 13:16 Lymphocytes % (Manual) 2 % (20-40) L 06/11/18 08:49 Monocytes % (Manual) 2 % (0-10) 06/11/18 08:49 Platelet Estimate Normal (NORMAL) 06/11/18 08:49 RBC Morphology Normal 06/11/18 08:49 Anisocytosis (manual) Slight 06/10/18 13:16 ESR 80 mm/hr (0-15) H 06/13/18 08:04 PT 16.5 SECONDS (9.7-12.2) H 06/10/18 13:16 INR 1.5 06/10/18 13:16 APTT 29 SECONDS (21-34) 06/10/18 13:16 pO2 31 mm/Hg (30-55) 06/10/18 16:10 VBG pH 7.35 (7.32-7.43) 06/10/18 16:10 VBG pCO2 45 mmHg (40-60) 06/10/18 16:10 VBG HCO3 22.9 mmol/L 06/10/18 16:10 VBG Total CO2 26.2 mmol/L (22-28) 06/10/18 16:10 VBG O2 Sat (Calc) 61.2 % (40-65) 06/10/18 16:10 VBG Base Excess -1.1 mmol/L (0.0-2.0) L 06/10/18 16:10 VBG Potassium 3.9 mmol/L (3.6-5.2) 06/10/18 16:10 Sodium 140.0 mmol/l (132-148) 06/10/18 16:10 Chloride 108.0 mmol/L (98-107) H 06/10/18 16:10 Glucose 158 mg/dl (75-110) H 06/10/18 16:10 Lactate 1.4 mmol/L (0.7-2.1) 06/10/18 16:10 Sodium 139 mmol/L (132-148) 06/15/18 06:28 Potassium 3.7 mmol/L (3.6-5.2) 06/15/18 06:28 Chloride 106 mmol/L (98-107) 06/15/18 06:28 Carbon Dioxide 27 mmol/L (22-30) 06/15/18 06:28 Anion Gap 9 (10-20) L 06/15/18 06:28 BUN 18 mg/dL (9-20) 06/15/18 06:28 Creatinine 1.1 mg/dL (0.8-1.5) 06/15/18 06:28 Est GFR ( Amer) > 60 06/15/18 06:28 Est GFR (Non-Af Amer) > 60 06/15/18 06:28 POC Glucose (mg/dL) 166 mg/dL (65-110) H 06/15/18 10:58 Random Glucose 101 mg/dL (75-110) 06/15/18 06:28 Hemoglobin A1c 6.9 % (4.2-6.5) H 06/10/18 13:16 Calcium 8.4 mg/dl (8.6-10.4) L 06/15/18 06:28 Phosphorus 3.3 mg/dL (2.5-4.5) 06/15/18 06:28 Magnesium 1.9 mg/dL (1.6-2.3) 06/15/18 06:28 Total Bilirubin 0.3 mg/dL (0.2-1.3) 06/15/18 06:28 AST 41 U/L (17-59) 06/15/18 06:28 ALT 50 U/L (21-72) 06/15/18 06:28 Alkaline Phosphatase 76 U/L (38-126) 06/15/18 06:28 Total Creatine Kinase 193 U/L (55-170) H 06/11/18 01:24 CK-MB (Mass) 2.42 ng/mL (0.0-3.38) 06/11/18 01:24 Troponin I 0.0230 ng/mL (0.00-0.120) 06/11/18 01:24 NT-Pro-B Natriuret Pep 1650 pg/mL (0-900) H 06/10/18 13:16 Total Protein 6.1 g/dL (6.3-8.3) L 06/15/18 06:28 Albumin 3.0 g/dL (3.5-5.0) L 06/15/18 06:28 Globulin 3.2 gm/dL (2.2-3.9) 06/15/18 06:28 Albumin/Globulin Ratio 0.9 (1.0-2.1) L 06/15/18 06:28 Triglycerides 71 mg/dL (0-149) D 06/10/18 13:16 Cholesterol 106 mg/dL (0-199) 06/10/18 13:16 LDL Cholesterol Direct 52 mg/dL (0-129) 06/10/18 13:16 HDL Cholesterol 40 mg/dL (30-70) 06/10/18 13:16 Vitamin B12 529 pg/mL (239-931) 06/12/18 15:54 Venous Blood Potassium 3.9 mmol/L (3.6-5.2) 06/10/18 16:10 Urine Color Yellow (YELLOW) 06/13/18 13:43 Urine Clarity Hazy (Clear) 06/13/18 13:43 Urine pH 6.0 (5.0-8.0) 06/13/18 13:43 Ur Specific [place] 1.014 (1.003-1.030) 06/13/18 13:43 Urine Protein 2+ mg/dL (NEGATIVE) H 06/13/18 13:43 Urine Glucose (UA) Normal mg/dL (Normal) 06/13/18 13:43 Urine Ketones Negative mg/dL (NEGATIVE) 06/13/18 13:43 Urine Blood 3+ (NEGATIVE) H 06/13/18 13:43 Urine Nitrate Negative (NEGATIVE) 06/13/18 13:43 Urine Bilirubin Negative (NEGATIVE) 06/13/18 13:43 Urine Urobilinogen Normal mg/dL (0.2-1.0) 06/13/18 13:43 Ur Leukocyte Esterase Trace [place]/uL (Negative) 06/13/18 13:43 Urine WBC (Auto) 133 /hpf (0-5) H 06/13/18 13:43 Urine RBC (Auto) 2945 /hpf (0-3) H 06/13/18 13:43 Urine Bacteria Occ (<OCC) H 06/10/18 14:07 Vancomycin Trough 6.2 ug/mL (5.0-10.0) 06/14/18 18:56 Blood Type A POSITIVE 06/10/18 13:16 Antibody Screen Negative 06/10/18 13:16 - Hospital Course Hospital Course: On admission: HPI: 63 y/o male, PMH several CVA (embolic) with PFO, Afib, Bladder cancer, T2DM, HTN, HLD, vascular dementia, presented to the ED on 06/10/18 s/p fall earlier this morning and hematuria. Due to pt's mental state, the following HPI was supplemented by his sister who was at bedside. As per sister, he was found this morning at 8AM by his sister on the ground next to his bed. They estimate he fell sometime between the hours of 6 and 8 AM this morning, denies LOC or any associated trauma. When asking the pt what caused the fall, he states that he just "couldn't stand up" and his knees "gave out." His last fall was this past June 08, where he fell backwards and sustained a hematoma on his left upper buttock/hip. As per sister, the LE weakness is acutely progressing, while the hematuria started several weeks ago. He was urged to come to [facility] ED by his PMD, Dr. Hernandez, on 05/29/18. UA was positive for UTI and Ab/pelvis CT scan showed mass on the bladder wall (1.6 x 2.2 cm). He was discharged same day with plans to follow up with his PMD/urologist and given a course of ciprofloxacin, of which he completed. As per sister, the hematuria was initially resolved after the course of antibiotics, however, they noticed today that it had returned. He admits to fever, chronic bladder incontinence (overflow in nature), LE weakness (due to Hx CVA), and loss of sensation in feet b/l. He denies chills, chest pain, palpitations, cough, nausea, vomiting, headache, diarrhea, constipation, suprapubic pain or lower back pain. Hospital course: Pt noted to have severe sepsis on admission, which was responsive to fluids. Code stroke was called but there was no stroke on CT scan. Antibiotics were started for UTI. Cardiology, Dr. Darden, was consulted for Afib. Dr. Toscano, nuerology, was consulted during code stroke due to lower extremity weakness. Dr. Cohen, infectious disease, was consulted for ESBL in the urine. Merrem IV was started for ESBL positive urine culture. He had a cystoscopy by Dr. Lazcano with removal of mass (hx of bladder ca). MRSA grew from his plantar aspect of left fifth toe ulcer. Pt was started on Vancomycin IVPB. On discharge, pt has no complaints. He reports that he is feeling better. He has been hemodynamically stable since starting antibiotics. He will be transferred to [facility]. Images: Head CT: No acute intracranial abnormality. Chronic bilateral MCA and left MITCHELL territory infarctions. Head CTA: No evidence of endoluminal thrombus,occlusion or definite significant stenosis in the intracranial arteries. No evidence of hemodynamically significant stenosis in the internal carotid arteries. Patent bilateral vertebral arteries. Hip Xray: no acute fracture, dislocation, b/l hip joints; symmetric degenerative changes moderate at b/l hip joints and mild at sacroiliac joints CT A/P: The urinary bladder wall is thickened and edematous in appearance on despite incomplete distension. Findings are of uncertain etiology though recommend correlation with urinalysis. Urologic consultation may be prudent if indicated. Punctate nonobstructing calcification upper pole right kidney. Tiny cyst left kidney as above. Minimal infiltration changes in the perinephric fat. Findings consistent with constipation. Minor fatty hepatic infiltration wall thickening of the stomach likely due to incomplete distention however gastritis or other intrinsic/invasive wall lesion not excluded. Tiny pericardial effusion. Mild bibasilar atelectasis/scarring changes right greater than left. Renal/bladder: 1. Bilateral renal parenchyma is remarkable only for a 1.1 cm complex cyst exophytic off the upper pole right kidney. No obstructive uropathy bilaterally. 2.2 cm left lateral urinary bladder mass suspicious for potential recurrence of the patient's prior urinary bladder carcinoma though other etiologies are possible. This corresponds to the left lateral urine bladder wall mass identified in abdomen pelvis CT exam 05/29/2018. Unfortunately, the patient partially voided during ultrasonography limiting possibility of postvoid residual evaluation. T-Spine MRI (06/11/18): 1. Mildly inhomogeneous signal changes throughout the thoracic vertebral bodies is identified including multiple benign hemangiomata scattered as discussed above. Precautionary follow-up nuclear bone scan is advised to exclude potential underlying lesion though none are grossly apparent in the current MR exam. This can be gauged based on whether the patient has a known primary no metastatic malignancy. 2. No disc herniation, central canal or neural foraminal stenosis. Normal thoracic spinal cord signal intensity. No suspicious epidural or intrathecal lesion appreciable. L-Spine MRI (06/11/18): Minor multilevel degenerative spondylosis most notably affecting the L5-S1 level as described. No acute compression fractures no retropulsed fragments. Probable scattered hemangiomas. Follow-up interval recommended to assess stability as detailed above. This is a summary of the hospital course, please see EMR for full details. Discharge Exam - Additional Findings Additional findings: - Constitutional Appears: Unkempt, Older Than Stated Age - Head Exam Head Exam: ATRAUMATIC, NORMAL INSPECTION - Eye Exam Eye Exam: EOMI, Normal appearance, PERRL - ENT Exam ENT Exam: Mucous Membranes Moist - Neck Exam Neck Exam: Normal Inspection - Respiratory Exam Respiratory Exam: Clear to Ausculation Bilateral, NORMAL BREATHING PATTERN. absent: Respiratory Distress - Cardiovascular Exam Cardiovascular Exam: REGULAR RHYTHM, +S1, +S2 - GI/Abdominal Exam GI & Abdominal Exam: Soft. absent: Tenderness - Exam Additional comments: [place] condom cath- light pink output - Rectal Exam Rectal Exam: Deferred - Extremities Exam Extremities Exam: Normal Capillary Refill. absent: Pedal Edema, Tenderness Additional comments: R 5th metatarsal ulcer- wrapped in clean dry bandage - Back Exam Back Exam: NORMAL INSPECTION Discharge Plan - Follow Up Plan Condition: GUARDED Disposition: HOME/ ROUTINE Instructions: Urinary Tract Infection in Men (DC), Sepsis (DC) Additional Instructions: Pt is medically stable for transfer to [facility] as per Dr. Jj Mandujano. Please follow up with Dr. Felix Rooney for results of bladder biopsy [phone]. Apply medihoney to left foot #5 metatarsal ulcer and cover with medihoney. To continue at [facility]: Norvasc 10 mg PO daily. Buproprion 75 mg PO daily. Colace 100 mg PO BID. Insulin Aspart sliding scale ACHS. Memantine 10 mg PO daily. Meropenem 500 mg IV Q8H through 06/22/18 for Hx of ESBL in urine. Vancomycin 1g q12h IVPB through 06/26/18 for MRSA positive culture of foot. Multivitamin 1 tab daily. Exelon 9. mg/24 hour patch daily. Crestor 10 mg pO HS. Forastor 250 mg PO BID. HOLD HCTZ 12.5 mg PO daily and HOLD Lisinopril 20 mg BID as Blood Pressure co ntrolled with [facility] and has history of Acute Kidney Injury on HCTZ and Lisinopril. Referrals: Eddie Nettles MD [Staff Provider] - Dino Nj MD [Staff Provider] - Felix Lazcano MD [Staff Provider] - Humphrey Toscano MD [Staff Provider] -
--- NOTE | 2018-06-15 12:56 | CP.PCM.PCO ---
Physician Communication Note - Physician Communication Note Physician Communication Note: Please see above.
[2018-06-15] MEDS ORDERED: Vancomycin 1 gm/NS 200 ml 1 GM/200 ML BAG IVPB SCH (13:15)
--- NOTE | 2018-06-15 13:15 | RAD ---
HISTORY: verify right PICC COMPARISON: Chest x-ray performed 06/10/18 TECHNIQUE: Chest, one view. FINDINGS: Right-sided PICC extends to the cavoatrial junction. LUNGS: Mild biapical pleural thickening. No focal consolidation. Please note that chest x-ray has limited sensitivity for the detection of pulmonary masses. PLEURA: No significant pleural effusion identified. No definite pneumothorax . CARDIOVASCULAR: Enlargement of the cardiomediastinal silhouette. Ectatic aorta. Atherosclerotic calcifications of the aorta present. OSSEOUS STRUCTURES: Degenerative changes. VISUALIZED UPPER ABDOMEN: Unremarkable. OTHER FINDINGS: None. IMPRESSION: Right-sided PICC extends the cavoatrial junction. Enlargement of the cardiomediastinal silhouette. Ectatic aorta. Atherosclerotic calcifications of the aorta present. Mild biapical pleural thickening.
--- NOTE | 2018-06-15 15:30 | CP.PCM.PN ---
Subjective - Date & Time of Evaluation Date of Evaluation: 06/15/18 Time of Evaluation: 15:27 - Subjective Subjective: Neurology Follow-Up Note: Mr. Andres was evaluated this afternoon in bed. Patient was in no acute distress. He is for a Brain MRI today. Per pt he still has bilateral lower extremity weakness, which has no improved or worsened, and he says that he feels the same as yesterday. Pt denies h/a, dizziness, visual changes, chest pain, palpitations, sob, abd pain, n/v/d. Objective - Vital Signs/Intake and Output Vital Signs (last 24 hours): Temp Pulse Resp BP Pulse Ox 97.8 F 75 20 143/89 95 06/15/18 07:00 06/15/18 07:00 06/15/18 07:00 06/15/18 07:00 06/15/18 07:00 Intake and Output: 06/15/18 06/15/18 06:59 18:59 Output Total 1000 Balance -1000 - Medications Medications: Current Medications Amlodipine Besylate (Norvasc) 10 mg PO DAILY [facility] Last Admin: 06/15/18 11:23 Dose: 10 mg Bupropion HCl (Wellbutrin) 75 mg PO DAILY [facility] Last Admin: 06/15/18 11:23 Dose: 75 mg Dextrose (Dextrose 50% Inj) 0 ml IV STAT PRN; Protocol PRN Reason: Hypoglycemia Protocol Dextrose (Glutose 15) 0 gm PO ONCE PRN; Protocol PRN Reason: Hypoglycemia Protocol Docusate Sodium (Colace) 100 mg PO BID [facility] Last Admin: 06/15/18 11:22 Dose: 100 mg Glucagon (Glucagen Diagnostic Kit) 0 mg IM STAT PRN; Protocol PRN Reason: Hypoglycemia Protocol Hydrochlorothiazide (Microzide) 12.5 mg PO DAILY [facility] Meropenem 500 mg/ Sodium (Chloride) 100 mls @ 100 mls/hr IVPB Q8H [facility]; Protocol Last Admin: 06/15/18 13:34 Dose: 100 mls/hr Lactated Ringer's (Lactated Ringer's) 1,000 mls @ 100 mls/hr IV .Q10H [facility] Last Admin: 06/15/18 08:56 Dose: 100 mls/hr Vancomycin/Sodium Chloride (Vancomycin 1 Gm/Ns 200 Ml) 1 gm in 200 mls @ 133 mls/hr IVPB Q12H [facility]; Protocol Stop: 06/26/18 13:16 Insulin Aspart (Novolog) 0 unit SC ACHS [facility]; Protocol Last Admin: 06/15/18 13:04 Dose: 2 unit Lisinopril (Zestril) 20 mg PO BID [facility] Last Admin: 06/11/18 09:43 Dose: 20 mg Memantine (Namenda) 10 mg PO DAILY [facility] Last Admin: 06/15/18 11:22 Dose: 10 mg Multivitamins/Minerals (Therapeutic-M Tab) 1 tab PO DAILY [facility] Last Admin: 06/15/18 11:23 Dose: 1 tab Rivastigmine (Exelon 9.5 Mg/24 Hr Patch) 1 patch TD DAILY [facility] Last Admin: 06/15/18 11:23 Dose: 1 patch Rosuvastatin Calcium (Crestor) 10 mg PO HS [facility] Last Admin: 06/14/18 22:00 Dose: 10 mg Saccharomyces Boulardii (Florastor) 250 mg PO BID [facility] Last Admin: 06/15/18 11:23 Dose: 250 mg - Labs Labs: 06/15/18 06:28 06/15/18 06:28 PT 16.5 SECONDS (9.7-12.2) H 06/10/18 13:16 INR 1.5 06/10/18 13:16 APTT 29 SECONDS (21-34) 06/10/18 13:16 - Constitutional Appears: Well, Non-toxic, No Acute Distress - Head Exam Head Exam: ATRAUMATIC, NORMAL INSPECTION, NORMOCEPHALIC - Eye Exam Eye Exam: EOMI, Normal appearance, PERRL Pupil Exam: NORMAL ACCOMODATION, PERRL - ENT Exam ENT Exam: Mucous Membranes Moist - Neck Exam Neck Exam: Full ROM, Normal Inspection - Respiratory Exam Respiratory Exam: NORMAL BREATHING PATTERN - Extremities Exam Extremities Exam: absent: Calf Tenderness, Full ROM (BLE weakness, decreased rom; FROM to BUE), Pedal Edema - Neurological Exam Neurological Exam: Abnormal Gait, Alert, Awake, CN II-XII Intact, Motor Sensory Deficit, Reflexes Normal Additional comments: BLE: normal sensation above ankles, decreased and asymmetrical positional and vibration sense; normal reflexes b/l; 3-4/5 active motor strength b/l BUE: normal sensation, 5/5 active motor strength, regulatory associate strength normal/equal, no pronator drift CNII-XII intact - Psychiatric Exam Psychiatric exam: Normal Affect, Normal Mood Additional comments: slow to respond to some questions, however, this is not new - Skin Skin Exam: Normal Color Assessment and Plan - Assessment and Plan (Free Text) Assessment: Mr. Adnres is here for fall and lower extremity weakness. His presenting problems may be related to neuropathy of chronic illness, however, we need to rule out brain mets as he has a h/o bladder cancer. Imaging: -T-Spine MRI (06/11/18): 1. Mildly inhomogeneous signal changes throughout the thoracic vertebral bodies is identified including multiple benign hemangiomata scattered as discussed above. Precautionary follow-up nuclear bone scan is advised to exclude potential underlying lesion though none are grossly apparent in the current MR exam. This can be gauged based on whether the patient has a known primary no metastatic malignancy. 2. No disc herniation, central canal or neural foraminal stenosis. Normal thoracic spinal cord signal intensity. No suspicious epidural or intrathecal lesion appreciable. -L-Spine MRI (06/11/18): Minor multilevel degenerative spondylosis most notably affecting the L5-S1 level as described. No acute compression fractures no retropulsed fragments. Probable scattered hemangiomas. Follow-up interval recommended to assess stability as detailed above. -Head CT: No acute intracranial abnormality. Chronic bilateral MCA and left MITCHELL territory infarctions. -Head CTA: No evidence of endoluminal thrombus,occlusion or definite significant stenosis in the intracranial arteries. No evidence of hemodynamically significant stenosis in the internal carotid arteries. Patent bilateral vertebral arteries. -Hip Xray: no acute fracture, dislocation, b/l hip joints; symmetric degenerat luis changes moderate at b/l hip joints and mild at sacroiliac joints -Brain MRI to r/o mets -Continue PT/OT. -Continue current meds and treatment. -Please notify neuro of acute changes. -Pt may have an EMG as outpatient once discharged. -If brain MRI is negative for mets or any acute changes, pt may be d/c to rehab as planned. Case discussed with Dr. Nj
--- NOTE | 2018-06-15 16:26 | MRI ---
Date of service: 06/15/2018 PROCEDURE: MRI BRAIN WITH AND WITHOUT CONTRAST HISTORY: r/o metastasis; h/o bladder CA COMPARISON: None available. TECHNIQUE: Multiplanar, multisequence MR images of the brain were obtained with and without intravenous contrast enhancement. 18 mL Omniscan was injected intravenously. FINDINGS: HEMORRHAGE: None DWI: No evidence of an acute or early subacute infarction. BRAIN PARENCHYMA: There are severe chronic microangiopathic changes. There are old lacunar infarctions in bilateral centrum semiovale, cutler radiata, basal ganglia, left preston dane and bilateral cerebellar hemispheres. There is no mass, mass effect or abnormal extra-axial fluid collection. There is no territorial infarction. The midline sagittal structures are normal. ENHANCEMENT: No abnormal intracranial enhancement. VENTRICLES: There is moderate age-related global parenchymal volume loss and proportionate enlargement of the ventricles and cortical sulci. CRANIUM: There is normal bone marrow signal pattern. ORBITS: Grossly unremarkable. PARANASAL SINUSES/MASTOIDS: There are retention cysts/polyps in the left maxillary sinus. The remaining included paranasal sinuses are clear. The mastoid air cells are clear. VASCULAR SYSTEM: There are normal signal voids in the larger intracranial arteries. OTHER FINDINGS: None . IMPRESSION: No acute intracranial abnormality. Multiple supra and infratentorial lacunar infarctions as described above. Severe chronic microangiopathic changes and moderate age-related global parenchymal volume loss.
--- NOTE | 2018-06-15 17:58 | CP.PCM.PN ---
Subjective - Date & Time of Evaluation Date of Evaluation: 06/15/18 Time of Evaluation: 08:00 - Subjective Subjective: discussed on rounds plan to d/c on IV Vanco / Merrem for 2 weeks Objective - Vital Signs/Intake and Output Vital Signs (last 24 hours): Temp Pulse Resp BP Pulse Ox 97.8 F 72 20 122/80 94 L 06/15/18 16:00 06/15/18 16:00 06/15/18 07:00 06/15/18 16:00 06/15/18 16:00 Intake and Output: 06/15/18 06/15/18 06:59 18:59 Intake Total 700 Output Total 1000 Balance -1000 700 - Medications Medications: Current Medications Amlodipine Besylate (Norvasc) 10 mg PO DAILY [facility] Last Admin: 06/15/18 11:23 Dose: 10 mg Bupropion HCl (Wellbutrin) 75 mg PO DAILY [facility] Last Admin: 06/15/18 11:23 Dose: 75 mg Dextrose (Dextrose 50% Inj) 0 ml IV STAT PRN; Protocol PRN Reason: Hypoglycemia Protocol Dextrose (Glutose 15) 0 gm PO ONCE PRN; Protocol PRN Reason: Hypoglycemia Protocol Docusate Sodium (Colace) 100 mg PO BID [facility] Last Admin: 06/15/18 11:22 Dose: 100 mg Glucagon (Glucagen Diagnostic Kit) 0 mg IM STAT PRN; Protocol PRN Reason: Hypoglycemia Protocol Hydrochlorothiazide (Microzide) 12.5 mg PO DAILY [facility] Meropenem 500 mg/ Sodium (Chloride) 100 mls @ 100 mls/hr IVPB Q8H [facility]; Protocol Last Admin: 06/15/18 13:34 Dose: 100 mls/hr Lactated Ringer's (Lactated Ringer's) 1,000 mls @ 100 mls/hr IV .Q10H [facility] Last Admin: 06/15/18 08:56 Dose: 100 mls/hr Vancomycin/Sodium Chloride (Vancomycin 1 Gm/Ns 200 Ml) 1 gm in 200 mls @ 133 mls/hr IVPB Q12H [facility]; Protocol Stop: 06/26/18 13:16 Last Admin: 06/15/18 16:37 Dose: 133 mls/hr Insulin Aspart (Novolog) 0 unit SC ACHS [facility]; Protocol Last Admin: 06/15/18 13:04 Dose: 2 unit Lisinopril (Zestril) 20 mg PO BID [facility] Last Admin: 06/11/18 09:43 Dose: 20 mg Memantine (Namenda) 10 mg PO DAILY [facility] Last Admin: 06/15/18 11:22 Dose: 10 mg Multivitamins/Minerals (Therapeutic-M Tab) 1 tab PO DAILY [facility] Last Admin: 06/15/18 11:23 Dose: 1 tab Rivastigmine (Exelon 9.5 Mg/24 Hr Patch) 1 patch TD DAILY [facility] Last Admin: 06/15/18 11:23 Dose: 1 patch Rosuvastatin Calcium (Crestor) 10 mg PO HS [facility] Last Admin: 06/14/18 22:00 Dose: 10 mg Saccharomyces Boulardii (Florastor) 250 mg PO BID [facility] Last Admin: 06/15/18 11:23 Dose: 250 mg - Labs Labs: 06/15/18 06:28 06/15/18 06:28 PT 16.5 SECONDS (9.7-12.2) H 06/10/18 13:16 INR 1.5 06/10/18 13:16 APTT 29 SECONDS (21-34) 06/10/18 13:16 - Constitutional Appears: Non-toxic, Chronically Ill - Head Exam Head Exam: NORMOCEPHALIC - Eye Exam Eye Exam: absent: Scleral icterus - ENT Exam ENT Exam: Mucous Membranes Dry - Neck Exam Neck Exam: absent: Lymphadenopathy - Respiratory Exam Respiratory Exam: Decreased Breath Sounds - Cardiovascular Exam Cardiovascular Exam: REGULAR RHYTHM - GI/Abdominal Exam GI & Abdominal Exam: Distended, Soft Assessment and Plan (1) Sepsis Status: Acute (2) UTI (urinary tract infection) Status: Acute (3) Dementia Status: Chronic (4) Bladder mass Status: Acute (5) CVA (cerebral vascular accident) Status: Acute
[2018-06-15 23:57] VITALS: BP 137/85; PULSE 69; TEMP 98.6; O2SAT 97
[2018-06-16] MEDS ORDERED: Gadodiamide 287 mg/ml 20 ml IV ONE (03:15)
--- NOTE | 2018-06-18 11:18 | PN ---
DATE: 06/15/2018 The patient is admitted and has history of bleeding bladder tumor. TURBT was done, waiting for the pathology. Today, the urine, no bleeding, no suprapubic fullness and no tenderness. The patient will go for bone scan. I do not know if the result available. It is not in the computer. I will follow him. Felix Lazcano MD
--- NOTE | 2018-06-20 06:38 | OP ---
PROCEDURE DATE: 06/13/2018 PREOPERATIVE DIAGNOSES: History of bladder tumor, hematuria, rule out recurrent tumor, multiple bladder tumors on the left lateral wall, posterior wall, and some on the floor, ureteral orifice intact on both sides, not involving the tumor. POSTOPERATIVE DIAGNOSES: History of bladder tumor, hematuria, rule out recurrent tumor, multiple bladder tumors on the left lateral wall, posterior wall, and some on the floor, ureteral orifice intact in both sides, not involving the tumor. PROCEDURES: Cystoscopy, transurethral resection of bladder tumor, and evacuating of some old clots. DESCRIPTION OF PROCEDURE: While the patient in lithotomy position, genitalia was prepped and draped in sterile fashion. The patient on antibiotic. Cystoscopy revealed large posterior tumor, large left lateral wall tumor, and multiple flat lesions in multiple areas. The big tumor on the left lateral wall resected. The posterior wall tumor resected. All the bleeders were coagulated. All the flat tumors fulgurated. Trigone intact, not involved with the cancer. Dome also has no lesion. The patient tolerated the procedure well. After emptying the bladder and removing some of the old clots, the patient was transferred to the recovery room in stable condition. Felix Lazcano MD
== END 2018-06-16 00:30 | DRG 854 ==
LOC: C.ER 13:00 → C.9E 15:29 → C.3T 15:48 → C.9E 15:49 → C.3T 16:43 → C.9E 17:16 → C.5S 17:49
PROVIDERS: ADMIT Family Medicine; ATTEND Family Medicine
PROC: 0TBB8ZZ Excision of Bladder, Via Natural or Artificial Opening Endoscopic (ICD-10-PCS; principal; 2018-06-13 14:45)
PROC: 02HV33Z Insertion of Infusion Device into Superior Vena Cava, Percutaneous Approach (ICD-10-PCS; 2018-06-15)
PROC: B548ZZA Ultrasonography of Superior Vena Cava, Guidance (ICD-10-PCS; 2018-06-15)
DX: A41.9 Sepsis, unspecified organism (principal); N17.9 Acute kidney failure, unspecified; N39.0 Urinary tract infection, site not specified; I13.0 Hypertensive heart and chronic kidney disease with heart failure and stage 1 through stage 4 chronic kidney disease, or unspecified chronic kidney disease; C67.4 Malignant neoplasm of posterior wall of bladder; R65.20 Severe sepsis without septic shock; E86.0 Dehydration; F01.50 Vascular dementia, unspecified severity, without behavioral disturbance, psychotic disturbance, mood disturbance, and anxiety; E11.22 Type 2 diabetes mellitus with diabetic chronic kidney disease; N18.9 Chronic kidney disease, unspecified; B96.20 Unspecified Escherichia coli [E. coli] as the cause of diseases classified elsewhere; E11.621 Type 2 diabetes mellitus with foot ulcer; E78.00 Pure hypercholesterolemia, unspecified; L97.529 Non-pressure chronic ulcer of other part of left foot with unspecified severity; I48.91 Unspecified atrial fibrillation; I50.9 Heart failure, unspecified; K21.9 Gastro-esophageal reflux disease without esophagitis; K59.00 Constipation, unspecified; N32.89 Other specified disorders of bladder; R32 Unspecified urinary incontinence; F02.80 Dementia in other diseases classified elsewhere, unspecified severity, without behavioral disturbance, psychotic disturbance, mood disturbance, and anxiety; G30.9 Alzheimer's disease, unspecified; Z79.82 Long term (current) use of aspirin; Z80.3 Family history of malignant neoplasm of breast; Z86.73 Personal history of transient ischemic attack (TIA), and cerebral infarction without residual deficits; Z91.81 History of falling; B95.62 Methicillin resistant Staphylococcus aureus infection as the cause of diseases classified elsewhere

== ENCOUNTER 2018-08-01 12:16 | Outpatient (CLI) | payer MEDICARE | END 2018-08-01 12:17 | disposition home or self-care (01) | LOC: C.LAB 12:16 → C.CTH 12:17 ==

== ENCOUNTER 2018-08-20 15:19 | Outpatient (CLI) | payer MEDICARE | END 2018-08-20 15:20 | disposition home or self-care (01) | LOC: C.MRIC 15:19 ==

== ENCOUNTER 2018-08-22 09:44 | Inpatient (IN) | payer MEDICARE ==
[2018-08-22 09:44] VITALS: BMI 26.1
--- NOTE | 2018-08-22 09:52 | C.PDOC ---
History Of Present Illness 63 y/o male with PMH of DM, HTN, CVA (left sided deficits), bladder cancer, dementia, chronic left foot wounds, presents to the ED sent by network security engineer Dr. Joao Marley for admission secondary to an MRI completed on 08/20/18 showing le ft 5th metatarsal osteomyelitis. Pt experienced redness, swelling, and tenderness to his chronic wound on the bottom of the distal 5th metatarsal with associated blackened skin on the lateral edge of the foot starting on 08/13/18. Saw Dr. Marley on 08/17/18 and was given a course of oral Clindamycin, which he has finished and the redness improved. Was called last night by Dr. Marley with results of the MRI and advised to come to ED today. Sees home wound care nurse 3 times weekly for dressing changes and application of Bactroban. Denies fevers, chills, nausea, vomiting, numbness, weakness, paresthesias, abdominal pain, chest pain, SOB, or any other associated symptoms. Time Seen by Provider: 08/22/18 09:49 Chief Complaint (Nursing): Lower Extremity Problem/Injury History Per: Patient History/Exam Limitations: no limitations Past Medical History Vital Signs: Last Vital Signs Temp 98.9 F 08/22/18 09:47 Pulse 78 08/22/18 09:47 Resp 18 08/22/18 09:47 BP 142/93 H 08/22/18 09:47 Pulse Ox 98 08/22/18 09:47 - Medical History PMH: Alzheimer's Disease, CVA, Dementia (vascular dementia-Alzheimers), Depression, Gastrointestinal Ulcer, HTN, Hypercholesterolemia, Malignancy (Bladder CA), Chronic Kidney Disease, TIA (several) Denies: HIV - [facility] Procedures BATHING/SHOWERING TECHNIQUES TREATMENT (03/16/15) COMM/COGNIT SKILL TREATMENT USING AUGMENT COMM EQUIPMENT (07/07/17) DRESSING TECHNIQUES TREATMENT (03/16/15) EXCISION OF BLADDER, ENDO (06/10/18) EXCISION OF TOE NAIL, EXTERNAL APPROACH (03/16/15) EXERCISE TREATMENT OF MUSCULOSK WHOLE USING ASSIST EQUIPMENT (07/07/17) EXTRACTION OF LEFT FOOT SKIN, EXTERNAL APPROACH (05/04/15) GAIT TRAINING/AMBULAT TREATMENT USING ASSIST EQUIPMENT (07/07/17) HOME MANAGEMENT TREATMENT (09/14/15) HOME MANAGEMENT TREATMENT USING ASSIST EQUIPMENT (07/07/17) INSERTION OF INFUSION DEV INTO SUP VENA CAVA, PERC APPROACH (06/10/18) INTRODUCTION OF ANTI-INFLAM INTO RESP TRACT, VIA OPENING (07/07/17) SPEECH PATH ACQUISITION CONSULTANT TREATMENT (03/16/15) THERAPEUTIC EXERCISE TREATMENT OF MUSCULOSK WHOLE (03/16/15) ULTRASONOGRAPHY OF HEART WITH AORTA, TRANSESOPHAGEAL (07/03/17) ULTRASONOGRAPHY OF SUPERIOR VENA CAVA, GUIDANCE (06/10/18) Family History: States: Unknown Family Hx, Hypertension - Social History Hx Tobacco Use: No Hx Alcohol Use: Yes (former) Hx Substance Use: No - Immunization History Hx Tetanus Toxoid Vaccination: No Hx Influenza Vaccination: No Hx Pneumococcal Vaccination: Yes Review Of Systems Constitutional: Negative for: Fever, Chills Eyes: Negative for: Vision Change ENT: Negative for: Nose Congestion, Throat Pain Cardiovascular: Negative for: Chest Pain, Palpitations, Light Headedness Respiratory: Negative for: Cough, Shortness of Breath Gastrointestinal: Negative for: Nausea, Vomiting, Abdominal Pain, Diarrhea Musculoskeletal: Positive for: Foot Pain (left foot). Negative for: Neck Pain, Back Pain Skin: Positive for: Lesions (left foot wound). Negative for: Rash Neurological: Positive for: Weakness (chronic left side). Negative for: Numbness, Headache, Dizziness Physical Exam - Physical Exam Appears: Well, No Acute Distress Skin: Normal Color, Warm, Dry Head: No Atraumatic, No Normacephalic Eye(s): bilateral: Normal Inspection, PERRL, EOMI Nose: Normal Throat: Normal Neck: Normal, Normal ROM, Supple Cardiovascular: Rhythm Regular Respiratory: Normal Breath Sounds Gastrointestinal/Abdominal: Soft, No Tenderness Back: Normal Inspection Extremity: Normal ROM, No Tenderness, Capillary Refill (<2s), No Deformity, No Swelling, Other (2cm diameter ulceration at plantar abscess of distal 5th metatarsal, small amount of serosanguinous drainage; blackened skin on lateral edge of foot adjacent to ulceration; neurovascularly intact bialterally) Extremity: Bilateral: Atraumatic, Normal ROM Pulses: Left Radial: Normal, Right Radial: Normal, Left Dorsalis Pedis: Normal, Right Dorsalis Pedis: Normal Neurological/Psych: Oriented x3, Normal Speech Gait: Steady ED Course And Treatment - Laboratory Results Result Diagrams: 08/22/18 10:21 08/22/18 10:21 ECG: Viewed By Me ECG Rhythm: Sinus Rhythm ECG Interpretation: No Acute Changes Interpretation Of ECG: rate 81; NSR with 1st degree AV block; No STEMI, non specific ST/T wave changes. Similar to EKG on 06/11/18 Rate From EC O2 Sat by Pulse Oximetry: 98 Pulse Ox Interpretation: Normal - Radiology CXR: Viewed By Me, Read By Radiologist CXR Interpretation: Yes: No Acute Disease - Physician Consult Information Time Consulting Physician Contacted: 10:40 Physician Contacted: Joao Marley Outcome Of Conversation: Recommends inpatient admission with consults to ID, Podiatry, and Vascular Medical Decision Making Medical Decision Making: Initial Plan: * CBC, CMP * Coags * Blood Cultures * Wound Culture * EKG * CXR * Podiatry consult 10:11 Spoke with podiatry resident, will see pt in ED. Requests left foot XR 10:[address] Marley. Requests consults with vascular (Brown) and ID (Noel) Labwork reviewed, unremarkable 11:[address] Joel Mandujano, admitting for patient's PMD Mary Jane Hernandez, who accepted patient for inpatient admission to med/surg floor with diagnosis of left 5th metatarsal osteomyelitis. Patient and family made aware of change in disposition; patient with stable vital signs at this time. Disposition - Disposition Disposition: HOSPITALIZED Disposition Time: 11:15 Condition: STABLE - Clinical Impression Clinical Impression: Osteomyelitis of left foot
[2018-08-22 10:27] LABS: BASO % 0.6 % (0.0-2.0); EOS # 0.2 K/uL (0.0-0.7); EOS % 1.9 % (0.0-4.0); LYMPH # 1.7 K/uL (1.0-4.3); LYMPH % 20.5 % (20.0-40.0); MEAN CELL VOLUME 82.7 fL (80.0-94.0); MEAN CORPUSCULAR HEMOGLOBIN 27.2 pg (27.0-31.0); MEAN CORPUSCULAR HGB CONC 32.9 g/dL (33.0-37.0); MEAN PLATELET VOLUME 8.7 fL (7.2-11.7); MONO # 0.6 K/uL (0.0-0.8); MONO % 7.3 % (0.0-10.0); NEUT # 5.8 K/uL (1.8-7.0); NEUT % 69.7 % (50.0-75.0); RBC 5.4 Mil/uL (4.40-5.90); RED CELL DISTRIBUTION WIDTH 15.8 % (11.5-14.5); WHITE BLOOD COUNT 8.3 K/uL (4.8-10.8)
[2018-08-22 10:29] LABS: HEMOGLOBIN 14.7 g/dL (12.0-18.0)
[2018-08-22 10:42] LABS: ALB/GLOB RATIO 1.3 (1.0-2.1); ALBUMIN 4.6 g/dL (3.5-5.0); ALT/SGPT 17 U/L (21-72); AST/SGOT 30 U/L (17-59); BLOOD UREA NITROGEN 33 mg/dL (9-20); CALCIUM 9.7 mg/dl (8.6-10.4); GFR NON-AFRICAN AMERICAN 55
--- NOTE | 2018-08-22 10:53 | CP.PCM.CON ---
<Sanna Sosa - Last Filed: 08/22/18 12:42> History of Present Illness - History of Present Illness History of Present Illness: Podiatry Consult Note - Dr. Marley 63 year old male with extensive PMHx including dementia, hx of CVA, HTN, HLD, bladder cancer, CKD, NIDDM seen and evaluated in ED concerning infected left foot wound. History limited per patient due to mental status; patient accompanied by sisters who relay HPI. Patient was sent to ED by Dr. Marley for admission after MRI revealed L 5th metatarsal osteomyelitis. Approximately 2 weeks ago, patient's wound on the bottom of his left foot became red and swollen, so was given a course of Clindamycin. Patient's home health nurse provided at home wound care 3x/week who stated on Monday08/17/18 infection appeared to be resolving; however, on Monday wound suddenly worsened so was sent to ED for further evaluation. Outpatient MRI confirmed suspicion of osteomyelitis. Denies n/v/f/d/c/sob/marte/cp. PMH: as above PSH: bladder resection All: NKDA Review of Systems - Review of Systems All systems: reviewed and no additional remarkable complaints except (as per HPI) Past Patient History - Infectious Disease Hx of Infectious Diseases: None - Tetanus Immunizations Tetanus Immunization: Unknown - Past Medical History & Family History Past Medical History?: Yes - Past Social History Smoking Status: Never Smoked - CARDIAC Hx Hypercholesterolemia: Yes Hx Hypertension: Yes - NEUROLOGICAL Hx Alzheimer's Disease: Yes Hx Dementia: Yes (vascular dementia-Alzheimers) Hx Transient Ischemic Attacks (TIA): Yes (several) - HEENT Hx HEENT Problems: No Other/Comment: nearsighted-wears reading glasses - RENAL Hx Chronic Kidney Disease: Yes - ENDOCRINE/METABOLIC Hx Endocrine Disorders: No - HEMATOLOGICAL/ONCOLOGICAL Hx Human Immunodeficiency Virus (HIV): No - INTEGUMENTARY Hx Dermatological Problems: No - GASTROINTESTINAL Hx Gastrointestinal Disorders: Yes Hx Gastroesophageal Reflux: Yes - GENITOURINARY/GYNECOLOGICAL Hx Genitourinary Disorders: Yes Hx Bladder Cancer: Yes - PSYCHIATRIC Hx Depression: Yes Hx Substance Use: No - SURGICAL HISTORY Hx Surgeries: Yes Other/Comment: abdominal surgery. bladder surgery 2009. - ANESTHESIA Hx Anesthesia: Yes Hx Anesthesia Reactions: No Hx Malignant Hyperthermia: No Meds Allergies/Adverse Reactions: Allergies Allergy/AdvReac Type Severity Reaction Status Date / Time No Known Allergies Allergy Verified 08/22/18 09:47 Physical Exam - Constitutional Appears: Toxic, No Acute Distress - Extremities Exam Extremities exam: Positive for: full ROM, normal capillary refill, pedal edema, pedal pulses present (DP and PT pulses 2/4). Negative for: calf tenderness, tenderness - Neurological Exam Neurological exam: Alert Additional comments: Gross lower extremity sensation intact - Psychiatric Exam Psychiatric exam: Normal Affect, Normal Mood - Skin Additional comments: Ulceration measuring approximately 1.5 x 1 x 0.2cm noted sub 5th met head- ulcer noted to have a granular base and hyperkeratotic rim; no malodor; minimal drainage; no purulence; no fluctuance; periwound erythema present Results - Vital Signs Recent Vital Signs: Last Vital Signs Temp 98.9 F 08/22/18 09:47 Pulse 78 08/22/18 09:47 Resp 18 08/22/18 09:47 BP 142/93 H 08/22/18 09:47 Pulse Ox 98 08/22/18 10:40 - Labs Result Diagrams: 08/22/18 10:21 08/22/18 10:21 Labs: Laboratory Results - last 24 hr 08/22/18 08/22/18 10:21 10:21 WBC 8.3 RBC 5.40 Hgb 14.7 D Hct 44.7 MCV 82.7 MCH 27.2 MCHC 32.9 L RDW 15.8 H Plt Count 225 MPV 8.7 Neut % (Auto) 69.7 Lymph % (Auto) 20.5 [place] % (Auto) 7.3 Eos % (Auto) 1.9 Baso % (Auto) 0.6 Neut # (Auto) 5.8 Lymph # (Auto) 1.7 [place] # (Auto) 0.6 Eos # (Auto) 0.2 Baso # (Auto) 0.0 Sodium 141 Potassium 4.3 Chloride 106 Carbon Dioxide 24 Anion Gap 16 BUN 33 H Creatinine 1.3 Est GFR ( Amer) > 60 Est GFR (Non-Af Amer) 55 Random Glucose 92 Calcium 9.7 Total Bilirubin 0.9 AST 30 ALT 17 L D Alkaline Phosphatase 77 Total Protein 8.0 Albumin 4.6 Globulin 3.4 Albumin/Globulin Ratio 1.3 Assessment & Plan - Assessment and Plan (Free Text) Assessment: 63M with left sub 5th met head ulceration + osteomyelitis Plan: Patient seen and evaluated Discussed with attending, Dr. Marley VSKwan, WBC 8.3 L foot XR ordered LLE MRI (08/20): Acute OM 5th met head extending into shaft as well as within 5th proximal phalanx Vascular, ID consulted Plan for OR Monday, 08/24 @ 7:30 left partial 5th ray resection -Medical clearance requested Podiatry will continue to follow <Joao Marley - Last Filed: 08/22/18 19:25> Meds - Medications Medications: Current Medications Amlodipine Besylate (Norvasc) 10 mg PO DAILY [facility] Bupropion HCl (Wellbutrin) 75 mg PO DAILY [facility] Dextrose (Dextrose 50% Inj) 0 ml IV STAT PRN; Protocol PRN Reason: Hypoglycemia Protocol Dextrose (Glutose 15) 0 gm PO ONCE PRN; Protocol PRN Reason: Hypoglycemia Protocol Glucagon (Glucagen Diagnostic Kit) 0 mg IM STAT PRN; Protocol PRN Reason: Hypoglycemia Protocol Hydrochlorothiazide (Microzide) 12.5 mg PO DAILY [facility] Cefepime HCl 1 gm/ Dextrose 50 mls @ 100 mls/hr IVPB Q12H [facility]; Protocol Last Admin: 08/22/18 15:48 Dose: 100 mls/hr Dextrose (Dextrose 5% In Water 1000 Ml) 1,000 mls @ 0 mls/hr IV .Q0M PRN; Protocol PRN Reason: Hypoglycemia Protocol Sodium Chloride (Sodium Chloride 0.9%) 1,000 mls @ 100 mls/hr IV .Q10H [facility] Last Admin: 08/22/18 14:52 Dose: 100 mls/hr Vancomycin HCl 1 gm/ Sodium (Chloride) 250 mls @ 166.7 mls/hr IVPB 1600 [facility]; Protocol Last Admin: 08/22/18 16:45 Dose: 166.7 mls/hr Insulin Human Regular (Novolin R) 0 unit SC ACHS [facility]; Protocol Last Admin: 08/22/18 16:15 Dose: Not Given Lisinopril (Zestril) 20 mg PO DAILY [facility] Memantine (Namenda) 10 mg PO DAILY [facility] Mupirocin (Bactroban Ointment) 0 gm TOP DAILY [facility] Pneumococcal Polyvalent Vaccine (Pneumovax 23 Vaccine) 0.5 ml IM .ONCE ONE Stop: 08/24/18 10:01 Rivastigmine (Exelon 9.5 Mg/24 Hr Patch) 1 patch TD DAILY [facility] Rosuvastatin Calcium (Crestor) 10 mg PO HS [facility] Results - Vital Signs Recent Vital Signs: Last Vital Signs Temp 98.1 F 08/22/18 16:16 Pulse 79 08/22/18 16:16 Resp 20 08/22/18 16:16 BP 112/76 08/22/18 16:16 Pulse Ox 95 08/22/18 16:16 - Labs Result Diagrams: 08/22/18 10:21 08/22/18 10:21 Labs: Laboratory Results - last 24 hr 08/22/18 08/22/18 08/22/18 10:21 10:21 11:28 WBC 8.3 RBC 5.40 Hgb 14.7 D Hct 44.7 MCV 82.7 MCH 27.2 MCHC 32.9 L RDW 15.8 H Plt Count 225 MPV 8.7 Neut % (Auto) 69.7 Lymph % (Auto) 20.5 Sargent % (Auto) 7.3 Eos % (Auto) 1.9 Baso % (Auto) 0.6 Neut # (Auto) 5.8 Lymph # (Auto) 1.7 [place]ent # (Auto) 0.6 Eos # (Auto) 0.2 Baso # (Auto) 0.0 PT 15.3 H INR 1.4 APTT 37 H Sodium 141 Potassium 4.3 Chloride 106 Carbon Dioxide 24 Anion Gap 16 BUN 33 H Creatinine 1.3 Est GFR ( Amer) > 60 Est GFR (Non-Af Amer) 55 POC Glucose (mg/dL) Random Glucose 92 Calcium 9.7 Total Bilirubin 0.9 AST 30 ALT 17 L D Alkaline Phosphatase 77 Total Protein 8.0 Albumin 4.6 Globulin 3.4 Albumin/Globulin Ratio 1.3 Urine Color Urine Clarity Urine pH Ur Specific [place] Urine Protein Urine Glucose (UA) Urine Ketones Urine Blood Urine Nitrate Urine Bilirubin Urine Urobilinogen Ur Leukocyte Esterase Urine WBC (Auto) Urine RBC (Auto) Ur Squamous Epith Cells 08/22/18 08/22/18 15:23 15:50 WBC RBC Hgb Hct MCV MCH MCHC RDW Plt Count MPV Neut % (Auto) Lymph % (Auto) S[place]ent % (Auto) Eos % (Auto) Baso % (Auto) Neut # (Auto) Lymph # (Auto) S[place]ent # (Auto) Eos # (Auto) Baso # (Auto) PT INR APTT Sodium Potassium Chloride Carbon Dioxide Anion Gap BUN Creatinine Est GFR ( Amer) Est GFR (Non-Af Amer) POC Glucose (mg/dL) 140 H Random Glucose Calcium Total Bilirubin AST ALT Alkaline Phosphatase Total Protein Albumin Globulin Albumin/Globulin Ratio Urine Color Yellow Urine Clarity Hazy Urine pH 5.0 Ur Specific [place] 1.016 Urine Protein 1+ H Urine Glucose (UA) Normal Urine Ketones Negative Urine Blood 3+ H Urine Nitrate Negative Urine Bilirubin Negative Urine Urobilinogen Normal Ur Leukocyte Esterase Neg Urine WBC (Auto) 14 H Urine RBC (Auto) 290 H Ur Squamous Epith Cells < 1 Assessment & Plan - Assessment and Plan (Free Text) Plan: pt seen at bedside . discussed condition with patient and sisters . needs excis ion of infected bone for chronic ulcer with episodes of frequent severe cellulitis .MRI is positive for OM in area . Case discussed with Dr Cohen . Will get vascular eval and medical clearance . plan for OR Monday am ./DR Salinas
[2018-08-22 11:41] LABS: INR 1.4; PROTHROMBIN TIME 15.3 SECONDS (9.7-12.2)
--- NOTE | 2018-08-22 11:45 | RAD ---
Date of service: 08/22/2018 HISTORY: admission COMPARISON: 06/15/2018. FINDINGS: LUNGS: The lungs are well inflated and clear. PLEURA: No pleural effusions or pneumothorax. CARDIOVASCULAR: The heart is normal in size. No aortic atherosclerotic calcifications present. OSSEOUS STRUCTURES: Within normal limits for the patient's age. VISUALIZED UPPER ABDOMEN: Normal. OTHER FINDINGS: None. IMPRESSION: No active pulmonary disease.
--- NOTE | 2018-08-22 11:46 | CP.PCM.HP ---
History of Present Illness - History of Present Illness History of Present Illness: cc My worship director sent me in 63 y/o male with PMH of DM, HTN, 2 CVAs (left sided deficits), dementia, Chronic left foot wounds, sent in to [facility] [place] ED by worship director Dr. Joao Marley for admission after results of MRI (08/20/18) showed L 5th metatarsal osteomyelitis. Pt began getting pain swelling and redness and darkening of the L foot 10 days ago. He followed up with Dr Marley on 08/17 who recommeded oral Clinda Saw Dr. Marley on 08/17/18 and was given a course of oral Clindamycin, and home nursing wound care 3 times weekly for dressing changes and application of Bactroban. Pt has been non compliant with benton prescribed medications and follows up with his PMD and specialists. Pt was recently admitted for Urosepsis Jun, was also found to have MRSA in foot ulcer, treated with Vanco ROS: Pos + frequent falls, hx of ulcer under L MTP, cognitive and memory loss, non compliance with follow ups, Hx of Bladder Ca, Incontinence Neg- fevers, chills, nausea, vomiting, numbness, weakness, paresthesias, abdominal pain, chest pain, SOB, or any other associated symptoms. PMD: Dr. Hrenandez; Urologist: Dr. Lazcano; Cardio: Dr. Nettles PMH: CVA (embolic), PFO, AFib (possible Watchman procedure in the future), Bladder cancer (9 yrs ago- received chemotherapy), HTN, HLD, T2DM, vascular dementia, GERD, Hypokalemia, depression PSH: cholecystectomy, cystoscopy (bladder cancer), malrotation of gut correction (infant) FH: Mother: Alzheimer's; Sister: breast cancer, brain cyst, afib Aller: denies social: lives at home with two sisters who are his caretakers; social alcohol use (quit 9 yrs ago), cocaine use (quit 9 yrs ago), denies current or prior tobacco use Present on Admission - Present on Admission Any Indicators Present on Admission: No Urinary Catheter: Yes Review of Systems - Review of Systems Systems not reviewed;Unavailable: Dementia - Cardiovascular Cardiovascular: absent: Chest Pain - Respiratory Respiratory: absent: Cough, Dyspnea on Exertion - Gastrointestinal Gastrointestinal: absent: Abdominal Pain, Hematochezia, Nausea, Vomiting - Genitourinary Genitourinary: Urinary Incontinence, Hx /Renal Surgery - Musculoskeletal Musculoskeletal: Abnormal Gait (hx of falls) - Psychiatric Psychiatric: Confusion, Memory Loss Past Patient History - Infectious Disease Hx of Infectious Diseases: None - Tetanus Immunizations Tetanus Immunization: Unknown - Past Medical History & Family History Past Medical History?: Yes - Past Social History Smoking Status: Never Smoked - CARDIAC Hx Hypercholesterolemia: Yes Hx Hypertension: Yes - NEUROLOGICAL Hx Alzheimer's Disease: Yes Hx Dementia: Yes (vascular dementia-Alzheimers) Hx Transient Ischemic Attacks (TIA): Yes (several) - HEENT Hx HEENT Problems: No Other/Comment: nearsighted-wears reading glasses - RENAL Hx Chronic Kidney Disease: Yes - ENDOCRINE/METABOLIC Hx Endocrine Disorders: No - HEMATOLOGICAL/ONCOLOGICAL Hx Human Immunodeficiency Virus (HIV): No - INTEGUMENTARY Hx Dermatological Problems: No - GASTROINTESTINAL Hx Gastrointestinal Disorders: Yes Hx Gastroesophageal Reflux: Yes - GENITOURINARY/GYNECOLOGICAL Hx Genitourinary Disorders: Yes Hx Bladder Cancer: Yes - PSYCHIATRIC Hx Depression: Yes Hx Substance Use: No - SURGICAL HISTORY Hx Surgeries: Yes Other/Comment: abdominal surgery. bladder surgery 2009. - ANESTHESIA Hx Anesthesia: Yes Hx Anesthesia Reactions: No Hx Malignant Hyperthermia: No Meds Allergies/Adverse Reactions: Allergies Allergy/AdvReac Type Severity Reaction Status Date / Time No Known Allergies Allergy Verified 08/22/18 09:47 Physical Exam - Constitutional Appears: Well, Non-toxic, No Acute Distress, Confused - Head Exam Head Exam: ATRAUMATIC, NORMAL INSPECTION - Eye Exam Eye Exam: EOMI, Normal appearance - ENT Exam ENT Exam: Mucous Membranes Moist, Normal Exam - Neck Exam Neck exam: Negative for: Lymphadenopathy - Respiratory Exam Respiratory Exam: Clear to Auscultation Bilateral. absent: Rales, Wheezes - Cardiovascular Exam Cardiovascular Exam: RRR, +S1, +S2 - GI/Abdominal Exam GI & Abdominal Exam: Soft. absent: Guarding, Organomegaly, Tenderness - Extremities Exam Extremities exam: Positive for: pedal pulses present Additional comments: L foot: toes moving, sensation absent past MTP, sub met head of 1st toe, 5x1.5x1cm granular base minimal drainage, periwound erythema, no malodor - Neurological Exam Neurological exam: Alert, CN II-XII Intact, Oriented x3 - Psychiatric Exam Psychiatric exam: Flat Affect - Skin Skin Exam: Dry, Pallor, Warm Results - Vital Signs Recent Vital Signs: Last Vital Signs Temp 98.9 F 08/22/18 09:47 Pulse 78 08/22/18 09:47 Resp 18 08/22/18 09:47 BP 142/93 H 08/22/18 09:47 Pulse Ox 98 08/22/18 11:21 - Labs Result Diagrams: 08/23/18 07:53 08/23/18 07:53 Labs: Laboratory Results - last 24 hr 08/22/18 08/22/18 10:21 10:21 WBC 8.3 RBC 5.40 Hgb 14.7 D Hct 44.7 MCV 82.7 MCH 27.2 MCHC 32.9 L RDW 15.8 H Plt Count 225 MPV 8.7 Neut % (Auto) 69.7 Lymph % (Auto) 20.5 [place] % (Auto) 7.3 Eos % (Auto) 1.9 Baso % (Auto) 0.6 Neut # (Auto) 5.8 Lymph # (Auto) 1.7 [place] # (Auto) 0.6 Eos # (Auto) 0.2 Baso # (Auto) 0.0 Sodium 141 Potassium 4.3 Chloride 106 Carbon Dioxide 24 Anion Gap 16 BUN 33 H Creatinine 1.3 Est GFR ( Amer) > 60 Est GFR (Non-Af Amer) 55 Random Glucose 92 Calcium 9.7 Total Bilirubin 0.9 AST 30 ALT 17 L D Alkaline Phosphatase 77 Total Protein 8.0 Albumin 4.6 Globulin 3.4 Albumin/Globulin Ratio 1.3 Assessment & Plan - Assessment and Plan (Free Text) Assessment: Assessment: Patient is a 63 yo male with extensive PMH, including multiple CVAs 2/2 PFO and Afib, vascular dementia, bladder CA, and T2DM who presents from Dr Marley s/p MRI results showing Osteomyelitis, for sx mon Plan: MRSA infection of L 5th metatarsal ulcer - Dr Marley Podiatry consulted: MRI: Mon 730am for Sx NPO past midnight - Vasc Sx Brown Consulted: f/u recs - ID consulted (Noel) - Vancomycin 1 g IV Q24H - Cefepime IVPB - Florastor 250 mg PO BID - f/u blood cultures - recommend OR sample cultures post op PFO with AFib - Dr Nettles Cardio -spoke on phone: Pt needs to get a loop recorder for one month before consideration of PFO c losure Pt has not followed up as instructed after last d/c in jun Pt is to restart ASA 81 with Plavix 75 after sx Vascular dementia with A fib and PFO - CTA head/neck 06/19: no significant stenosis or structural abnormalities - Crestor 10 mg PO QHS - Wellbutrin 75 mg PO daily - Memantine 10 mg PO daily - Rivastigmine 9.5 mg patch daily - Fall precautions Hypertension - Monitor vitals Q4H - Amlodipine 10 mg PO daily - HCTZ 12.5 PO daily - Lisinopril 20 mg PO daily Type 2 diabetes mellitus - Last A1c 6.9, f/u AM - Hypoglycemic protocol - Accuchecks ACHS with ISS Hx of bladder cancer - Urology Dr Lazcano: pt did not f/u after original dx of CA 9 yrs ago - 5 lesions removed during recent cystoscopy - Superficial in situ remenant, no further interventions need at this time - Monitor I&Os - Choe inserted 08/22 Ppx: VTE: SCDs, hold anti coag until after procedure GI: not indicated, HHD Diet Code status: full code
--- NOTE | 2018-08-22 13:02 | RAD ---
Date of service: 08/22/2018 PROCEDURE: Left Foot Radiographs. HISTORY: chronic foot wound, osteomyelitis, 5th metatarsal COMPARISON: MRI from 08/20/2018. FINDINGS: BONES: There is no acute displaced fracture or bone destruction. There is periarticular bone demineralization. No definite evidence for bone erosion. JOINTS: There is dislocation of the 5th metatarsophalangeal joint. The remaining joint spaces are preserved. SOFT TISSUES: There is periarticular soft tissue swelling and soft tissue edema at the 5th metatarsophalangeal joint. OTHER FINDINGS: Atherosclerotic vascular calcifications are present. IMPRESSION: Dislocation of the 5th metatarsophalangeal joint with periarticular soft tissue swelling and soft tissue edema. No definite evidence for bone erosion or bone destruction. There is a persistent clinical
[2018-08-22] MEDS ORDERED: Dextrose 50% SYRINGE Inj (50 ml) IV PRN (13:25)
[2018-08-22] MEDS ORDERED: Glucagon Recombinant 1 mg Inj IM PRN (13:25)
--- NOTE | 2018-08-22 13:58 | CP.PCM.CON ---
History of Present Illness - History of Present Illness History of Present Illness: 63 y/o male with , Chronic left foot wounds, sent in to [facility] ED by wireless sales expert Dr. Joao Marley for admission after results of MRI (08/20/18) showed L 5th metatarsal osteomyelitis. Pt began getting pain swelling and redness and darken ing of the L foot 10 days ago. He followed up with Dr Marley on 08/17 who recommeded oral Clinda Saw Dr. Marley on 08/17/18 and was given a course of oral Clindamycin, and home nursing wound care 3 times weekly for dressing changes and application of Bactroban. PMHx: multiple CVAs, vascular dementia, bladder cancer, HTN, DM, PFO on FAISAL SurgHx: cholecystectomy, cystoscopy (bladder cancer), malrotation of gut correction (infant) FamHx: Mother: Alzheimer's; Sister: breast cancer, brain cyst, afib SocHx: has not used for past 10 years; former etoh use (per sister, not a heavy a drinker, only drank on fridays); Allergies: NKDA Review of Systems - Constitutional Constitutional: Weakness. absent: Headache - EENT Eyes: absent: Blurred Vision, Change in Vision, Loss of Vision Ears: absent: Dizziness - Cardiovascular Cardiovascular: absent: Chest Pain, Dyspnea, Palpitations - Respiratory Respiratory: absent: Cough, Dyspnea - Gastrointestinal Gastrointestinal: Constipation (chronic). absent: Abdominal Pain, Diarrhea, Nausea, Vomiting - Genitourinary Genitourinary: Urinary Incontinence (chronic) - Musculoskeletal Musculoskeletal: absent: Back Pain - Neurological Neurological: Abnormal Gait, Abnormal Speech (chronic dysarthria x10 years), Focal Weakness (b/l LE), Lack of Coordination, Weakness (b/l LE). absent: Dizziness, Headaches, Loss of Vision, Sensory Deficit, Tingling - Psychiatric Psychiatric: absent: Auditory Hallucinations, Hallucinations, Visual Hallucinations, Tactile Hallucinations Review of Systems - Review of Systems Systems not reviewed;Unavailable: Altered Mental Status All systems: reviewed and no additional remarkable complaints except - Constitutional Constitutional: As Per HPI - EENT Eyes: absent: As Per HPI, Blind Spots, Blurred Vision, Change in Vision, Decreased Night Vision, Diplopia, Discharge, Dry Eye, Exophthalmos, Floaters, Irritation, Itchy Eyes, Loss of Peripheral Vision, Pain, Photophobia, Requires Corrective Lenses, Sees Flashes, Spots in Vision, Tunnel Vision, Other Visual Disturbances, Loss of Vision, Other Ears: absent: As Per HPI, Decreased Hearing, Ear Discharge, Ear Pain, Tinnitus, Abnormal Hearing, Disequilibrium, Dizziness, Other Nose/Mouth/Throat: absent: As Per HPI, Epistaxis, Nasal Congestion, Nasal Discharge, Nasal Obstruction, Nasal Trauma, Nose Pain, Post Nasal Drip, Sinus Pain, Sinus Pressure, Bleeding Gums, Change in Voice, Dental Pain, Dry Mouth, Dysphagia, Halitosis, Hoarsness, Lip Swelling, Mouth Lesions, Mouth Pain, Odynophagia, Sore Throat, Throat Swelling, Tongue Swelling, Facial Pain, Neck Pain, Neck Mass, Other - Cardiovascular Cardiovascular: absent: As Per HPI, Acrocyanosis, Chest Pain, Chest Pain at Rest, Chest Pain with Activity, Claudication, Diaphoresis, Dyspnea, Dyspnea on Exertion, Edema, Irregular Heart Rhythm, Pain Radiating to Arm/Neck/Jaw, Leg Edema, Leg Ulcers, Lightheadedness, Orthopnea, Palpitations, Paroxysmal [place]cturn al Dyspnea, Pedal Edema, Radiating Pain, Rapid Heart Rate, Slow Heart Rate, Syncope, Other - Respiratory Respiratory: absent: As Per HPI, Cough, Dyspnea, Hemoptysis, Dyspnea on Exertion, Wheezing, Snoring, Stridor, Pain on Inspiration, Chest Congestion, Excessive Mucous Production, Change in Mucous Color, Pain with Coughing, Other - Gastrointestinal Gastrointestinal: absent: As Per HPI, Abdominal Pain, Belching, Bloating, Change in Bowel Habits, Change in Stool Character, Coffee Ground Emesis, Constipation, Cramping, Diarrhea, Dyspepsia, Dysphagia, Early Satiety, Excessive Flatus, Fecal Incontinence, Heartburn, Hematemesis, Hematochezia, Loose Stools, Melena, Nausea, Odynophagia, Temesmus, Vomiting, Other - Genitourinary Genitourinary: As Per HPI - Musculoskeletal Musculoskeletal: absent: As Per HPI, Abnormal Gait, Arthralgias, Atrophy, Back Pain, Deformity, Joint Swelling, Limited Range of Motion, Loss of Height, Muscle Cramps, Muscle Weakness, Myalgias, Neck Pain, Numbness, Radiating Pain into Limb, Stiffness, Tingling, Other - Integumentary Integumentary: absent: As Per HPI, Acne, Alopecia, Bleeding Lesions, Change in Hair, Change in Nails, Change in Pigmentation, Changing Lesions, Dry Skin, Erythema, Furuncle, Hirsutism, Lesions, New Lesions, Non-Healing Lesions, Photosensitivity, Pruritus, Rash, Skin Pain, Skin Ulcer, Sores, Striae, Swelling, Unusual Bruising, Wounds, Jaundice, Other - Neurological Neurological: absent: As Per HPI, Abnormal Gait, Abnormal Hearing, Abnormal Movements, Abnormal Speech, Behavioral Changes, Burning Sensations, Confusion, Convulsions, Disequilibrium, Dizziness, Numbness, Focal Weakness, Frequent Falls, Headaches, Lack of Coordination, Loss of Vision, Memory Loss, Paresthesias, Radicular Pain, Restless Legs, Sensory Deficit, Syncope, Tingling, Tremor, Vertigo, Weakness, Other Visual Disturbances, Other - Psychiatric Psychiatric: absent: As Per HPI, Abnormal Sleep Pattern, Anhedonia, Anxiety, Auditory Hallucinations, Behavioral Changes, Change in Appetite, Change in Libido, Confusion, Depression, Difficulty Concentrating, Hallucinations, Homicidal Ideation, Hopelessness, Irritability, Memory Loss, Mood Swings, Panic Attacks, Paranoia, Suicidal Ideation, Visual Hallucinations, Tactile Hallucinations, Other - Endocrine Endocrine: absent: As Per HPI, Change in Body Appearance, Change in Libido, Cold Intolorance, Deepening of Voice, Excessive Sweating, Fatigue, Flushing, Heat Intolorance, Increase in Ring/Shoe/Hat Size, Palpitations, Polydipsia, Polyphagia, Polyuria, Other - Hematologic/Lymphatic Hematologic: absent: As Per HPI, Easy Bleeding, Easy Bruising, Lymphadenopathy, Other ROS: Neg- fevers, chills, nausea, vomiting, numbness, weakness, paresthesias, abdominal pain, chest pain, SOB, or any other associated symptoms. Past Patient History - Infectious Disease Hx of Infectious Diseases: None - Tetanus Immunizations Tetanus Immunization: Unknown - Past Medical History & Family History Past Medical History?: Yes - Past Social History Smoking Status: Never Smoked - CARDIAC Hx Hypercholesterolemia: Yes Hx Hypertension: Yes - NEUROLOGICAL Hx Alzheimer's Disease: Yes Hx Dementia: Yes (vascular dementia-Alzheimers) Hx Transient Ischemic Attacks (TIA): Yes (several) - HEENT Hx HEENT Problems: No Other/Comment: nearsighted-wears reading glasses - RENAL Hx Chronic Kidney Disease: Yes - ENDOCRINE/METABOLIC Hx Endocrine Disorders: No - HEMATOLOGICAL/ONCOLOGICAL Hx Human Immunodeficiency Virus (HIV): No - INTEGUMENTARY Hx Dermatological Problems: No - GASTROINTESTINAL Hx Gastrointestinal Disorders: Yes Hx Gastroesophageal Reflux: Yes - GENITOURINARY/GYNECOLOGICAL Hx Genitourinary Disorders: Yes Hx Bladder Cancer: Yes - PSYCHIATRIC Hx Depression: Yes Hx Substance Use: No - SURGICAL HISTORY Hx Surgeries: Yes Other/Comment: abdominal surgery. bladder surgery 2009. - ANESTHESIA Hx Anesthesia: Yes Hx Anesthesia Reactions: No Hx Malignant Hyperthermia: No Meds Allergies/Adverse Reactions: Allergies Allergy/AdvReac Type Severity Reaction Status Date / Time No Known Allergies Allergy Verified 08/22/18 09:47 - Medications Medications: Current Medications Amlodipine Besylate (Norvasc) 10 mg PO DAILY [facility] Bupropion HCl (Wellbutrin) 75 mg PO DAILY [facility] Dextrose (Dextrose 50% Inj) 0 ml IV STAT PRN; Protocol PRN Reason: Hypoglycemia Protocol Dextrose (Glutose 15) 0 gm PO ONCE PRN; Protocol PRN Reason: Hypoglycemia Protocol Glucagon (Glucagen Diagnostic Kit) 0 mg IM STAT PRN; Protocol PRN Reason: Hypoglycemia Protocol Hydrochlorothiazide (Microzide) 12.5 mg PO DAILY [facility] Cefepime HCl 1 gm/ Dextrose 50 mls @ 100 mls/hr IVPB Q12H [facility]; Protocol Dextrose (Dextrose 5% In Water 1000 Ml) 1,000 mls @ 0 mls/hr IV .Q0M PRN; Protocol PRN Reason: Hypoglycemia Protocol Sodium Chloride (Sodium Chloride 0.9%) 1,000 mls @ 100 mls/hr IV .Q10H [facility] Vancomycin HCl 1 gm/ Sodium (Chloride) 250 mls @ 166.7 mls/hr IVPB Q24H [facility]; Protocol Insulin Human Regular (Novolin R) 0 unit SC ACHS [facility]; Protocol Lisinopril (Zestril) 20 mg PO DAILY [facility] Memantine (Namenda) 10 mg PO DAILY [facility] Rivastigmine (Exelon 9.5 Mg/24 Hr Patch) 1 patch TD DAILY [facility] Rosuvastatin Calcium (Crestor) 10 mg PO HS [facility] Physical Exam - Constitutional Appears: Non-toxic, No Acute Distress, Chronically Ill - Head Exam Head Exam: ATRAUMATIC, NORMAL INSPECTION, NORMOCEPHALIC - Eye Exam Eye Exam: PERRL. absent: Scleral icterus Pupil Exam: NORMAL ACCOMODATION - ENT Exam ENT Exam: Mucous Membranes Dry, Normal Oropharynx - Neck Exam Neck exam: Negative for: Lymphadenopathy - Respiratory Exam Respiratory Exam: Decreased Breath Sounds, Prolonged Expiratory Phase, Rhonchi - Cardiovascular Exam Cardiovascular Exam: REGULAR RHYTHM, +S1, +S2 - GI/Abdominal Exam GI & Abdominal Exam: Diminished Bowel Sounds, Soft. absent: Tenderness - Rectal Exam Rectal Exam: Deferred - Extremities Exam Extremities exam: Positive for: pedal edema, tenderness, pedal pulses present. Negative for: calf tenderness Additional comments: ulcer left foot + no frankl pus - Back Exam Back exam: absent: CVA tenderness (L), CVA tenderness (R), paraspinal tenderness - Neurological Exam Neurological exam: Alert, CN II-XII Intact, Oriented x3, Reflexes Normal - Psychiatric Exam Psychiatric exam: Depressed - Skin Skin Exam: Dry, Intact Results - Vital Signs Recent Vital Signs: Last Vital Signs Temp 98.1 F 08/22/18 13:45 Pulse 76 08/22/18 13:45 Resp 20 08/22/18 13:45 BP 124/86 08/22/18 13:45 Pulse Ox 95 08/22/18 13:45 - Labs Result Diagrams: 08/22/18 10:21 08/22/18 10:21 Labs: Laboratory Results - last 24 hr 08/22/18 08/22/18 08/22/18 10:21 10:21 11:28 WBC 8.3 RBC 5.40 Hgb 14.7 D Hct 44.7 MCV 82.7 MCH 27.2 MCHC 32.9 L RDW 15.8 H Plt Count 225 MPV 8.7 Neut % (Auto) 69.7 Lymph % (Auto) 20.5 [place] % (Auto) 7.3 Eos % (Auto) 1.9 Baso % (Auto) 0.6 Neut # (Auto) 5.8 Lymph # (Auto) 1.7 [place] # (Auto) 0.6 Eos # (Auto) 0.2 Baso # (Auto) 0.0 PT 15.3 H INR 1.4 APTT 37 H Sodium 141 Potassium 4.3 Chloride 106 Carbon Dioxide 24 Anion Gap 16 BUN 33 H Creatinine 1.3 Est GFR ( Amer) > 60 Est GFR (Non-Af Amer) 55 Random Glucose 92 Calcium 9.7 Total Bilirubin 0.9 AST 30 ALT 17 L D Alkaline Phosphatase 77 Total Protein 8.0 Albumin 4.6 Globulin 3.4 Albumin/Globulin Ratio 1.3 Assessment & Plan (1) Osteomyelitis of left foot Status: Acute - Assessment and Plan (Free Text) Assessment: 63 y/o male with , Chronic left foot wounds, sent in to [facility] ED by wireless sales expert Dr. Joao Marley for admission after results of MRI (08/20/18) showed L 5th metatarsal osteomyelitis. Pt began getting pain swelling and redness and darkening of the L foot 10 days ago. He followed up with Dr Marley on 08/17 who recommeded oral Clinda Saw Dr. Marley on 08/17/18 and was given a course of oral Clindamycin, and home nursing wound care 3 times weekly for dressing changes and application of Bactroban. PMHx: multiple CVAs, vascular dementia, bladder cancer, HTN, DM, PFO on FAISAL SurgHx: cholecystectomy, cystoscopy (bladder cancer), malrotation of gut correction (infan IV rx ordered for broad spectrum coverage pending OR debridement/ fifth ray resection 'may need [facility] IV antibiotics
[2018-08-22] MEDS: Sodium Chloride 0.9% 1,000 ML IV SCH ×2 (14:52→22:29)
[2018-08-22 15:47] LABS: SQUAMOUS EPITHIAL < 1 /hpf (0-5); URINE BILIRUBIN NEGATIVE (NEGATIVE); URINE BLOOD 3+ (NEGATIVE); URINE CLARITY Hazy (Clear); URINE COLOR Yellow (YELLOW); URINE GLUCOSE (UA) NORMAL (Normal); URINE LEUKOCYTE ESTERASE NEG Leu/uL (Negative); URINE PROTEIN 1+ mg/dL (NEGATIVE); URINE UROBILINOGEN NORMAL mg/dL (0.2-1.0)
[2018-08-22] MEDS: (Novolin R) Insulin Human Regular 100 units/ml vial SC SCH ×2 (16:15→21:12)
[2018-08-22] MEDS ORDERED: Iodixanol 320 mg/ml 150 ml Bottle IV ONE (16:32)
--- NOTE | 2018-08-22 16:37 | CP.PCM.CON ---
History of Present Illness - History of Present Illness History of Present Illness: Vascular Surgery Dr. Dasilva Unable to obtain Hx from pt 2/2 dementia and CVA; Hx obtained from EMR. 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 Pt had MRI on 08/20 which showed 5th metatarsal osteomyelitis. Pain, swelling, and skin color changes began ~10days [employer]. Pt saw Dr. Marley in office on 08/17 and was started on PO Clindamycin w/ VNS wound care. Pt has been noncompliant w/ meds. Currently pt admits to some pain in foot and weakness in B/L LE. Pt reports decreased mobility. Pt denies F/C, N/V, CP, SOB. PMHx: see above, PFO, AFib, Bladder cancer, HLD, vascular dementia, GERD, Hypokalemia, depression Meds: reviewed in chart NKDA PSHx: cholecystectomy, cystoscopy (bladder cancer), malrotation of gut correction (infant) SHx: lives at home w/ family caretakers; social EtOH, quit 9 yrs ago; cocaine use, quit 9 yrs ago; denies tobacco use FH: noncontributory Review of Systems - Review of Systems All systems: reviewed and no additional remarkable complaints except (see HPI) Past Patient History - Infectious Disease Hx of Infectious Diseases: None - Tetanus Immunizations Tetanus Immunization: Unknown - Past Medical History & Family History Past Medical History?: Yes - Past Social History Smoking Status: Never Smoked - CARDIAC Hx Hypercholesterolemia: Yes Hx Hypertension: Yes - NEUROLOGICAL Hx Alzheimer's Disease: Yes Hx Dementia: Yes (vascular dementia-Alzheimers) Hx Transient Ischemic Attacks (TIA): Yes (several) - HEENT Hx HEENT Problems: No Other/Comment: nearsighted-wears reading glasses - RENAL Hx Chronic Kidney Disease: Yes - ENDOCRINE/METABOLIC Hx Endocrine Disorders: No - HEMATOLOGICAL/ONCOLOGICAL Hx Human Immunodeficiency Virus (HIV): No - INTEGUMENTARY Hx Dermatological Problems: No - GASTROINTESTINAL Hx Gastrointestinal Disorders: Yes Hx Gastroesophageal Reflux: Yes - GENITOURINARY/GYNECOLOGICAL Hx Genitourinary Disorders: Yes Hx Bladder Cancer: Yes - PSYCHIATRIC Hx Depression: Yes Hx Substance Use: No - SURGICAL HISTORY Hx Surgeries: Yes Other/Comment: abdominal surgery. bladder surgery 2009. - ANESTHESIA Hx Anesthesia: Yes Hx Anesthesia Reactions: No Hx Malignant Hyperthermia: No Meds Allergies/Adverse Reactions: Allergies Allergy/AdvReac Type Severity Reaction Status Date / Time No Known Allergies Allergy Verified 08/22/18 09:47 - Medications Medications: Current Medications Amlodipine Besylate (Norvasc) 10 mg PO DAILY [facility] Bupropion HCl (Wellbutrin) 75 mg PO DAILY [facility] Dextrose (Dextrose 50% Inj) 0 ml IV STAT PRN; Protocol PRN Reason: Hypoglycemia Protocol Dextrose (Glutose 15) 0 gm PO ONCE PRN; Protocol PRN Reason: Hypoglycemia Protocol Glucagon (Glucagen Diagnostic Kit) 0 mg IM STAT PRN; Protocol PRN Reason: Hypoglycemia Protocol Hydrochlorothiazide (Microzide) 12.5 mg PO DAILY [facility] Cefepime HCl 1 gm/ Dextrose 50 mls @ 100 mls/hr IVPB Q12H [facility]; Protocol Last Admin: 08/22/18 15:48 Dose: 100 mls/hr Dextrose (Dextrose 5% In Water 1000 Ml) 1,000 mls @ 0 mls/hr IV .Q0M PRN; Protocol PRN Reason: Hypoglycemia Protocol Sodium Chloride (Sodium Chloride 0.9%) 1,000 mls @ 100 mls/hr IV .Q10H [facility] Last Admin: 08/22/18 14:52 Dose: 100 mls/hr Vancomycin HCl 1 gm/ Sodium (Chloride) 250 mls @ 166.7 mls/hr IVPB 1600 [facility]; Protocol Insulin Human Regular (Novolin R) 0 unit SC ACHS [facility]; Protocol Last Admin: 08/22/18 16:15 Dose: Not Given Lisinopril (Zestril) 20 mg PO DAILY [facility] Memantine (Namenda) 10 mg PO DAILY [facility] Mupirocin (Bactroban Ointment) 0 gm TOP DAILY [facility] Pneumococcal Polyvalent Vaccine (Pneumovax 23 Vaccine) 0.5 ml IM .ONCE ONE Stop: 08/24/18 10:01 Rivastigmine (Exelon 9.5 Mg/24 Hr Patch) 1 patch TD DAILY [facility] Rosuvastatin Calcium (Crestor) 10 mg PO HS [facility] Physical Exam - Constitutional Appears: Non-toxic, No Acute Distress, Chronically Ill - Head Exam Head Exam: NORMAL INSPECTION - Eye Exam Eye Exam: Normal appearance - ENT Exam ENT Exam: Mucous Membranes Moist - Respiratory Exam Respiratory Exam: NORMAL BREATHING PATTERN. absent: Accessory Muscle Use, Respiratory Distress - Cardiovascular Exam Cardiovascular Exam: absent: Bradycardia, Tachycardia - GI/Abdominal Exam GI & Abdominal Exam: Soft. absent: Distended, Tenderness - Extremities Exam Additional comments: L foot w/ krylex wrap, palpable PT and DP - Neurological Exam Neurological exam: Alert - Psychiatric Exam Psychiatric exam: Flat Affect, Normal Mood - Skin Skin Exam: Dry, Warm Results - Vital Signs Recent Vital Signs: Last Vital Signs Temp 98.1 F 08/22/18 16:16 Pulse 79 08/22/18 16:16 Resp 20 08/22/18 16:16 BP 112/76 08/22/18 16:16 Pulse Ox 95 08/22/18 16:16 - Labs Result Diagrams: 08/22/18 10:21 08/22/18 10:21 Labs: Laboratory Results - last 24 hr 08/22/18 08/22/18 08/22/18 10:21 10:21 11:28 WBC 8.3 RBC 5.40 Hgb 14.7 D Hct 44.7 MCV 82.7 MCH 27.2 MCHC 32.9 L RDW 15.8 H Plt Count 225 MPV 8.7 Neut % (Auto) 69.7 Lymph % (Auto) 20.5 [place] % (Auto) 7.3 Eos % (Auto) 1.9 Baso % (Auto) 0.6 Neut # (Auto) 5.8 Lymph # (Auto) 1.7 [place] # (Auto) 0.6 Eos # (Auto) 0.2 Baso # (Auto) 0.0 PT 15.3 H INR 1.4 APTT 37 H Sodium 141 Potassium 4.3 Chloride 106 Carbon Dioxide 24 Anion Gap 16 BUN 33 H Creatinine 1.3 Est GFR ( Amer) > 60 Est GFR (Non-Af Amer) 55 POC Glucose (mg/dL) Random Glucose 92 Calcium 9.7 Total Bilirubin 0.9 AST 30 ALT 17 L D Alkaline Phosphatase 77 Total Protein 8.0 Albumin 4.6 Globulin 3.4 Albumin/Globulin Ratio 1.3 Urine Color Urine Clarity Urine pH Ur Specific [place] Urine Protein Urine Glucose (UA) Urine Ketones Urine Blood Urine Nitrate Urine Bilirubin Urine Urobilinogen Ur Leukocyte Esterase Urine WBC (Auto) Urine RBC (Auto) Ur Squamous Epith Cells 08/22/18 08/22/18 15:23 15:50 WBC RBC Hgb Hct MCV MCH MCHC RDW Plt Count MPV Neut % (Auto) Lymph % (Auto) [place] % (Auto) Eos % (Auto) Baso % (Auto) Neut # (Auto) Lymph # (Auto) [place] # (Auto) Eos # (Auto) Baso # (Auto) PT INR APTT Sodium Potassium Chloride Carbon Dioxide Anion Gap BUN Creatinine Est GFR ( Amer) Est GFR (Non-Af Amer) POC Glucose (mg/dL) 140 H Random Glucose Calcium Total Bilirubin AST ALT Alkaline Phosphatase Total Protein Albumin Globulin Albumin/Globulin Ratio Urine Color Yellow Urine Clarity Hazy Urine pH 5.0 Ur Specific [place] 1.016 Urine Protein 1+ H Urine Glucose (UA) Normal Urine Ketones Negative Urine Blood 3+ H Urine Nitrate Negative Urine Bilirubin Negative Urine Urobilinogen Normal Ur Leukocyte Esterase Neg Urine WBC (Auto) 14 H Urine RBC (Auto) 290 H Ur Squamous Epith Cells < 1 Assessment & Plan - Assessment and Plan (Free Text) Assessment: 63 y/o M w/ L 5th metatarsal osteomylitis Plan: - f/u YOBANY/PVR - cont IV Abx - cont medical management - wound care per Podiatry Pt seen and discussed w/ Dr. Brown Mitchell DO PGY3
[2018-08-23] MEDS: Sodium Chloride 0.9% 1,000 ML IV SCH (05:00)
[2018-08-23] MEDS: (Novolin R) Insulin Human Regular 100 units/ml vial SC SCH ×4 (07:57→21:02)
[2018-08-23 08:15] LABS: BASO # 0.1 K/uL (0.0-0.2); BASO % 0.7 % (0.0-2.0); EOS # 0.2 K/uL (0.0-0.7); EOS % 2.4 % (0.0-4.0); HEMOGLOBIN 12.8 g/dL (12.0-18.0); LYMPH # 1.6 K/uL (1.0-4.3); LYMPH % 22.7 % (20.0-40.0); MEAN CELL VOLUME 81.9 fL (80.0-94.0); MEAN CORPUSCULAR HEMOGLOBIN 27.9 pg (27.0-31.0); MEAN PLATELET VOLUME 8.9 fL (7.2-11.7); MONO # 0.5 K/uL (0.0-0.8); MONO % 7.3 % (0.0-10.0); NEUT # 4.8 K/uL (1.8-7.0); NEUT % 66.9 % (50.0-75.0); RBC 4.61 Mil/uL (4.40-5.90); RED CELL DISTRIBUTION WIDTH 15.3 % (11.5-14.5); WHITE BLOOD COUNT 7.3 K/uL (4.8-10.8)
[2018-08-23 08:23] LABS: ALB/GLOB RATIO 1.3 (1.0-2.1); ALBUMIN 3.5 g/dL (3.5-5.0); ALT/SGPT 20 U/L (21-72); AST/SGOT 17 U/L (17-59); BLOOD UREA NITROGEN 25 mg/dL (9-20); CALCIUM 8.6 mg/dl (8.6-10.4); GFR NON-AFRICAN AMERICAN > 60
--- NOTE | 2018-08-23 08:40 | CP.PCM.PN ---
Subjective - Date & Time of Evaluation Date of Evaluation: 08/23/18 Time of Evaluation: 08:36 - Subjective Subjective: Vascular Surgery Dr. Dasilva Pt seen and examined @bedside. No acute events overnight. no complaints this morning. denies F/C, N/V, CP, SOB. tolerating diet. Objective - Vital Signs/Intake and Output Vital Signs (last 24 hours): Temp Pulse Resp BP Pulse Ox 97.6 F 65 20 125/85 95 08/23/18 07:36 08/23/18 07:36 08/23/18 07:36 08/23/18 07:36 08/23/18 07:36 Intake and Output: 08/23/18 08/23/18 06:59 18:59 Intake Total 800 Output Total 400 Balance 400 - Medications Medications: Current Medications Amlodipine Besylate (Norvasc) 10 mg PO DAILY [facility] Bupropion HCl (Wellbutrin) 75 mg PO DAILY [facility] Dextrose (Dextrose 50% Inj) 0 ml IV STAT PRN; Protocol PRN Reason: Hypoglycemia Protocol Dextrose (Glutose 15) 0 gm PO ONCE PRN; Protocol PRN Reason: Hypoglycemia Protocol Glucagon (Glucagen Diagnostic Kit) 0 mg IM STAT PRN; Protocol PRN Reason: Hypoglycemia Protocol Hydrochlorothiazide (Microzide) 12.5 mg PO DAILY [facility] Cefepime HCl 1 gm/ Dextrose 50 mls @ 100 mls/hr IVPB Q12H [facility]; Protocol Last Admin: 08/23/18 01:48 Dose: 100 mls/hr Dextrose (Dextrose 5% In Water 1000 Ml) 1,000 mls @ 0 mls/hr IV .Q0M PRN; Protocol PRN Reason: Hypoglycemia Protocol Sodium Chloride (Sodium Chloride 0.9%) 1,000 mls @ 100 mls/hr IV .Q10H [facility] Last Admin: 08/23/18 05:00 Dose: 100 mls/hr Vancomycin HCl 1 gm/ Sodium (Chloride) 250 mls @ 166.7 mls/hr IVPB 1600 [facility]; Protocol Last Admin: 08/22/18 16:45 Dose: 166.7 mls/hr Insulin Human Regular (Novolin R) 0 unit SC ACHS [facility]; Protocol Last Admin: 08/23/18 07:57 Dose: Not Given Lisinopril (Zestril) 20 mg PO DAILY [facility] Memantine (Namenda) 10 mg PO DAILY [facility] Mupirocin (Bactroban Ointment) 0 gm TOP DAILY [facility] Pneumococcal Polyvalent Vaccine (Pneumovax 23 Vaccine) 0.5 ml IM .ONCE ONE Stop: 08/24/18 10:01 Rivastigmine (Exelon 9.5 Mg/24 Hr Patch) 1 patch TD DAILY [facility] Rosuvastatin Calcium (Crestor) 10 mg PO HS [facility] Last Admin: 08/22/18 21:16 Dose: 10 mg - Labs Labs: 08/23/18 07:53 08/23/18 07:53 PT 15.3 SECONDS (9.7-12.2) H 08/22/18 11:28 INR 1.4 08/22/18 11:28 APTT 37 SECONDS (21-34) H 08/22/18 11:28 - Constitutional Appears: Non-toxic, No Acute Distress - Head Exam Head Exam: NORMAL INSPECTION - Eye Exam Eye Exam: Normal appearance - ENT Exam ENT Exam: Mucous Membranes Moist - Respiratory Exam Respiratory Exam: NORMAL BREATHING PATTERN. absent: Accessory Muscle Use, Respiratory Distress - Cardiovascular Exam Cardiovascular Exam: absent: Bradycardia, Tachycardia - GI/Abdominal Exam GI & Abdominal Exam: Soft. absent: Distended, Tenderness - Extremities Exam Additional comments: LLE dressing in place - Neurological Exam Neurological Exam: Alert, Awake - Psychiatric Exam Psychiatric exam: Flat Affect, Normal Mood - Skin Skin Exam: Dry, Intact, Warm Assessment and Plan - Assessment and Plan (Free Text) Assessment: 63 y/o M w/ L 5th metatarsal osteomylitis Plan: - CTA completed w/ 3 vessels down to foot - palpable DP/PT - cont IV Abx per ID - wound care per podiatry - no surgical intervention at this time Further recs per Dr Brown Mitchell DO PGY3
--- NOTE | 2018-08-23 09:14 | CP.PCM.PN ---
Subjective - Date & Time of Evaluation Date of Evaluation: 08/23/18 Time of Evaluation: 09:38 - Subjective Subjective: PGY1 Medicine progress note for Dr. Gonzales Pt was seen and examined at bedside. Pt is resting comfortably he has no complaints at this time. he understands the plan for surgery tomorrow. He denies fever, chills, chest pain, sob, abdominal pain, n/v/d. He states his last BM was monday, which is normal for him. Denies blood in the stool, urinary changes, lower extremity edema or pain, other than worsening left foot pain. Objective - Vital Signs/Intake and Output Vital Signs (last 24 hours): Temp Pulse Resp BP Pulse Ox 97.6 F 65 20 125/85 95 08/23/18 07:36 08/23/18 07:36 08/23/18 07:36 08/23/18 07:36 08/23/18 07:36 Intake and Output: 08/23/18 08/23/18 06:59 18:59 Intake Total 800 Output Total 400 Balance 400 - Medications Medications: Current Medications Amlodipine Besylate (Norvasc) 10 mg PO DAILY [facility] Bupropion HCl (Wellbutrin) 75 mg PO DAILY [facility] Dextrose (Dextrose 50% Inj) 0 ml IV STAT PRN; Protocol PRN Reason: Hypoglycemia Protocol Dextrose (Glutose 15) 0 gm PO ONCE PRN; Protocol PRN Reason: Hypoglycemia Protocol Glucagon (Glucagen Diagnostic Kit) 0 mg IM STAT PRN; Protocol PRN Reason: Hypoglycemia Protocol Heparin Sodium (Porcine) (Heparin) 5,000 units SC Q12 [facility] Hydrochlorothiazide (Microzide) 12.5 mg PO DAILY [facility] Cefepime HCl 1 gm/ Dextrose 50 mls @ 100 mls/hr IVPB Q12H [facility]; Protocol Last Admin: 08/23/18 01:48 Dose: 100 mls/hr Dextrose (Dextrose 5% In Water 1000 Ml) 1,000 mls @ 0 mls/hr IV .Q0M PRN; Protocol PRN Reason: Hypoglycemia Protocol Sodium Chloride (Sodium Chloride 0.9%) 1,000 mls @ 100 mls/hr IV .Q10H [facility] Last Admin: 08/23/18 05:00 Dose: 100 mls/hr Vancomycin HCl 1 gm/ Sodium (Chloride) 250 mls @ 166.7 mls/hr IVPB 1600 [facility]; Protocol Last Admin: 08/22/18 16:45 Dose: 166.7 mls/hr Insulin Human Regular (Novolin R) 0 unit SC ACHS [facility]; Protocol Last Admin: 08/23/18 07:57 Dose: Not Given Lisinopril (Zestril) 20 mg PO DAILY [facility] Memantine (Namenda) 10 mg PO DAILY [facility] Mupirocin (Bactroban Ointment) 0 gm TOP DAILY [facility] Pneumococcal Polyvalent Vaccine (Pneumovax 23 Vaccine) 0.5 ml IM .ONCE ONE Stop: 08/24/18 10:01 Rivastigmine (Exelon 9.5 Mg/24 Hr Patch) 1 patch TD DAILY [facility] Rosuvastatin Calcium (Crestor) 10 mg PO HS [facility] Last Admin: 08/22/18 21:16 Dose: 10 mg - Labs Labs: 08/23/18 07:53 08/23/18 07:53 PT 15.3 SECONDS (9.7-12.2) H 08/22/18 11:28 INR 1.4 08/22/18 11:28 APTT 37 SECONDS (21-34) H 08/22/18 11:28 - Additional Findings Additional findings: - Constitutional Appears: Well, Non-toxic, No Acute Distress, Confused - Head Exam Head Exam: ATRAUMATIC, NORMAL INSPECTION - Eye Exam Eye Exam: EOMI, Normal appearance - ENT Exam ENT Exam: Mucous Membranes Moist, Normal Exam - Neck Exam Neck exam: Negative for: Lymphadenopathy - Respiratory Exam Respiratory Exam: Clear to Auscultation Bilateral. absent: Rales, Wheezes - Cardiovascular Exam Cardiovascular Exam: RRR, +S1, +S2 - GI/Abdominal Exam GI & Abdominal Exam: Soft. absent: Guarding, Organomegaly, Tenderness - Extremities Exam Extremities exam: Positive for: pedal pulses present Additional comments: L foot: toes moving. Foot is wrapped in dressing. No active bleeding noted. - Neurological Exam Neurological exam: Alert, Oriented x3 - Psychiatric Exam Psychiatric exam: Flat Affect, Normal mood - Skin Skin Exam: Dry, Pallor, Warm Assessment and Plan - Assessment and Plan (Free Text) Assessment: Patient is a 63 yo male with extensive PMH, including multiple CVAs 2/2 PFO and Afib, vascular dementia, bladder CA, and T2DM who presents from Dr Marley s/p MRI results showing Osteomyelitis, for sx sue 2/22/19. Plan: Osteomyelitis of 5th metatarsal - no bandemia, afebrile - Dr Marley Podiatry consulted: MRI 08/20: extensive signal abnormality seen within the 5th MTT head extending into the shaft o fthe 5th metatarsal bone as well as within the 5th proximal phalanx with asociated patchy decreased T1 signal. Concerning for acute osteomyelitis. Mon 730am for Sx NPO past midnight - Vasc Sx Brown Consulted F/u abdominal CTA with run off - ID consulted (Noel) - Vancomycin 1 g IV Q24H started 08/22 - Cefepime 1 g q12 IVPB started 08/22 - Florastor 250 mg PO BID - f/u blood cultures - wound gram stain on admission shows gram positive cocci, moderate PMNs. Culture pending - recommend OR sample cultures post op - MRSA noted in left foot culture june 2018 - contact precautions for MRSA PFO with AFib - Dr Nettles Cardio -spoke on phone: Pt needs to get a loop recorder for one month before consideration of PFO closure Pt has not followed up as instructed after last d/c in jun Pt is to restart ASA 81 with Plavix 75 after sx Vascular dementia with A fib and PFO - CTA head/neck 06/19: no significant stenosis or structural abnormalities - Crestor 10 mg PO QHS - Wellbutrin 75 mg PO daily - Memantine 10 mg PO daily - Rivastigmine 9.5 mg patch daily - Fall precautions Hypertension - Monitor vitals Q4H - Amlodipine 10 mg PO daily - HCTZ 12.5 PO daily - Lisinopril 20 mg PO daily Type 2 diabetes mellitus - Last A1c 6.9, f/u AM - Hypoglycemic protocol - Accuchecks ACHS with ISS Hx of bladder cancer - Urology Dr Lazcano: pt did not f/u after original dx of CA 9 yrs ago - 5 lesions removed during recent cystoscopy - Superficial in situ remenant, no further interventions need at this time - Monitor I&Os - [place] bowman catheter 08/22 Ppx: VTE: SCDs, heparin 5000 u sc q12, will hold anti coag until after procedure GI: not indicated, HHD Diet Code status: full code Case discussed with Dr. Gonzales
--- NOTE | 2018-08-23 10:53 | CP.PCM.PN ---
Subjective - Date & Time of Evaluation Date of Evaluation: 08/23/18 Time of Evaluation: 10:53 - Subjective Subjective: Podiatry Progress Note - Dr. Marley 63M seen and evaluated at bedside for left foot wound. Patient resting comfortably, NAD. No acute events overnight. No new lower extremity complaints per patient. Patient aware he is scheduled for surgery tomorrow morning, and will be NPO @ mn. Denies n/v/f/d/c/sob/marte/cp. Objective - Vital Signs/Intake and Output Vital Signs (last 24 hours): Temp Pulse Resp BP Pulse Ox 97.6 F 65 20 125/85 95 08/23/18 07:36 08/23/18 07:36 08/23/18 07:36 08/23/18 07:36 08/23/18 07:36 Intake and Output: 08/23/18 08/23/18 06:59 18:59 Intake Total 800 Output Total 400 Balance 400 - Medications Medications: Current Medications Amlodipine Besylate (Norvasc) 10 mg PO DAILY [facility] Last Admin: 08/23/18 10:11 Dose: 10 mg Bupropion HCl (Wellbutrin) 75 mg PO DAILY [facility] Last Admin: 08/23/18 10:11 Dose: 75 mg Dextrose (Dextrose 50% Inj) 0 ml IV STAT PRN; Protocol PRN Reason: Hypoglycemia Protocol Dextrose (Glutose 15) 0 gm PO ONCE PRN; Protocol PRN Reason: Hypoglycemia Protocol Glucagon (Glucagen Diagnostic Kit) 0 mg IM STAT PRN; Protocol PRN Reason: Hypoglycemia Protocol Heparin Sodium (Porcine) (Heparin) 5,000 units SC Q12 [facility] Last Admin: 08/23/18 10:12 Dose: 5,000 units Hydrochlorothiazide (Microzide) 12.5 mg PO DAILY [facility] Last Admin: 08/23/18 10:11 Dose: 12.5 mg Cefepime HCl 1 gm/ Dextrose 50 mls @ 100 mls/hr IVPB Q12H [facility]; Protocol Last Admin: 08/23/18 01:48 Dose: 100 mls/hr Dextrose (Dextrose 5% In Water 1000 Ml) 1,000 mls @ 0 mls/hr IV .Q0M PRN; Protocol PRN Reason: Hypoglycemia Protocol Sodium Chloride (Sodium Chloride 0.9%) 1,000 mls @ 100 mls/hr IV .Q10H [facility] Last Admin: 08/23/18 05:00 Dose: 100 mls/hr Vancomycin HCl 1 gm/ Sodium (Chloride) 250 mls @ 166.7 mls/hr IVPB 1600 [facility]; Protocol Last Admin: 08/22/18 16:45 Dose: 166.7 mls/hr Insulin Human Regular (Novolin R) 0 unit SC ACHS [facility]; Protocol Last Admin: 08/23/18 07:57 Dose: Not Given Lisinopril (Zestril) 20 mg PO DAILY [facility] Last Admin: 08/23/18 10:11 Dose: 20 mg Memantine (Namenda) 10 mg PO DAILY [facility] Last Admin: 08/23/18 10:11 Dose: 10 mg Mupirocin (Bactroban Ointment) 0 gm TOP DAILY [facility] Last Admin: 08/23/18 10:32 Dose: Not Given Pneumococcal Polyvalent Vaccine (Pneumovax 23 Vaccine) 0.5 ml IM .ONCE ONE Stop: 08/24/18 10:01 Rivastigmine (Exelon 9.5 Mg/24 Hr Patch) 1 patch TD DAILY [facility] Last Admin: 08/23/18 10:11 Dose: 1 patch Rosuvastatin Calcium (Crestor) 10 mg PO HS [facility] Last Admin: 08/22/18 21:16 Dose: 10 mg - Labs Labs: 08/23/18 07:53 08/23/18 07:53 PT 15.3 SECONDS (9.7-12.2) H 08/22/18 11:28 INR 1.4 08/22/18 11:28 APTT 37 SECONDS (21-34) H 08/22/18 11:28 - Constitutional Appears: Non-toxic, No Acute Distress - Extremities Exam Additional comments: Dressing to left foot clean/dry/intact with no strikethrough present Neurovascular status unchanged Digital ROM present - Neurological Exam Neurological Exam: Alert, Awake - Psychiatric Exam Psychiatric exam: Normal Affect, Normal Mood Assessment and Plan - Assessment and Plan (Free Text) Assessment: 63M with left sub 5th met head ulceration + osteomyelitis Plan: Patient seen and evaluated Discussed with attending, Dr. Ayaka CONWAY, WBC 7.3 LLE MRI (08/20): Acute OM 5th met head extending into shaft as well as within 5th proximal phalanx ID consulted - continue abx Plan for OR tomorrow Monday, 08/24 @ 7:30 left partial 5th ray resection -Patient medically optimized for surgical procedure -NPO @ mn -Heparin held Podiatry will continue to follow
--- NOTE | 2018-08-23 14:26 | CT ---
Date of service: 08/22/2018 PROCEDURE: CT Angiography Abdomen, Pelvis and Lower Extremity with Contrast HISTORY: left 5th toe osteo, eval for PVD COMPARISON: None available. TECHNIQUE: Technique: CT angiography of the abdomen, pelvis and bilateral lower extremities performed in the arterial phase of enhancement. Coronal and sagittal reformats, and well as rotating MIP images of the vessels generated at the workstation. Intravenous contrast dose: 150 milliliters Visipaque 320 Radiation dose: Total exam DLP = 2164.33 mGy-cm. This CT exam was performed using one or more of the following dose reduction techniques: Automated exposure control, adjustment of the mA and/or kV according to patient size, and/or use of iterative reconstruction technique. FINDINGS: CT ANGIOGRAPHY: ABDOMINAL AORTA:: Unremarkable MAJOR AORTIC BRANCHES: Celiac [place]: Unremarkable. Superior mesenteric artery: Unremarkable. Inferior mesenteric artery: Unremarkable. Renal arteries: Unremarkable. PELVIC ARTERIES: Right Common Iliac: Unremarkable. Right External Iliac: Unremarkable. Right Internal Iliac: Unremarkable. Left Common Iliac: Unremarkable. Left External Iliac: Unremarkable. Left Internal Iliac: Unremarkable. RIGHT LOWER EXTREMITY ARTERIES: Right Common Femoral: Unremarkable. Right Superficial Femoral: Unremarkable. Right Profunda Femoris: Unremarkable. Right Popliteal:Unremarkable. Right Anterior Tibial: Calcific plaque throughout the anterior tibial artery limits its evaluation. Believed to be patent. Right Tibioperoneal Trunk: Unremarkable. Right Posterior Tibial: Moderate calcific plaque throughout the posterior tibial artery limits its evaluation. The artery is believed to be patent. Right Peroneal: Unremarkable. Right dorsalis pedis : Unremarkable. LEFT LOWER EXTREMITY ARTERIES: Left Common Femoral: Unremarkable. Left Superficial Femoral: Unremarkable. Left Profunda Femoris: Unremarkable. Left Popliteal: Unremarkable. Left Anterior Tibial: Calcific plaque throughout the anterior tibial artery limits its evaluation. The artery is believed to be patent with possible [id number] stenosis in the mid and distal segment. Left Tibioperoneal Trunk: Unremarkable. Left Posterior Tibial: Moderate calcific plaque throughout the posterior tibial artery limits evaluation. Possible [id number] stenosis in distal segment. Left Peroneal: Unremarkable. Left Dorsalis pedis: Unremarkable. NON-ANGIOGRAPHIC ASPECT OF THE EXAM: LOWER THORAX: Incompletely imaged. LIVER: Unremarkable. No gross lesion or ductal dilatation. GALLBLADDER AND BILE DUCTS: Unremarkable. PANCREAS: Unremarkable. No gross lesion or ductal dilatation. SPLEEN: Unremarkable. ADRENALS: Unremarkable. No mass. KIDNEYS AND URETERS: 2.4 centimeter enhancing mass posterior midpole left kidney. No hydronephrosis. STOMACH AND BOWEL: No mass. No obstruction. No gross mural thickening. APPENDIX: Normal appendix. PERITONEUM: Unremarkable. No free fluid. No free air. LYMPH NODES: Unremarkable. No enlarged lymph nodes. BLADDER: Unremarkable. REPRODUCTIVE: Unremarkable. BONES: No acute fracture. OTHER FINDINGS: None. IMPRESSION: CT ANGIOGRAM ABDOMEN/PELVIS: 1. Essentially unremarkable CT angiogram of the abdomen pelvis. RIGHT LOWER EXTREMITY CT ANGIOGRAM: 1. The common femoral artery, profunda femoral artery, superficial femoral artery, popliteal artery normal. 2. There is moderate calcific plaque throughout the tibial vessels which limits their evaluation. The anterior tibial artery posterior tibial artery believed to be patent without significant stenosis. Peroneal artery is unremarkable. LEFT LOWER EXTREMITY CT ANGIOGRAM: 1. The common femoral artery, profunda femoral artery, superficial femoral artery, popliteal artery normal. 2. There is moderate calcific plaque throughout the tibial vessels which limits their evaluation. The anterior tibial artery posterior tibial artery believed to be patent possible [id number] stenosis in the mid and distal segment. Peroneal artery is unremarkable. NONVASCULARFINDINGS: 1. 2.4 centimeters solid enhancing mass midpole left kidney.
--- NOTE | 2018-08-23 17:58 | CARD ---
APPROVED REPORT Date of service: 08/22/2018 EKG Measurement Heart [id number] <Conclusion> Sinus rhythm with 1st degree AV block Low voltage QRS Probably misplaced leads V4 to V6 Abnormal ECG
--- NOTE | 2018-08-23 19:43 | CP.PCM.PN ---
Subjective - Date & Time of Evaluation Date of Evaluation: 08/23/18 Time of Evaluation: 10:00 - Subjective Subjective: no new complaints appears comfortable for OR in am Objective - Vital Signs/Intake and Output Vital Signs (last 24 hours): Temp Pulse Resp BP Pulse Ox 98.4 F 75 18 121/80 95 08/23/18 17:07 08/23/18 17:07 08/23/18 17:07 08/23/18 17:07 08/23/18 17:07 - Medications Medications: Current Medications Amlodipine Besylate (Norvasc) 10 mg PO DAILY [facility] Last Admin: 08/23/18 10:11 Dose: 10 mg Bupropion HCl (Wellbutrin) 75 mg PO DAILY [facility] Last Admin: 08/23/18 10:11 Dose: 75 mg Dextrose (Dextrose 50% Inj) 0 ml IV STAT PRN; Protocol PRN Reason: Hypoglycemia Protocol Dextrose (Glutose 15) 0 gm PO ONCE PRN; Protocol PRN Reason: Hypoglycemia Protocol Glucagon (Glucagen Diagnostic Kit) 0 mg IM STAT PRN; Protocol PRN Reason: Hypoglycemia Protocol Heparin Sodium (Porcine) (Heparin) 5,000 units SC Q12 [facility] Last Admin: 08/23/18 10:12 Dose: 5,000 units Hydrochlorothiazide (Microzide) 12.5 mg PO DAILY [facility] Last Admin: 08/23/18 10:11 Dose: 12.5 mg Cefepime HCl 1 gm/ Dextrose 50 mls @ 100 mls/hr IVPB Q12H [facility]; Protocol Last Admin: 08/23/18 14:16 Dose: 100 mls/hr Dextrose (Dextrose 5% In Water 1000 Ml) 1,000 mls @ 0 mls/hr IV .Q0M PRN; Protocol PRN Reason: Hypoglycemia Protocol Sodium Chloride (Sodium Chloride 0.9%) 1,000 mls @ 100 mls/hr IV .Q10H [facility] Last Admin: 08/23/18 05:00 Dose: 100 mls/hr Vancomycin HCl 1 gm/ Sodium (Chloride) 250 mls @ 166.7 mls/hr IVPB 1600 [facility]; Protocol Last Admin: 08/23/18 17:04 Dose: Not Given Insulin Human Regular (Novolin R) 0 unit SC ACHS [facility]; Protocol Last Admin: 08/23/18 17:27 Dose: Not Given Lisinopril (Zestril) 20 mg PO DAILY [facility] Last Admin: 08/23/18 10:11 Dose: 20 mg Memantine (Namenda) 10 mg PO DAILY [facility] Last Admin: 08/23/18 10:11 Dose: 10 mg Mupirocin (Bactroban Ointment) 0 gm TOP DAILY [facility] Last Admin: 08/23/18 10:32 Dose: Not Given Pneumococcal Polyvalent Vaccine (Pneumovax 23 Vaccine) 0.5 ml IM .ONCE ONE Stop: 08/24/18 10:01 Rivastigmine (Exelon 9.5 Mg/24 Hr Patch) 1 patch TD DAILY [facility] Last Admin: 08/23/18 10:11 Dose: 1 patch Rosuvastatin Calcium (Crestor) 10 mg PO HS [facility] Last Admin: 08/22/18 21:16 Dose: 10 mg - Labs Labs: 08/23/18 07:53 08/23/18 07:53 PT 15.3 SECONDS (9.7-12.2) H 08/22/18 11:28 INR 1.4 08/22/18 11:28 APTT 37 SECONDS (21-34) H 08/22/18 11:28 - Constitutional Appears: Non-toxic, Cachectic, Chronically Ill - Head Exam Head Exam: NORMOCEPHALIC - Eye Exam Eye Exam: absent: Scleral icterus - ENT Exam ENT Exam: Mucous Membranes Dry - Neck Exam Neck Exam: absent: Lymphadenopathy - Respiratory Exam Respiratory Exam: Decreased Breath Sounds - Cardiovascular Exam Cardiovascular Exam: REGULAR RHYTHM - GI/Abdominal Exam GI & Abdominal Exam: Distended - Rectal Exam Rectal Exam: Deferred - Exam Exam: NORMAL INSPECTION - Extremities Exam Extremities Exam: Pedal Edema. absent: Normal Inspection Additional comments: left foot wound same - Back Exam Back Exam: absent: CVA tenderness (L), CVA tenderness (R) - Neurological Exam Neurological Exam: Alert, Altered, Awake, CN II-XII Intact - Psychiatric Exam Psychiatric exam: Depressed, Flat Affect - Skin Skin Exam: Dry Assessment and Plan (1) Osteomyelitis of left foot Status: Acute - Assessment and Plan (Free Text) Assessment: 63 y/o male with , Chronic left foot wounds, sent in to [facility] ED by straightening machine feeder Dr. Joao Marley for admission after results of MRI (08/20/18) showed L 5th metatarsal osteomyelitis. Pt began getting pain swelling and redness and darkening of the L foot 10 days ago. He followed up with Dr Marley on 08/17 who recommeded oral Clinda Saw Dr. Marley on 08/17/18 and was given a course of oral Clindamycin, and home nursing wound care 3 times weekly for dressing changes and application of Bactroban. for or/ amp 5th ray in am
[2018-08-24] MEDS: Sodium Chloride 0.9% 1,000 ML IV SCH ×3 (01:36→21:25)
[2018-08-24 06:28] LABS: BASO % 0.6 % (0.0-2.0); EOS # 0.2 K/uL (0.0-0.7); EOS % 2.7 % (0.0-4.0); HEMOGLOBIN 12.9 g/dL (12.0-18.0); LYMPH # 1.9 K/uL (1.0-4.3); MEAN CELL VOLUME 82.3 fL (80.0-94.0); MEAN CORPUSCULAR HEMOGLOBIN 27.3 pg (27.0-31.0); MEAN CORPUSCULAR HGB CONC 33.2 g/dL (33.0-37.0); MEAN PLATELET VOLUME 8.6 fL (7.2-11.7); MONO # 0.6 K/uL (0.0-0.8); MONO % 8.3 % (0.0-10.0); NEUT # 4.6 K/uL (1.8-7.0); NEUT % 62.4 % (50.0-75.0); NRBC % 0.1 % (0.0-2.0); RBC 4.73 Mil/uL (4.40-5.90); RED CELL DISTRIBUTION WIDTH 15.2 % (11.5-14.5); WHITE BLOOD COUNT 7.3 K/uL (4.8-10.8)
[2018-08-24 06:40] LABS: ALB/GLOB RATIO 1.2 (1.0-2.1); ALBUMIN 3.4 g/dL (3.5-5.0); ALT/SGPT 16 U/L (21-72); AST/SGOT 19 U/L (17-59); BLOOD UREA NITROGEN 20 mg/dL (9-20); CALCIUM 8.7 mg/dl (8.6-10.4); GFR NON-AFRICAN AMERICAN > 60
[2018-08-24] MEDS ORDERED: Bupivacaine HCl 0.5% PF (10 ml) Inj ONE (07:26)
[2018-08-24] MEDS ORDERED: Lidocaine Hydrochloride 20 ML INJ ONE (07:26)
[2018-08-24] MEDS ORDERED: Midazolam 2 MG/2 ML VIAL ONE (07:36)
[2018-08-24] MEDS ORDERED: Acetaminophen 650mg/20.3ml solution UD PO PRN (08:49)
[2018-08-24] MEDS ORDERED: Oxycodone/Acetaminophen 5/325 mg Tab PO PRN ×2 (08:49)
--- NOTE | 2018-08-24 09:09 | CP.PCM.PN ---
Subjective - Date & Time of Evaluation Date of Evaluation: 08/24/18 Time of Evaluation: 09:06 - Subjective Subjective: Podiatry Progress Note - Dr. Marley 63M seen and evaluated at bedside for left foot wound. Patient resting comfortably, NAD. No acute events overnight. No new lower extremity complaints per patient. Patient aware he is scheduled for surgery today and admits to being NPO. Denies n/v/f/d/c/sob/marte/cp. Objective - Vital Signs/Intake and Output Vital Signs (last 24 hours): Temp Pulse Resp BP Pulse Ox 98.1 F 66 20 122/81 94 L 08/23/18 23:38 08/23/18 23:38 08/23/18 23:38 08/23/18 23:38 08/23/18 23:38 Intake and Output: 08/24/18 08/24/18 06:59 18:59 Intake Total 1200 160 Output Total 800 Balance 400 160 - Medications Medications: Current Medications Acetaminophen (Tylenol 650mg/20.3ml Solution Ud) 650 mg PO Q6 PRN PRN Reason: Pain, Mild (1-3) Amlodipine Besylate (Norvasc) 10 mg PO DAILY [facility] Last Admin: 08/23/18 10:11 Dose: 10 mg Bupropion HCl (Wellbutrin) 75 mg PO DAILY [facility] Last Admin: 08/23/18 10:11 Dose: 75 mg Dextrose (Dextrose 50% Inj) 0 ml IV STAT PRN; Protocol PRN Reason: Hypoglycemia Protocol Dextrose (Glutose 15) 0 gm PO ONCE PRN; Protocol PRN Reason: Hypoglycemia Protocol Glucagon (Glucagen Diagnostic Kit) 0 mg IM STAT PRN; Protocol PRN Reason: Hypoglycemia Protocol Heparin Sodium (Porcine) (Heparin) 5,000 units SC Q12 [facility] Last Admin: 08/23/18 21:14 Dose: 5,000 units Hydrochlorothiazide (Microzide) 12.5 mg PO DAILY [facility] Last Admin: 08/23/18 10:11 Dose: 12.5 mg Cefepime HCl 1 gm/ Dextrose 50 mls @ 100 mls/hr IVPB Q12H [facility]; Protocol Last Admin: 08/24/18 01:35 Dose: 100 mls/hr Dextrose (Dextrose 5% In Water 1000 Ml) 1,000 mls @ 0 mls/hr IV .Q0M PRN; Protocol PRN Reason: Hypoglycemia Protocol Sodium Chloride (Sodium Chloride 0.9%) 1,000 mls @ 100 mls/hr IV .Q10H [facility] Last Admin: 08/24/18 01:36 Dose: 100 mls/hr Vancomycin HCl 1 gm/ Sodium (Chloride) 250 mls @ 166.7 mls/hr IVPB 1600 [facility]; Protocol Last Admin: 08/23/18 17:04 Dose: Not Given Insulin Human Regular (Novolin R) 0 unit SC ACHS [facility]; Protocol Last Admin: 08/23/18 21:02 Dose: Not Given Lisinopril (Zestril) 20 mg PO DAILY [facility] Last Admin: 08/23/18 10:11 Dose: 20 mg Memantine (Namenda) 10 mg PO DAILY [facility] Last Admin: 08/23/18 10:11 Dose: 10 mg Mupirocin (Bactroban Ointment) 0 gm TOP DAILY [facility] Last Admin: 08/23/18 10:32 Dose: Not Given Oxycodone/Acetaminophen (Percocet 5/325 Mg Tab) 1 tab PO Q6H PRN PRN Reason: Pain, moderate (4-7) Stop: 08/27/18 08:50 Oxycodone/Acetaminophen (Percocet 5/325 Mg Tab) 2 tab PO Q4H PRN PRN Reason: Pain, severe (8-10) Stop: 08/27/18 08:50 Pneumococcal Polyvalent Vaccine (Pneumovax 23 Vaccine) 0.5 ml IM .ONCE ONE Stop: 08/24/18 10:01 Rivastigmine (Exelon 9.5 Mg/24 Hr Patch) 1 patch TD DAILY [facility] Last Admin: 08/23/18 10:11 Dose: 1 patch Rosuvastatin Calcium (Crestor) 10 mg PO HS [facility] Last Admin: 08/23/18 21:14 Dose: 10 mg - Labs Labs: 08/24/18 06:16 08/24/18 06:16 PT 15.3 SECONDS (9.7-12.2) H 08/22/18 11:28 INR 1.4 08/22/18 11:28 APTT 37 SECONDS (21-34) H 08/22/18 11:28 - Constitutional Appears: Well, Non-toxic, No Acute Distress - Head Exam Head Exam: ATRAUMATIC - Eye Exam Eye Exam: Normal appearance - Extremities Exam Additional comments: dressing c/d/i, strike through noted Assessment and Plan - Assessment and Plan (Free Text) Assessment: 63M with left sub 5th met head ulceration + osteomyelitis Plan: Patient seen and evaluated Discussed with attending, Dr. Ayaka CONWAY, WBC 7.3 LLE MRI (08/20): Acute OM 5th met head extending into shaft as well as within 5th proximal phalanx ID consulted - continue abx Plan for OR today Monday, 08/24 @ 7:30 left partial 5th ray resection -Patient medically optimized for surgical procedure -NPO -Heparin held Podiatry will continue to follow
--- NOTE | 2018-08-24 09:13 | PCM.SURG1 ---
Surgeon's Initial Post Op Note - Surgeon's Notes Surgeon: Dr. Joao Marley Ship Pilot Dispatcher: Rekha Michel, PGy1 Type of Anesthesia: IV Sedation, Local Anesthesia Administered By: Dr. Sloan Pre-Operative Diagnosis: Left foot fifth metatarsal head and proximal phalanx osteomyelitis with nonhealing ulcer submet 5. Operative Findings: see dictation. materials: 4-0 vicryl, 3-0 nylon. injectibles: 20 cc of .5% marcaine and 2% lidocaine Post-Operative Diagnosis: same Operation Performed: resection of left fifth metatarsal head and proximal phalanx with primary closure Specimen/Specimens Removed: left fifth metatarsal head and proximal phalanx pathology and cultures taken Estimated Blood Loss: EBL {In ML}: 10 Blood Products Given: N/A Drains Used: No Drains Post-Op Condition: Good Date of Surgery/Procedure: 08/24/18 Time of Surgery/Procedure: 09:13
--- NOTE | 2018-08-24 09:34 | CP.PCM.PN ---
Subjective - Date & Time of Evaluation Date of Evaluation: 08/24/18 Time of Evaluation: 11:00 - Subjective Subjective: PGY1 Medicine progress note for Dr. Gonzales Pt was seen and examined at bedside. Pt is resting comfortably he has no complaints at this time. He is POD#0 of resection of left fifth metatarsal head and proximal phalanx with primary closure. He denies fever, chills, chest pain, sob, abdominal pain, n/v/d. Pain is well controlled. Objective - Vital Signs/Intake and Output Vital Signs (last 24 hours): Temp Pulse Resp BP Pulse Ox 98.1 F 66 20 122/81 94 L 08/23/18 23:38 08/23/18 23:38 08/23/18 23:38 08/23/18 23:38 08/23/18 23:38 Intake and Output: 08/24/18 08/24/18 06:59 18:59 Intake Total 1200 160 Output Total 800 Balance 400 160 - Medications Medications: Current Medications Acetaminophen (Tylenol 650mg/20.3ml Solution Ud) 650 mg PO Q6 PRN PRN Reason: Pain, Mild (1-3) Amlodipine Besylate (Norvasc) 10 mg PO DAILY [facility] Last Admin: 08/23/18 10:11 Dose: 10 mg Bupropion HCl (Wellbutrin) 75 mg PO DAILY [facility] Last Admin: 08/23/18 10:11 Dose: 75 mg Dextrose (Dextrose 50% Inj) 0 ml IV STAT PRN; Protocol PRN Reason: Hypoglycemia Protocol Dextrose (Glutose 15) 0 gm PO ONCE PRN; Protocol PRN Reason: Hypoglycemia Protocol Glucagon (Glucagen Diagnostic Kit) 0 mg IM STAT PRN; Protocol PRN Reason: Hypoglycemia Protocol Heparin Sodium (Porcine) (Heparin) 5,000 units SC Q12 [facility] Last Admin: 08/23/18 21:14 Dose: 5,000 units Hydrochlorothiazide (Microzide) 12.5 mg PO DAILY [facility] Last Admin: 08/23/18 10:11 Dose: 12.5 mg Cefepime HCl 1 gm/ Dextrose 50 mls @ 100 mls/hr IVPB Q12H [facility]; Protocol Last Admin: 08/24/18 01:35 Dose: 100 mls/hr Dextrose (Dextrose 5% In Water 1000 Ml) 1,000 mls @ 0 mls/hr IV .Q0M PRN; Protocol PRN Reason: Hypoglycemia Protocol Sodium Chloride (Sodium Chloride 0.9%) 1,000 mls @ 100 mls/hr IV .Q10H [facility] Last Admin: 08/24/18 01:36 Dose: 100 mls/hr Vancomycin HCl 1 gm/ Sodium (Chloride) 250 mls @ 166.7 mls/hr IVPB 1600 [facility]; Protocol Last Admin: 08/23/18 17:04 Dose: Not Given Insulin Human Regular (Novolin R) 0 unit SC ACHS [facility]; Protocol Last Admin: 08/23/18 21:02 Dose: Not Given Lisinopril (Zestril) 20 mg PO DAILY [facility] Last Admin: 08/23/18 10:11 Dose: 20 mg Memantine (Namenda) 10 mg PO DAILY [facility] Last Admin: 08/23/18 10:11 Dose: 10 mg Mupirocin (Bactroban Ointment) 0 gm TOP DAILY [facility] Last Admin: 08/23/18 10:32 Dose: Not Given Oxycodone/Acetaminophen (Percocet 5/325 Mg Tab) 1 tab PO Q6H PRN PRN Reason: Pain, moderate (4-7) Stop: 08/27/18 08:50 Oxycodone/Acetaminophen (Percocet 5/325 Mg Tab) 2 tab PO Q4H PRN PRN Reason: Pain, severe (8-10) Stop: 08/27/18 08:50 Pneumococcal Polyvalent Vaccine (Pneumovax 23 Vaccine) 0.5 ml IM .ONCE ONE Stop: 08/24/18 10:01 Rivastigmine (Exelon 9.5 Mg/24 Hr Patch) 1 patch TD DAILY [facility] Last Admin: 08/23/18 10:11 Dose: 1 patch Rosuvastatin Calcium (Crestor) 10 mg PO HS [facility] Last Admin: 08/23/18 21:14 Dose: 10 mg - Labs Labs: 08/24/18 06:16 08/24/18 06:16 PT 15.3 SECONDS (9.7-12.2) H 08/22/18 11:28 INR 1.4 08/22/18 11:28 APTT 37 SECONDS (21-34) H 08/22/18 11:28 - Additional Findings Additional findings: - Constitutional Appears: Well, Non-toxic, No Acute Distress, Confused - Head Exam Head Exam: ATRAUMATIC, NORMAL INSPECTION - Eye Exam Eye Exam: EOMI, Normal appearance - ENT Exam ENT Exam: Mucous Membranes Moist, Normal Exam - Neck Exam Neck exam: Negative for: Lymphadenopathy - Respiratory Exam Respiratory Exam: Clear to Auscultation Bilateral. absent: Rales, Wheezes - Cardiovascular Exam Cardiovascular Exam: RRR, +S1, +S2 - GI/Abdominal Exam GI & Abdominal Exam: Soft. absent: Guarding, Organomegaly, Tenderness - Extremities Exam Extremities exam: Positive for: pedal pulses present Additional comments: L foot: toes moving. with sensation intact. post op dressing, clean try and intact. 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 Plan: S/p resection of left fifth metatarsal head and proximal phalanx with primary closure secondary to Osteomyelitis of 5th metatarsal - POD#0 - no bandemia, afebrile - Dr Marley Podiatry consulted: MRI 08/20: extensive signal abnormality seen within the 5th MTT head extending into the shaft o fthe 5th metatarsal bone as well as within the 5th proximal phalanx with asociated patchy decreased T1 signal. Concerning for acute osteomyelitis. - Vasc Sx Brown Consulted - Florastor 250 mg PO BID - BCx x2 is negative for 48 hours - MRSA noted in left foot culture June 2018 - contact precautions for MRSA - pre-op wound culture final shows corynebacterium species heavy growth. Pt already on vancomycin - ID consulted (Mangia) - Vancomycin 1 g IV Q24H started 08/22 - F/u vanomycin trough 08/25 - Cefepime 1 g q12 IVPB started 08/22 -08/24, continue antibiotics until intraop cultures return. No PICC line until BCx negative until 08/27. - f/u intra op tissue culture PFO with AFib - Dr Nettles Cardio -spoke on phone: Pt needs to get a loop recorder for one month before consideration of PFO closure Pt has not followed up as instructed after last d/c in jun Pt is to restart ASA 81 with Plavix 75 after sx Vascular dementia with A fib and PFO - CTA head/neck 06/19: no significant stenosis or structural abnormalities - Crestor 10 mg PO QHS - Wellbutrin 75 mg PO daily - Memantine 10 mg PO daily - Rivastigmine 9.5 mg patch daily - Fall precautions - Restarting ASA 81 mg PO and Plavix 75 mg PO tomorrow Hypertension - Monitor vitals Q4H - Amlodipine 10 mg PO daily - HCTZ 12.5 PO daily - Lisinopril 20 mg PO daily Type 2 diabetes mellitus - Last A1c 6.9, f/u AM - Hypoglycemic protocol - Accuchecks ACHS with ISS Hx of bladder cancer - Urology Dr Lazcano: pt did not f/u after original dx of CA 9 yrs ago - 5 lesions removed during recent cystoscopy - Superficial in situ remenant, no further interventions need at this time - Monitor I&Os - [place] bowman catheter 08/22 Ppx: VTE: SCDs, heparin 5000 u sc q12, will hold anti coag until after procedure GI: not indicated, HHD Diet Code status: full code Dispo: continue IV antibiotics, intraop tissue culture will guide future antibiotic regimen. Case discussed with Dr. Gonzales
[2018-08-24] MEDS ORDERED: Pneumococcal 23-Valent Vaccine IM ONE (10:00)
--- NOTE | 2018-08-24 10:02 | VASCLAB ---
Date of service: 08/23/2018 STUDY DESCRIPTION: Lower Extremity Arterial Exam (PVR). HISTORY: L 5th toe osteo, eval PVD PRIORS: None. TECHNIQUE: Pulse volume recording waveforms and segmental pressures of bilateral lower extremities at multiple levels were obtained. Ankle Brachial Indices (ABIs) were calculated. Report prepared by BREANNA Dockery, RVT RIGHT LOWER EXTREMITY: * Brachial artery: Pressure - 120 mmHg. * High thigh: Pressure - mmHg: Ratio - : PVR waveform - Pulsatile * Low thigh: Pressure - mmHg: Ratio - PVR waveform: Pulsatile * Calf: Pressure - 220 mmHg: Ratio - NC PVR waveform: Pulsatile * Posterior tibial Artery: Pressure - 220 mmHg: Ratio - NC PVR waveform: Pulsatile * Dorsalis pedis Artery: Pressure - 220 mmHg: Ratio - NC PVR waveform: Pulsatile * Great toe: Pressure - mmHg: Ratio - PVR waveform: Ankle brachial index (YOBANY): NC LEFT LOWER EXTREMITY: * Brachial artery: Pressure - 122 mmHg. * High thigh: Pressure - mmHg: Ratio - : PVR waveform - Pulsatile * Low thigh: Pressure - mmHg: Ratio - PVR waveform: Pulsatile * Calf: Pressure - 220 mmHg: Ratio - NC PVR waveform: Pulsatile * Posterior tibial Artery: Pressure - 220 mmHg: Ratio - NC PVR waveform: Pulsatile * Dorsalis pedis Artery: Pressure - 220 mmHg: Ratio - NC PVR waveform: Pulsatile * Great toe: Pressure - mmHg: Ratio - PVR waveform: Ankle brachial index (YOBANY): NC OTHER FINDINGS: Right: Left: IMPRESSION: Right: The ankle pressure index of the right lower extremity is non-diagnostic due to possible arterial wall calcifications. Left: The ankle pressure index of the left lower extremity is non-diagnostic due to possible arterial wall calcifications.
[2018-08-24] MEDS: (Novolin R) Insulin Human Regular 100 units/ml vial SC SCH ×4 (10:36→21:24)
--- NOTE | 2018-08-24 14:05 | RAD ---
Date of service: 08/24/2018 PROCEDURE: Left Foot Radiographs. HISTORY: s/p fifth met head amputation COMPARISON: 08/22/2018 FINDINGS: BONES: Status post partial amputation of the 5th metatarsal. There is diffuse bone demineralization. No acute displaced fracture or bone destruction. Bone alignment is normal. JOINTS: Normal. SOFT TISSUES: Postoperative changes in lateral soft tissues of the forefoot. OTHER FINDINGS: There are atherosclerotic vascular calcifications. IMPRESSION: Status post partial amputation of the 5th metatarsal, expected postoperative changes in the surrounding soft tissues.
--- NOTE | 2018-08-24 17:12 | CP.PCM.PN ---
Subjective - Date & Time of Evaluation Date of Evaluation: 08/24/18 Time of Evaluation: 08:00 - Subjective Subjective: s/p 5th ray resection tolerated well iv rx in progress Objective - Vital Signs/Intake and Output Vital Signs (last 24 hours): Temp Pulse Resp BP Pulse Ox 97.6 F 54 L 20 146/93 H 95 08/24/18 10:41 08/24/18 10:41 08/24/18 10:41 08/24/18 10:41 08/24/18 10:41 Intake and Output: 08/24/18 08/24/18 06:59 18:59 Intake Total 1200 360 Output Total 800 150 Balance 400 210 - Medications Medications: Current Medications Acetaminophen (Tylenol 650mg/20.3ml Solution Ud) 650 mg PO Q6 PRN PRN Reason: Pain, Mild (1-3) Amlodipine Besylate (Norvasc) 10 mg PO DAILY [facility] Last Admin: 08/24/18 10:43 Dose: 10 mg Aspirin (Aspirin Chewable) 81 mg PO DAILY [facility] Bupropion HCl (Wellbutrin) 75 mg PO DAILY [facility] Last Admin: 08/24/18 10:43 Dose: 75 mg Clopidogrel Bisulfate (Plavix) 75 mg PO DAILY [facility] Dextrose (Dextrose 50% Inj) 0 ml IV STAT PRN; Protocol PRN Reason: Hypoglycemia Protocol Dextrose (Glutose 15) 0 gm PO ONCE PRN; Protocol PRN Reason: Hypoglycemia Protocol Glucagon (Glucagen Diagnostic Kit) 0 mg IM STAT PRN; Protocol PRN Reason: Hypoglycemia Protocol Heparin Sodium (Porcine) (Heparin) 5,000 units SC Q12 [facility] Last Admin: 08/23/18 21:14 Dose: 5,000 units Hydrochlorothiazide (Microzide) 12.5 mg PO DAILY [facility] Last Admin: 08/24/18 10:43 Dose: 12.5 mg Cefepime HCl 1 gm/ Dextrose 50 mls @ 100 mls/hr IVPB Q12H [facility]; Protocol Last Admin: 08/24/18 14:02 Dose: 100 mls/hr Dextrose (Dextrose 5% In Water 1000 Ml) 1,000 mls @ 0 mls/hr IV .Q0M PRN; Pro tocol PRN Reason: Hypoglycemia Protocol Sodium Chloride (Sodium Chloride 0.9%) 1,000 mls @ 100 mls/hr IV .Q10H [facility] Last Admin: 08/24/18 01:36 Dose: 100 mls/hr Vancomycin HCl 1 gm/ Sodium (Chloride) 250 mls @ 166.7 mls/hr IVPB 1600 [facility]; Protocol Last Admin: 08/24/18 16:51 Dose: 166.7 mls/hr Insulin Human Regular (Novolin R) 0 unit SC ACHS [facility]; Protocol Last Admin: 08/24/18 16:51 Dose: 2 u Lisinopril (Zestril) 20 mg PO DAILY [facility] Last Admin: 08/24/18 10:43 Dose: 20 mg Memantine (Namenda) 10 mg PO DAILY [facility] Last Admin: 08/24/18 10:43 Dose: 10 mg Mupirocin (Bactroban Ointment) 0 gm TOP DAILY [facility] Last Admin: 08/24/18 10:36 Dose: Not Given Oxycodone/Acetaminophen (Percocet 5/325 Mg Tab) 1 tab PO Q6H PRN PRN Reason: Pain, moderate (4-7) Stop: 08/27/18 08:50 Oxycodone/Acetaminophen (Percocet 5/325 Mg Tab) 2 tab PO Q4H PRN PRN Reason: Pain, severe (8-10) Stop: 08/27/18 08:50 Rivastigmine (Exelon 9.5 Mg/24 Hr Patch) 1 patch TD DAILY [facility] Last Admin: 08/24/18 10:42 Dose: 1 patch Rosuvastatin Calcium (Crestor) 10 mg PO HS [facility] Last Admin: 08/23/18 21:14 Dose: 10 mg - Labs Labs: 08/24/18 06:16 08/24/18 06:16 PT 15.3 SECONDS (9.7-12.2) H 08/22/18 11:28 INR 1.4 08/22/18 11:28 APTT 37 SECONDS (21-34) H 08/22/18 11:28 - Constitutional Appears: Non-toxic, Chronically Ill - Head Exam Head Exam: NORMOCEPHALIC - Eye Exam Eye Exam: absent: Scleral icterus - ENT Exam ENT Exam: Mucous Membranes Dry - Neck Exam Neck Exam: absent: Lymphadenopathy - Respiratory Exam Respiratory Exam: Decreased Breath Sounds - Cardiovascular Exam Cardiovascular Exam: REGULAR RHYTHM - GI/Abdominal Exam GI & Abdominal Exam: Distended - Rectal Exam Rectal Exam: Deferred - Exam Exam: NORMAL INSPECTION - Extremities Exam Extremities Exam: Pedal Edema - Back Exam Back Exam: absent: CVA tenderness (L), CVA tenderness (R) - Neurological Exam Neurological Exam: Alert, Awake, CN II-XII Intact Assessment and Plan (1) Osteomyelitis of left foot Status: Acute - Assessment and Plan (Free Text) Assessment: await bone cultures cont iv rx
[2018-08-25] MEDS: Sodium Chloride 0.9% 1,000 ML IV SCH ×2 (02:11→12:40)
[2018-08-25 07:19] LABS: BASO # 0.1 K/uL (0.0-0.2); BASO % 0.7 % (0.0-2.0); EOS # 0.2 K/uL (0.0-0.7); EOS % 2.8 % (0.0-4.0); LYMPH # 1.6 K/uL (1.0-4.3); LYMPH % 19.2 % (20.0-40.0); MEAN CELL VOLUME 81.3 fL (80.0-94.0); MEAN CORPUSCULAR HEMOGLOBIN 27.1 pg (27.0-31.0); MEAN CORPUSCULAR HGB CONC 33.3 g/dL (33.0-37.0); MEAN PLATELET VOLUME 9.2 fL (7.2-11.7); MONO # 0.7 K/uL (0.0-0.8); NEUT # 5.5 K/uL (1.8-7.0); NEUT % 68.3 % (50.0-75.0); RBC 4.82 Mil/uL (4.40-5.90); RED CELL DISTRIBUTION WIDTH 14.8 % (11.5-14.5); WHITE BLOOD COUNT 8.1 K/uL (4.8-10.8)
[2018-08-25 07:30] LABS: ALB/GLOB RATIO 1.3 (1.0-2.1); ALBUMIN 3.5 g/dL (3.5-5.0); ALT/SGPT 15 U/L (21-72); AST/SGOT 19 U/L (17-59); BLOOD UREA NITROGEN 17 mg/dL (9-20); CALCIUM 8.9 mg/dl (8.6-10.4); GFR NON-AFRICAN AMERICAN > 60
[2018-08-25] MEDS: (Novolin R) Insulin Human Regular 100 units/ml vial SC SCH ×4 (08:03→21:31)
--- NOTE | 2018-08-25 08:14 | CP.PCM.PN ---
<Debi Lyons - Last Filed: 08/25/18 15:19> Subjective - Date & Time of Evaluation Date of Evaluation: 08/25/18 Time of Evaluation: 08:14 - Subjective Subjective: Progress Note for Hospitalist service Patient seen and examined at bedside. He is resting comfortably with no complaints currently. He is post-op day 1 left 5th metatarsal head and proximal phalanx resection. He denies fever, chills, headache, dizziness, chest pain, shortness of breath, abdominal pain, nausea, vomiting, diarrhea. He states his pain is well controlled. Objective - Vital Signs/Intake and Output Vital Signs (last 24 hours): Temp Pulse Resp BP Pulse Ox 97.8 F 63 20 133/87 95 08/25/18 08:00 08/25/18 08:00 08/25/18 08:00 08/25/18 08:00 08/25/18 08:00 Intake and Output: 08/25/18 08/25/18 06:59 18:59 Intake Total 1000 Balance 1000 - Medications Medications: Current Medications Acetaminophen (Tylenol 650mg/20.3ml Solution Ud) 650 mg PO Q6 PRN PRN Reason: Pain, Mild (1-3) Amlodipine Besylate (Norvasc) 10 mg PO DAILY [facility] Last Admin: 08/24/18 10:43 Dose: 10 mg Aspirin (Aspirin Chewable) 81 mg PO DAILY [facility] Bupropion HCl (Wellbutrin) 75 mg PO DAILY [facility] Last Admin: 08/24/18 10:43 Dose: 75 mg Clopidogrel Bisulfate (Plavix) 75 mg PO DAILY [facility] Dextrose (Dextrose 50% Inj) 0 ml IV STAT PRN; Protocol PRN Reason: Hypoglycemia Protocol Dextrose (Glutose 15) 0 gm PO ONCE PRN; Protocol PRN Reason: Hypoglycemia Protocol Glucagon (Glucagen Diagnostic Kit) 0 mg IM STAT PRN; Protocol PRN Reason: Hypoglycemia Protocol Heparin Sodium (Porcine) (Heparin) 5,000 units SC Q12 [facility] Last Admin: 08/23/18 21:14 Dose: 5,000 units Hydrochlorothiazide (Microzide) 12.5 mg PO DAILY [facility] Last Admin: 08/24/18 10:43 Dose: 12.5 mg Cefepime HCl 1 gm/ Dextrose 50 mls @ 100 mls/hr IVPB Q12H [facility]; Protocol Last Admin: 08/25/18 02:19 Dose: 100 mls/hr Dextrose (Dextrose 5% In Water 1000 Ml) 1,000 mls @ 0 mls/hr IV .Q0M PRN; Protocol PRN Reason: Hypoglycemia Protocol Sodium Chloride (Sodium Chloride 0.9%) 1,000 mls @ 100 mls/hr IV .Q10H [facility] Last Admin: 08/25/18 02:11 Dose: Not Given Vancomycin HCl 1 gm/ Sodium (Chloride) 250 mls @ 166.7 mls/hr IVPB 1600 [facility]; Protocol Last Admin: 08/24/18 16:51 Dose: 166.7 mls/hr Insulin Human Regular (Novolin R) 0 unit SC ACHS [facility]; Protocol Last Admin: 08/25/18 08:03 Dose: Not Given Lisinopril (Zestril) 20 mg PO DAILY [facility] Last Admin: 08/24/18 10:43 Dose: 20 mg Memantine (Namenda) 10 mg PO DAILY [facility] Last Admin: 08/24/18 10:43 Dose: 10 mg Mupirocin (Bactroban Ointment) 0 gm TOP DAILY [facility] Last Admin: 08/24/18 10:36 Dose: Not Given Oxycodone/Acetaminophen (Percocet 5/325 Mg Tab) 1 tab PO Q6H PRN PRN Reason: Pain, moderate (4-7) Stop: 08/27/18 08:50 Oxycodone/Acetaminophen (Percocet 5/325 Mg Tab) 2 tab PO Q4H PRN PRN Reason: Pain, severe (8-10) Stop: 08/27/18 08:50 Rivastigmine (Exelon 9.5 Mg/24 Hr Patch) 1 patch TD DAILY [facility] Last Admin: 08/24/18 10:42 Dose: 1 patch Rosuvastatin Calcium (Crestor) 10 mg PO HS [facility] Last Admin: 08/24/18 21:23 Dose: 10 mg - Labs Labs: 08/25/18 07:07 08/25/18 07:07 PT 15.3 SECONDS (9.7-12.2) H 08/22/18 11:28 INR 1.4 08/22/18 11:28 APTT 37 SECONDS (21-34) H 08/22/18 11:28 - Constitutional Appears: Well, No Acute Distress - Head Exam Head Exam: ATRAUMATIC, NORMOCEPHALIC - Eye Exam Eye Exam: EOMI, PERRL - ENT Exam ENT Exam: Mucous Membranes Moist - Neck Exam Neck Exam: Full ROM. absent: Tenderness - Respiratory Exam Respiratory Exam: Clear to Ausculation Bilateral, NORMAL BREATHING PATTERN. absent: Rales, Rhonchi, Wheezes, Respiratory Distress, Stridor - Cardiovascular Exam Cardiovascular Exam: REGULAR RHYTHM, +S1, +S2. absent: Gallop, Rubs, Murmur - GI/Abdominal Exam GI & Abdominal Exam: Soft, Normal Bowel Sounds. absent: Distended, Firm, Guarding, Rigid, Tenderness - Extremities Exam Additional comments: Left foot: Sensation intact. Able to move toes on left foot. Post op dressing clean, dry, intact. Pulses present. 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 POD1 status post resection of left fifth metatarsal head and proximal phalanx with primary closure secondary to Osteomyelitis of 5th metatarsal. Plan: S/p resection of left fifth metatarsal head and proximal phalanx with primary closure secondary to Osteomyelitis of 5th metatarsal - POD#1 - no leukocytosis afebrile - Dr Marley Podiatry consulted: MRI 08/20: extensive signal abnormality seen within the 5th MTT head extending into the shaft of the 5th metatarsal bone as well as within the 5th proximal phalanx with associated patchy decreased T1 signal. Concerning for acute osteomyelitis. - Vasc Sx Brown Consulted - Florastor 250 mg PO BID - BCx x2 is negative for 3 days - MRSA noted in left foot culture June 2018 - contact precautions for MRSA - pre-op wound culture final shows corynebacterium species heavy growth. Pt already on vancomycin - Post op wound cultures no growth for 24 hours - ID consulted (Noel) - Vancomycin 1 g IV Q24H started 08/22 - vanomycin trough 08/25 7.0 - Cefepime 1 g q12 IVPB started 08/22 -08/24, continue antibiotics until intraop cultures return. No PICC line until BCx negative until 08/27. - f/u intra op tissue culture PFO with AFib - Dr Nettles Cardio -spoke on phone: Pt needs to get a loop recorder for one month before consideration of PFO closure Pt has not followed up as instructed after last d/c in jun ASA 81mg and Plavix 75mg PO restarted today Vascular dementia with A fib and PFO - CTA head/neck 06/19: no significant stenosis or structural abnormalities - Crestor 10 mg PO QHS - Wellbutrin 75 mg PO daily - Memantine 10 mg PO daily - Rivastigmine 9.5 mg patch daily - Fall precautions - Restarting ASA 81 mg PO and Plavix 75 mg PO today Hypertension - Monitor vitals Q4H - Amlodipine 10 mg PO daily - HCTZ 12.5 PO daily - Lisinopril 20 mg PO daily Type 2 diabetes mellitus - Last A1c 6.9 - Hypoglycemic protocol - Accuchecks ACHS with ISS Hx of bladder cancer - Urology Dr Lazcano: pt did not f/u after original dx of CA 9 yrs ago - 5 lesions removed during recent cystoscopy - Superficial in situ remenant, no further interventions need at this time - Monitor I&Os - [place] bowman catheter 08/22 Prophylaxis: VTE: SCDs, heparin 5000 u sc q12, will hold anti coag until after procedure GI: not indicated, HHD Diet Code status: full code Dispo: continue IV antibiotics, intraop tissue culture will guide future antibiotic regimen. Case discussed with Dr. Angella Lyons, PGY1 <Danilo Perales - Last Filed: 08/25/18 15:47> Objective - Vital Signs/Intake and Output Vital Signs (last 24 hours): Temp Pulse Resp BP Pulse Ox 97.8 F 63 20 133/87 95 08/25/18 08:00 08/25/18 08:00 08/25/18 08:00 08/25/18 08:00 08/25/18 08:00 Intake and Output: 08/25/18 08/25/18 06:59 18:59 Intake Total 1000 Balance 1000 - Medications Medications: Current Medications Acetaminophen (Tylenol 650mg/20.3ml Solution Ud) 650 mg PO Q6 PRN PRN Reason: Pain, Mild (1-3) Amlodipine Besylate (Norvasc) 10 mg PO DAILY [facility] Last Admin: 08/25/18 09:49 Dose: 10 mg Aspirin (Aspirin Chewable) 81 mg PO DAILY [facility] Last Admin: 08/25/18 09:49 Dose: 81 mg Bupropion HCl (Wellbutrin) 75 mg PO DAILY [facility] Last Admin: 08/25/18 09:49 Dose: 75 mg Clopidogrel Bisulfate (Plavix) 75 mg PO DAILY [facility] Last Admin: 08/25/18 09:49 Dose: 75 mg Dextrose (Dextrose 50% Inj) 0 ml IV STAT PRN; Protocol PRN Reason: Hypoglycemia Protocol Dextrose (Glutose 15) 0 gm PO ONCE PRN; Protocol PRN Reason: Hypoglycemia Protocol Glucagon (Glucagen Diagnostic Kit) 0 mg IM STAT PRN; Protocol PRN Reason: Hypoglycemia Protocol Heparin Sodium (Porcine) (Heparin) 5,000 units SC Q12 [facility] Last Admin: 08/25/18 12:29 Dose: 5,000 units Hydrochlorothiazide (Microzide) 12.5 mg PO DAILY [facility] Last Admin: 08/25/18 09:49 Dose: 12.5 mg Cefepime HCl 1 gm/ Dextrose 50 mls @ 100 mls/hr IVPB Q12H [facility]; Protocol Last Admin: 08/25/18 13:50 Dose: 100 mls/hr Dextrose (Dextrose 5% In Water 1000 Ml) 1,000 mls @ 0 mls/hr IV .Q0M PRN; Protocol PRN Reason: Hypoglycemia Protocol Sodium Chloride (Sodium Chloride 0.9%) 1,000 mls @ 100 mls/hr IV .Q10H [facility] Last Admin: 08/25/18 12:40 Dose: Not Given Vancomycin HCl 1 gm/ Sodium (Chloride) 250 mls @ 166.7 mls/hr IVPB 1600 [facility]; Protocol Last Admin: 08/24/18 16:51 Dose: 166.7 mls/hr Insulin Human Regular (Novolin R) 0 unit SC ACHS [facility]; Protocol Last Admin: 08/25/18 11:26 Dose: Not Given Lisinopril (Zestril) 20 mg PO DAILY [facility] Last Admin: 08/25/18 09:49 Dose: 20 mg Memantine (Namenda) 10 mg PO DAILY [facility] Last Admin: 08/25/18 09:49 Dose: 10 mg Mupirocin (Bactroban Ointment) 0 gm TOP DAILY [facility] Last Admin: 08/25/18 09:50 Dose: Not Given Oxycodone/Acetaminophen (Percocet 5/325 Mg Tab) 1 tab PO Q6H PRN PRN Reason: Pain, moderate (4-7) Stop: 08/27/18 08:50 Oxycodone/Acetaminophen (Percocet 5/325 Mg Tab) 2 tab PO Q4H PRN PRN Reason: Pain, severe (8-10) Stop: 08/27/18 08:50 Rivastigmine (Exelon 9.5 Mg/24 Hr Patch) 1 patch TD DAILY [facility] Last Admin: 08/25/18 09:49 Dose: 1 patch Rosuvastatin Calcium (Crestor) 10 mg PO HS [facility] Last Admin: 08/24/18 21:23 Dose: 10 mg - Labs Labs: 08/25/18 07:07 08/25/18 07:07 PT 15.3 SECONDS (9.7-12.2) H 08/22/18 11:28 INR 1.4 08/22/18 11:28 APTT 37 SECONDS (21-34) H 08/22/18 11:28 Attending/Attestation - Attestation I have personally seen and examined this patient.: Yes I have fully participated in the care of the patient.: Yes I have reviewed all pertinent clinical information, including history, physical exam and plan: Yes Notes (Text): 08/25/18 15:43 Medical attending: Patient was seen and examined by me as well. Agree with the above note by the resident The patient was not in any acute distress when we came and saw. The patient is s/p surgery by podiatry. Currently on IV abx Danilo Perales
--- NOTE | 2018-08-25 13:52 | CP.PCM.PN ---
Subjective - Date & Time of Evaluation Date of Evaluation: 08/25/18 Time of Evaluation: 13:51 - Subjective Subjective: Podiatry Progress Note - Dr. Marley 63M seen and evaluated at bedside for 1 day s/p left foot fifth met head and proximal phalanx resection. Patient resting comfortably, NAD. No acute events overnight. No new lower extremity complaints per patient. Denies n/v/f/d/c/sob/marte/cp. Objective - Vital Signs/Intake and Output Vital Signs (last 24 hours): Temp Pulse Resp BP Pulse Ox 97.8 F 63 20 133/87 95 08/25/18 08:00 08/25/18 08:00 08/25/18 08:00 08/25/18 08:00 08/25/18 08:00 Intake and Output: 08/25/18 08/25/18 06:59 18:59 Intake Total 1000 Balance 1000 - Medications Medications: Current Medications Acetaminophen (Tylenol 650mg/20.3ml Solution Ud) 650 mg PO Q6 PRN PRN Reason: Pain, Mild (1-3) Amlodipine Besylate (Norvasc) 10 mg PO DAILY [facility] Last Admin: 08/25/18 09:49 Dose: 10 mg Aspirin (Aspirin Chewable) 81 mg PO DAILY [facility] Last Admin: 08/25/18 09:49 Dose: 81 mg Bupropion HCl (Wellbutrin) 75 mg PO DAILY [facility] Last Admin: 08/25/18 09:49 Dose: 75 mg Clopidogrel Bisulfate (Plavix) 75 mg PO DAILY [facility] Last Admin: 08/25/18 09:49 Dose: 75 mg Dextrose (Dextrose 50% Inj) 0 ml IV STAT PRN; Protocol PRN Reason: Hypoglycemia Protocol Dextrose (Glutose 15) 0 gm PO ONCE PRN; Protocol PRN Reason: Hypoglycemia Protocol Glucagon (Glucagen Diagnostic Kit) 0 mg IM STAT PRN; Protocol PRN Reason: Hypoglycemia Protocol Heparin Sodium (Porcine) (Heparin) 5,000 units SC Q12 [facility] Last Admin: 08/25/18 12:29 Dose: 5,000 units Hydrochlorothiazide (Microzide) 12.5 mg PO DAILY [facility] Last Admin: 08/25/18 09:49 Dose: 12.5 mg Cefepime HCl 1 gm/ Dextrose 50 mls @ 100 mls/hr IVPB Q12H [facility]; Protocol Last Admin: 08/25/18 13:50 Dose: 100 mls/hr Dextrose (Dextrose 5% In Water 1000 Ml) 1,000 mls @ 0 mls/hr IV .Q0M PRN; Protocol PRN Reason: Hypoglycemia Protocol Sodium Chloride (Sodium Chloride 0.9%) 1,000 mls @ 100 mls/hr IV .Q10H [facility] Last Admin: 08/25/18 02:11 Dose: Not Given Vancomycin HCl 1 gm/ Sodium (Chloride) 250 mls @ 166.7 mls/hr IVPB 1600 [facility]; Protocol Last Admin: 08/24/18 16:51 Dose: 166.7 mls/hr Insulin Human Regular (Novolin R) 0 unit SC ACHS [facility]; Protocol Last Admin: 08/25/18 11:26 Dose: Not Given Lisinopril (Zestril) 20 mg PO DAILY [facility] Last Admin: 08/25/18 09:49 Dose: 20 mg Memantine (Namenda) 10 mg PO DAILY [facility] Last Admin: 08/25/18 09:49 Dose: 10 mg Mupirocin (Bactroban Ointment) 0 gm TOP DAILY [facility] Last Admin: 08/25/18 09:50 Dose: Not Given Oxycodone/Acetaminophen (Percocet 5/325 Mg Tab) 1 tab PO Q6H PRN PRN Reason: Pain, moderate (4-7) Stop: 08/27/18 08:50 Oxycodone/Acetaminophen (Percocet 5/325 Mg Tab) 2 tab PO Q4H PRN PRN Reason: Pain, severe (8-10) Stop: 08/27/18 08:50 Rivastigmine (Exelon 9.5 Mg/24 Hr Patch) 1 patch TD DAILY [facility] Last Admin: 08/25/18 09:49 Dose: 1 patch Rosuvastatin Calcium (Crestor) 10 mg PO HS [facility] Last Admin: 08/24/18 21:23 Dose: 10 mg - Labs Labs: 08/25/18 07:07 08/25/18 07:07 PT 15.3 SECONDS (9.7-12.2) H 08/22/18 11:28 INR 1.4 08/22/18 11:28 APTT 37 SECONDS (21-34) H 08/22/18 11:28 - Constitutional Appears: Well, Non-toxic, No Acute Distress - Head Exam Head Exam: ATRAUMATIC - Extremities Exam Additional comments: Left lower extremity exam: Vascular: DP/PT 2/4, CFT <3 secs x5, TG warm to warm, minimal edema and erythema noted at the surgical site on dorsal aspect of the lateral forefoot. Derm: Ulceration measuring approximately 1.0 x .5 x 0.2cm noted sub 5th met head- ulcer noted to have a granular base and hyperkeratotic rim; no malodor; minimal drainage; no purulence; no fluctuance; no erythema Surgical site noted on lateral dorsal aspect of the forefoot; sutures intact, no wound dehiscence noted, no clinical signs of infection. ortho: no pain on palpation to the surgical site neuro: protective sensation grossly diminished Assessment and Plan - Assessment and Plan (Free Text) Assessment: 63 yo male Pod#1 Left foot fifth met head and Proximal Phalanx resection Plan: Patient seen and evaluated Discussed with attending, Dr. Ayaka CONWAY, afebrile absent leukocytosis LLE MRI (08/20): Acute OM 5th met head extending into shaft as well as within 5th proximal phalanx Post-op x-rays: satisfactory post-op x-rays ID consulted - continue abx Intra-op pathology pending Intra-op wound cultures pending heparin restarted Podiatry will continue to follow
[2018-08-25 13:57] LABS: SQUAMOUS EPITHIAL < 1 /hpf (0-5); URINE BACTERIA RARE (<OCC); URINE BILIRUBIN NEGATIVE (NEGATIVE); URINE BLOOD 2+ (NEGATIVE); URINE CLARITY Hazy (Clear); URINE COLOR Straw (YELLOW); URINE GLUCOSE (UA) NORMAL (Normal); URINE LEUKOCYTE ESTERASE NEG Leu/uL (Negative); URINE PROTEIN NEGATIVE (NEGATIVE); URINE UROBILINOGEN NORMAL mg/dL (0.2-1.0)
[2018-08-26] MEDS: Sodium Chloride 0.9% 1,000 ML IV SCH ×4 (01:54→17:43)
[2018-08-26] MEDS: (Novolin R) Insulin Human Regular 100 units/ml vial SC SCH ×4 (07:38→21:32)
--- NOTE | 2018-08-26 08:07 | CP.PCM.PN ---
<Debi Lyons - Last Filed: 08/26/18 11:51> Subjective - Date & Time of Evaluation Date of Evaluation: 08/26/18 Time of Evaluation: 08:06 - Subjective Subjective: Progress Note for Hospitalist service Patient seen and examined at bedside. He states that he has no pain currently. He is post-op day 2 left 5th metatarsal head and proximal phalanx resection. He denies fevers, chills, headache, dizziness, chest pain, shortness of breath, abdominal pain, nausea, vomiting, diarrhea, leg pain. Objective - Vital Signs/Intake and Output Vital Signs (last 24 hours): Temp Pulse Resp BP Pulse Ox 98.1 F 64 20 114/70 96 08/26/18 00:00 08/26/18 00:00 08/26/18 00:00 08/26/18 00:00 08/26/18 00:00 - Medications Medications: Current Medications Acetaminophen (Tylenol 650mg/20.3ml Solution Ud) 650 mg PO Q6 PRN PRN Reason: Pain, Mild (1-3) Amlodipine Besylate (Norvasc) 10 mg PO DAILY [facility] Last Admin: 08/25/18 09:49 Dose: 10 mg Aspirin (Aspirin Chewable) 81 mg PO DAILY [facility] Last Admin: 08/25/18 09:49 Dose: 81 mg Bupropion HCl (Wellbutrin) 75 mg PO DAILY [facility] Last Admin: 08/25/18 09:49 Dose: 75 mg Clopidogrel Bisulfate (Plavix) 75 mg PO DAILY [facility] Last Admin: 08/25/18 09:49 Dose: 75 mg Dextrose (Dextrose 50% Inj) 0 ml IV STAT PRN; Protocol PRN Reason: Hypoglycemia Protocol Dextrose (Glutose 15) 0 gm PO ONCE PRN; Protocol PRN Reason: Hypoglycemia Protocol Glucagon (Glucagen Diagnostic Kit) 0 mg IM STAT PRN; Protocol PRN Reason: Hypoglycemia Protocol Heparin Sodium (Porcine) (Heparin) 5,000 units SC Q12 [facility] Last Admin: 08/25/18 21:37 Dose: 5,000 units Hydrochlorothiazide (Microzide) 12.5 mg PO DAILY [facility] Last Admin: 08/25/18 09:49 Dose: 12.5 mg Cefepime HCl 1 gm/ Dextrose 50 mls @ 100 mls/hr IVPB Q12H [facility]; Protocol Last Admin: 08/26/18 01:53 Dose: 100 mls/hr Dextrose (Dextrose 5% In Water 1000 Ml) 1,000 mls @ 0 mls/hr IV .Q0M PRN; Protocol PRN Reason: Hypoglycemia Protocol Sodium Chloride (Sodium Chloride 0.9%) 1,000 mls @ 100 mls/hr IV .Q10H [facility] Last Admin: 08/26/18 07:38 Dose: Not Given Vancomycin HCl 1 gm/ Sodium (Chloride) 250 mls @ 166.7 mls/hr IVPB 1600 [facility]; Protocol Last Admin: 08/25/18 17:00 Dose: 166.7 mls/hr Insulin Human Regular (Novolin R) 0 unit SC ACHS [facility]; Protocol Last Admin: 08/26/18 07:38 Dose: Not Given Lisinopril (Zestril) 20 mg PO DAILY [facility] Last Admin: 08/25/18 09:49 Dose: 20 mg Memantine (Namenda) 10 mg PO DAILY [facility] Last Admin: 08/25/18 09:49 Dose: 10 mg Mupirocin (Bactroban Ointment) 0 gm TOP DAILY [facility] Last Admin: 08/25/18 09:50 Dose: Not Given Oxycodone/Acetaminophen (Percocet 5/325 Mg Tab) 1 tab PO Q6H PRN PRN Reason: Pain, moderate (4-7) Stop: 08/27/18 08:50 Last Admin: 08/25/18 21:37 Dose: 1 tab Oxycodone/Acetaminophen (Percocet 5/325 Mg Tab) 2 tab PO Q4H PRN PRN Reason: Pain, severe (8-10) Stop: 08/27/18 08:50 Rivastigmine (Exelon 9.5 Mg/24 Hr Patch) 1 patch TD DAILY [facility] Last Admin: 08/25/18 09:49 Dose: 1 patch Rosuvastatin Calcium (Crestor) 10 mg PO HS [facility] Last Admin: 08/25/18 21:37 Dose: 10 mg - Labs Labs: 08/25/18 07:07 08/25/18 07:07 PT 15.3 SECONDS (9.7-12.2) H 08/22/18 11:28 INR 1.4 08/22/18 11:28 APTT 37 SECONDS (21-34) H 08/22/18 11:28 - Constitutional Appears: Well, No Acute Distress - Head Exam Head Exam: ATRAUMATIC, NORMOCEPHALIC - Eye Exam Eye Exam: EOMI, PERRL - ENT Exam ENT Exam: Mucous Membranes Moist - Neck Exam Neck Exam: Full ROM - Respiratory Exam Respiratory Exam: Clear to Ausculation Bilateral, NORMAL BREATHING PATTERN. absent: Rales, Rhonchi, Respiratory Distress, Stridor - Cardiovascular Exam Cardiovascular Exam: REGULAR RHYTHM, +S1, +S2. absent: Gallop, Rubs, Murmur - GI/Abdominal Exam GI & Abdominal Exam: Soft, Normal Bowel Sounds. absent: Distended, Firm, Guarding, Rigid, Tenderness, Organomegaly - Extremities Exam Extremities Exam: Normal Capillary Refill. absent: Calf Tenderness, Pedal Edema - Back Exam Additional comments: Left foot: Sensation intact. Able to move toes on left foot. Post-op dressing clean, dry intact. Pulses intact. 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 POD 2 status post resection of left fifth metatarsal head and proximal phalanx with primary closure secondary to Osteomyelitis of 5th metatarsal. Plan: S/p resection of left fifth metatarsal head and proximal phalanx with primary closure secondary to Osteomyelitis of 5th metatarsal - POD#2 - no leukocytosis afebrile - Dr Marley Podiatry consulted: MRI 08/20: extensive signal abnormality seen within the 5th MTT head extending into the shaft of the 5th metatarsal bone as well as within the 5th proximal phalanx with associated patchy decreased T1 signal. Concerning for acute osteomyelitis. - Vasc Sx Brown Consulted - Florastor 250 mg PO BID - BCx x2 is negative for 4 days - Left foot wound culture coag neg Staph - MRSA noted in left foot culture June 2018 - contact precautions for MRSA - pre-op wound culture final shows corynebacterium species heavy growth. Pt already on vancomycin - ID consulted (Mangia) - Vancomycin 1 g IV Q24H started 08/22 - vanomycin trough 08/25 7.0 - Cefepime 1 g q12 IVPB started 08/22 -08/24, continue antibiotics until intraop cultures return. No PICC line until BCx negative until 08/27. - f/u intra op tissue culture PFO with AFib - Dr Nettles Cardio -spoke on phone: Pt needs to get a loop recorder for one month before consideration of PFO closure Pt has not followed up as instructed after last d/c in jun ASA 81mg and Plavix 75mg PO restarted Vascular dementia with A fib and PFO - CTA head/neck 06/19: no significant stenosis or structural abnormalities - Crestor 10 mg PO QHS - Wellbutrin 75 mg PO daily - Memantine 10 mg PO daily - Rivastigmine 9.5 mg patch daily - Fall precautions - Restarted ASA 81 mg PO and Plavix 75 mg PO Hypertension - Monitor vitals Q4H - Amlodipine 10 mg PO daily - HCTZ 12.5 PO daily - Lisinopril 20 mg PO daily Type 2 diabetes mellitus - Last A1c 6.9 - Hypoglycemic protocol - Accuchecks ACHS with ISS Hx of bladder cancer - Urology Dr Lazcano: pt did not f/u after original dx of CA 9 yrs ago - 5 lesions removed during recent cystoscopy - Superficial in situ remenant, no further interventions need at this time - Monitor I&Os - [place] bowman catheter 08/22 - Urine culture no growth Prophylaxis: VTE: SCDs, heparin 5000 u sc q12 GI: not indicated, HHD Diet Code status: full code Dispo: continue IV antibiotics, intraop tissue culture will guide future antibiotic regimen. Case discussed with Dr. Angella Lyons, PGY1 <Danilo Perales - Last Filed: 08/26/18 13:52> Objective - Vital Signs/Intake and Output Vital Signs (last 24 hours): Temp Pulse Resp BP Pulse Ox 97.8 F 64 20 141/81 95 08/26/18 08:00 08/26/18 08:00 08/26/18 08:00 08/26/18 08:00 08/26/18 08:00 Intake and Output: 08/26/18 08/26/18 06:59 18:59 Output Total 550 Balance -550 - Medications Medications: Current Medications Acetaminophen (Tylenol 650mg/20.3ml Solution Ud) 650 mg PO Q6 PRN PRN Reason: Pain, Mild (1-3) Amlodipine Besylate (Norvasc) 10 mg PO DAILY [facility] Last Admin: 08/26/18 09:31 Dose: 10 mg Aspirin (Aspirin Chewable) 81 mg PO DAILY [facility] Last Admin: 08/26/18 09:31 Dose: 81 mg Bupropion HCl (Wellbutrin) 75 mg PO DAILY [facility] Last Admin: 08/26/18 09:30 Dose: 75 mg Clopidogrel Bisulfate (Plavix) 75 mg PO DAILY [facility] Last Admin: 08/26/18 09:30 Dose: 75 mg Dextrose (Dextrose 50% Inj) 0 ml IV STAT PRN; Protocol PRN Reason: Hypoglycemia Protocol Dextrose (Glutose 15) 0 gm PO ONCE PRN; Protocol PRN Reason: Hypoglycemia Protocol Glucagon (Glucagen Diagnostic Kit) 0 mg IM STAT PRN; Protocol PRN Reason: Hypoglycemia Protocol Heparin Sodium (Porcine) (Heparin) 5,000 units SC Q12 [facility] Last Admin: 08/26/18 09:31 Dose: 5,000 units Hydrochlorothiazide (Microzide) 12.5 mg PO DAILY [facility] Last Admin: 08/26/18 09:31 Dose: 12.5 mg Cefepime HCl 1 gm/ Dextrose 50 mls @ 100 mls/hr IVPB Q12H [facility]; Protocol Last Admin: 08/26/18 01:53 Dose: 100 mls/hr Dextrose (Dextrose 5% In Water 1000 Ml) 1,000 mls @ 0 mls/hr IV .Q0M PRN; Protocol PRN Reason: Hypoglycemia Protocol Sodium Chloride (Sodium Chloride 0.9%) 1,000 mls @ 100 mls/hr IV .Q10H [facility] Last Admin: 08/26/18 07:38 Dose: Not Given Vancomycin HCl 1 gm/ Sodium (Chloride) 250 mls @ 166.7 mls/hr IVPB 1600 [facility]; Protocol Last Admin: 08/25/18 17:00 Dose: 166.7 mls/hr Insulin Human Regular (Novolin R) 0 unit SC ACHS [facility]; Protocol Last Admin: 08/26/18 12:17 Dose: Not Given Lisinopril (Zestril) 20 mg PO DAILY [facility] Last Admin: 08/26/18 09:31 Dose: 20 mg Memantine (Namenda) 10 mg PO DAILY [facility] Last Admin: 08/26/18 09:31 Dose: 10 mg Mupirocin (Bactroban Ointment) 0 gm TOP DAILY [facility] Last Admin: 08/26/18 09:32 Dose: Not Given Oxycodone/Acetaminophen (Percocet 5/325 Mg Tab) 1 tab PO Q6H PRN PRN Reason: Pain, moderate (4-7) Stop: 08/27/18 08:50 Last Admin: 08/25/18 21:37 Dose: 1 tab Oxycodone/Acetaminophen (Percocet 5/325 Mg Tab) 2 tab PO Q4H PRN PRN Reason: Pain, severe (8-10) Stop: 08/27/18 08:50 Rivastigmine (Exelon 9.5 Mg/24 Hr Patch) 1 patch TD DAILY [facility] Last Admin: 08/26/18 09:31 Dose: 1 patch Rosuvastatin Calcium (Crestor) 10 mg PO HS [facility] Last Admin: 08/25/18 21:37 Dose: 10 mg - Labs Labs: 08/26/18 13:44 08/26/18 07:23 PT 15.3 SECONDS (9.7-12.2) H 08/22/18 11:28 INR 1.4 08/22/18 11:28 APTT 37 SECONDS (21-34) H 08/22/18 11:28 Attending/Attestation - Attestation I have personally seen and examined this patient.: Yes I have fully participated in the care of the patient.: Yes I have reviewed all pertinent clinical information, including history, physical exam and plan: Yes Notes (Text): Medical attending: Patient was seen and examined by me as well. Agree with the above note by the resident He was not in any acute distress when we came and saw patient Reported that he was not having pain or discomfort He remains on IV abx at this time The 08/24 culture wound showed coag neg staph growth Pending further results of the tissue sample Danilo Perales 08/26/18 13:51
[2018-08-26 08:46] LABS: ALB/GLOB RATIO 1.2 (1.0-2.1); ALBUMIN 3.6 g/dL (3.5-5.0); ALT/SGPT 14 U/L (21-72); AST/SGOT 25 U/L (17-59); BLOOD UREA NITROGEN 20 mg/dL (9-20); GFR NON-AFRICAN AMERICAN > 60
--- NOTE | 2018-08-26 11:18 | CP.PCM.PN ---
Subjective - Date & Time of Evaluation Date of Evaluation: 08/26/18 Time of Evaluation: 11:17 - Subjective Subjective: Podiatry Progress Note - Dr. Marley 63M seen and evaluated at bedside for 2 day s/p left foot fifth met head and proximal phalanx resection. Patient resting comfortably, NAD. No acute events overnight. No new lower extremity complaints per patient. Denies n/v/f/d/c/sob/marte/cp. Objective - Vital Signs/Intake and Output Vital Signs (last 24 hours): Temp Pulse Resp BP Pulse Ox 97.8 F 64 20 141/81 95 08/26/18 08:00 08/26/18 08:00 08/26/18 08:00 08/26/18 08:00 08/26/18 08:00 Intake and Output: 08/26/18 08/26/18 06:59 18:59 Output Total 550 Balance -550 - Medications Medications: Current Medications Acetaminophen (Tylenol 650mg/20.3ml Solution Ud) 650 mg PO Q6 PRN PRN Reason: Pain, Mild (1-3) Amlodipine Besylate (Norvasc) 10 mg PO DAILY [facility] Last Admin: 08/26/18 09:31 Dose: 10 mg Aspirin (Aspirin Chewable) 81 mg PO DAILY [facility] Last Admin: 08/26/18 09:31 Dose: 81 mg Bupropion HCl (Wellbutrin) 75 mg PO DAILY [facility] Last Admin: 08/26/18 09:30 Dose: 75 mg Clopidogrel Bisulfate (Plavix) 75 mg PO DAILY [facility] Last Admin: 08/26/18 09:30 Dose: 75 mg Dextrose (Dextrose 50% Inj) 0 ml IV STAT PRN; Protocol PRN Reason: Hypoglycemia Protocol Dextrose (Glutose 15) 0 gm PO ONCE PRN; Protocol PRN Reason: Hypoglycemia Protocol Glucagon (Glucagen Diagnostic Kit) 0 mg IM STAT PRN; Protocol PRN Reason: Hypoglycemia Protocol Heparin Sodium (Porcine) (Heparin) 5,000 units SC Q12 [facility] Last Admin: 08/26/18 09:31 Dose: 5,000 units Hydrochlorothiazide (Microzide) 12.5 mg PO DAILY [facility] Last Admin: 08/26/18 09:31 Dose: 12.5 mg Cefepime HCl 1 gm/ Dextrose 50 mls @ 100 mls/hr IVPB Q12H [facility]; Protocol Last Admin: 08/26/18 01:53 Dose: 100 mls/hr Dextrose (Dextrose 5% In Water 1000 Ml) 1,000 mls @ 0 mls/hr IV .Q0M PRN; Protocol PRN Reason: Hypoglycemia Protocol Sodium Chloride (Sodium Chloride 0.9%) 1,000 mls @ 100 mls/hr IV .Q10H [facility] Last Admin: 08/26/18 07:38 Dose: Not Given Vancomycin HCl 1 gm/ Sodium (Chloride) 250 mls @ 166.7 mls/hr IVPB 1600 [facility]; Protocol Last Admin: 08/25/18 17:00 Dose: 166.7 mls/hr Insulin Human Regular (Novolin R) 0 unit SC ACHS [facility]; Protocol Last Admin: 08/26/18 07:38 Dose: Not Given Lisinopril (Zestril) 20 mg PO DAILY [facility] Last Admin: 08/26/18 09:31 Dose: 20 mg Memantine (Namenda) 10 mg PO DAILY [facility] Last Admin: 08/26/18 09:31 Dose: 10 mg Mupirocin (Bactroban Ointment) 0 gm TOP DAILY [facility] Last Admin: 08/26/18 09:32 Dose: Not Given Oxycodone/Acetaminophen (Percocet 5/325 Mg Tab) 1 tab PO Q6H PRN PRN Reason: Pain, moderate (4-7) Stop: 08/27/18 08:50 Last Admin: 08/25/18 21:37 Dose: 1 tab Oxycodone/Acetaminophen (Percocet 5/325 Mg Tab) 2 tab PO Q4H PRN PRN Reason: Pain, severe (8-10) Stop: 08/27/18 08:50 Rivastigmine (Exelon 9.5 Mg/24 Hr Patch) 1 patch TD DAILY [facility] Last Admin: 08/26/18 09:31 Dose: 1 patch Rosuvastatin Calcium (Crestor) 10 mg PO HS [facility] Last Admin: 08/25/18 21:37 Dose: 10 mg - Labs Labs: 08/25/18 07:07 08/26/18 07:23 PT 15.3 SECONDS (9.7-12.2) H 08/22/18 11:28 INR 1.4 08/22/18 11:28 APTT 37 SECONDS (21-34) H 08/22/18 11:28 - Constitutional Appears: Well, Non-toxic - Head Exam Head Exam: ATRAUMATIC - Eye Exam Eye Exam: Normal appearance - Extremities Exam Additional comments: Left lower extremity exam: Vascular: DP/PT 2/4, CFT <3 secs x5, TG warm to warm, minimal edema and erythema noted at the surgical site on dorsal aspect of the lateral forefoot. Derm: Ulceration measuring approximately 1.0 x .5 x 0.2cm noted sub 5th met head- ulcer noted to have a granular base and hyperkeratotic rim; no malodor; minimal drainage; no purulence; no fluctuance; no erythema Surgical site noted on lateral dorsal aspect of the forefoot; sutures intact, no wound dehiscence noted, no clinical signs of infection. ortho: no pain on palpation to the surgical site neuro: protective sensation grossly diminished Assessment and Plan - Assessment and Plan (Free Text) Assessment: 63 yo male Pod#2 Left foot fifth met head and Proximal Phalanx resection Plan: Patient seen and evaluated Discussed with attending, Dr. Marley VSS, afebrile absent leukocytosis LLE MRI (08/20): Acute OM 5th met head extending into shaft as well as within 5th proximal phalanx Post-op x-rays: satisfactory post-op x-rays ID consulted - continue abx per ID recs Intra-op pathology pending Intra-op wound cultures coagulase negative staph Podiatry will continue to follow
[2018-08-26 13:46] LABS: BASO # 0.1 K/uL (0.0-0.2); BASO % 0.9 % (0.0-2.0); EOS # 0.2 K/uL (0.0-0.7); EOS % 3.4 % (0.0-4.0); LYMPH # 1.3 K/uL (1.0-4.3); LYMPH % 19.1 % (20.0-40.0); MEAN CELL VOLUME 81.6 fL (80.0-94.0); MEAN CORPUSCULAR HEMOGLOBIN 27.1 pg (27.0-31.0); MEAN CORPUSCULAR HGB CONC 33.1 g/dL (33.0-37.0); MEAN PLATELET VOLUME 8.9 fL (7.2-11.7); MONO # 0.6 K/uL (0.0-0.8); MONO % 8.4 % (0.0-10.0); NEUT # 4.6 K/uL (1.8-7.0); NEUT % 68.2 % (50.0-75.0); NRBC % 0.1 % (0.0-2.0); RBC 4.8 Mil/uL (4.40-5.90); RED CELL DISTRIBUTION WIDTH 15.1 % (11.5-14.5); WHITE BLOOD COUNT 6.7 K/uL (4.8-10.8)
--- NOTE | 2018-08-26 17:36 | CP.PCM.PN ---
Subjective - Date & Time of Evaluation Date of Evaluation: 08/26/18 Time of Evaluation: 09:00 - Subjective Subjective: comfortable s/p 5th ray resection awake alert in nad Objective - Vital Signs/Intake and Output Vital Signs (last 24 hours): Temp Pulse Resp BP Pulse Ox 97.8 F 70 20 134/87 96 08/26/18 17:25 08/26/18 17:25 08/26/18 17:25 08/26/18 17:25 08/26/18 17:25 Intake and Output: 08/26/18 08/26/18 06:59 18:59 Intake Total 1500 Output Total 1450 Balance 50 - Medications Medications: Current Medications Acetaminophen (Tylenol 650mg/20.3ml Solution Ud) 650 mg PO Q6 PRN PRN Reason: Pain, Mild (1-3) Amlodipine Besylate (Norvasc) 10 mg PO DAILY [facility] Last Admin: 08/26/18 09:31 Dose: 10 mg Aspirin (Aspirin Chewable) 81 mg PO DAILY [facility] Last Admin: 08/26/18 09:31 Dose: 81 mg Bupropion HCl (Wellbutrin) 75 mg PO DAILY [facility] Last Admin: 08/26/18 09:30 Dose: 75 mg Clopidogrel Bisulfate (Plavix) 75 mg PO DAILY [facility] Last Admin: 08/26/18 09:30 Dose: 75 mg Dextrose (Dextrose 50% Inj) 0 ml IV STAT PRN; Protocol PRN Reason: Hypoglycemia Protocol Dextrose (Glutose 15) 0 gm PO ONCE PRN; Protocol PRN Reason: Hypoglycemia Protocol Glucagon (Glucagen Diagnostic Kit) 0 mg IM STAT PRN; Protocol PRN Reason: Hypoglycemia Protocol Heparin Sodium (Porcine) (Heparin) 5,000 units SC Q12 [facility] Last Admin: 08/26/18 09:31 Dose: 5,000 units Hydrochlorothiazide (Microzide) 12.5 mg PO DAILY [facility] Last Admin: 08/26/18 09:31 Dose: 12.5 mg Cefepime HCl 1 gm/ Dextrose 50 mls @ 100 mls/hr IVPB Q12H [facility]; Protocol Last Admin: 08/26/18 14:01 Dose: 100 mls/hr Dextrose (Dextrose 5% In Water 1000 Ml) 1,000 mls @ 0 mls/hr IV .Q0M PRN; Protocol PRN Reason: Hypoglycemia Protocol Sodium Chloride (Sodium Chloride 0.9%) 1,000 mls @ 100 mls/hr IV .Q10H [facility] Last Admin: 08/26/18 14:01 Dose: 100 mls/hr Vancomycin HCl 1 gm/ Sodium (Chloride) 250 mls @ 166.7 mls/hr IVPB 1600 [facility]; Protocol Last Admin: 08/25/18 17:00 Dose: 166.7 mls/hr Insulin Human Regular (Novolin R) 0 unit SC ACHS [facility]; Protocol Last Admin: 08/26/18 17:05 Dose: Not Given Lisinopril (Zestril) 20 mg PO DAILY [facility] Last Admin: 08/26/18 09:31 Dose: 20 mg Memantine (Namenda) 10 mg PO DAILY [facility] Last Admin: 08/26/18 09:31 Dose: 10 mg Mupirocin (Bactroban Ointment) 0 gm TOP DAILY [facility] Last Admin: 08/26/18 09:32 Dose: Not Given Oxycodone/Acetaminophen (Percocet 5/325 Mg Tab) 1 tab PO Q6H PRN PRN Reason: Pain, moderate (4-7) Stop: 08/27/18 08:50 Last Admin: 08/25/18 21:37 Dose: 1 tab Oxycodone/Acetaminophen (Percocet 5/325 Mg Tab) 2 tab PO Q4H PRN PRN Reason: Pain, severe (8-10) Stop: 08/27/18 08:50 Rivastigmine (Exelon 9.5 Mg/24 Hr Patch) 1 patch TD DAILY [facility] Last Admin: 08/26/18 09:31 Dose: 1 patch Rosuvastatin Calcium (Crestor) 10 mg PO HS [facility] Last Admin: 08/25/18 21:37 Dose: 10 mg - Labs Labs: 08/26/18 13:44 08/26/18 07:23 PT 15.3 SECONDS (9.7-12.2) H 08/22/18 11:28 INR 1.4 08/22/18 11:28 APTT 37 SECONDS (21-34) H 08/22/18 11:28 - Constitutional Appears: Non-toxic, Chronically Ill - Head Exam Head Exam: NORMOCEPHALIC - Eye Exam Eye Exam: absent: Scleral icterus - ENT Exam ENT Exam: Mucous Membranes Dry - Neck Exam Neck Exam: absent: Lymphadenopathy - Respiratory Exam Respiratory Exam: Decreased Breath Sounds - Cardiovascular Exam Cardiovascular Exam: REGULAR RHYTHM - GI/Abdominal Exam GI & Abdominal Exam: Distended - Rectal Exam Rectal Exam: Deferred - Exam Exam: NORMAL INSPECTION - Extremities Exam Additional comments: left foot dressing C/D/I - Back Exam Back Exam: absent: CVA tenderness (L), CVA tenderness (R) - Neurological Exam Neurological Exam: Alert, Awake, CN II-XII Intact - Psychiatric Exam Psychiatric exam: Depressed Assessment and Plan (1) Osteomyelitis of left foot Status: Acute - Assessment and Plan (Free Text) Assessment: wound c/s + coag neg staph cont iv rx for 6 weeks total
[2018-08-27] MEDS: Sodium Chloride 0.9% 1,000 ML IV SCH ×2 (03:30→14:35)
--- NOTE | 2018-08-27 06:59 | OP ---
PROCEDURE DATE: 08/24/2018 SURGEON: Joao Marley DPM VP [employer]: Rekha Michel DPM PGY-1 ANESTHESIOLOGIST: Rl Sloan DO ANESTHESIA: IV sedation with local anesthesia. PREOPERATIVE DIAGNOSES: Left foot fifth metatarsal head and proximal phalanx osteomyelitis with nonhealing ulcer submetatarsal 5. POSTOPERATIVE DIAGNOSES: Left foot fifth metatarsal head and proximal phalanx osteomyelitis with nonhealing ulcer submetatarsal 5. PROCEDURE: Resection of left fifth metatarsal head and proximal phalanx with primary closure. INDICATION: The patient is a 63-year-old male with the above diagnoses. The patient has exhausted all conservative treatments at this time and now requires surgical intervention. The patient signed the consent after careful explanation of risks, benefits, complications, and alternatives for the surgical procedures. No guarantees were given nor implied. PREPARATION: The patient was brought into the operating room and placed on the operating room table in a supine position. A time-out was performed for identification of the correct patient and procedure. After induction of IV sedation, the patient received a total of 20 mL of 0.5% Marcaine plain and 2% lidocaine plain in a local block type fashion to the fifth metatarsal. No tourniquet was utilized in this procedure. The left foot and ankle were then prepped and draped in normal sterile manner. DESCRIPTION OF PROCEDURE: Attention was directed to the plantar aspect of submet 5, where a fibrogranular ulcer measuring approximately 0.9 cm x 0.5 cm was noted with fibrogranular base. A dorsal incision was made extending distally past the fifth metatarsal head through the shaft of the proximal phalanx using a #15 blade. The incision was then carried down through the subcutaneous tissue making sure to identify and retract all vital neurovascular structures. All bleeders were ligated and cauterized as necessary. At this time, attention was continued down the level of fifth metatarsal head and proximal phalanx base. Using a sagittal saw, the fifth metatarsal head was resected and passed from the operative field. Using a sagittal saw, the base of fifth proximal phalanx was also resected and passed from the operative field. The rough edges were then smoothened and the site was flushed with copious amount of normal sterile saline. The fifth metatarsal head and fifth proximal phalanx were then sent to pathology and wound cultures were taken. The subcutaneous tissue as well as periosteal and capsular structures were than reapproximated and coapted using 4-0 Vicryl. The skin was reapproximated and coapted using 3-0 nylon in simple suture technique. The site was then dressed with Xeroform, 4 x 4 gauze, ABD pad, and Kerlix with Coban and Tip bandage over it. POSTOPERATIVE CONDITION: The patient tolerated the anesthesia and procedure well and was escorted to the recovery room with vital signs stable and neurovascular status intact of the left foot. The patient is to weight bear as tolerated to the left foot with a surgical shoe. The patient will be seen and followed by Podiatry while inpatient at the hospital. REKHA MICHEL Joao Marley DPM MTDJason
[2018-08-27 07:30] LABS: BASO # 0.1 K/uL (0.0-0.2); BASO % 0.8 % (0.0-2.0); EOS # 0.2 K/uL (0.0-0.7); EOS % 3.1 % (0.0-4.0); HEMOGLOBIN 13.1 g/dL (12.0-18.0); LYMPH # 1.6 K/uL (1.0-4.3); LYMPH % 22.1 % (20.0-40.0); MEAN CELL VOLUME 81.8 fL (80.0-94.0); MEAN CORPUSCULAR HEMOGLOBIN 27.3 pg (27.0-31.0); MEAN CORPUSCULAR HGB CONC 33.4 g/dL (33.0-37.0); MONO # 0.6 K/uL (0.0-0.8); MONO % 7.8 % (0.0-10.0); NEUT # 4.8 K/uL (1.8-7.0); NEUT % 66.2 % (50.0-75.0); NRBC % 0.1 % (0.0-2.0); RBC 4.79 Mil/uL (4.40-5.90); RED CELL DISTRIBUTION WIDTH 15.1 % (11.5-14.5); WHITE BLOOD COUNT 7.2 K/uL (4.8-10.8)
[2018-08-27] MEDS: (Novolin R) Insulin Human Regular 100 units/ml vial SC SCH ×4 (07:33→22:45)
--- NOTE | 2018-08-27 07:36 | CP.PCM.PN ---
Subjective - Date & Time of Evaluation Date of Evaluation: 08/27/18 Time of Evaluation: 10:00 - Subjective Subjective: PGY1 Medicine progress note for Dr. Hendricks Patient seen and examined at bedside. No acute events overnight. Pt has no complaints at this time. He is post-op day 3 left 5th metatarsal head and proximal phalanx resection. He denies fevers, chills, headache, dizziness, chest pain, shortness of breath, abdominal pain, nausea, vomiting, diarrhea, leg pain, numbness or tingling, headache, dizziness. Objective - Vital Signs/Intake and Output Vital Signs (last 24 hours): Temp Pulse Resp BP Pulse Ox 98.0 F 70 20 122/83 96 08/27/18 00:00 08/27/18 00:00 08/27/18 00:00 08/27/18 00:00 08/27/18 00:00 Intake and Output: 08/27/18 08/27/18 06:59 18:59 Intake Total 1200 Output Total 650 Balance 550 - Medications Medications: Current Medications Acetaminophen (Tylenol 650mg/20.3ml Solution Ud) 650 mg PO Q6 PRN PRN Reason: Pain, Mild (1-3) Amlodipine Besylate (Norvasc) 10 mg PO DAILY [facility] Last Admin: 08/26/18 09:31 Dose: 10 mg Aspirin (Aspirin Chewable) 81 mg PO DAILY [facility] Last Admin: 08/26/18 09:31 Dose: 81 mg Bupropion HCl (Wellbutrin) 75 mg PO DAILY [facility] Last Admin: 08/26/18 09:30 Dose: 75 mg Clopidogrel Bisulfate (Plavix) 75 mg PO DAILY [facility] Last Admin: 08/26/18 09:30 Dose: 75 mg Dextrose (Dextrose 50% Inj) 0 ml IV STAT PRN; Protocol PRN Reason: Hypoglycemia Protocol Dextrose (Glutose 15) 0 gm PO ONCE PRN; Protocol PRN Reason: Hypoglycemia Protocol Glucagon (Glucagen Diagnostic Kit) 0 mg IM STAT PRN; Protocol PRN Reason: Hypoglycemia Protocol Heparin Sodium (Porcine) (Heparin) 5,000 units SC Q12 [facility] Last Admin: 08/26/18 21:31 Dose: 5,000 units Hydrochlorothiazide (Microzide) 12.5 mg PO DAILY [facility] Last Admin: 08/26/18 09:31 Dose: 12.5 mg Cefepime HCl 1 gm/ Dextrose 50 mls @ 100 mls/hr IVPB Q12H [facility]; Protocol Last Admin: 08/27/18 02:15 Dose: 100 mls/hr Dextrose (Dextrose 5% In Water 1000 Ml) 1,000 mls @ 0 mls/hr IV .Q0M PRN; Protocol PRN Reason: Hypoglycemia Protocol Sodium Chloride (Sodium Chloride 0.9%) 1,000 mls @ 100 mls/hr IV .Q10H [facility] Last Admin: 08/26/18 17:43 Dose: Not Given Vancomycin HCl 1 gm/ Sodium (Chloride) 250 mls @ 166.7 mls/hr IVPB 1600 [facility]; Protocol Last Admin: 08/26/18 17:42 Dose: 166.7 mls/hr Insulin Human Regular (Novolin R) 0 unit SC ACHS [facility]; Protocol Last Admin: 08/27/18 07:33 Dose: Not Given Lisinopril (Zestril) 20 mg PO DAILY [facility] Last Admin: 08/26/18 09:31 Dose: 20 mg Memantine (Namenda) 10 mg PO DAILY [facility] Last Admin: 08/26/18 09:31 Dose: 10 mg Mupirocin (Bactroban Ointment) 0 gm TOP DAILY [facility] Last Admin: 08/26/18 09:32 Dose: Not Given Oxycodone/Acetaminophen (Percocet 5/325 Mg Tab) 1 tab PO Q6H PRN PRN Reason: Pain, moderate (4-7) Stop: 08/27/18 08:50 Last Admin: 08/25/18 21:37 Dose: 1 tab Oxycodone/Acetaminophen (Percocet 5/325 Mg Tab) 2 tab PO Q4H PRN PRN Reason: Pain, severe (8-10) Stop: 08/27/18 08:50 Rivastigmine (Exelon 9.5 Mg/24 Hr Patch) 1 patch TD DAILY [facility] Last Admin: 08/26/18 09:31 Dose: 1 patch Rosuvastatin Calcium (Crestor) 10 mg PO HS [facility] Last Admin: 08/26/18 21:31 Dose: 10 mg - Labs Labs: 08/27/18 07:11 08/26/18 07:23 PT 15.3 SECONDS (9.7-12.2) H 08/22/18 11:28 INR 1.4 08/22/18 11:28 APTT 37 SECONDS (21-34) H 08/22/18 11:28 - Additional Findings Additional findings: - Constitutional Appears: Well, No Acute Distress - Head Exam Head Exam: ATRAUMATIC, NORMOCEPHALIC - Eye Exam Eye Exam: EOMI, PERRL - ENT Exam ENT Exam: Mucous Membranes Moist - Neck Exam Neck Exam: Full ROM - Respiratory Exam Respiratory Exam: Clear to Ausculation Bilateral, NORMAL BREATHING PATTERN. absent: Rales, Rhonchi, Respiratory Distress, Stridor - Cardiovascular Exam Cardiovascular Exam: REGULAR RHYTHM, +S1, +S2. absent: Gallop, Rubs, Murmur - GI/Abdominal Exam GI & Abdominal Exam: Soft, Normal Bowel Sounds. absent: Distended, Firm, Guarding, Rigid, Tenderness, Organomegaly - Extremities Exam Extremities Exam: Normal Capillary Refill. absent: Calf Tenderness, Pedal Edema - Back Exam Additional comments: Left foot: Sensation intact. Able to move toes on left foot. Post-op dressing clean, dry, intact. Pulses intact. 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 POD 2 status post resection of left fifth metatarsal head and proximal phalanx with primary closure secondary to Osteomyelitis of 5th metatarsal. Plan: S/p resection of left fifth metatarsal head and proximal phalanx with primary closure secondary to Osteomyelitis of 5th metatarsal - POD#2 - no leukocytosis afebrile - Dr Marley Podiatry consulted: MRI 08/20: extensive signal abnormality seen within the 5th MTT head extending into the shaft of the 5th metatarsal bone as well as within the 5th proximal phalanx with associated patchy decreased T1 signal. Concerning for acute osteomyelitis. - Vasc Sx Brown Consulted - Florastor 250 mg PO BID - BCx x2 is negative for 4 days - Left foot wound culture coag neg Staph - MRSA noted in left foot culture June 2018 - contact precautions for MRSA - pre-op wound culture final shows corynebacterium species heavy growth. Pt already on vancomycin - ID consulted (Noel) - Vancomycin 1 g IV Q24H started 08/22 - vanomycin trough 08/25 7.0 - Cefepime 1 g q12 IVPB started 08/22 -08/24, continue antibiotics until intraop cultures return. No PICC line until BCx negative until 08/27. - f/u intra op tissue culture PFO with AFib - Dr Nettles Cardio -spoke on phone: Pt needs to get a loop recorder for one month before consideration of PFO closure Pt has not followed up as instructed after last d/c in jun No elliquis for now as pt has history of hematuria due to bladder cancer Vascular dementia with A fib and PFO - CTA head/neck 06/19: no significant stenosis or structural abnormalities - Crestor 10 mg PO QHS - Wellbutrin 75 mg PO daily - Memantine 10 mg PO daily - Rivastigmine 9.5 mg patch daily - Fall precautions - Continue ASA 81 mg PO, Plavix 75 mg PO Hypertension - Monitor vitals Q4H - Amlodipine 10 mg PO daily - HCTZ 12.5 PO daily - Lisinopril 20 mg PO daily Type 2 diabetes mellitus - Last A1c 6.9 - Hypoglycemic protocol - Accuchecks ACHS with ISS Hx of bladder cancer - Urology Dr Lazcano: pt did not f/u after original dx of CA 9 yrs ago - 5 lesions removed during recent cystoscopy - Superficial in situ remnant, no further interventions need at this time - Monitor I&Os - [place] bowman catheter 08/22 - Urine culture no growth Prophylaxis: VTE: SCDs, heparin 5000 u sc q12 GI: not indicated, HHD Diet Code status: full code Dispo: continue IV antibiotics, intraop tissue culture/margin pathology report will guide future antibiotic regimen. Case discussed with Dr. Hendricks
[2018-08-27 07:45] LABS: ALB/GLOB RATIO 1.2 (1.0-2.1); ALBUMIN 3.4 g/dL (3.5-5.0); ALT/SGPT 19 U/L (21-72); AST/SGOT 30 U/L (17-59); BLOOD UREA NITROGEN 24 mg/dL (9-20); GFR NON-AFRICAN AMERICAN > 60
[2018-08-28] MEDS: Sodium Chloride 0.9% 1,000 ML IV SCH ×2 (02:34→10:48)
[2018-08-28] MEDS: (Novolin R) Insulin Human Regular 100 units/ml vial SC SCH ×4 (07:14→21:41)
--- NOTE | 2018-08-28 07:56 | CP.PCM.PN ---
Subjective - Date & Time of Evaluation Date of Evaluation: 08/28/18 Time of Evaluation: 12:56 - Subjective Subjective: PGY1 Medicine progress note for Dr. Hendricks Patient seen and examined at bedside. No acute events overnight. Pt has no complaints at this time. He is post-op day 4 left 5th metatarsal head and proximal phalanx resection. He denies fevers, chills, headache, dizziness, chest pain, shortness of breath, abdominal pain, nausea, vomiting, diarrhea, leg pain, numbness or tingling, headache, dizziness. Objective - Vital Signs/Intake and Output Vital Signs (last 24 hours): Temp Pulse Resp BP Pulse Ox 97.9 F 61 18 123/79 94 L 08/27/18 23:35 08/27/18 23:35 08/27/18 23:35 08/27/18 23:35 08/27/18 23:35 Intake and Output: 08/28/18 08/28/18 06:59 18:59 Intake Total 720 Output Total 1000 Balance -280 - Medications Medications: Current Medications Acetaminophen (Tylenol 650mg/20.3ml Solution Ud) 650 mg PO Q6 PRN PRN Reason: Pain, Mild (1-3) Amlodipine Besylate (Norvasc) 10 mg PO DAILY [facility] Last Admin: 08/27/18 09:49 Dose: 10 mg Aspirin (Aspirin Chewable) 81 mg PO DAILY [facility] Last Admin: 08/27/18 09:50 Dose: 81 mg Bupropion HCl (Wellbutrin) 75 mg PO DAILY [facility] Last Admin: 08/27/18 09:50 Dose: 75 mg Clopidogrel Bisulfate (Plavix) 75 mg PO DAILY [facility] Last Admin: 08/27/18 09:49 Dose: 75 mg Dextrose (Dextrose 50% Inj) 0 ml IV STAT PRN; Protocol PRN Reason: Hypoglycemia Protocol Dextrose (Glutose 15) 0 gm PO ONCE PRN; Protocol PRN Reason: Hypoglycemia Protocol Glucagon (Glucagen Diagnostic Kit) 0 mg IM STAT PRN; Protocol PRN Reason: Hypoglycemia Protocol Heparin Sodium (Porcine) (Heparin) 5,000 units SC Q12 [facility] Last Admin: 08/27/18 21:36 Dose: 5,000 units Hydrochlorothiazide (Microzide) 12.5 mg PO DAILY [facility] Last Admin: 08/27/18 09:50 Dose: 12.5 mg Cefepime HCl 1 gm/ Dextrose 50 mls @ 100 mls/hr IVPB Q12H [facility]; Protocol Last Admin: 08/28/18 02:35 Dose: 100 mls/hr Dextrose (Dextrose 5% In Water 1000 Ml) 1,000 mls @ 0 mls/hr IV .Q0M PRN; Protocol PRN Reason: Hypoglycemia Protocol Sodium Chloride (Sodium Chloride 0.9%) 1,000 mls @ 100 mls/hr IV .Q10H [facility] Last Admin: 08/28/18 02:34 Dose: 100 mls/hr Vancomycin HCl 1 gm/ Sodium (Chloride) 250 mls @ 166.7 mls/hr IVPB 1600 [facility]; Protocol Last Admin: 08/27/18 18:12 Dose: 166.7 mls/hr Insulin Human Regular (Novolin R) 0 unit SC ACHS [facility]; Protocol Last Admin: 08/28/18 07:14 Dose: Not Given Lisinopril (Zestril) 20 mg PO DAILY [facility] Last Admin: 08/27/18 09:50 Dose: 20 mg Memantine (Namenda) 10 mg PO DAILY [facility] Last Admin: 08/27/18 09:50 Dose: 10 mg Mupirocin (Bactroban Ointment) 0 gm TOP DAILY [facility] Last Admin: 08/27/18 11:02 Dose: Not Given Rivastigmine (Exelon 9.5 Mg/24 Hr Patch) 1 patch TD DAILY [facility] Last Admin: 08/27/18 09:50 Dose: 1 patch Rosuvastatin Calcium (Crestor) 10 mg PO HS [facility] Last Admin: 08/27/18 21:36 Dose: 10 mg - Labs Labs: 08/27/18 07:11 08/27/18 07:11 PT 15.3 SECONDS (9.7-12.2) H 08/22/18 11:28 INR 1.4 08/22/18 11:28 APTT 37 SECONDS (21-34) H 08/22/18 11:28 - Additional Findings Additional findings: - Constitutional Appears: Well, No Acute Distress - Head Exam Head Exam: ATRAUMATIC, NORMOCEPHALIC - Eye Exam Eye Exam: EOMI, PERRL - ENT Exam ENT Exam: Mucous Membranes Moist - Neck Exam Neck Exam: Full ROM - Respiratory Exam Respiratory Exam: Clear to Ausculation Bilateral, NORMAL BREATHING PATTERN. absent: Rales, Rhonchi, Respiratory Distress, Stridor - Cardiovascular Exam Cardiovascular Exam: REGULAR RHYTHM, +S1, +S2. absent: Gallop, Rubs, Murmur - GI/Abdominal Exam GI & Abdominal Exam: Soft, Normal Bowel Sounds. absent: Distended, Firm, Guarding, Rigid, Tenderness, Organomegaly - Extremities Exam Extremities Exam: Normal Capillary Refill. absent: Calf Tenderness, Pedal Edema - Back Exam Additional comments: Left foot: Sensation intact. Able to move toes on left foot. Post-op dressing clean, dry, intact. Pulses intact. 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 POD 2 status post resection of left fifth metatarsal head and proximal phalanx with primary closure secondary to Osteomyelitis of 5th metatarsal. Plan: S/p resection of left fifth metatarsal head and proximal phalanx with primary closure secondary to Osteomyelitis of 5th metatarsal - POD#4 - no leukocytosis afebrile - Dr Marley Podiatry consulted: MRI 08/20: extensive signal abnormality seen within the 5th MTT head extending into the shaft of the 5th metatarsal bone as well as within the 5th proximal phalanx with associated patchy decreased T1 signal. Concerning for acute osteomyelitis. - Vasc Sx Brown Consulted - Florastor 250 mg PO BID - BCx x2 is negative for 5 days - Left foot wound culture coag neg Staph - MRSA noted in left foot culture June 2018 - contact precautions for MRSA - pre-op wound culture final shows corynebacterium species heavy growth. Pt already on vancomycin - ID consulted (Noel) - Vancomycin 1 g IV Q24H started 08/22 - vanomycin trough 08/25 7.0 - Cefepime 1 g q12 IVPB started 08/22 -08/24, continue antibiotics until intraop cultures return. No PICC line until BCx negative until 08/27. - As per podiatry pt can weight bear and will be given surgical boot PFO with no history of documented Afib - Dr Nettles Cardio -spoke on phone: Pt needs to get a loop recorder for one month before consideration of PFO closure Pt does not want PFO closure Pt has not followed up as instructed after last d/c in jun Vascular dementia with A fib and PFO - CTA head/neck 06/19: no significant stenosis or structural abnormalities - Crestor 10 mg PO QHS - Wellbutrin 75 mg PO daily - Memantine 10 mg PO daily - Rivastigmine 9.5 mg patch daily - Fall precautions - Continue ASA 81 mg PO, Plavix 75 mg PO Hypertension - Monitor vitals Q4H - Amlodipine 10 mg PO daily - HCTZ 12.5 PO daily - Lisinopril 20 mg PO daily Type 2 diabetes mellitus - Last A1c 6.9 - Hypoglycemic protocol - Accuchecks ACHS with ISS Hx of bladder cancer - Urology Dr Lazcano: pt did not f/u after original dx of CA 9 yrs ago - 5 lesions removed during recent cystoscopy - Superficial in situ remnant, no further interventions need at this time - Monitor I&Os - [place] bowman catheter 08/22 - Urine culture no growth Prophylaxis: VTE: SCDs, heparin 5000 u sc q12 GI: not indicated, HHD Diet Code status: full code Dispo: continue IV antibiotics, intraop tissue culture/margin pathology report will guide future antibiotic regimen. Pending [facility]ARY evaluation. Case discussed with Dr. Hendricks
[2018-08-28 08:24] LABS: BASO # 0.1 K/uL (0.0-0.2); BASO % 0.8 % (0.0-2.0); EOS # 0.2 K/uL (0.0-0.7); EOS % 3.2 % (0.0-4.0); HEMOGLOBIN 13.5 g/dL (12.0-18.0); LYMPH # 1.7 K/uL (1.0-4.3); LYMPH % 23.8 % (20.0-40.0); MEAN CELL VOLUME 82.6 fL (80.0-94.0); MEAN CORPUSCULAR HEMOGLOBIN 27.7 pg (27.0-31.0); MEAN CORPUSCULAR HGB CONC 33.6 g/dL (33.0-37.0); MEAN PLATELET VOLUME 8.9 fL (7.2-11.7); MONO # 0.5 K/uL (0.0-0.8); MONO % 7.6 % (0.0-10.0); NEUT # 4.6 K/uL (1.8-7.0); NEUT % 64.6 % (50.0-75.0); NRBC % 0.1 % (0.0-2.0); RBC 4.86 Mil/uL (4.40-5.90); RED CELL DISTRIBUTION WIDTH 15.4 % (11.5-14.5); WHITE BLOOD COUNT 7.1 K/uL (4.8-10.8)
[2018-08-28 09:18] LABS: ALB/GLOB RATIO 1.3 (1.0-2.1); ALBUMIN 3.6 g/dL (3.5-5.0); ALT/SGPT 28 U/L (21-72); AST/SGOT 40 U/L (17-59); BLOOD UREA NITROGEN 23 mg/dL (9-20); CALCIUM 9.2 mg/dl (8.6-10.4); GFR NON-AFRICAN AMERICAN > 60
--- NOTE | 2018-08-28 09:41 | CP.PCM.PN ---
<Joao Marley - Last Filed: 08/28/18 09:41> Subjective - Date & Time of Evaluation Date of Evaluation: 08/28/18 Time of Evaluation: 09:41 Objective - Vital Signs/Intake and Output Vital Signs (last 24 hours): Temp Pulse Resp BP Pulse Ox 98 F 65 20 146/91 H 92 L 08/28/18 09:05 08/28/18 09:05 08/28/18 09:05 08/28/18 09:05 08/28/18 09:05 Intake and Output: 08/28/18 08/28/18 06:59 18:59 Intake Total 720 Output Total 1000 Balance -280 - Medications Medications: Current Medications Acetaminophen (Tylenol 650mg/20.3ml Solution Ud) 650 mg PO Q6 PRN PRN Reason: Pain, Mild (1-3) Amlodipine Besylate (Norvasc) 10 mg PO DAILY [facility] Last Admin: 08/28/18 09:20 Dose: 10 mg Aspirin (Aspirin Chewable) 81 mg PO DAILY [facility] Last Admin: 08/28/18 09:20 Dose: 81 mg Bupropion HCl (Wellbutrin) 75 mg PO DAILY [facility] Last Admin: 08/28/18 09:20 Dose: 75 mg Clopidogrel Bisulfate (Plavix) 75 mg PO DAILY [facility] Last Admin: 08/28/18 09:20 Dose: 75 mg Dextrose (Dextrose 50% Inj) 0 ml IV STAT PRN; Protocol PRN Reason: Hypoglycemia Protocol Dextrose (Glutose 15) 0 gm PO ONCE PRN; Protocol PRN Reason: Hypoglycemia Protocol Glucagon (Glucagen Diagnostic Kit) 0 mg IM STAT PRN; Protocol PRN Reason: Hypoglycemia Protocol Heparin Sodium (Porcine) (Heparin) 5,000 units SC Q12 [facility] Last Admin: 08/28/18 09:23 Dose: 5,000 units Hydrochlorothiazide (Microzide) 12.5 mg PO DAILY [facility] Last Admin: 08/28/18 09:20 Dose: 12.5 mg Cefepime HCl 1 gm/ Dextrose 50 mls @ 100 mls/hr IVPB Q12H [facility]; Protocol Last Admin: 08/28/18 02:35 Dose: 100 mls/hr Dextrose (Dextrose 5% In Water 1000 Ml) 1,000 mls @ 0 mls/hr IV .Q0M PRN; Protocol PRN Reason: Hypoglycemia Protocol Sodium Chloride (Sodium Chloride 0.9%) 1,000 mls @ 100 mls/hr IV .Q10H [facility] Last Admin: 08/28/18 02:34 Dose: 100 mls/hr Vancomycin HCl 1 gm/ Sodium (Chloride) 250 mls @ 166.7 mls/hr IVPB 1600 [facility]; Protocol Last Admin: 08/27/18 18:12 Dose: 166.7 mls/hr Insulin Human Regular (Novolin R) 0 unit SC ACHS [facility]; Protocol Last Admin: 08/28/18 07:14 Dose: Not Given Lisinopril (Zestril) 20 mg PO DAILY [facility] Last Admin: 08/28/18 09:20 Dose: 20 mg Memantine (Namenda) 10 mg PO DAILY [facility] Last Admin: 08/28/18 09:20 Dose: 10 mg Mupirocin (Bactroban Ointment) 0 gm TOP DAILY [facility] Last Admin: 08/27/18 11:02 Dose: Not Given Rivastigmine (Exelon 9.5 Mg/24 Hr Patch) 1 patch TD DAILY [facility] Last Admin: 08/28/18 09:20 Dose: 1 patch Rosuvastatin Calcium (Crestor) 10 mg PO HS [facility] Last Admin: 08/27/18 21:36 Dose: 10 mg - Labs Labs: 08/28/18 07:46 08/28/18 07:46 PT 15.3 SECONDS (9.7-12.2) H 08/22/18 11:28 INR 1.4 08/22/18 11:28 APTT 37 SECONDS (21-34) H 08/22/18 11:28 <Sanna Sosa - Last Filed: 08/29/18 09:48> Subjective - Subjective Subjective: Podiatry Progress Note - Dr. Marley 63M seen and evaluated at bedside for 4 days s/p left foot fifth met head and proximal phalanx resection. NAD. No acute events overnight. No new lower extremity complaints. Denies n/v/f/d/c/sob/marte/cp. Objective - Vital Signs/Intake and Output Vital Signs (last 24 hours): Temp Pulse Resp BP Pulse Ox 98.1 F 53 L 18 145/91 H 96 08/29/18 07:02 08/29/18 07:02 08/29/18 07:02 08/29/18 07:02 08/29/18 07:02 Intake and Output: 08/29/18 08/29/18 06:59 18:59 Intake Total 2120 Output Total 2650 Balance -530 - Medications Medications: Current Medications Acetaminophen (Tylenol 650mg/20.3ml Solution Ud) 650 mg PO Q6 PRN PRN Reason: Pain, Mild (1-3) Amlodipine Besylate (Norvasc) 10 mg PO DAILY [facility] Last Admin: 08/29/18 09:36 Dose: 10 mg Aspirin (Aspirin Chewable) 81 mg PO DAILY [facility] Last Admin: 08/29/18 09:36 Dose: 81 mg Bupropion HCl (Wellbutrin) 75 mg PO DAILY [facility] Last Admin: 08/29/18 09:36 Dose: 75 mg Clopidogrel Bisulfate (Plavix) 75 mg PO DAILY [facility] Last Admin: 08/29/18 09:36 Dose: 75 mg Dextrose (Dextrose 50% Inj) 0 ml IV STAT PRN; Protocol PRN Reason: Hypoglycemia Protocol Dextrose (Glutose 15) 0 gm PO ONCE PRN; Protocol PRN Reason: Hypoglycemia Protocol Glucagon (Glucagen Diagnostic Kit) 0 mg IM STAT PRN; Protocol PRN Reason: Hypoglycemia Protocol Heparin Sodium (Porcine) (Heparin) 5,000 units SC Q12 [facility] Last Admin: 08/29/18 09:37 Dose: 5,000 units Hydrochlorothiazide (Microzide) 12.5 mg PO DAILY [facility] Last Admin: 08/29/18 09:36 Dose: 12.5 mg Cefepime HCl 1 gm/ Dextrose 50 mls @ 100 mls/hr IVPB Q12H [facility]; Protocol Last Admin: 08/29/18 01:46 Dose: 100 mls/hr Dextrose (Dextrose 5% In Water 1000 Ml) 1,000 mls @ 0 mls/hr IV .Q0M PRN; Protocol PRN Reason: Hypoglycemia Protocol Vancomycin HCl 1 gm/ Sodium (Chloride) 250 mls @ 166.7 mls/hr IVPB 1600 [facility]; Protocol Last Admin: 08/28/18 16:00 Dose: 166.7 mls/hr Insulin Human Regular (Novolin R) 0 unit SC ACHS [facility]; Protocol Last Admin: 08/29/18 08:16 Dose: Not Given Lisinopril (Zestril) 20 mg PO DAILY [facility] Last Admin: 08/29/18 09:36 Dose: 20 mg Memantine (Namenda) 10 mg PO DAILY [facility] Last Admin: 08/29/18 09:36 Dose: 10 mg Mupirocin (Bactroban Ointment) 0 gm TOP DAILY [facility] Last Admin: 08/28/18 10:44 Dose: Not Given Rivastigmine (Exelon 9.5 Mg/24 Hr Patch) 1 patch TD DAILY [facility] Last Admin: 08/29/18 09:36 Dose: 1 patch Rosuvastatin Calcium (Crestor) 10 mg PO HS [facility] Last Admin: 08/28/18 21:42 Dose: 10 mg - Labs Labs: 08/29/18 07:00 08/29/18 07:00 PT 15.3 SECONDS (9.7-12.2) H 08/22/18 11:28 INR 1.4 08/22/18 11:28 APTT 37 SECONDS (21-34) H 08/22/18 11:28 - Constitutional Appears: Non-toxic, No Acute Distress - Extremities Exam Additional comments: Dressing to left foot clean/dry/intact Neurovascular status unchanged to digits Digital ROM present - Neurological Exam Neurological Exam: Alert, Awake, Oriented x3 - Psychiatric Exam Psychiatric exam: Normal Affect, Normal Mood Assessment and Plan - Assessment and Plan (Free Text) Assessment: 63 yo male POD#4 Left foot fifth met head and Proximal Phalanx resection Plan: Patient seen and evaluated Discussed with attending, Dr. Ayaka CONWAY, WBC WNL LLE MRI (08/20): Acute OM 5th met head extending into shaft as well as within 5th proximal phalanx Post-op x-rays: satisfactory post-op x-rays ID recs appreciated - continue IV abx for 6 weeks Intra-op pathology pending Intra-op wound cultures coagulase negative staph Activity: WBAT LLE; post op shoe ordered Stable for dc per podiatry Dispo: Patient referred to [facility], f/u Podiatry will continue to follow
[2018-08-29] MEDS: Sodium Chloride 0.9% 1,000 ML IV SCH ×3 (01:00→06:09)
[2018-08-29 07:23] LABS: BASO # 0.1 K/uL (0.0-0.2); BASO % 0.7 % (0.0-2.0); EOS # 0.3 K/uL (0.0-0.7); HEMOGLOBIN 13.5 g/dL (12.0-18.0); LYMPH # 1.6 K/uL (1.0-4.3); LYMPH % 21.3 % (20.0-40.0); MEAN CELL VOLUME 82.6 fL (80.0-94.0); MEAN CORPUSCULAR HEMOGLOBIN 27.1 pg (27.0-31.0); MEAN CORPUSCULAR HGB CONC 32.8 g/dL (33.0-37.0); MEAN PLATELET VOLUME 8.9 fL (7.2-11.7); MONO # 0.6 K/uL (0.0-0.8); MONO % 7.9 % (0.0-10.0); NEUT # 4.9 K/uL (1.8-7.0); NEUT % 66.1 % (50.0-75.0); NRBC % 0.1 % (0.0-2.0); RBC 4.99 Mil/uL (4.40-5.90); RED CELL DISTRIBUTION WIDTH 15.7 % (11.5-14.5); WHITE BLOOD COUNT 7.4 K/uL (4.8-10.8)
[2018-08-29 07:32] LABS: ALB/GLOB RATIO 1.3 (1.0-2.1); ALBUMIN 3.7 g/dL (3.5-5.0); ALT/SGPT 39 U/L (21-72); AST/SGOT 47 U/L (17-59); BLOOD UREA NITROGEN 23 mg/dL (9-20); CALCIUM 9.2 mg/dl (8.6-10.4); GFR NON-AFRICAN AMERICAN > 60
[2018-08-29 07:52] VITALS: O2SAT 96
--- NOTE | 2018-08-29 07:58 | CP.PCM.PN ---
Subjective - Date & Time of Evaluation Date of Evaluation: 08/29/18 Time of Evaluation: 07:30 - Subjective Subjective: PGY1 Medicine progress note for Dr. Hendricks Patient seen and examined at bedside. No acute events overnight. Pt has no complaints at this time. He is post-op day 5 left 5th metatarsal head and proximal phalanx resection. He denies fevers, chills, headache, dizziness, chest pain, shortness of breath, abdominal pain, nausea, vomiting, diarrhea, leg pain, numbness or tingling, headache, dizziness. 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 Objective - Vital Signs/Intake and Output Vital Signs (last 24 hours): Temp Pulse Resp BP Pulse Ox 98.1 F 53 L 18 145/91 H 96 08/29/18 07:02 08/29/18 07:02 08/29/18 07:02 08/29/18 07:02 08/29/18 07:02 Intake and Output: 08/29/18 08/29/18 06:59 18:59 Intake Total 2120 Output Total 2650 Balance -530 - Medications Medications: Current Medications Acetaminophen (Tylenol 650mg/20.3ml Solution Ud) 650 mg PO Q6 PRN PRN Reason: Pain, Mild (1-3) Amlodipine Besylate (Norvasc) 10 mg PO DAILY [facility] Last Admin: 08/28/18 09:20 Dose: 10 mg Aspirin (Aspirin Chewable) 81 mg PO DAILY [facility] Last Admin: 08/28/18 09:20 Dose: 81 mg Bupropion HCl (Wellbutrin) 75 mg PO DAILY [facility] Last Admin: 08/28/18 09:20 Dose: 75 mg Clopidogrel Bisulfate (Plavix) 75 mg PO DAILY [facility] Last Admin: 08/28/18 09:20 Dose: 75 mg Dextrose (Dextrose 50% Inj) 0 ml IV STAT PRN; Protocol PRN Reason: Hypoglycemia Protocol Dextrose (Glutose 15) 0 gm PO ONCE PRN; Protocol PRN Reason: Hypoglycemia Protocol Glucagon (Glucagen Diagnostic Kit) 0 mg IM STAT PRN; Protocol PRN Reason: Hypoglycemia Protocol Heparin Sodium (Porcine) (Heparin) 5,000 units SC Q12 [facility] Last Admin: 08/28/18 21:41 Dose: 5,000 units Hydrochlorothiazide (Microzide) 12.5 mg PO DAILY [facility] Last Admin: 08/28/18 09:20 Dose: 12.5 mg Cefepime HCl 1 gm/ Dextrose 50 mls @ 100 mls/hr IVPB Q12H [facility]; Protocol Last Admin: 08/29/18 01:46 Dose: 100 mls/hr Dextrose (Dextrose 5% In Water 1000 Ml) 1,000 mls @ 0 mls/hr IV .Q0M PRN; Protocol PRN Reason: Hypoglycemia Protocol Sodium Chloride (Sodium Chloride 0.9%) 1,000 mls @ 100 mls/hr IV .Q10H [facility] Last Admin: 08/29/18 06:09 Dose: Not Given Vancomycin HCl 1 gm/ Sodium (Chloride) 250 mls @ 166.7 mls/hr IVPB 1600 [facility]; Protocol Last Admin: 08/28/18 16:00 Dose: 166.7 mls/hr Insulin Human Regular (Novolin R) 0 unit SC ACHS [facility]; Protocol Last Admin: 08/28/18 21:41 Dose: Not Given Lisinopril (Zestril) 20 mg PO DAILY [facility] Last Admin: 08/28/18 09:20 Dose: 20 mg Memantine (Namenda) 10 mg PO DAILY [facility] Last Admin: 08/28/18 09:20 Dose: 10 mg Mupirocin (Bactroban Ointment) 0 gm TOP DAILY [facility] Last Admin: 08/28/18 10:44 Dose: Not Given Rivastigmine (Exelon 9.5 Mg/24 Hr Patch) 1 patch TD DAILY [facility] Last Admin: 08/28/18 09:20 Dose: 1 patch Rosuvastatin Calcium (Crestor) 10 mg PO HS [facility] Last Admin: 08/28/18 21:42 Dose: 10 mg - Labs Labs: 08/29/18 07:00 08/29/18 07:00 PT 15.3 SECONDS (9.7-12.2) H 08/22/18 11:28 INR 1.4 08/22/18 11:28 APTT 37 SECONDS (21-34) H 08/22/18 11:28 - Additional Findings Additional findings: - Constitutional Appears: Well, No Acute Distress - Head Exam Head Exam: ATRAUMATIC, NORMOCEPHALIC - Eye Exam Eye Exam: EOMI, PERRL - ENT Exam ENT Exam: Mucous Membranes Moist - Neck Exam Neck Exam: Full ROM - Respiratory Exam Respiratory Exam: Clear to Ausculation Bilateral, NORMAL BREATHING PATTERN. absent: Rales, Rhonchi, Respiratory Distress, Stridor - Cardiovascular Exam Cardiovascular Exam: REGULAR RHYTHM, +S1, +S2. absent: Gallop, Rubs, Murmur - GI/Abdominal Exam GI & Abdominal Exam: Soft, Normal Bowel Sounds. absent: Distended, Firm, Guarding, Rigid, Tenderness, Organomegaly - Extremities Exam Extremities Exam: Normal Capillary Refill. absent: Calf Tenderness, Pedal Edema - Back Exam Additional comments: Left foot: Sensation intact. Able to move toes on left foot. Post-op dressing clean, dry, intact. Pulses intact. 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 POD 2 status post resection of left fifth metatarsal head and proximal phalanx with primary closure secondary to Osteomyelitis of 5th metatarsal. Plan: S/p resection of left fifth metatarsal head and proximal phalanx with primary closure secondary to Osteomyelitis of 5th metatarsal - POD#5 - no leukocytosis, afebrile - Dr Marley Podiatry consulted: MRI 08/20: extensive signal abnormality seen within the 5th MTT head extending into the shaft of the 5th metatarsal bone as well as within the 5th proximal phalanx with associated patchy decreased T1 signal. Concerning for acute osteomyelitis. - Vasc Sx Brown Consulted - Florastor 250 mg PO BID - BCx x2 is negative for 5 days - Left foot wound culture coag neg Staph - MRSA noted in left foot culture June 2018 - contact precautions for MRSA - pre-op wound culture final shows corynebacterium species heavy growth. Pt already on vancomycin - ID consulted (Mangia) - Vancomycin 1 g IV Q24H started 08/22 - vanocmycin trough 08/29 8.0 - Cefepime 1 g q12 IVPB started 08/22 discontinued 08/29 -08/24, continue antibiotics until intraop cultures return. No PICC line until BCx negative until 08/27. -08/29, intraop biospy shows no acute osteomyelitis but MRI findings and clinical history indicate 6w treatment of antibiotics. Continue vancomycin 1g IVPB for total of 6 weeks, weekly CMP, CBC, CRP, ESR and vancomycin trough - As per podiatry pt can weight bear and will be given surgical boot PFO with no history of documented Afib - Dr Nettles Cardio -spoke on phone: Pt needs to get a loop recorder for one month before consideration of PFO closure Pt does not want PFO closure Pt has not followed up as instructed after last d/c in jun Vascular dementia with PFO - CTA head/neck 06/19: no significant stenosis or structural abnormalities - Crestor 10 mg PO QHS - Wellbutrin 75 mg PO daily - Memantine 10 mg PO daily - Rivastigmine 9.5 mg patch daily - Fall precautions - Continue ASA 81 mg PO, Plavix 75 mg PO Hypertension - Monitor vitals Q4H - Amlodipine 10 mg PO daily - HCTZ 12.5 PO daily - Lisinopril 20 mg PO daily Type 2 diabetes mellitus - Last A1c 6.9 - Hypoglycemic protocol - Accuchecks ACHS with ISS Hx of bladder cancer - Urology Dr Lazcano: pt did not f/u after original dx of CA 9 yrs ago - 5 lesions removed during recent cystoscopy - Superficial in situ remnant, no further interventions need at this time - Monitor I&Os - [place] bowman catheter 08/22 - Urine culture no growth Prophylaxis: VTE: SCDs, heparin 5000 u sc q12 GI: not indicated, HHD Diet Code status: full code Dispo: Pt to have PICC line placed today. continue IV antibiotics, intraop tissue culture/margin pathology report will guide future antibiotic regimen. Pending [facility] authorization for rehab/6 weeks total of IV vancomycin (Completed 10/03/18). Case discussed with Dr. Hendricks
[2018-08-29] MEDS: (Novolin R) Insulin Human Regular 100 units/ml vial SC SCH ×3 (08:16→17:46)
--- NOTE | 2018-08-29 13:38 | CP.PCM.DIS ---
Provider - Provider Date of Admission: 08/22/18 11:18 Attending physician: Paige Hendricks MD Consults: 08/22/18 10:49 Infectious Disease Consult Routine Comment: Consulting Provider: Lnein Cohen Consulting Physician: Lenin Cohen Reason for Consult: Osteomyelitis left 5th metatarsal Physician Consult Routine Comment: Consulting Provider: Ryan Dasilva Jr. Consulting Physician: Ryan Dasilva Jr. Reason for Consult: Left 5th metatarsal chronic wound and osteomyelitis 08/22/18 11:21 Podiatry Consult Stat Comment: Consulting Provider: Joao Marley Consulting Physician: Joao Marley Reason for Consult: Left 5th digit osteomyelitis 08/22/18 15:05 Inpatient [employer] Core Measures Referral Routine Comment: Physician Instructions: Reason For Exam: chf Nursing Referral for Wound Care Routine Comment: Physician Instructions: Reason For Exam: high risk skin break down, osteo left foot 08/22/18 15:06 Nursing Referral for Palliative Care Routine Comment: Physician Instructions: Reason For Exam: chf, dementia, multiple CVA Time Spent in preparation of Discharge (in minutes): 35 Hospital Course - Lab Results Lab Results: Micro Results 08/22/18 10:48 Blood Blood Culture - Final NO GROWTH AFTER 5 DAYS 08/22/18 10:48 Blood Gram Stain - Final TEST NOT PERFORMED 08/22/18 10:48 Blood Blood Culture - Final NO GROWTH AFTER 5 DAYS 08/22/18 10:48 Blood Gram Stain - Final TEST NOT PERFORMED 08/24/18 15:36 Foot - Left Gram Stain - Final 08/24/18 15:36 Foot - Left Wound Culture - Final Coagulase Neg Staphylococcus 08/25/18 13:28 Urine Random Urine Culture - Final No Growth (<1,000 CFU/ML) 08/22/18 10:21 Foot - Left Gram Stain - Final 08/22/18 10:21 Foot - Left Wound Culture - Final Corynebacterium Species Most Recent Lab Values WBC 7.4 K/uL (4.8-10.8) 08/29/18 07:00 RBC 4.99 Mil/uL (4.40-5.90) 08/29/18 07:00 Hgb 13.5 g/dL (12.0-18.0) 08/29/18 07:00 Hct 41.2 % (35.0-51.0) 08/29/18 07:00 MCV 82.6 fL (80.0-94.0) 08/29/18 07:00 MCH 27.1 pg (27.0-31.0) 08/29/18 07:00 MCHC 32.8 g/dL (33.0-37.0) L 08/29/18 07:00 RDW 15.7 % (11.5-14.5) H 08/29/18 07:00 Plt Count 189 K/uL (130-400) 08/29/18 07:00 MPV 8.9 fL (7.2-11.7) 08/29/18 07:00 Neut % (Auto) 66.1 % (50.0-75.0) 08/29/18 07:00 Lymph % (Auto) 21.3 % (20.0-40.0) 08/29/18 07:00 [place] % (Auto) 7.9 % (0.0-10.0) 08/29/18 07:00 Eos % (Auto) 4.0 % (0.0-4.0) 08/29/18 07:00 Baso % (Auto) 0.7 % (0.0-2.0) 08/29/18 07:00 Neut # (Auto) 4.9 K/uL (1.8-7.0) 08/29/18 07:00 Lymph # (Auto) 1.6 K/uL (1.0-4.3) 08/29/18 07:00 [place] # (Auto) 0.6 K/uL (0.0-0.8) 08/29/18 07:00 Eos # (Auto) 0.3 K/uL (0.0-0.7) 08/29/18 07:00 Baso # (Auto) 0.1 K/uL (0.0-0.2) 08/29/18 07:00 PT 15.3 SECONDS (9.7-12.2) H 08/22/18 11:28 INR 1.4 08/22/18 11:28 APTT 37 SECONDS (21-34) H 08/22/18 11:28 Sodium 138 mmol/L (132-148) 08/29/18 07:00 Potassium 4.2 mmol/L (3.6-5.2) 08/29/18 07:00 Chloride 104 mmol/L (98-107) 08/29/18 07:00 Carbon Dioxide 28 mmol/L (22-30) 08/29/18 07:00 Anion Gap 10 (10-20) 08/29/18 07:00 BUN 23 mg/dL (9-20) H 08/29/18 07:00 Creatinine 1.0 mg/dL (0.8-1.5) 08/29/18 07:00 Est GFR ( Amer) > 60 08/29/18 07:00 Est GFR (Non-Af Amer) > 60 08/29/18 07:00 POC Glucose (mg/dL) 175 mg/dL (65-110) H 08/29/18 11:20 Random Glucose 90 mg/dL (75-110) 08/29/18 07:00 Calcium 9.2 mg/dl (8.6-10.4) 08/29/18 07:00 Phosphorus 3.0 mg/dL (2.5-4.5) 08/29/18 07:00 Magnesium 2.0 mg/dL (1.6-2.3) 08/29/18 07:00 Total Bilirubin 0.4 mg/dL (0.2-1.3) 08/29/18 07:00 AST 47 U/L (17-59) 08/29/18 07:00 ALT 39 U/L (21-72) 08/29/18 07:00 Alkaline Phosphatase 65 U/L (38-126) 08/29/18 07:00 Total Protein 6.6 g/dL (6.3-8.3) 08/29/18 07:00 Albumin 3.7 g/dL (3.5-5.0) 08/29/18 07:00 Globulin 2.9 gm/dL (2.2-3.9) 08/29/18 07:00 Albumin/Globulin Ratio 1.3 (1.0-2.1) 08/29/18 07:00 Urine Color Straw (YELLOW) 08/25/18 13:28 Urine Clarity Hazy (Clear) 08/25/18 13:28 Urine pH 5.0 (5.0-8.0) 08/25/18 13:28 Ur Specific Vaugh[place] 1.008 (1.003-1.030) 08/25/18 13:28 Urine Protein Negative mg/dL (NEGATIVE) 08/25/18 13:28 Urine Glucose (UA) Normal mg/dL (Normal) 08/25/18 13:28 Urine Ketones Negative mg/dL (NEGATIVE) 08/25/18 13:28 Urine Blood 2+ (NEGATIVE) H 08/25/18 13:28 Urine Nitrate Negative (NEGATIVE) 08/25/18 13:28 Urine Bilirubin Negative (NEGATIVE) 08/25/18 13:28 Urine Urobilinogen Normal mg/dL (0.2-1.0) 08/25/18 13:28 Ur Leukocyte Esterase Neg [place]/uL (Negative) 08/25/18 13:28 Urine WBC (Auto) 4 /hpf (0-5) 08/25/18 13:28 Urine RBC (Auto) 14 /hpf (0-3) H 08/25/18 13:28 Ur Squamous Epith Cells < 1 /hpf (0-5) 08/25/18 13:28 Urine Bacteria Rare (<OCC) 08/25/18 13:28 Vancomycin Trough 8.0 ug/mL (5.0-10.0) 08/29/18 11:07 Discharge Exam - Head Exam Head Exam: NORMOCEPHALIC Discharge Plan - Follow Up Plan Condition: STABLE Disposition: HOME/ ROUTINE Additional Instructions: intraop biospy shows no acute osteomyelitis but MRI findings and clinical history indicate 6w treatment of antibiotics. Continue vancomycin 1g IVPB for total of 6 weeks (until 10/03/18), weekly CMP, CBC, CRP, ESR and vancomycin trough
[2018-08-29 15:32] VITALS: BP 128/84; PULSE 66; RESP 20; TEMP 98
[2018-08-29] MEDS ORDERED: Influenza Vaccine 60 mcg/0.5 mL SYR (4YR UP) IM ONE (15:43)
--- NOTE | 2018-08-29 16:03 | RAD ---
Date of service: 08/29/2018 HISTORY: verify right PICC COMPARISON: 08/22/2018. FINDINGS: The right PICC line terminates at the cavoatrial junction. LUNGS: The lungs are well inflated and clear. PLEURA: No pleural effusions or pneumothorax. CARDIOVASCULAR: The heart is normal in size. No aortic atherosclerotic calcifications present. OSSEOUS STRUCTURES: Within normal limits for the patient's age. VISUALIZED UPPER ABDOMEN: Normal. OTHER FINDINGS: None. IMPRESSION: Right PICC line terminates at the cavoatrial junction. No acute findings.
--- NOTE | 2018-08-29 16:26 | CP.PCM.PN ---
Subjective - Date & Time of Evaluation Date of Evaluation: 08/29/18 Time of Evaluation: 09:00 - Subjective Subjective: afebrile in nad Objective - Vital Signs/Intake and Output Vital Signs (last 24 hours): Temp Pulse Resp BP Pulse Ox 98 F 66 20 128/84 96 08/29/18 15:31 08/29/18 15:31 08/29/18 15:31 08/29/18 15:31 08/29/18 15:31 Intake and Output: 08/29/18 08/29/18 06:59 18:59 Intake Total 2120 Output Total 2650 Balance -530 - Medications Medications: Current Medications Acetaminophen (Tylenol 650mg/20.3ml Solution Ud) 650 mg PO Q6 PRN PRN Reason: Pain, Mild (1-3) Amlodipine Besylate (Norvasc) 10 mg PO DAILY [facility] Last Admin: 08/29/18 09:36 Dose: 10 mg Aspirin (Aspirin Chewable) 81 mg PO DAILY [facility] Last Admin: 08/29/18 09:36 Dose: 81 mg Bupropion HCl (Wellbutrin) 75 mg PO DAILY [facility] Last Admin: 08/29/18 09:36 Dose: 75 mg Clopidogrel Bisulfate (Plavix) 75 mg PO DAILY [facility] Last Admin: 08/29/18 09:36 Dose: 75 mg Dextrose (Dextrose 50% Inj) 0 ml IV STAT PRN; Protocol PRN Reason: Hypoglycemia Protocol Dextrose (Glutose 15) 0 gm PO ONCE PRN; Protocol PRN Reason: Hypoglycemia Protocol Glucagon (Glucagen Diagnostic Kit) 0 mg IM STAT PRN; Protocol PRN Reason: Hypoglycemia Protocol Heparin Sodium (Porcine) (Heparin) 5,000 units SC Q12 [facility] Last Admin: 08/29/18 09:37 Dose: 5,000 units Hydrochlorothiazide (Microzide) 12.5 mg PO DAILY [facility] Last Admin: 08/29/18 09:36 Dose: 12.5 mg Dextrose (Dextrose 5% In Water 1000 Ml) 1,000 mls @ 0 mls/hr IV .Q0M PRN; Protocol PRN Reason: Hypoglycemia Protocol Vancomycin HCl 1 gm/ Sodium (Chloride) 250 mls @ 166.7 mls/hr IVPB 1600 [facility]; Protocol Stop: 10/03/18 23:00 Last Admin: 08/28/18 16:00 Dose: 166.7 mls/hr Insulin Human Regular (Novolin R) 0 unit SC ACHS [facility]; Protocol Last Admin: 08/29/18 12:30 Dose: 2 u Lisinopril (Zestril) 20 mg PO DAILY [facility] Last Admin: 08/29/18 09:36 Dose: 20 mg Memantine (Namenda) 10 mg PO DAILY [facility] Last Admin: 08/29/18 09:36 Dose: 10 mg Mupirocin (Bactroban Ointment) 0 gm TOP DAILY [facility] Last Admin: 08/28/18 10:44 Dose: Not Given Rivastigmine (Exelon 9.5 Mg/24 Hr Patch) 1 patch TD DAILY [facility] Last Admin: 08/29/18 09:36 Dose: 1 patch Rosuvastatin Calcium (Crestor) 10 mg PO HS [facility] Last Admin: 08/28/18 21:42 Dose: 10 mg - Labs Labs: 08/29/18 07:00 08/29/18 07:00 PT 15.3 SECONDS (9.7-12.2) H 08/22/18 11:28 INR 1.4 08/22/18 11:28 APTT 37 SECONDS (21-34) H 08/22/18 11:28 - Constitutional Appears: Non-toxic, Chronically Ill - Head Exam Head Exam: NORMOCEPHALIC - Eye Exam Eye Exam: absent: Scleral icterus - ENT Exam ENT Exam: Mucous Membranes Dry - Neck Exam Neck Exam: absent: Lymphadenopathy - Respiratory Exam Respiratory Exam: Decreased Breath Sounds - Cardiovascular Exam Cardiovascular Exam: REGULAR RHYTHM - GI/Abdominal Exam GI & Abdominal Exam: Distended, Soft. absent: Tenderness - Rectal Exam Rectal Exam: Deferred - Exam Exam: NORMAL INSPECTION - Extremities Exam Extremities Exam: Pedal Edema Additional comments: left foot wound dry - Back Exam Back Exam: absent: CVA tenderness (L), CVA tenderness (R) - Neurological Exam Neurological Exam: Alert, Awake, CN II-XII Intact, Oriented x3 - Psychiatric Exam Psychiatric exam: Depressed - Skin Skin Exam: Dry Assessment and Plan (1) Osteomyelitis of left foot Status: Acute - Assessment and Plan (Free Text) Assessment: cont iv rx for OM x 6 weeks if ok with Dr Marley
--- NOTE | 2018-08-29 16:27 | PCM.HF ---
Heart Failure Core Measure - Heart Failure Ejection Fraction: 40 % or Greater (EF 70%) RYAN Inhibitor Prescribed: Yes
--- NOTE | 2018-08-29 16:28 | CP.PCM.PN ---
Subjective - Date & Time of Evaluation Date of Evaluation: 08/29/18 Time of Evaluation: 16:28 - Subjective Subjective: Podiatry Progress Note - Dr. Marley 63M seen and evaluated at bedside for 5 days s/p left foot fifth met head and proximal phalanx resection. NAD. No acute events overnight. No new lower extremity complaints. Awaiting d/c to [facility]. Denies n/v/f/d/c/sob/marte/cp. Objective - Vital Signs/Intake and Output Vital Signs (last 24 hours): Temp Pulse Resp BP Pulse Ox 98 F 66 20 128/84 96 08/29/18 15:31 08/29/18 15:31 08/29/18 15:31 08/29/18 15:31 08/29/18 15:31 Intake and Output: 08/29/18 08/29/18 06:59 18:59 Intake Total 2120 Output Total 2650 Balance -530 - Medications Medications: Current Medications Acetaminophen (Tylenol 650mg/20.3ml Solution Ud) 650 mg PO Q6 PRN PRN Reason: Pain, Mild (1-3) Amlodipine Besylate (Norvasc) 10 mg PO DAILY [facility] Last Admin: 08/29/18 09:36 Dose: 10 mg Aspirin (Aspirin Chewable) 81 mg PO DAILY [facility] Last Admin: 08/29/18 09:36 Dose: 81 mg Bupropion HCl (Wellbutrin) 75 mg PO DAILY [facility] Last Admin: 08/29/18 09:36 Dose: 75 mg Clopidogrel Bisulfate (Plavix) 75 mg PO DAILY [facility] Last Admin: 08/29/18 09:36 Dose: 75 mg Dextrose (Dextrose 50% Inj) 0 ml IV STAT PRN; Protocol PRN Reason: Hypoglycemia Protocol Dextrose (Glutose 15) 0 gm PO ONCE PRN; Protocol PRN Reason: Hypoglycemia Protocol Glucagon (Glucagen Diagnostic Kit) 0 mg IM STAT PRN; Protocol PRN Reason: Hypoglycemia Protocol Heparin Sodium (Porcine) (Heparin) 5,000 units SC Q12 [facility] Last Admin: 08/29/18 09:37 Dose: 5,000 units Hydrochlorothiazide (Microzide) 12.5 mg PO DAILY [facility] Last Admin: 08/29/18 09:36 Dose: 12.5 mg Dextrose (Dextrose 5% In Water 1000 Ml) 1,000 mls @ 0 mls/hr IV .Q0M PRN; Protocol PRN Reason: Hypoglycemia Protocol Vancomycin HCl 1 gm/ Sodium (Chloride) 250 mls @ 166.7 mls/hr IVPB 1600 [facility]; Protocol Stop: 10/03/18 23:00 Last Admin: 08/28/18 16:00 Dose: 166.7 mls/hr Insulin Human Regular (Novolin R) 0 unit SC ACHS [facility]; Protocol Last Admin: 08/29/18 12:30 Dose: 2 u Lisinopril (Zestril) 20 mg PO DAILY [facility] Last Admin: 08/29/18 09:36 Dose: 20 mg Memantine (Namenda) 10 mg PO DAILY [facility] Last Admin: 08/29/18 09:36 Dose: 10 mg Mupirocin (Bactroban Ointment) 0 gm TOP DAILY [facility] Last Admin: 08/28/18 10:44 Dose: Not Given Rivastigmine (Exelon 9.5 Mg/24 Hr Patch) 1 patch TD DAILY [facility] Last Admin: 08/29/18 09:36 Dose: 1 patch Rosuvastatin Calcium (Crestor) 10 mg PO HS [facility] Last Admin: 08/28/18 21:42 Dose: 10 mg - Labs Labs: 08/29/18 07:00 08/29/18 07:00 PT 15.3 SECONDS (9.7-12.2) H 08/22/18 11:28 INR 1.4 08/22/18 11:28 APTT 37 SECONDS (21-34) H 08/22/18 11:28 - Constitutional Appears: Non-toxic, No Acute Distress - Extremities Exam Additional comments: Left lower extremity exam: Vascular: DP/PT 2/4, CFT <3 secs x5, TG warm to warm, minimal edema and erythema noted at the surgical site on dorsal aspect of the lateral forefoot. Derm: Ulceration measuring approximately 1.0 x .5 x 0.2cm noted sub 5th met head- ulcer noted to have a granular base and hyperkeratotic rim; no malodor; minimal drainage; no purulence; no fluctuance; no erythema Surgical site noted on lateral dorsal aspect of the forefoot; sutures intact, no wound dehiscence noted, no clinical signs of infection. ortho: no pain on palpation to the surgical site neuro: protective sensation grossly diminished - Neurological Exam Neurological Exam: Alert, Awake - Psychiatric Exam Psychiatric exam: Normal Affect, Normal Mood Assessment and Plan - Assessment and Plan (Free Text) Assessment: 63 yo male POD#5 Left foot fifth met head and Proximal Phalanx resection Plan: Patient seen and evaluated alongside attending, Dr. Ayaka AGUIRRE MRI (08/20): Acute OM 5th met head extending into shaft as well as within 5th proximal phalanx Post-op x-rays: satisfactory post-op x-rays ID recs appreciated - continue IV abx for 6 weeks Intra-op pathology: bone with mild chronic inflammation and reactive changes Intra-op wound cultures coagulase negative staph Activity: WBAT LLE; post op shoe ordered Stable for dc per podiatry Following discharge, patient to follow up with Dr. Marley within 1 week Podiatry will continue to follow
== END 2018-08-29 20:00 | DRG 629 ==
LOC: C.ER 09:44 → C.9E 11:18 → C.5S 12:33
PROVIDERS: ADMIT Internal Medicine; ATTEND Internal Medicine
PROC: 0QTP0ZZ Resection of Left Metatarsal, Open Approach (ICD-10-PCS; 2018-08-24)
PROC: 0QTR0ZZ Resection of Left Toe Phalanx, Open Approach (ICD-10-PCS; 2018-08-24)
PROC: 0QBP0ZZ Excision of Left Metatarsal, Open Approach (ICD-10-PCS; principal; 2018-08-24 07:30)
PROC: 02HV33Z Insertion of Infusion Device into Superior Vena Cava, Percutaneous Approach (ICD-10-PCS; 2018-08-29)
DX: E11.69 Type 2 diabetes mellitus with other specified complication (principal); M86.172 Other acute osteomyelitis, left ankle and foot; E11.621 Type 2 diabetes mellitus with foot ulcer; E11.51 Type 2 diabetes mellitus with diabetic peripheral angiopathy without gangrene; L97.529 Non-pressure chronic ulcer of other part of left foot with unspecified severity; E11.22 Type 2 diabetes mellitus with diabetic chronic kidney disease; I12.9 Hypertensive chronic kidney disease with stage 1 through stage 4 chronic kidney disease, or unspecified chronic kidney disease; N18.9 Chronic kidney disease, unspecified; Q21.1 Atrial septal defect; I48.91 Unspecified atrial fibrillation; B95.7 Other staphylococcus as the cause of diseases classified elsewhere; G30.9 Alzheimer's disease, unspecified; F02.80 Dementia in other diseases classified elsewhere, unspecified severity, without behavioral disturbance, psychotic disturbance, mood disturbance, and anxiety; F01.50 Vascular dementia, unspecified severity, without behavioral disturbance, psychotic disturbance, mood disturbance, and anxiety; K21.9 Gastro-esophageal reflux disease without esophagitis; E78.5 Hyperlipidemia, unspecified; E78.00 Pure hypercholesterolemia, unspecified; I69.319 Unspecified symptoms and signs involving cognitive functions following cerebral infarction; Z85.51 Personal history of malignant neoplasm of bladder; Z87.11 Personal history of peptic ulcer disease; Z91.14 Patient's other noncompliance with medication regimen; Z91.19 Patient's noncompliance with other medical treatment and regimen; Z87.738 Personal history of other specified (corrected) congenital malformations of digestive system; Z92.21 Personal history of antineoplastic chemotherapy; Z80.3 Family history of malignant neoplasm of breast; Z82.0 Family history of epilepsy and other diseases of the nervous system